=== PATIENT | male | born 1950 | race Caucasian/White ===

== ENCOUNTER → 2018-10-05 | Outpatient (CLI) | payer MEDICARE, BC ==
[2018-10-05 09:04] LABS: Blood Urea Nitrogen 18 mg/dL (9-20)
--- NOTE | 2018-10-05 10:52 | CT ---
EXAMINATION TYPE: CT chest w con DATE OF EXAM: 10/05/2018 COMPARISON: 10/30/2009 CT chest. No comparison chest x-rays. HISTORY: Abnormal chest x-ray CT DLP: 763.3 mGycm, Automated exposure control for dose reduction was used. CONTRAST: Performed injected with 100 mL of Isovue 300. TECHNIQUE: Axial images were obtained at 5 mm thick sections. Reconstructed images are reviewed on [employer] computer in the coronal plane. FINDINGS: There is a small hypodensity within the lateral midportion of the right lobe of thyroid. In the posterior right subcutaneous tissues there is a hypodense lesion measuring 6.6 x 4.3 cm to be co mpatible with a lipoma. Series 3 image 4.. No suspicious lung nodules or focal infiltrates are present. There may be a 1.3 cm right suprahilar lymph node. Series 3 image 27. This was present previously. N o additional suspicious adenopathy is evident. The ascending aorta diameter at the level of the main pulmonary artery is 3.5 cm. The main pulmonary artery diameter at the bifurcation is 2.[address] sections are obtained through the upper abdomen. There is moderate fatty infiltration thro ugh the liver. IMPRESSIONS: 1. Somewhat prominent lymph node measuring 1.3 cm right suprahilar region present previously in 2009. 2. No suspicious acute changes. 3. Probable lipoma posterior upper subcutaneous right chest. 4. Moderate fatty infiltration to the liver.
== END ==
LOC: RADCTMAIN 07:32
PROVIDERS: ATTEND Family Medicine
DX: R91.8 Other nonspecific abnormal finding of lung field (principal); Z88.8 Allergy status to other drugs, medicaments and biological substances
CPT/HCPCS: 82565; 84520; 71260; 36415; Q9967

== ENCOUNTER 2019-04-22 21:54 | Emergency (ER) | payer OTHER, MEDICARE, BC ==
[2019-04-22 22:09] VITALS: TEMP 97.6
--- NOTE | 2019-04-22 22:26 | ED ---
Syncope HPI - General Source: patient, EMS Mode of arrival: EMS <Shade Decker - Last Filed: 04/22/19 22:25> <Darian Montague - Last Filed: 04/22/19 23:34> - General Chief Complaint: Dizziness Stated Complaint: IHS-heat exhaustion Time Seen by Provider: 04/22/19 22:25 - History of Present Illness Initial Comments: Dictation was produced using [email or web address] dictation software. please excuse any grammatical, word or spelling errors. Chief Complaint: 68-year-old male presents with presyncope. History of Present Illness: Patient is 68-year-old male he is brought in for feelings of faintness while at a outdoor event. Patient states that the heat index was high and weather was very hot. Patient states perspiring all day. Approximately 2 hours prior to arrival patient states he had an episode where he began to feel faint. Patient did not fall to the ground. He immediately went to the shade and had some oral intake of glucose. Patient states that his symptomatology improved. He does have a history of diabetes. Patient reports that he hasn't been drinking much fluids today. Patient has no complaints at this time. Denies any sensation of palpitations or feeling of a curtain coming over his vision. he otherwise feels well at the moment. The ROS documented in this emergency department record has been reviewed and confirmed by me. Those systems with pertinent positive or negative responses h ave been documented in the HPI. All other systems are other negative and/or noncontributory. PHYSICAL EXAM: General Impression: Alert and oriented x3, not in acute distress HEENT: Normocephalic atraumatic, extra-ocular movements intact, pupils equal and reactive to light bilaterally, mucous membranes moist. Cardiovascular: Heart regular rate and rhythm, S1&S2 audible, no murmurs, rubs or gallops Chest: Lungs clear to auscultation bilaterally, no rhonchi, no wheeze, no rales Abdomen: Bowel sounds present, abdomen soft, non-tender, non-distended, no organomegaly Musculoskeletal: Pulses present and equal in all extremities, no peripheral edema Motor: no focal deficits noted Neurological: CN II-XII grossly intact, no focal motor or sensory deficits noted Skin: Intact with no visualized rashes Psych: Normal affect and mood ED course: 68-year-old male with presentation of presyncope. Patient was out in the hot weather. There is clinical component of heat exhaustion and dehydration. Stable hemodynamics and vital signs upon arrival. EKGs benign. Laboratory evaluation obtained. Metabolic panel shows mild gap acidosis. This likely secondary to dehydration. BUN to creatinine ratio is 120 concerning for dehydration as well. Patient given intravenous fluids. He is evaluated bedside has no complaints. Patient clear for discharge. He is advised to follow-up with primary care physician for reevaluation possible repeat labs. Return parameters discussed. Patient agreeable to discharge. EKG interpretation: Ventricular rate 54, sinus bradycardia, DE interval 170, care is 80, QTc 443. No DE prolongation, no QTC prolongation, no ST or T-wave changes noted. Overall, this EKG is unremarkable (Darian Montague) - Related Data Home Medications Medication Instructions Recorded Confirmed Albuterol Inhaler [Ventolin Hfa 1 - 2 puff INHALATION RT-QID PRN 04/22/19 04/22/19 Inhaler] Bisoprolol-Hctz 5-6.25 mg [Ziac 1 tab PO HS 04/22/19 04/22/19 5-6.25] Cetirizine HCl [Zyrtec] 10 mg PO DAILY 04/22/19 04/22/19 Fenofibrate [Lofibra] 160 mg PO AC-SUPPER 04/22/19 04/22/19 Fluticasone/Salmeterol [Advair 1 puff INHALATION RT-DAILY PRN 04/22/19 04/22/19 250-50 Diskus] Losartan [Cozaar] 25 mg PO HS 04/22/19 04/22/19 Multivitamins, Thera [Multivitamin 1 tab PO DAILY 04/22/19 04/22/19 (formulary)] Simvastatin [Zocor] 20 mg PO HS 04/22/19 04/22/19 Tamsulosin HCl [Flomax] 0.4 mg PO HS 04/22/19 04/22/19 Vitamin B Complex 1 cap PO DAILY 04/22/19 04/22/19 Vitamin D3(Unknown) 1 tab PO DAILY 04/22/19 04/22/19 metFORMIN HCL [Glucophage] 1,000 mg PO BID 04/22/19 04/22/19 Allergies Allergy/AdvReac Type Severity Reaction Status Date / Time diclofenac [From Cataflam] Allergy Rash/Hives Verified 04/22/19 22:36 lisinopril AdvReac Cough Verified 04/22/19 22:36 BLACK WASP Allergy Swelling Uncoded 04/22/19 22:36 Review of Systems ROS Other: All systems not noted in ROS Statement are negative. <Shade Decker - Last Filed: 04/22/19 22:25> ROS Other: All systems not noted in ROS Statement are negative. <Darian Montague - Last Filed: 04/22/19 23:34> ROS Statement: Those systems with pertinent positive or pertinent negative responses have been documented in the HPI. Past Medical History Past Medical History: COPD, Diabetes Mellitus, Hypertension History of Any Multi-Drug Resistant Organisms: None Reported Past Surgical History: Orthopedic Surgery Smoking Status: Former smoker Past Alcohol Use History: Heavy Past Drug Use History: Marijuana <Shade Decker - Last Filed: 04/22/19 22:25> Course Vital Signs 04/22/19 22:03 Temperature 97.6 F Pulse Rate 62 Respiratory 16 Rate Blood Pressure 115/63 O2 Sat by Pulse 95 Oximetry EKG Findings - EKG Comments: EKG Findings:: Possible old inferior infarct - EKG Results: EKG: interpreted by ERMD, sinus rhythm (With sinus arrhythmia), normal axis, normal ST/T EKG shows: bradycardia (Rate 54 bpm) <JeronimoShade - Last Filed: 04/22/19 22:25> Medical Decision Making - Lab Data Result diagrams: 04/22/19 22:11 <Darian Montague - Last Filed: 04/22/19 23:34> - Lab Data Lab Results 04/22/19 Range/Units 22:11 Sodium 140 (137-145) mmol/L Potassium 4.0 (3.5-5.1) mmol/L Chloride 105 (98-107) mmol/L Carbon Dioxide 19 L (22-30) mmol/L Anion Gap 16 mmol/L BUN 25 H (9-20) mg/dL Creatinine 1.00 (0.66-1.25) mg/dL Est GFR (CKD-EPI)AfAm 89 (>60 ml/min/1.73 sqM) Est GFR (CKD-EPI)NonAf 77 (>60 ml/min/1.73 sqM) Glucose 227 H (74-99) mg/dL Calcium 9.9 (8.4-10.2) mg/dL Magnesium 2.0 (1.6-2.3) mg/dL Disposition <Shade Decker - Last Filed: 04/22/19 22:25> Is patient prescribed a controlled substance at d/c from ED?: No Time of Disposition: 23:34 <Darian Montague - Last Filed: 04/22/19 23:34> Clinical Impression: Heat exhaustion Disposition: HOME SELF-CARE Condition: Good Instructions (If sedation given, give patient instructions): Dizziness (ED) Referrals: Rob Nolan MD [Primary Care Provider] - 1-2 days
[2019-04-22] MEDS ORDERED: SODIUM CHLORIDE 0.9% 1,000 ML IV STA (22:31)
[2019-04-22 22:58] LABS: Calcium 9.9 mg/dL (8.4-10.2)
[2019-04-23 00:06] VITALS: BP 121/75; PULSE 63; RESP 18
== END 2019-04-23 00:04 | disposition home or self-care (01) ==
LOC: EC 21:54
DX: T67.5XXA Heat exhaustion, unspecified, initial encounter (principal); R42 Dizziness and giddiness; R55 Syncope and collapse; E87.2 Acidosis; J44.9 Chronic obstructive pulmonary disease, unspecified; E11.9 Type 2 diabetes mellitus without complications; I10 Essential (primary) hypertension; Z87.891 Personal history of nicotine dependence; Z79.51 Long term (current) use of inhaled steroids; Z79.899 Other long term (current) drug therapy; Z79.84 Long term (current) use of oral hypoglycemic drugs; Z88.8 Allergy status to other drugs, medicaments and biological substances; Z91.030 Bee allergy status
CPT/HCPCS: 36415; 80048; 83735; 96360; 99284

== ENCOUNTER → 2019-09-14 | Outpatient (CLI) | payer MEDICARE, BC ==
--- NOTE | 2019-09-14 13:02 | CT ---
EXAMINATION TYPE: CT abdomen pelvis wo con DATE OF EXAM: 09/14/2019 COMPARISON: None HISTORY: Bilateral flank pain with hematuria CT DLP: 1158 mGycm Automated exposure control for dose reduction was used. TECHNIQUE: Helical acquisition of images was performed from the lung bases through the pelvis. FINDINGS: LUNG BASES: At least moderate coronary artery calcifications. LIVER/GB: Hepatic parenchyma is diffusely hypoattenuated in comparison to that of the spleen, most co mmonly seen in hepatic steatosis. This finding limits evaluation for hepatic masses. No gross evidenc e of hepatic mass is seen. Probable focal fatty sparing near the gallbladder fossa. No intrahepatic b iliary ductal dilatation. No cholelithiasis PANCREAS: No significant abnormality is seen. SPLEEN: No significant abnormality is seen. ADRENALS: 1.0 cm isthmic nodules the right adrenal gland does not fit criteria for benign adenoma and requires further evaluation with three-phase CT or MRI of the abdomen. KIDNEYS: There are 2 nonobstructing left renal calculi measuring 4 mm and 2 mm in the lower pole. No hydronephrosis of either kidney. No calculi along the courses of the ureters. There is a dystrophic c alcification in the urinary bladder measuring 2.1 cm with spiculated borders. This is seen just anter ior to the right ureteral orifice. There is impression on the urinary bladder by an enlarged and hete rogenous prostate gland containing central zone calcifications. Prostate gland measures 5.8 cm in tra nsverse dimension. FREE AIR: No free air is visualized ADENOPATHY: No greater than 1 cm short axis lymph node in the abdomen or pelvis. OSSEOUS STRUCTURES: Advanced degenerative disc disease. BOWEL: Numerous sigmoid and other colonic diverticula are seen without pericolonic fat stranding. Fa t filled umbilical hernia has a neck measuring 1.8 cm. OTHER: Extensive atherosclerosis of the abdominal aorta and its branches. IMPRESSION: 1. SPICULATED DYSTROPHIC APPEARING CALCIFICATION IN THE URINARY BLADDER MEASURING 2.1 CM JUST ANTERIO R TO THE RIGHT URETERAL ORIFICE. CURRENTLY NO HYDRONEPHROSIS. DIRECT VISUALIZATION IS RECOMMENDED IN THIS PATIENT WITH HEMATURIA. NONOBSTRUCTING PUNCTATE LEFT RENAL CALCULI ARE ALSO SEEN. 2. INDETERMINATE RIGHT ADRENAL GLAND NODULE FOR WHICH THREE-PHASE CT ABDOMEN OR MRI ARE NECESSARY TO FURTHER CHARACTERIZE. 3. PANCOLONIC DIVERTICULOSIS WITHOUT EVIDENCE OF DIVERTICULITIS. 4. HEPATIC STEATOSIS. 5. ENLARGED AND HETEROGENOUS PROSTATE GLAND IMPRESSING ON THE URINARY BLADDER.
== END ==
LOC: RADCTMAIN 11:36
PROVIDERS: ATTEND Nurse Practitioner Family
DX: N20.0 Calculus of kidney (principal); K57.30 Diverticulosis of large intestine without perforation or abscess without bleeding; K76.0 Fatty (change of) liver, not elsewhere classified; N40.0 Benign prostatic hyperplasia without lower urinary tract symptoms; R93.41 Abnormal radiologic findings on diagnostic imaging of renal pelvis, ureter, or bladder
CPT/HCPCS: 74176

== ENCOUNTER → 2019-10-13 | Outpatient (CLI) | payer MEDICARE, BC | END | disposition home or self-care (01) | LOC: RADMRIMAIN 07:52 | PROVIDERS: ATTEND Nurse Practitioner Family | DX: Z53.9 Procedure and treatment not carried out, unspecified reason (principal) ==

== ENCOUNTER → 2020-06-05 | Outpatient (CLI) | payer MEDICARE, BC ==
[2020-06-05 09:14] LABS: African American GFR (CKD) >90 (>60 ml/min/1.73 sqM); Blood Urea Nitrogen 16 mg/dL (9-20); Non-African American GFR(CKD) >90 (>60 ml/min/1.73 sqM)
--- NOTE | 2020-06-05 15:24 | CT ---
EXAMINATION TYPE: CT adrenal glands wo/w con DATE OF EXAM: 06/05/2020 COMPARISON: CT abdomen pelvis 09/14/2019. Outside institution MRI abdomen 10/25/2019. HISTORY: Follow up scan per patient. CT DLP: 2934 mGycm Automated exposure control for dose reduction was used. TECHNIQUE: Multiphasic helical acquisition of images of the abdomen, utilizing adrenal mass protocol . CONTRAST: Performed without and with IV Contrast, patient injected with 100 mL of Isovue 300. FINDINGS: LUNG BASES: Respiratory motion artifact. No pleural or pericardial effusion. Calcified coronary arter y disease. LIVER: Fatty liver. Liver is enlarged measuring 21.7 cm in craniocaudal dimension. BILIARY SYSTEM: Normal. PANCREAS: Normal. SPLEEN: Normal. ADRENALS: There is a 1.3 x 1.0 cm nodule of the right adrenal gland, with precontrast Hounsfield unit s of 38, postcontrast Hounsfield units of 74, and 15 minute delayed Hounsfield units of 52, with an a bsolute washout of 61.1%. KIDNEYS: Normal. BOWEL: No evidence of bowel obstruction. Colonic diverticulosis. No visualized acute diverticulitis. PERITONEUM: No free air is visualized. No free fluid. Fat-containing umbilical hernia. ADENOPATHY: No lymphadenopathy. VASCULATURE: No abdominal aortic aneurysm. Moderate calcified atherosclerotic disease. MUSCULOSKELETAL: Degenerative changes of the spine. IMPRESSION: 1. Right adrenal 1.3 cm nodule with absolute washout of 61.1%, consistent with lipid poor adenoma. 2. Fatty liver.
== END | disposition home or self-care (01) ==
LOC: RADCTMAIN 08:32
PROVIDERS: ATTEND Family Medicine
DX: K76.0 Fatty (change of) liver, not elsewhere classified (principal); N32.89 Other specified disorders of bladder; E27.9 Disorder of adrenal gland, unspecified; Z88.3 Allergy status to other anti-infective agents; Z88.8 Allergy status to other drugs, medicaments and biological substances
CPT/HCPCS: 82565; 84520; 36415; 74170; Q9967

== ENCOUNTER → 2020-11-29 | Outpatient (CLI) | payer MEDICARE, BC ==
--- NOTE | 2020-11-30 07:05 | XR ---
EXAMINATION TYPE: XR lumbar spine 2 or 3V DATE OF EXAM: 11/29/2020 CLINICAL HISTORY: pain TECHNIQUE: Three views of the lumbar spine are submitted. COMPARISON: None. FINDINGS: There are 5 lumbar type vertebral bodies identified. The lumbar spine shows satisfactory alignment w ithout evidence of acute fracture or dislocation. Vertebral body heights are within normal limits. Mo derate to multilevel degenerative disc space narrowing. Severe cysts facet joint arthropathy. Ventral spondylosis. The overlying soft tissue appears unremarkable. IMPRESSION: No acute fracture or dislocation is seen in the lumbar spine. ICD 10 NO FRACTURE, INITIAL EVALUATION
--- NOTE | 2020-11-30 07:06 | XR ---
EXAMINATION TYPE: XR Hip LT and AP Pelvis DATE OF EXAM: 11/29/2020 CLINICAL HISTORY: pain TECHNIQUE: AP and frogleg views of the left hip are obtained. COMPARISON: None. FINDINGS: There is no acute fracture/dislocation evident. The joint space appears within normal li mits. The overlying soft tissue appears unremarkable. IMPRESSION: 1. There is no acute fracture or dislocation.ICD 10 NO FRACTURE, INITIAL EVALUATION
--- NOTE | 2020-11-30 07:09 | XR ---
EXAMINATION TYPE: XR cervical spine limited DATE OF EXAM: 11/29/2020 CLINICAL HISTORY: pain TECHNIQUE: 3 views of the cervical spine are submitted. COMPARISON: None. FINDINGS: There is satisfactory in alignment without evidence of acute fracture or dislocation. The pre-vertebral soft tissue appears within normal limits. Mild multilevel degenerative disc space narr owing with mild ventral spondylosis. The C1-C2 articulation is unremarkable on the open mouth view. IMPRESSION: No acute fracture or dislocation is seen in the cervical spine.
== END | disposition home or self-care (01) ==
LOC: RADXRMAIN 15:29
PROVIDERS: ATTEND Family Medicine
DX: M54.16 Radiculopathy, lumbar region (principal); M54.12 Radiculopathy, cervical region; M99.03 Segmental and somatic dysfunction of lumbar region; M99.01 Segmental and somatic dysfunction of cervical region
CPT/HCPCS: 72040; 72100; 73502

== ENCOUNTER → 2021-01-15 | Outpatient (CLI) | payer MEDICARE, BC ==
--- NOTE | 2021-01-15 13:30 | P.PAINCN ---
History of Present Illness - Reason for Consult Consult date: 01/15/21 - History of Present Illness This is 70 years old male with a chronic history of severe low back pain, started more than 30 years ago , he reported that the pain is on and off and intensity of the pain fluctuate over time, interfere with the quality of life and over the last few months the pain increased significantly, it is constant with occasional radiation to the buttock and lower extremity, he denies any motor or sensory deficit , he is able to ambulate on his own, the pain increases with any activity Past Medical History Past Medical History: COPD, Diabetes Mellitus, Hypertension, Musculoskeletal Disorder, Osteoarthritis (OA) Additional Past Medical History / Comment(s): "thickened heart valve", diverticulosis, fatty liver, Legionnaire's disease, bulging discs History of Any Multi-Drug Resistant Organisms: None Reported Past Surgical History: Orthopedic Surgery Additional Past Surgical History / Comment(s): right knee surg., arthroscopy right knee, lasering eyes for glaucoma, colonoscopy x2 Past Anesthesia/Blood Transfusion Reactions: No Reported Reaction Smoking Status: Former smoker Past Alcohol Use History: Occasional Additional Past Alcohol Use History / Comment(s): quit smoking 21 yrs. ago, smoked for 30 yrs. 1-3ppd Past Drug Use History: Marijuana Additional Drug Use History / Comment(s): past hx. Medications and Allergies Home Medications Medication Instructions Recorded Confirmed Type Albuterol Inhaler (Mhu) [Ventolin 1 - 2 puff INHALATION RT-QID PRN 04/22/19 01/12/21 History Hfa Inhaler] Bisoprolol-Hctz 5-6.25 mg [Ziac 1 tab PO HS 04/22/19 01/12/21 History 5-6.25] Fenofibrate [Lofibra] 160 mg PO AC-SUPPER 04/22/19 01/12/21 History Fluticasone/Salmeterol [Advair 1 puff INHALATION RT-DAILY PRN 04/22/19 01/12/21 History 250-50 Diskus] Losartan [Cozaar] 25 mg PO HS 04/22/19 01/12/21 History Multivitamins, Thera [Multivitamin 2 tab PO DAILY 04/22/19 01/12/21 History (formulary)] Simvastatin [Zocor] 20 mg PO HS 04/22/19 01/12/21 History Tamsulosin HCl [Flomax] 0.4 mg PO BID 04/22/19 01/12/21 History metFORMIN HCL [Glucophage] 1,000 mg PO BID 04/22/19 01/12/21 History Acetaminophen [Tylenol Extra 1,500 mg PO DAILY 01/12/21 01/12/21 History Strength] Finasteride [Proscar] 5 mg PO DAILY 01/12/21 01/12/21 History Ibuprofen 800 mg PO Q6H PRN 01/12/21 01/12/21 History Loratadine [Claritin] 10 mg PO DAILY 01/12/21 01/12/21 History Allergies Allergy/AdvReac Type Severity Reaction Status Date / Time diclofenac [From Cataflam] Allergy Rash/Hives Verified 01/11/21 15:34 lisinopril AdvReac Cough Verified 01/11/21 15:34 BLACK WASP Allergy Swelling Uncoded 01/11/21 15:34 Physical Exam Vitals: Vital Signs Temp Pulse Resp BP Pulse Ox 01/15/21 13:04 98.1 F 90 18 146/74 100 Physical Examinations : -Constitutiona : Cooperative , not in acute distress . -HEENT : nech : supple , no Lymphadenopathy , normal thyroid size . : eyes : no ptosis , no icterus, no photophobia . - neurologic : Cranial nerve II to XII intact , no focal neurological deffecit . -psychatric : alert , oriented X 3 , appropriate affect , intact judgment and insight . -Lymphatic : no Lymphadenopathy . - musculoskeltal : Lumber spine moter stegnth lower extremities ,thigh and legs 5/5 Right side , 5/5 Left side deep tendon reflexes : normal Knee Jerk , normal ankle Jerk lumber facet Loading Test =positive Right , positive Left Range of motion of the lumbar spine Flexion 30 degrees, extension 10 degrees strait leg raising test = positive at 60 degree bilaterally Fabere test= positive Right , and positive LT . tenderness over the Sacroiliac joint on the Right , and Left sides Results Comments: MRI of the lumbar spine multilevel lumbar degenerative disc disease from L2 3 to L5-S1 multilevel lumbar facet arthropathy and severe spinal canal stenosis Assessment and Plan Plan: Assessment and plan=1-lumbar spinal stenosis. 2-lumbar degenerative disc disease. 3-lumbar spondylosis with lumbar facet arthropathy without myelopathy. Patient could benefit from lumbar epidural steroid injection under fluoroscopy guidance at L5S1 Time with Patient: Greater than 30 PQRS Measure Charge Sheet Measure #130: Documentation of Current Meds in Medical Chart: Patient's medications documented in chart Measure #226: Tobacco Use: Screen & Cessation Intervention: Pt not a tobacco user Measure #111: Pneumonia Vaccination: Pneumococcal vaccine NOT administered or previously given Measure #47: Advance Care Plan: Advance care planning discussed & documented, pt chose/unable to give Measure #412: Opioid Treatment Agreement: No documentation of signed opioid treatment agreement Measure #408: Opioid Therapy Follow-up Evaluation: Patient had NO f/u eval minimum every 3 months during opioid therapy Measure #317: Preventitive Care & Scrn High Bld Press & F/U: Pre-hypertensive or hypertensive BP documented, pt will f/u with PCP Measure #128: Body Mass Index (BMI) Screening & Follow-up: BMI documented ABOVE normal parameters - f/u documented Measure #131: Pain Assessment & Follow-up: Pain positive & plan documented, Follow-up scheduled Measure #431: Unhealthy Alcohol Use Preventative Care & Scrn: Patient not identified as an unhealthy alcohol user PQRS Narrative: Smoking Status Former smoker Blood Pressure 146/74 Pain Intensity [Lower Back] 5 Scale Used Numeric (1 - 10) Hx Alcohol Use (MH) No Home Medications: Ambulatory Orders Albuterol Inhaler (Mhu) [Ventolin Hfa Inhaler] 1 - 2 puff INHALATION RT-QID PRN 04/22/19 Bisoprolol-Hctz 5-6.25 mg [Ziac 5-6.25] 1 tab PO HS 04/22/19 Fenofibrate [Lofibra] 160 mg PO AC-SUPPER 04/22/19 Fluticasone/Salmeterol [Advair 250-50 Diskus] 1 puff INHALATION RT-DAILY PRN 04/22/19 Losartan [Cozaar] 25 mg PO HS 04/22/19 Multivitamins, Thera [Multivitamin (formulary)] 2 tab PO DAILY 04/22/19 Simvastatin [Zocor] 20 mg PO HS 04/22/19 Tamsulosin HCl [Flomax] 0.4 mg PO BID 04/22/19 metFORMIN HCL [Glucophage] 1,000 mg PO BID 04/22/19 Acetaminophen [Tylenol Extra Strength] 1,500 mg PO DAILY 01/12/21 Finasteride [Proscar] 5 mg PO DAILY 01/12/21 Ibuprofen 800 mg PO Q6H PRN 01/12/21 Loratadine [Claritin] 10 mg PO DAILY 01/12/21
== END ==
CPT/HCPCS: 99211

== ENCOUNTER 2021-02-06 07:21 | Day surgery (SDC) | payer MEDICARE, BC ==
[2021-02-02 10:32] VITALS: BMI 36.6
[~2021-02-06 07:21] MED LIST: LACTATED RINGERS 1,000 ML IV SCH
[2021-02-06 07:46] VITALS: TEMP 98.4
[2021-02-06 07:51] LABS: Glucose,Whole Blood 151 mg/dL (75-99)
[2021-02-06] MEDS ORDERED: IOPAMIDOL M200 10 ML VIAL ONE (08:05)
[2021-02-06] MEDS ORDERED: methylPREDNISolone ACETATE 40 MG/ML 1 ML VIAL ONE (08:05)
--- NOTE | 2021-02-06 08:16 | P.PCN ---
Date of Procedure: 02/06/21 Procedure(s) Performed: PREOPERATIVE DIAGNOSIS: 1- Lumbar Degenerative Disc Diseases 2-Lumbar spondylosis with Facet arthropathy without myelopathy. 3-lumbar spinal stenosis POSTOPERATIVE DIAGNOSIS: Same as preop diagnosis. PROCEDURE 1. Lumbar epidural steroid injection under fluoroscopic guidance at the L5-S1 level. (Fluoroscopy imaging was available in radiology department) 2. Lumbar epidurogram. ANESTHESIA: Local with 1% lidocaine 3 ml only. EBL: Minimal PROCEDURE INDICATION: The patient with low back pain and radiculitis symptoms unresponsive to conservative treatment. Fluoroscopy was used to optimize visualization of the needle placement and to maximize safety. PROCEDURE DESCRIPTION / TECHNIQUE: The patient was seen and identified in the preoperative area. Risks, benefits, complications including but not limited to infections ,bleeding ,allergic reac tion to the medications ,nerve damage and not complete pain releife , and alternatives were discussed with the patient. The patient agreed to proceed with the procedure and signed the consent. IV was started, and vital signs were stable. Patient was taken to the OR and time out was completed. The patient was placed in the prone position on procedure table and a pillow was placed under the abdomen to reduce lumbar lordosis. The lumbosacral area was prepped and draped in the usual sterile fashion.ere closely monitored during the procedure. Vital signs was monitered during the entire procedure. Using anterior-posterior fluoroscopy, the L5-S1 interlaminar space was identified and the skin over this site was marked and then infiltrated with 1% lidocaine subcutaneously. Subsequently, a 20-gauge Tuohy epidural needle was inserted and advanced toward the epidural space using the ``Loss of resistance technique and guided by AP and lateral fluoroscopy. The correct needle position in the epidural space was verified with the injection of 2 mL of the water soluble contrast dye Isovue 200 contrast and observing an excellent epidurogram with the epidural spread of the dye, after negative aspiration for blood and CSF and in the absence of paresthesias. Again after negative aspiration, a 6 ml mixture containing 40 mg of Depo-medrol , and 2 ml of preservative free Normal Saline, and 2 ml of preservative free lidocaine 1% solution was injected and a washout of epidurogram was seen. Needle was withdrawn intact, skin was cleansed, and bandages were applied. COMPLICATIONS: None DISPOSITION / PLANS: The patient was placed in a supine position and transferred to the recovery area in a stable condition for observation. There was no evidence of lower extremity motor or sensory deficit after the procedure. Patient was discharged from the recovery room after meeting discharge criteria. Home discharge instructions were given to the patient by the staff. The patient was reexamined prior to discharge. The patient will schedule a follow up in the clinic in 2-4 weeks.
[2021-02-06 08:24] VITALS: BP 169/94; PULSE 89; RESP 20
--- NOTE | 2021-02-06 08:46 | FL ---
Fluoroscopy INDICATION: Pain FINDINGS: Fluoroscopy time: 3 seconds. Images obtained: 1. IMPRESSIONS: 1. Documentation of fluoroscopy.
== END 2021-02-06 08:38 | disposition home or self-care (01) ==
LOC: ORPAIN 07:21
PROVIDERS: ATTEND Specialist
DX: M47.26 Other spondylosis with radiculopathy, lumbar region (principal); M51.16 Intervertebral disc disorders with radiculopathy, lumbar region; M48.061 Spinal stenosis, lumbar region without neurogenic claudication; Z88.8 Allergy status to other drugs, medicaments and biological substances
CPT/HCPCS: 62323; J1030; Q9966

== ENCOUNTER 2021-02-22 12:17 | Day surgery (SDC) | payer MEDICARE, BC ==
[2021-02-20 09:31] VITALS: BMI 36.6
[2021-02-22 13:01] VITALS: TEMP 97.2
[2021-02-22 13:06] LABS: Glucose,Whole Blood 126 mg/dL (75-99)
[2021-02-22] MEDS ORDERED: IOPAMIDOL M200 10 ML VIAL ONE (13:37)
[2021-02-22] MEDS ORDERED: ROPIVACAINE 5MG/ML 20ML VIAL ONE (13:37)
[2021-02-22] MEDS ORDERED: TRIAMCINOLONE ACETONIDE 40 MG/ML 1 ML VIAL ONE (13:37)
--- NOTE | 2021-02-22 13:51 | P.PCN ---
Date of Procedure: 02/22/21 Surgeon: Loan Carranza Pathology: none sent Condition: stable Disposition: PACU Description of Procedure: PREOPERATIVE DIAGNOSIS: 1-Lumbar radiculopathy 2- Lumber Degenerative Disc Diseases. POSTOPERATIVE DIAGNOSIS: 1-Lumbar radiculopathy. 2-Lumbar Degenerative Disc Diseases PROCEDURE 1. Lumbar epidural steroid injection under fluoroscopic guidance at the L5-S1 level in the left paramedian approach. 2. Lumbar epidurogram. ANESTHESIA: Local only with 1% lidocaine EBL: Minimal PROCEDURE INDICATION: The patient with low back pain and radiculitis symptoms unresponsive to conservative treatment. Fluoroscopy was used to optimize visualization of the needle placement and to maximize safety. PROCEDURE DESCRIPTION / TECHNIQUE: The patient was seen and identified in the preoperative area. Risks, benefits, complications including but not limited to infections ,bleeding ,allergic reaction to the medications ,nerve damage and not complete pain relief , and alternatives were discussed with the patient. The patient agreed to proceed with the procedure and signed the consent. IV was started, and vital signs were stable. Patient was taken to the OR and time out was completed. The patient was placed in the prone position on procedure table and a pillow was placed under the abdomen to reduce lumbar lordosis. The lumbosacral area was prepped and draped in the usual sterile fashion with ChloraPrep.Patient was closely monitored during the procedure. Conscious sedation was used during the procedure to decrease patients anxiety. Vital signs were monitered during the entire pr ocedure. Using anterior-posterior fluoroscopy, the L5-S1 interlaminar space was identified and the skin over this site was marked and then infiltrated with 1% lidocaine subcutaneously. Subsequently, a 20-gauge Tuohy epidural needle was inserted and advanced toward the epidural space using the Loss of resistance to air technique and guided by AP and lateral fluoroscopy. The correct needle position in the epidural space was verified with the injection of 1 mL of the water soluble contrast dye Omnipaque 180 contrast and observing an excellent epidurogram with the epidural spread of the dye, after negative aspiration for blood and CSF and in the absence of paresthesias. Again after negative aspiration, a 8 ml mixture containing 40 mg of Kenalog and 5 ml of preservative free Normal Saline, and 2 ml of preservative free ropivacaine 0.5% solution was injected and a washout of epidurogram was seen. Needle was withdrawn intact, skin was cleansed, and bandages were applied. patient tolerated procedure well and was transferred to PACU in stable condition.A copy of the needle placement picture was saved to the fluoroscopy machine. COMPLICATIONS: None
[2021-02-22 14:01] VITALS: RESP 20
--- NOTE | 2021-02-22 14:10 | FL ---
EXAMINATION TYPE: FL guided pain mgmt statistic DATE OF EXAM: 02/22/2021 CLINICAL HISTORY: Low back pain. TECHNIQUE: Fluoroscopy. COMPARISON: None. FINDINGS: Fluoroscopic guidance was provided during pain relief procedure performed by Dr. Street . A total of 10 seconds of fluoroscopic time was utilized during the procedure and two spot images a re acquired. Images acquired shows needle localization near the lumbosacral junction with contrast in jection. IMPRESSION: As Above.
[2021-02-22 14:17] VITALS: BP 120/71; PULSE 67
== END 2021-02-22 14:18 | disposition home or self-care (01) ==
LOC: ORPAIN 12:17
PROVIDERS: ATTEND Anesthesiology
DX: M51.16 Intervertebral disc disorders with radiculopathy, lumbar region (principal); E11.9 Type 2 diabetes mellitus without complications; I10 Essential (primary) hypertension
CPT/HCPCS: 62323; J3301; Q9966; J2795

== ENCOUNTER → 2021-04-23 | Outpatient (CLI) | payer MEDICARE, BC ==
[2021-04-23 10:30] VITALS: BP 159/77; PULSE 71; RESP 18; TEMP 98.3
--- NOTE | 2021-04-23 10:43 | P.PN ---
Subjective Progress Note Date: 04/23/21 This is a 70-year-old gentleman with history of chronic lower back pain with radiation to the lower extremities bilaterally down to the feet with occasional numbness and tingling in a specific radicular distribution. The patient had lumbar epidural steroid injection twice previously which gave him a few weeks of pain relief however his pain is back to baseline and getting worse. The patient failed to respond to tramadol prescribe his primary care physician and his liver enzymes have been getting worse up to 100 units per deciliter level and he was advised to stop using any Tylenol or ibuprofen. Patient denies new-onset weakness, bowel/bladder incontinence, or any other signs or symptoms of cauda equina syndrome. There are no signs of acute intoxication, and no indications of medication diversion or overuse. In addition to above, 13-point review of systems is also negative for chest pain, shortness of breath, changes in vision, changes in hearing, new onset weakness, abdominal pain, diarrhea, extreme fatigue, malaise, fever, skin changes, homicidal or suicidal ideation, or bowel or bladder incontinence. Vital Signs: Reviewed in EMR Gen: AAOx3, NAD HEENT: PERRLA,hearing grossly normal Pulm: resp unlabored Neck: supple, trachea midline Neuro exam of the lower extremities: Decreased but symmetrical knee reflexes bilaterally and absent ankle reflex bilaterally, normal muscle strength in the lower extremities bilaterally. Straight leg raising test: Negative bilaterally Facet loading test: Positive bilaterally in the lumbar spine Tenderness in the paravertebral musculature: Positive bilaterally in the lumbar paravertebral musculature Neuro: CN II-XII grossly intact, Imaging: Reviewed in EMR/chart Assessment: 1-lumbar spinal stenosis. 2-lumbar degenerative disc disease. 3-lumbar spondylosis with lumbar facet arthropathy without myelopathy. Plan: 1. Explanation: Opioid and psychological risk scores were reviewed. Diagnoses, prognoses, and multiple treatment options including but not limited to physical therapy, interventional therapies, adjuvant medical therapies, narcotic medication therapies, and surgery were discussed with the patient and all questions were answered to the patient's satisfaction. 2. Opioid agreement: Signed with the patient and the patient is warned not to use opioids while driving or before driving and not to combine opioids with benzodiazepines or alcohol. 3. Counseling: The patient was counseled extensively on SMOKING CESSATION, BODY MASS INDEX, EXERCISE. Specifically, the patient was instructed regarding the importance of smoking cessation, obesity, and exercise in the context of both chronic pain and overall health. 4. Procedures: Schedule for diagnostic lumbar medial branch block bilaterally for levels L4 5 and L5-S1(medial branches lumbar L3, L4 and L5) 5. Consultations: None 6. Investigations: None 7. Medications: Start gabapentin 100 mg and gradually go up to 900 mg a day 8. Disposition: Return to clinic in 4 weeks and to the above-mentioned procedure as soon as possible 9. Maps were reviewed and were appropriate.
== END ==
LOC: PNWHC3 10:17
PROVIDERS: ATTEND Anesthesiology
DX: M48.061 Spinal stenosis, lumbar region without neurogenic claudication (principal); M51.36 Other intervertebral disc degeneration, lumbar region; M47.816 Spondylosis without myelopathy or radiculopathy, lumbar region; Z88.6 Allergy status to analgesic agent; Z88.8 Allergy status to other drugs, medicaments and biological substances; Z91.038 Other insect allergy status; Z87.891 Personal history of nicotine dependence
CPT/HCPCS: 99211

== ENCOUNTER 2021-05-11 09:28 | Day surgery (SDC) | payer MEDICARE, BC ==
[2021-05-09 15:12] VITALS: BMI 36.6
[2021-05-11 10:01] VITALS: TEMP 98.2
[2021-05-11 10:04] LABS: Glucose,Whole Blood 156 mg/dL (75-99)
[2021-05-11] MEDS ORDERED: fentaNYL (PF) 50 MCG/ML 2 ML AMP ONE (10:24)
[2021-05-11] MEDS ORDERED: methylPREDNISolone ACETATE 40 MG/ML 1 ML VIAL ONE (10:24)
[2021-05-11] MEDS ORDERED: ROPIVACAINE 5MG/ML 20ML VIAL ONE (10:24)
[2021-05-11] MEDS ORDERED: MIDAZOLAM 2 MG/2 ML VIAL ONE (10:24)
--- NOTE | 2021-05-11 10:39 | P.PCN ---
Date of Procedure: 05/11/21 Procedure(s) Performed: PREOPERATIVE DIAGNOSIS : 1- Lumbar spondylosis with Facet Arthropathy without myelopathy . 2- Lumber degenerative disc disease POSTOPERATIVE DIAGNOSIS: 1- Lumbar spondylosis with Facet Arthropathy without myelopathy . 2- Lumber degenerative disc disease PROCEDURE: Diagnostic bilateral L3 , L4 , and L5 medial branch block under fluoroscopy guidance(fluoroscopy images available in the radiology Department ) ( To target the facet joint between L4-5 , and L5-S1 ) ANESTHESIA: Monitored anesthesia care as per anesthesia department.. EBL: Minimal COMPLICATION: None PROCEDURE INDICATION: Chronic low back pain secondary to Facet arthropathy unresponsive to conservative treatment. PROCEDURE DESCRIPTION: the patient was seen and identified in the preop holding area , risks and benefits and possible complications of the procedure and alternative were discussed with the patient, and the patient agreed to proceed with the procedure and signed the consent and vital signs monitored during the procedure and fluoroscopy was used to maximize the benefit and accuracy of the needle placement, and sedation was given to decrease patient anxiety, patient was taken to the procedure room and placed in prone position vital signs monitored in the back prepped with chlorhexidine X3 then under strict sterile technique using a right oblique fluoroscopy ,the junction of the transverse process and the superior articulating process of the right L3 , L4 , and L5 vertebra which corresponding to the fluoroscopy image of the eye of the Shivam dog on the block side for the medial branches and subsequently , after local infiltration of skin and subcu tissuies with Ropivacaine 0.5 % , one mL at each level ,then 22-gauge Quincke-type needles , 3 needle was used , each one of them placed at the junction of the base of the transverse process and the superior articular process at the appropriate level, and the needle was advanced until the periosteum contacted, needle placement confirmed with AP oblique and lateral view and after appropriate needle placement confirmed, and after negative aspiration for heme and CSF and there was no paresthesia 1-1/2 mL of Ropivacaine 0.5% mixed with 20 mg Depo-Medrol , then half mL injected at each level after negative aspiration the needle subsequently removed and the same procedure repeated for the left side at left side at L3 , L4 and L5 levels. At the end of the procedure and the needles removed and a bandage applied after the skin was cleaned the cleaning solution patient taken to recovery room in stable condition and monitors in the recovery room for 20-30 minutes and discharged home in stable condition after discharge criteria met and patient will follow up with the pain clinic in 2-4 weeks
[2021-05-11] MEDS ORDERED: IV FLUID CONTINUATION 1,000 ML IV ONE (10:49)
[2021-05-11 10:51] VITALS: RESP 18
[2021-05-11 11:02] VITALS: BP 146/79; PULSE 67
--- NOTE | 2021-05-11 11:25 | FL ---
Fluoroscopy INDICATION: Pain FINDINGS: Fluoroscopy time: 11 seconds. Images obtained: 4. IMPRESSIONS: 1. Documentation of fluoroscopy.
== END 2021-05-11 11:23 | disposition home or self-care (01) ==
LOC: ORPAIN 09:28
PROVIDERS: ATTEND Specialist
DX: G89.29 Other chronic pain (principal); M47.816 Spondylosis without myelopathy or radiculopathy, lumbar region; I10 Essential (primary) hypertension; E78.5 Hyperlipidemia, unspecified; I38 Endocarditis, valve unspecified; E11.9 Type 2 diabetes mellitus without complications; K21.9 Gastro-esophageal reflux disease without esophagitis; I25.2 Old myocardial infarction; Z79.84 Long term (current) use of oral hypoglycemic drugs; Z79.899 Other long term (current) drug therapy; Z88.8 Allergy status to other drugs, medicaments and biological substances
CPT/HCPCS: 64493; 64494; J2250; J1030; J3010; J2795

== ENCOUNTER → 2021-05-23 | Outpatient (CLI) | payer MEDICARE, BC ==
--- NOTE | 2021-05-23 14:33 | P.PAINPG ---
Subjective Progress Note Date: 05/23/21 This is a 70-year-old gentleman with history of chronic lower back pain with radiation to the lower extremities bilaterally down to the feet with occasional numbness and tingling in a specific radicular distribution. The patient had lumbar epidural steroid injection twice previously which gave him a few weeks of pain relief however his pain is back to baseline and getting worse. The patient failed to respond to tramadol prescribe his primary care physician and his liver enzymes have been getting worse up to 100 units per deciliter level and he was advised to stop using any Tylenol or ibuprofen. She notes that the medial branch block was effective in terms of relieving his pain, saying about 90% relief. He is still feeling some relief of the stay. He does mention that he has significant tailbone pain which is worse with changing positions and sitting. The pain was tailbone was not taken away by the medial branch blocks that he is concerned it is a different pain structure. He continues to take Tylenol and ibuprofen even though he was advised to stop. Patient denies new-onset weakness, bowel/bladder incontinence, or any other signs or symptoms of cauda equina syndrome. There are no signs of acute intoxication, and no indications of medication diversion or overuse. In addition to above, 13-point review of systems is also negative for chest pain, shortness of breath, changes in vision, changes in hearing, new onset weakness, abdominal pain, diarrhea, extreme fatigue, malaise, fever, skin changes, homicidal or suicidal ideation, or bowel or bladder incontinence. Vital Signs: Reviewed in EMR Gen: AAOx3, NAD HEENT: PERRLA,hearing grossly normal Pulm: resp unlabored Neck: supple, trachea midline Neuro exam of the lower extremities: Decreased but symmetrical knee reflexes bilaterally and absent ankle reflex bilaterally, normal muscle strength in the l ower extremities bilaterally. Straight leg raising test: Negative bilaterally Facet loading test: Positive bilaterally in the lumbar spine Tenderness in the paravertebral musculature: Positive bilaterally in the lumbar paravertebral musculature Tenderness over coccyx. Neuro: CN II-XII grossly intact, Imaging: Reviewed in EMR/chart Assessment: 1-lumbar spinal stenosis. 2-lumbar degenerative disc disease. 3-lumbar spondylosis with lumbar facet arthropathy without myelopathy. Plan: 1. Explanation: Opioid and psychological risk scores were reviewed. Diagnoses, prognoses, and multiple treatment options including but not limited to physical therapy, interventional therapies, adjuvant medical therapies, narcotic medication therapies, and surgery were discussed with the patient and all questions were answered to the patient's satisfaction. 2. Opioid agreement: We are not prescribing him opioids. 3. Counseling: The patient was counseled extensively on BODY MASS INDEX, EXERCISE. Specifically, the patient was instructed regarding the importance of obesity, and exercise in the context of both chronic pain and overall health. 4. Procedures: He is scheduled for diagnostic lumbar medial branch block bilaterally for levels L4 5 and L5-S1(medial branches lumbar L3, L4 and L5) #2. In the mean time we will perform a coccygeal ligament injection for him to help with the tailbone pain. 5. Consultations: None 6. Investigations: None 7. Medications: I advised him to talk to his primary care doctor about Tylenol and ibuprofen usage given his elevated liver enzymes and kidney dysfunction. 8. Disposition: For above procedures 9. Maps were reviewed and were appropriate. I have spent 25 minutes on review of the records, review of the imaging available, [id number] interaction with the patient, medication management, follow-up care coordination and record creation. PQRS Measure Charge Sheet PQRS Narrative: Smoking Status Former smoker Hx Alcohol Use (MH) No Home Medications: Ambulatory Orders Bisoprolol-Hctz 5-6.25 mg [Ziac 5-6.25] 1 tab PO HS 04/22/19 Fenofibrate [Lofibra] 160 mg PO AC-SUPPER 04/22/19 Losartan [Cozaar] 25 mg PO HS 04/22/19 Multivitamins, Thera [Multivitamin (formulary)] 2 tab PO DAILY 04/22/19 Simvastatin [Zocor] 20 mg PO HS 04/22/19 Tamsulosin HCl [Flomax] 0.4 mg PO BID 04/22/19 metFORMIN HCL [Glucophage] 1,000 mg PO BID 04/22/19 Finasteride [Proscar] 5 mg PO DAILY 01/12/21 Fexofenadine HCl [Susan Allergy] 180 mg PO DAILY 03/29/21 Gabapentin 300 mg PO Q8H 04/25/21 Turmeric With Glucosamine 1 tab PO BID 05/09/21 Acetaminophen [Tylenol] 1,500 mg PO Q4-6H PRN 05/11/21 Ibuprofen 800 mg PO Q8H 05/11/21 Controlled Substance Measures - Controlled Substance Measures Is patient prescribed a controlled substance at discharge?: No
[2021-05-23 14:49] VITALS: BP 142/89; PULSE 71; RESP 18; TEMP 97.7
== END ==
LOC: PNWHC3 14:14
PROVIDERS: ATTEND Anesthesiology
DX: M48.061 Spinal stenosis, lumbar region without neurogenic claudication (principal); M51.36 Other intervertebral disc degeneration, lumbar region; M47.816 Spondylosis without myelopathy or radiculopathy, lumbar region; Z87.891 Personal history of nicotine dependence; Z88.6 Allergy status to analgesic agent; Z88.8 Allergy status to other drugs, medicaments and biological substances
CPT/HCPCS: 99211

== ENCOUNTER 2021-06-05 10:56 | Day surgery (SDC) | payer MEDICARE, BC ==
[2021-05-31 12:27] VITALS: BMI 35.9
[2021-06-05 11:29] VITALS: TEMP 98.7
[2021-06-05] MEDS ORDERED: ROPIVACAINE 5MG/ML 20ML VIAL ONE (11:54)
[2021-06-05] MEDS ORDERED: methylPREDNISolone ACETATE 40 MG/ML 1 ML VIAL ONE (11:54)
[2021-06-05 12:12] VITALS: RESP 18
--- NOTE | 2021-06-05 12:14 | P.PCN ---
Date of Procedure: 06/05/21 Procedure(s) Performed: Procedure= sacrococcygeal joint steroid injection under fluoroscopy guidance (fluoroscopy image stored on file in the radiology Department ) Preoperative diagnosis= 1-sacrococcygeal neuralgia 2-lumbar degenerative disc disease 3-lumbar spondylosis facet arthropathy Postoperative diagnosis=Same as preop Diagnosis . Complication = none Condition= stable Anesthesia=none . Indication for the procedure= patient complaining of low back pain , examination was positive for severe tenderness over the coccygeal joint joints and patient diagnosed with sacrococcygeal neuralgia, for this reason he was good candidate for sacrococcygeal joint joint steroid injection. Description of the procedure= procedure risk and benefits discussed with the patient, including but not limited, risk of infection and bleeding, and ALLERGIC reaction to the medication and not complete pain relief and patient agreed with the preceding patient taken to the operating room, placed in prone position or standard monitors applied to the patient then back prepped with chlorhexidine 3 times , Then under strict sterile technique, I did the sacrococcygeal joint the which was identified under fluoroscopy guidance with lateral views ,then local infiltration of the skin and subcu interstitial with ropivacaine 0.5% then 25- gauge Quincke Needle advanced slowly under fluoroscopy and placed in the sacrococcygeal joint needle placement confirmed with AP and oblique and lateral view and after appropriate needle placement confirmed and after negative aspiration, or heme , then Ropivacaine 0.5% 2 mL, and 40 mg of Depo-Medrol mixed together and injected in the sacrococcygeal joint after negative aspiration patient tolerated the procedure well without any complication.
[2021-06-05 12:27] VITALS: BP 135/74; PULSE 73
--- NOTE | 2021-06-05 12:55 | FL ---
Fluoroscopy INDICATION: Pain FINDINGS: Fluoroscopy time: 7 seconds. Images obtained: 1. IMPRESSIONS: 1. Documentation of fluoroscopy.
== END 2021-06-05 12:33 | disposition home or self-care (01) ==
LOC: ORPAIN 10:56
PROVIDERS: ATTEND Specialist
DX: M51.36 Other intervertebral disc degeneration, lumbar region (principal); M47.816 Spondylosis without myelopathy or radiculopathy, lumbar region
CPT/HCPCS: 20550

== ENCOUNTER → 2021-06-15 | Day surgery (SDC) | payer MEDICARE, BC ==
[2021-06-12 12:03] VITALS: BMI 37.0
[~2021-06-15] MED LIST changes: +IV FLUID CONTINUATION 1,000 ML IV ONE; +MIDAZOLAM 2 MG/2 ML VIAL ONE; +NALOXONE 0.4 MG/ML 1 ML VIAL ONE; +ROPIVACAINE 5MG/ML 20ML VIAL ONE; +fentaNYL (PF) 50 MCG/ML 2 ML AMP ONE; +methylPREDNISolone ACETATE 40 MG/ML 1 ML VIAL ONE
[2021-06-15 08:41] VITALS: TEMP 97.1
[2021-06-15 08:41] LABS: Glucose,Whole Blood 159 mg/dL (75-99)
--- NOTE | 2021-06-15 08:58 | P.PCN ---
Date of Procedure: 06/15/21 Procedure(s) Performed: PREOPERATIVE DIAGNOSIS : 1- Lumbar spondylosis with Facet Arthropathy without myelopathy . 2- Lumber degenerative disc disease POSTOPERATIVE DIAGNOSIS: 1- Lumbar spondylosis with Facet Arthropathy without myelopathy . 2- Lumber degenerative disc disease PROCEDURE: Diagnostic bilateral L3 , L4 , and L5 medial branch block under fluoroscopy guidance(fluoroscopy images available in the radiology Department ) ( To target the facet joint between L4-5 , and L5-S1 ) # 2nd ANESTHESIA: Monitored anesthesia care as per anesthesia department.. EBL: Minimal COMPLICATION: None PROCEDURE INDICATION: Chronic low back pain secondary to Facet arthropathy unresponsive to conservative treatment. PROCEDURE DESCRIPTION: the patient was seen and identified in the preop holding area , risks and benefits and possible complications of the procedure and alternative were discussed with the patient, and the patient agreed to proceed with the procedure and signed the consent and vital signs monitored dur ing the procedure and fluoroscopy was used to maximize the benefit and accuracy of the needle placement, and sedation was given to decrease patient anxiety, patient was taken to the procedure room and placed in prone position vital signs monitored in the back prepped with chlorhexidine X3 then under strict sterile technique using a right oblique fluoroscopy ,the junction of the transverse process and the superior articulating process of the right L3 , L4 , and L5 vertebra which corresponding to the fluoroscopy image of the eye of the Shivam dog on the block side for the medial branches and subsequently , after local infiltration of skin and subcu tissuies with Ropivacaine 0.5 % , one mL at each level ,then 22-gauge Quincke-type needles , 3 needle was used , each one of them placed at the junction of the base of the transverse process and the superior articular process at the appropriate level, and the needle was advanced until the periosteum contacted, needle placement confirmed with AP oblique and lateral view and after appropriate needle placement confirmed, and after negative aspiration for heme and CSF and there was no paresthesia 1-1/2 mL of Ropivacaine 0.5% mixed with 20 mg Depo-Medrol , then half mL injected at each level after negative aspiration the needle subsequently removed and the same procedure repeated for the left side at left side at L3 , L4 and L5 levels. At the end of the procedure and the needles removed and a bandage applied after the skin was cleaned the cleaning solution patient taken to recovery room in stable condition and monitors in the recovery room for 20-30 minutes and discharged home in stable condition after discharge criteria met and patient will follow up with the pain clinic in 2-4 weeks
[2021-06-15 09:08] VITALS: RESP 16
--- NOTE | 2021-06-15 09:19 | FL ---
EXAMINATION TYPE: FL guided pain mgmt statistic DATE OF EXAM: 06/15/2021 HISTORY: Pain 10sec fluoro time,4 images to PACS
[2021-06-15 09:27] VITALS: BP 143/78; PULSE 65
== END ==
LOC: ORPAIN 08:02
PROVIDERS: ATTEND Specialist
DX: M47.816 Spondylosis without myelopathy or radiculopathy, lumbar region (principal); M51.36 Other intervertebral disc degeneration, lumbar region; Z88.8 Allergy status to other drugs, medicaments and biological substances; Z91.038 Other insect allergy status; E11.9 Type 2 diabetes mellitus without complications; Z87.891 Personal history of nicotine dependence; I10 Essential (primary) hypertension; E78.5 Hyperlipidemia, unspecified; Z79.82 Long term (current) use of aspirin; Z79.899 Other long term (current) drug therapy
CPT/HCPCS: 64493; 64494; J2250; J1030; J2310; J3010

== ENCOUNTER → 2021-07-16 | Outpatient (CLI) | payer MEDICARE, BC ==
[2021-07-16 10:10] VITALS: BP 163/75; PULSE 85; RESP 18; TEMP 98
--- NOTE | 2021-07-16 10:34 | P.PN ---
Subjective Progress Note Date: 07/16/21 This is Follow up visit for this 70 years old male with a chronic history of severe low back pain, is diagnosed with lumbar spondylosis and lumbar facet arthropathy and lumbar spinal stenosis, recently we have done diagnostic medial branch blocks lumbar area at L3, L4,L 5 bilaterally x2 his pain improved more than 75 % after each block, the pain interfere with the quality of life and over the last few months the pain increased significantly, it is constant with occasional radiation to the buttock and lower extremity, he denies any motor or sensory deficit , he is able to ambulate on his own, the pain increases with any activity Physical Examinations : -Constitutiona : Cooperative , not in acute distress . -HEENT : nech : supple , no Lymphadenopathy , normal thyroid size . : eyes : no ptosis , no icterus, no photophobia . - neurologic : Cranial nerve II to XII intact , no focal neurological deffecit . -psychatric : alert , oriented X 3 , appropriate affect , i ntact judgment and insight . -Lymphatic : no Lymphadenopathy . - musculoskeltal : Lumber spine moter stegnth lower extremities ,thigh and legs 5/5 Right side , 5/5 Left side deep tendon reflexes : normal Knee Jerk , normal ankle Jerk lumber facet Loading Test =positive Right , positive Left Range of motion of the lumbar spine Flexion 30 degrees, extension 10 degrees strait leg raising test = positive at 60 degree bilaterally Fabere test= positive Right , and positive LT . tenderness over the Sacroiliac joint on the Right , and Left sides tenderness over the sacrum . Results MRI of the lumbar spine multilevel lumbar degenerative disc disease from L2 3 to L5-S1 multilevel lumbar facet arthropathy and severe spinal canal stenosis Assessment and plan=1-lumbar spinal stenosis. 2-lumbar degenerative disc disease. 3-lumbar spondylosis with lumbar facet arthropathy without myelopathy. Patient could benefit from RFA medial branches lumbar at L3, L4 ,L5 bilaterally Time with Patient: less than 30. PQRS Measure Charge Sheet Measure #130: Documentation of Current Meds in Medical Chart: Patient's medications documented in chart Measure #226: Tobacco Use: Screen & Cessation Intervention: Pt not a tobacco user Measure #111: Pneumonia Vaccination: Pneumococcal vaccine NOT administered or previously given Measure #47: Advance Care Plan: Advance care planning discussed & documented, pt chose/unable to give Measure #412: Opioid Treatment Agreement: No documentation of signed opioid treatment agreement Measure #408: Opioid Therapy Follow-up Evaluation: Patient had NO f/u eval minimum every 3 months during opioid therapy Measure #317: Preventitive Care & Scrn High Bld Press & F/U: Pre-hypertensive or hypertensive BP documented, pt will f/u with PCP Measure #128: Body Mass Index (BMI) Screening & Follow-up: BMI documented ABOVE normal parameters - f/u documented Measure #131: Pain Assessment & Follow-up: Pain positive & plan documented, Follow-up scheduled Measure #431: Unhealthy Alcohol Use Preventative Care & Scrn: Patient not identified as an unhealthy alcohol user PQRS Narrative: Objective - Vital Signs Vital signs: Vital Signs Temp 98.0 F 07/16/21 10:07 Pulse 85 07/16/21 10:07 Resp 18 07/16/21 10:07 BP 163/75 07/16/21 10:07 Pulse Ox 95 07/16/21 10:07
== END ==
LOC: PNWHC3 09:57
PROVIDERS: ATTEND Specialist
DX: M48.061 Spinal stenosis, lumbar region without neurogenic claudication (principal); M51.36 Other intervertebral disc degeneration, lumbar region; M47.816 Spondylosis without myelopathy or radiculopathy, lumbar region; Z88.8 Allergy status to other drugs, medicaments and biological substances; Z88.6 Allergy status to analgesic agent; Z91.09 Other allergy status, other than to drugs and biological substances; Z87.891 Personal history of nicotine dependence
CPT/HCPCS: 99211

== ENCOUNTER 2021-08-17 09:37 | Day surgery (SDC) | payer MEDICARE, BC ==
[2021-08-16 09:56] VITALS: BMI 80.7
[~2021-08-17 09:37] MED LIST changes: -IV FLUID CONTINUATION 1,000 ML IV ONE; -MIDAZOLAM 2 MG/2 ML VIAL ONE; -NALOXONE 0.4 MG/ML 1 ML VIAL ONE; -ROPIVACAINE 5MG/ML 20ML VIAL ONE; -fentaNYL (PF) 50 MCG/ML 2 ML AMP ONE; -methylPREDNISolone ACETATE 40 MG/ML 1 ML VIAL ONE
[2021-08-17] MEDS ORDERED: LIDOCAINE 1% (10MG/ML) FOR IV START INTRADERMA ONE (10:15)
[2021-08-17 10:22] VITALS: RESP 16; TEMP 97.4
[2021-08-17] MEDS ORDERED: MIDAZOLAM 2 MG/2 ML VIAL ONE (10:25)
[2021-08-17] MEDS ORDERED: fentaNYL (PF) 50 MCG/ML 2 ML AMP ONE (10:25)
[2021-08-17 10:26] LABS: Glucose,Whole Blood 123 mg/dL (75-99)
[2021-08-17] MEDS ORDERED: methylPREDNISolone ACETATE 40 MG/ML 1 ML VIAL ONE (10:27)
[2021-08-17] MEDS ORDERED: ROPIVACAINE 5MG/ML 20ML VIAL ONE (10:27)
--- NOTE | 2021-08-17 10:55 | P.PCN ---
Date of Procedure: 08/17/21 Procedure(s) Performed: PREOPERATIVE DIAGNOSIS: 1-Lumbar Spondylosis with Facet Arthropathy without myelopathy. 2- Lumber degenerative disc disease. POSTOPERATIVE DIAGNOSIS: 1- Lumbar Spondylosis with Facet Arthropathy without myelopathy. 2- Lumber degenerative disc disease. PROCEDURES : Bilateral Radiofrequency thermocoagulation, L3 , L4 , and L5 medial branch, with fluoroscopic guidance (fluoroscopy images available in the radiology department) ( to denervate the facet joint at Bilateral L4-5 ,and L5-S1 levels ). ANESTHESIA: Monitored anesthesia care as per anesthesia department. EBL: Minimal PROCEDURE INDICATION: The patient with low back pain secondary to lumbar facet arthropathy who had more than 50% relief of her pain with previous diagnostic lumbar medial branch block with bupivacaine. PROCEDURE DESCRIPTION / TECHNIQUE: The patient was seen and identified in the preoperative area. Risks, benefits, complications, including but not limited to risk of infection ,bleeding , allergic reactions to the medications and no complete pain releife , and alternatives were discussed with the patient, the patient agreed to proceed with the procedure and signed the consent. IV was started. Vital signs remained stable throughout the procedure. Patient was taken to the OR and time out was completed. The patient was placed in the prone position on the procedure table. The lumber area was prepped and draped in the usual sterile fashion. . Vital signs were closely monitored during the procedure .IV sedation was used during the procedure to decrease patients anxiety. Using AP and then oblique fluoroscopy, the ``eye of the Shivam dog corre sponding to the connection between the superior and transverse articular processes of right L3, L4, and L5 were identified, marked, and localized with 1% lidocaine. Subsequently, a 18 [id number] radiofrequency cannula with a 10- mm active tip was advanced guided by fluoroscopy to each of the``eyes of the Shivam dog at right L3, L4, and L5. Each site then underwent sensory testing at 50 Hz and 0 to 1 volt and motor testing at 2.5 Hz and 0 to 3 volt with local stimulation, but no radicular symptoms down the legs. Thereafter each sites underwent radiofrequency thermocoagulation at 80 degrees celsius for 90 seconds after injecting 0.5 ml of PF Ropivacaine 1ml, then after the thermocoagulation done , 1 ml of the block solution containing Depo-Medrol 20 mg and 3 ml of Ropivacaine 0.5% was injected at the right L3 , L4 , and L5 , levels after negative aspiration of CSF and blood and with no paresthesias. Cannulas were retracted while injecting lidocaine 1% until the needle is out. The same procedure was repeated at the level of Left L3, L4, and L5 levels. At the end of the procedure, the skin was cleansed and bandages were applied. COMPLICATIONS: No acute complications. DISPOSITION / PLANS: The patient was placed in a supine position and transferred to the recovery area in a stable condition for observation and was discharged from the recovery room after meeting discharge criteria. Home discharge instructions given to the patient by the staff. The patient was reexamined prior to discharge. The patient will schedule a follow up in the clinic in 2-4 weeks.
[2021-08-17] MEDS ORDERED: IV FLUID CONTINUATION 1,000 ML IV ONE (11:14)
[2021-08-17 11:16] VITALS: BP 110/65; PULSE 67
--- NOTE | 2021-08-17 14:16 | FL ---
EXAMINATION TYPE: FL guided pain mgmt statistic DATE OF EXAM: 08/17/2021 CLINICAL HISTORY: Low back pain. TECHNIQUE: Fluoroscopy. COMPARISON: None. FINDINGS: Fluoroscopic guidance was provided during pain relief procedure performed by Dr. Richard . A total of 32 seconds of fluoroscopic time was utilized during the procedure and 7 spot images are acquired. Images acquired shows needle localization at several levels in the lumbar spine. IMPRESSION: As Above.
== END 2021-08-17 11:30 | disposition home or self-care (01) ==
LOC: ORPAIN 09:37
PROVIDERS: ATTEND Specialist
DX: M47.816 Spondylosis without myelopathy or radiculopathy, lumbar region (principal)
CPT/HCPCS: 64635; 64636; J2250; J1030; J3010; J2795

== ENCOUNTER → 2021-09-03 | Outpatient (CLI) | payer MEDICARE, BC ==
[2021-09-03 10:21] VITALS: BP 168/96; PULSE 87; RESP 18; TEMP 98.3
--- NOTE | 2021-09-03 10:32 | P.PN ---
Subjective Progress Note Date: 09/03/21 This is Follow up visit for this 70 years old male with a chronic history of severe low back pain, is diagnosed with lumbar spondylosis and lumbar facet arthropathy and lumbar spinal stenosis, recently we have done RFA medial branch blocks lumbar area at L3, L4,L 5 bilaterally, his back pain improved and is currently currently he had minimal or no pain in the low back area, he continued to have pain in the coccyx area, and in the coccyx area increases with sitting position or changing position, he denies any motor or sensory deficit , he is able to ambulate on his own, the pain increases with any activity, he continued to use Neurontin 300 mg 3 times a day and ibuprofen 800 mg 3 times a day when necessary denies any side effects of the medication Physical Examinations : -Constitutiona : Cooperative , not in acute distress . -HEENT : nech : supple , no Lymphadenopathy , normal thyroid size . : eyes : no ptosis , no icterus, no photophobia . - neurologic : Cranial nerve II to XII intact , no focal neurological deffecit . -psychatric : alert , oriented X 3 , appropriate affect , intact judgment and insight . -Lymphatic : no Lymphadenopathy . - musculoskeltal : Lumber spine moter stegnth lower extremities ,thigh and legs 5/5 Right side , 5/5 Left side deep tendon reflexes : normal Knee Jerk , normal ankle Jerk lumber facet Loading Test =positive Right , positive Left Range of motion of the lumbar spine Flexion 30 degrees, extension 10 degrees strait leg raising test = positive at 60 degree bilaterally Fabere test= positive Right , and positive LT . tenderness over the Sacroiliac joint on the Right , and Left sides tenderness over the sacrum . Results MRI of the lumbar spine multilevel lumbar degenerative disc disease from L2 3 to L5-S1 multilevel lumbar facet arthropathy and severe spinal canal stenosis Assessment and plan=1-lumbar spinal stenosis. 2-lumbar degenerative disc disease. 3-lumbar spondylosis with lumbar facet art hropathy without myelopathy. 4-coccydynia Patient excellent pain relief after RFA medial branches lumbar at L3, L4 ,L5 bilaterally Patient could benefit from caudal epidural steroid injection MAPS reviewed ,and it was appropriate, prescription refill for Neurontin 300 mg 3 times a day dispense 90 with 2 refills given Time with Patient: less than 30. PQRS Measure Charge Sheet Measure #130: Documentation of Current Meds in Medical Chart: Patient's medications documented in chart Measure #226: Tobacco Use: Screen & Cessation Intervention: Pt not a tobacco user Measure #111: Pneumonia Vaccination: Pneumococcal vaccine NOT administered or previously given Measure #47: Advance Care Plan: Advance care planning discussed & documented, pt chose/unable to give Measure #412: Opioid Treatment Agreement: No documentation of signed opioid treatment agreement Measure #408: Opioid Therapy Follow-up Evaluation: Patient had NO f/u eval minimum every 3 months during opioid therapy Measure #317: Preventitive Care & Scrn High Bld Press & F/U: Pre-hypertensive or hypertensive BP documented, pt will f/u with PCP Measure #128: Body Mass Index (BMI) Screening & Follow-up: BMI documented ABOVE normal parameters - f/u documented Measure #131: Pain Assessment & Follow-up: Pain positive & plan documented, Follow-up scheduled Measure #431: Unhealthy Alcohol Use Preventative Care & Scrn: Patient not identified as an unhealthy alcohol user PQRS Narrative: Objective - Vital Signs Vital signs: Vital Signs Temp 98.3 F 09/03/21 10:12 Pulse 87 09/03/21 10:12 Resp 18 09/03/21 10:12 BP 168/96 09/03/21 10:12 Pulse Ox 95 09/03/21 10:12 Intake & Output 09/02/21 09/03/21 09/03/21 18:59 06:59 18:59 Weight 122.47 kg
== END ==
LOC: PNWHC3 09:49
PROVIDERS: ATTEND Specialist
DX: M48.061 Spinal stenosis, lumbar region without neurogenic claudication (principal); M51.36 Other intervertebral disc degeneration, lumbar region; M47.816 Spondylosis without myelopathy or radiculopathy, lumbar region; M53.3 Sacrococcygeal disorders, not elsewhere classified; Z87.891 Personal history of nicotine dependence; Z88.6 Allergy status to analgesic agent; Z88.8 Allergy status to other drugs, medicaments and biological substances; Z91.038 Other insect allergy status
CPT/HCPCS: 99212

== ENCOUNTER 2021-10-23 13:23 | Day surgery (SDC) | payer BC, MEDICARE ==
[2021-10-17 11:15] VITALS: BMI 35.9
[2021-10-23] MEDS ORDERED: LACTATED RINGERS 1,000 ML IV ONE (13:50)
[2021-10-23 13:58] VITALS: RESP 16; TEMP 98
[2021-10-23 13:59] LABS: Glucose,Whole Blood 108 mg/dL (75-99)
--- NOTE | 2021-10-23 13:59 | P.PCN ---
Date of Procedure: 10/23/21 Description of Procedure: PREOPERATIVE DIAGNOSIS: Lumbar post laminectomy syndrome. POSTOPERATIVE DIAGNOSIS: Lumbar post laminectomy syndrome. PROCEDURE: 1. Caudal epidural steroid injection under fluoroscopic guidance. 2. Caudal epidurogram Imaging: Fluoroscopy was used, images where saved to the medical record ANESTHESIA: Local with 1% lidocaine; 5ml for subcutaneous infiltrations and milligrams Versed 100 g of fentanyl PROCEDURE DESCRIPTION: The patient was seen and identified in the preoperative area. Risks, benefits, complications, and alternatives were discussed with the patient. The patient agreed to proceed with the procedure and signed the consent. Vital signs were stable. Patient was taken to the OR and time out was completed. The patient was placed in the prone position on procedure table and a pillow was placed under the abdomen to reduce lumbar lordosis. The lumbosacral area was prepped and draped in the usual sterile fashion. Critical pause was taken. Vital signs were closely monitored during the procedure. Using lateral fluoroscopy the anterior-posterior plates of the sacrum were identified and the skin and deeper tissues corresponding into sacrococcygeal ligament were anesthetized using approximately 5 mL of 1% lidocaine. Then under fluoroscopy, a 3-1/2-inch 22-gauge spinal needle was guided through the sacrococcygeal ligament, and into the epidural space. After negative aspiration, a 2 mL of omnipaque-180 contrast dye was injected with excellent epidurogram. Again after negative aspiration for CSF, blood, and with no paresthesias, Depomedrol 40mg along with 2ml of 0.5% ropivacaine with 2 ml of preservative free normal saline (total of 5ml) solution was injected with washout of epidurogram. Needle was withdrawn intact. Skin was cleansed, and bandage was applied. COMPLICATIONS: None DISPOSITION / PLANS: The patient was placed in a supine position and transferred to the recovery area in a stable condition for observation and was discharged from the recovery room after meeting discharge criteria. Home discharge instructions given to the patient by the staff. The patient was reexamined prior to discharge. The patient will schedule a follow up in the clinic in 2-4 weeks.
[2021-10-23] MEDS ORDERED: ROPIVACAINE 5MG/ML 20ML VIAL ONE (14:01)
[2021-10-23] MEDS ORDERED: MIDAZOLAM 2 MG/2 ML VIAL ONE (14:01)
[2021-10-23] MEDS ORDERED: methylPREDNISolone ACETATE 40 MG/ML 1 ML VIAL ONE (14:01)
[2021-10-23] MEDS ORDERED: fentaNYL (PF) 50 MCG/ML 2 ML AMP ONE (14:01)
[2021-10-23] MEDS ORDERED: IOPAMIDOL M200 10 ML VIAL ONE (14:01)
--- NOTE | 2021-10-23 14:43 | FL ---
EXAMINATION TYPE: FL guided pain mgmt statistic DATE OF EXAM: 10/23/2021 CLINICAL HISTORY: Sacral pain. TECHNIQUE: Fluoroscopy. COMPARISON: None. FINDINGS: Fluoroscopic guidance was provided during pain relief procedure performed by Dr. Fragoso . A total of 5 seconds of fluoroscopic time was utilized during the procedure and two spot images are acquired. Images acquired shows needle localization from posterior-inferior approach at level of lo wer sacrum. IMPRESSION: As Above.
[2021-10-23 14:56] VITALS: BP 136/72; PULSE 61
[2021-10-23] MEDS ORDERED: IV FLUID CONTINUATION 1,000 ML IV ONE (15:00)
== END 2021-10-23 15:01 | disposition home or self-care (01) ==
LOC: ORPAIN 13:23
PROVIDERS: ATTEND Hospitalist
DX: M96.1 Postlaminectomy syndrome, not elsewhere classified (principal)
CPT/HCPCS: 62323; J2250; J1030; J3010; Q9966; J2795

== ENCOUNTER 2021-12-20 09:27 | Day surgery (SDC) | payer MEDICARE ==
[2021-12-18 11:22] VITALS: BMI 34.3
[~2021-12-20 09:27] MED LIST changes: +LIDOCAINE 1% (10MG/ML) FOR IV START INTRADERMA PRN
[2021-12-20 09:49] VITALS: TEMP 97.8
[2021-12-20 10:02] LABS: Glucose,Whole Blood 122 mg/dL (75-99)
[2021-12-20] MEDS ORDERED: fentaNYL (PF) 50 MCG/ML 2 ML AMP ONE (10:16)
[2021-12-20] MEDS ORDERED: MIDAZOLAM 2 MG/2 ML VIAL ONE (10:16)
[2021-12-20] MEDS ORDERED: methylPREDNISolone ACETATE 40 MG/ML 1 ML VIAL ONE (10:16)
[2021-12-20] MEDS ORDERED: IOPAMIDOL M200 10 ML VIAL ONE (10:16)
--- NOTE | 2021-12-20 10:42 | P.PCN ---
Date of Procedure: 12/20/21 Procedure(s) Performed: PREOPERATIVE DIAGNOSIS:1-Lumbar spinal stenosis 2-lumbar degenerative disc disease. 3-lumbar spondylosis with lumbar facet arthropathy. 4-coccyodynia POSTOPERATIVE DIAGNOSIS: Same as preoperative diagnosis PROCEDURE: 1. Caudal epidural steroid injection under fluoroscopic guidance. (Fluoroscopy images available in the radiology department ) 2. Caudal epidurogram ANESTHESIA: Local with 1% lidocaine; 5ml for subcutaneous infiltrations and moderate sedations with IV versed 2 mg ,and fentanyl 100 mcg EBL: None. PROCEDURE INDICATION: The patient with neuropathic pain radiating distally returns for caudal epidural steroid injection. PROCEDURE DESCRIPTION: The patient was seen and identified in the preoperative area. Risks, benefits, complications, and alternatives were discussed with the patient. The patient agreed to proceed with the procedure and signed the consent. IV was started, and vital signs were stable. Patient was taken to the OR and time out was completed. The patient was placed in the prone position on procedure table and a pillow was placed under the abdomen to reduce lumbar lordosis. The lumbosacral area was prepped and draped in the usual sterile fashion. Critical pause was taken. Vital signs were closely monitored during the procedure. Using lateral fluoroscopy the anterior-posterior plates of the sacrum were identified and the skin and deeper tissues corresponding into sacrococcygeal ligament were anesthetized using approximately 3 mL of 1% lidocaine. Then under fluoroscopy, a 3-1/2-inch 20-gauge Tuohy epidural needle was guided through the sacrococcygeal ligament, and into the epidural space. After negative aspiration, a 2 mL of Isovue 200 contrast dye was injected with excellent epidurogram. Again after negative aspiration for CSF, blood, and with no paresthesias, then Depo-Medrol 40mg, 2ml of 1% preservative free Lidocaine with 6 ml of preservative free normal saline(total of 10ml)solution was injected with washout of epidurogram. Needle was withdrawn intact. Skin was cleansed, and bandage wa s applied. COMPLICATIONS: None DISPOSITION / PLANS: The patient was placed in a supine position and transferred to the recovery area in a stable condition for observation and was discharged from the recovery room after meeting discharge criteria. Home discharge instructions given to the patient by the staff. The patient was reexamined prior to discharge. The patient will schedule a follow up in the clinic in 2-4 weeks.
[2021-12-20] MEDS ORDERED: IV FLUID CONTINUATION 1,000 ML IV ONE ×2 (10:43)
[2021-12-20 11:02] VITALS: BP 156/83; PULSE 61; RESP 16
--- NOTE | 2021-12-20 12:39 | FL ---
EXAMINATION TYPE: FL guided pain mgmt statistic DATE OF EXAM: 12/20/2021 CLINICAL HISTORY: Lower sacral pain. TECHNIQUE: Fluoroscopy. COMPARISON: None. FINDINGS: Fluoroscopic guidance was provided during pain relief procedure performed by anesthesia Dr Juan . A total of 4 seconds of fluoroscopic time was utilized during the procedure and two spot images are acquired. Images acquired shows needle localization from a posterior inferior approach a level o f the lower sacrum. IMPRESSION: As Above.
== END 2021-12-20 11:18 | disposition home or self-care (01) ==
LOC: ORPAIN 09:27
PROVIDERS: ATTEND Anesthesiology
DX: M47.816 Spondylosis without myelopathy or radiculopathy, lumbar region (principal); M51.36 Other intervertebral disc degeneration, lumbar region; M53.3 Sacrococcygeal disorders, not elsewhere classified; Z88.8 Allergy status to other drugs, medicaments and biological substances
CPT/HCPCS: 62323; J2250; J1030; J3010; Q9966; 99152

== ENCOUNTER 2022-01-13 12:10 | Emergency (ER) | payer MEDICARE ==
[2022-01-13] MEDS ORDERED: BEBTELOVIMAB (EUA) 175 MG/2 ML VIAL IV ONE (15:30)
[2022-01-13 15:38] VITALS: TEMP 98.9
--- NOTE | 2022-01-13 15:59 | ED ---
General Adult HPI - General Chief complaint: Upper Respiratory Infection Stated complaint: covid+, wants infusion Time Seen by Provider: 01/13/22 15:00 Source: patient, family, RN notes reviewed, old records reviewed Mode of arrival: ambulatory Limitations: no limitations - History of Present Illness Initial comments: Patient is a 71-year-old male who presents with his having Covid positive test results at home. I evaluated him when he was placed in a room. Has been having upper esterase symptoms for today. Tested positive today at home. Te sted positive here in the waiting room today. Denies any shortness of breath, chest pain. Was fully vaccinated. His no other acute complaint at this time. Would like monoclonal antibody therapy. - Related Data Home Medications Medication Instructions Recorded Confirmed Bisoprolol-Hctz 5-6.25 mg [Ziac 1 tab PO HS 04/22/19 01/10/22 5-6.25] Fenofibrate [Lofibra] 160 mg PO AC-SUPPER 04/22/19 01/10/22 Losartan [Cozaar] 25 mg PO HS 04/22/19 01/10/22 Multivitamins, Thera [Multivitamin 2 tab PO DAILY 04/22/19 01/10/22 (formulary)] Simvastatin [Zocor] 20 mg PO HS 04/22/19 01/10/22 Tamsulosin HCl [Flomax] 0.4 mg PO BID 04/22/19 01/10/22 metFORMIN HCL [Glucophage] 1,000 mg PO BID 04/22/19 01/10/22 Finasteride [Proscar] 5 mg PO DAILY 01/12/21 01/10/22 Acetaminophen [Tylenol] 1,000 mg PO DAILY PRN 05/11/21 01/10/22 Aspirin [Adult Low Dose Aspirin EC] 81 mg PO BID 06/12/21 01/10/22 Fexofenadine HCl [Susan Allergy] 180 mg PO DAILY 10/17/21 01/10/22 Ibuprofen 400 mg PO HS 11/19/21 01/10/22 Semaglutide [Ozempic] 1 mg SQ BAKER 11/19/21 01/10/22 Previous Rx's Medication Instructions Recorded Gabapentin 300 mg PO Q8H 30 Days #90 cap 01/10/22 Allergies Allergy/AdvReac Type Severity Reaction Status Date / Time diclofenac [From Cataflam] Allergy Rash/Hives Verified 01/13/22 12:17 lisinopril AdvReac Cough Verified 01/13/22 12:17 BLACK WASP Allergy Swelling Uncoded 01/13/22 12:17 Review of Systems ROS Statement: Those systems with pertinent positive or pertinent negative responses have been documented in the HPI. Review of Systems: CONST: Denies fever EYES: Denies blurry vision ENT: Endorses nasal congestion C/V: Denies Chest pain RESP: Denies shortness of breath GI: Denies abdominal pain : Denies dysuria SKIN: Denies rash. MSK: Denies joint pain. NEURO: Denies headache ROS Other: All systems not noted in ROS Statement are negative. Past Medical History Past Medical History: COPD, Diabetes Mellitus, Hyperlipidemia, Hypertension, Osteoarthritis (OA), Prostate Disorder Additional Past Medical History / Comment(s): "Thickened heart valve", diverticulosis, fatty liver, hx Legionnaire's disease, bulging discs, migraines, hiatal hernia, hx kidney stones. History of Any Multi-Drug Resistant Organisms: None Reported Past Surgical History: Orthopedic Surgery Additional Past Surgical History / Comment(s): Arthroscopy right knee, laser eye surgery for glaucoma, colonoscopy X2, rt knee open surgery, lithotripsy, PAIN CLINIC PROCEDURES. Past Anesthesia/Blood Transfusion Reactions: No Reported Reaction Past Psychological History: No Psychological Hx Reported Smoking Status: Former smoker - Past Family History Mother Family Medical History: No Reported History General Exam - General Exam Comments Initial Comments: General: Appears in no acute distress. HEAD: Normal with no signs of head trauma. EYES: PERRLA, EOMI, conjunctiva normal, no discharge. ENT: Hearing grossly intact, normal oropharynx. RESPIRATORY: Clear breath sounds bilaterally. No wheezes, rales, or rhonchi. No hypoxia. No increased work of breathing. C/V: Regular rate and rhythm. S1 and S2 auscultated, no edema, peripheral pulses 2+ and intact throughout ABD: Abd is soft, nontender, nondistended EXT: Normal range of motion, no obvious deformity SKIN: No rashes or lesions observed on exposed skin. NEURO: Alert and oriented 4. Limitations: no limitations Course Vital Signs 01/13/22 01/13/22 01/13/22 12:14 15:06 15:38 Temperature 98.1 F 98.9 F Pulse Rate 82 73 Respiratory 18 16 18 Rate Blood Pressure 162/79 141/77 O2 Sat by Pulse 96 96 Oximetry Medical Decision Making - Medical Decision Making Based on patient's presentation and physical exam, the patient is COVID-19 positive. Not believe that further laboratory studies or imaging are required at this time. He is not hypoxic. He is not in respiratory distress. He does meet criteria for monoclonal antibody therapy. He'll be given this. I recommended quarantine until at least 2 days symptom-free. I answered all questions that he had. He has a pulse ox at home already for monitoring his oxygen levels. Patient tolerated therapy well. He'll be discharged home at this time. I instructed the patient to follow up with their PCP in the next 3 days. . I explained that the patient should return to the emergency department if they experience any worsening symptoms. Strict return precautions were discussed with the patient. The patient expressed understanding of these instructions. I answered all questions that the patient had. The patient was discharged home in fair condition with their prescriptions and follow up information. - Lab Data Lab Results 01/13/22 Range/Units 12:18 Coronavirus (PCR) Detected A (Not Detectd) Disposition Clinical Impression: COVID-19 Disposition: HOME SELF-CARE Condition: Fair Instructions (If sedation given, give patient instructions): COVID-19 (Coronavirus Disease 2019) (ED) Additional Instructions: Quarentine until 2 days symptom free. Monitor pulse ox, return if worsening symptoms or oxygen levels less than 90%. Is patient prescribed a controlled substance at d/c from ED?: No Referrals: Rob Nolan MD [Primary Care Provider] - 1-2 days Time of Disposition: 16:36
[2022-01-13 17:12] VITALS: BP 138/87; PULSE 78; RESP 16
== END 2022-01-13 17:11 | disposition home or self-care (01) ==
LOC: EC 12:10
DX: U07.1 COVID-19 (principal); E11.9 Type 2 diabetes mellitus without complications; I10 Essential (primary) hypertension; J44.9 Chronic obstructive pulmonary disease, unspecified; E78.5 Hyperlipidemia, unspecified; M19.90 Unspecified osteoarthritis, unspecified site; Z87.891 Personal history of nicotine dependence; Z79.84 Long term (current) use of oral hypoglycemic drugs; Z79.899 Other long term (current) drug therapy
CPT/HCPCS: 87635; 99283; Q0222

== ENCOUNTER → 2022-03-07 | Outpatient (CLI) | payer MEDICARE ==
[2022-03-07 09:51] VITALS: BP 160/81; PULSE 75; RESP 18; TEMP 97.9
--- NOTE | 2022-03-07 09:55 | P.PN ---
Subjective Progress Note Date: 03/07/22 Principal diagnosis: A 71 yr old male with a history of severe and chronic low back pain secondary to lumbar degenerative disc diseases and lumbar spondylosis with facet arthropathy presents today for medication refills. Patient underwent a caudal LISA and states he had 99% pain relief s/p procedure. Pain level is currently at 2/10 in intensity, achy/ burning in character in the lumbar spine without radiation of pain. Pain is provoked by weight bearing activities for periods of 30 minutes or more. Pain is alleviated with medications, injections, heat, physical therapy the past, home-based stretching regimen, use of a lumbar support brace and knee braces, repositioning and rest. He states he takes Neurontin twice a day as the 3rd dose makes him too drowsy. Interventional pain procedures completed include BL RFA L3-L5, Caudal LISA Patient is currently on Neurontin BID Patient denies any side effects of the medication(s), denies excessive drowsiness or sleepiness, denies suicidal ideation and reports that the current pain medication is helping to control the pain and improve activities of daily living. Patient denies any motor or sensory deficits. Patient denies any fever or night sweats, denies any change in the bowel movements or urination. Physical Examination: -Constitutional: Cooperative. Not in acute distress . -HEENT: Neck is supple. No lymphadenopathy. No thyromegaly. Normal thyroid size. Eyes: No ptosis , no icterus, no photophobia. ENT: No auditory deficits. Normal oropharynx. No Thrush. - Respiratory: Chest clear to auscultations bilaterally. No wheezing. No rhonchi. - Cardiovascular: Regular rate and rhythm. S1 / S2 , no S3 , no S4. - Gastrointestinal: Abdomen soft no tenderness. Bowel sounds positive in all four quadrants. No organomegaly. - Genitourinary: Deferred. - Neurologic: Cranial nerve II to XII intact. No focal neurological deficits. - Psychatric: Alert & oriented x 3. Matching mood & appropriate affect. Judgment and insight intact. - Lymphatic: No Lymphadenopathy. - Musculoskeletal: Cervical spine: Muscle bulk/ tone/ strength in the bilateral upper extremities normal Vertebral body tenderness to palpation over Facet loading test positive Thoracic spine Muscle bulk / tone/ strength in the bilateral paraspinal muscles normal Vertebral body tender to palpation over Facet loading test positive Lumbar spine: Motor bulk/ tone/ strength lower extremities , thigh and legs : 5/5 Deep tendon reflexes : Normal Knee Jerk. Normal Ankle Jerk . Vertebral body tenderness to palpation over Lumbar Facet Loading Test positive Straight Leg Raise: positive at 30 degrees right side/ left side Gaenslen's Test positive Sacral spine : Severe tenderness over the Sacroiliac joint: right side / left side Range of motion: Flexion of the lumbar spine <60 degrees Range of motion: Extension of the lumbar spine <20 degrees Gaenslen's Test positive Javi's Test positive Samira test: positive right side / left side Thigh Thrust Test Sacral Thrust Test Assessment and plan: Chronic low back pain secondary to lumbar degenerative disc disease , lumbar spondylosis with facet arthropathy without myelopathy Risks, benefits of procedure discussed and pt verbalized understanding. Denies anticoagulant use or medical history of diabetes. Chronic and current use of high-risk medication (Opioids). The patient was counseled about risk of opioid use, psychological risk associated with opioids and was orally counseled to not overuse , divert or sell medications. Pt is to store medication in a safe location. The patient is counseled against driving while using narcotic medications and also not to use alcohol or any illicit recreational drugs. Patient verbalized understanding that the lack of compliance will result in failure to renew narcotic prescription(s) as well as possible discharge from the clinic Diagnoses, prognosis and treatment options including but not limited to physical therapy, surgical interventions, interventional therapies and medication management including narcotics and adjuvant medication were discussed. All patient questions answered MAPS reviewed and it was appropriate. Prescription refill for Neurontin 300mg #60 w 2 refills. I have spent 31 minutes on patient care today. Dr Richard was available by phone for the evaluation of this patient. The time was used to review the medical records including relevant urine studies and Prescription history (MAPs), review of the available imaging, evaluation and examination of the patient, coordination of care with the medical staff and if applicable referring physicians, as well as creation of the medical record Objective - Vital Signs Vital signs: Vital Signs Temp 97.9 F 03/07/22 09:46 Pulse 75 03/07/22 09:46 Resp 18 03/07/22 09:46 BP 160/81 03/07/22 09:46 Pulse Ox 95 03/07/22 09:46 FiO2 PQRS Measure Charge Sheet Mode of Arrival: Ambulatory - Pain Location Lower Back Non-Pharmacological Interventions: Heat, Home Exercise, Physical Therapy, Position/Reposition, Stretching Pharmacological Interventions: Epidural, PRN Medication, Scheduled Medication PQRS Narrative: Smoking Status Former smoker Narcotic Agreement Date Signed 07/16/21 Blood Pressure 160/81 Pain Intensity [Lower Back] 2 Scale Used Numeric (1 - 10) Hx Alcohol Use (MH) No Home Medications: Ambulatory Orders Bisoprolol-Hctz 5-6.25 mg [Ziac 5-6.25] 1 tab PO HS 04/22/19 Fenofibrate [Lofibra] 160 mg PO AC-SUPPER 04/22/19 Losartan [Cozaar] 25 mg PO HS 04/22/19 Multivitamins, Thera [Multivitamin (formulary)] 2 tab PO DAILY 04/22/19 Simvastatin [Zocor] 20 mg PO HS 04/22/19 Tamsulosin HCl [Flomax] 0.4 mg PO BID 04/22/19 metFORMIN HCL [Glucophage] 1,000 mg PO BID 04/22/19 Finasteride [Proscar] 5 mg PO DAILY 01/12/21 Acetaminophen [Tylenol] 1,000 mg PO DAILY PRN 05/11/21 Aspirin [Adult Low Dose Aspirin EC] 81 mg PO BID 06/12/21 Fexofenadine HCl [Susan Allergy] 180 mg PO DAILY 10/17/21 Ibuprofen 400 mg PO HS 11/19/21 Semaglutide [Ozempic] 1 mg SQ BAKER 11/19/21 Gabapentin 300 mg PO Q8H 30 Days #90 cap 03/07/22
== END ==
LOC: PNWHC3 09:20
PROVIDERS: ATTEND Specialist
DX: M51.36 Other intervertebral disc degeneration, lumbar region (principal); M47.816 Spondylosis without myelopathy or radiculopathy, lumbar region; G89.29 Other chronic pain; Z79.891 Long term (current) use of opiate analgesic; E11.9 Type 2 diabetes mellitus without complications; Z87.891 Personal history of nicotine dependence; Z79.84 Long term (current) use of oral hypoglycemic drugs; Z88.6 Allergy status to analgesic agent; Z88.8 Allergy status to other drugs, medicaments and biological substances; Z91.038 Other insect allergy status
CPT/HCPCS: 99211

== ENCOUNTER → 2022-04-15 | Outpatient (CLI) | payer MEDICARE ==
[2022-04-15 11:52] VITALS: BP 176/66; PULSE 76; RESP 14; TEMP 98.6
--- NOTE | 2022-04-15 12:07 | P.PAINPG ---
Objective - Vital Signs Vital signs: Vital Signs Temp 98.6 F 04/15/22 11:41 Pulse 76 04/15/22 11:41 Resp 14 04/15/22 11:41 BP 176/66 04/15/22 11:41 Pulse Ox 95 04/15/22 11:41 FiO2 Intake & Output 04/14/22 04/15/22 04/15/22 18:59 06:59 18:59 Weight 115.666 kg PQRS Measure Charge Sheet Mode of Arrival: Ambulatory Comment: A 71 yr old male with a history of severe and chronic low back pain secondary to lumbar degenerative disc diseases and lumbar spondylosis with facet arthropathy presents today for LBP evaluation. Pain level is currently at 5/10 in intensity, constant, sharp/shooting/stabbing localized in lower aspect of his lumbar spine with radiation w radiation of pain down LLE. Pain is provoked by bending up to 8/10. Pain is alleviated with medications, heat, +Cannabis gummies, home exercise regimen, massage & chiropractic treatments in 2019, repositioning and rest. Interventional pain procedures completed include Caudal LISA x 2. BL RFA L3-L5 Patient is currently on Tyl Ibu Neurontin Patient denies any side effects of the medication(s), denies excessive drowsiness or sleepiness, denies suicidal ideation and reports that the current pain medication is helping to control the pain and improve activities of daily living. Patient denies any motor or sensory deficits. Patient denies any fever or night sweats, denies any change in the bowel movements or urination. Physical Examination: -Constitutional: Cooperative. Not in acute distress . - Neurologic: Cranial nerve II to XII intact. No focal neurological deficits. - Psychatric: Alert & oriented x 3. Matching mood & appropriate affect. Judgment and insight intact. - Musculoskeletal: Cervical spine: Muscle bulk/ tone/ strength in the bilateral upper extremities normal Vertebral body tenderness to palpation over Spurling test positive Distraction test positive Facet loading test positive Thoracic spine Muscle bulk / tone/ strength in the bilateral paraspinal muscles normal Vertebral body tender to palpation over Facet loading test positive Lumbar spine: Motor bulk/ tone/ strength lower extremities , thigh and legs : 5/5 Deep tendon reflexes : Normal Knee Jerk. Normal Ankle Jerk . Vertebral body tenderness to palpation over Lumbar Facet Loading Test positive over BL L4-L5, L5-S1, L >R Straight Leg Raise: positive at 30 degrees right side/ left side Gaenslen's Test positive Sacral spine : Severe tenderness over the Sacroiliac joint: right side / left side Range of motion: Flexion of the lumbar spine <60 degrees Range of motion: Extension of the lumbar spine <20 degrees Gaenslen's Test positive Javi's Test positive Samira test: positive right side / left side Thigh Thrust Test Sacral Thrust Test Assessment and plan: Chronic low back pain secondary to lumbar degenerative disc disease , lumbar spondylosis with facet arthropathy without myelopathy Recommendation of BL RFA L4-L5, L5-S1. Risks, benefits of procedure discussed and pt verbalized understanding. Denies anticoagulant use or medical history of diabetes. All patient questions answered MAPS reviewed and it was appropriate. I have spent less than 30 minutes on patient care today. Dr Richard was available by phone for the evaluation of this patient. The time was used to review the medical records including relevant urine studies and Prescription history (MAPs), review of the available imaging, evaluation and examination of t he patient, coordination of care with the medical staff and if applicable referring physicians, as well as creation of the medical record - Pain Location Lower Back Non-Pharmacological Interventions: Chiropractic Treatment, Heat, Home Exercise, Ice, Inactivity, Physical Therapy, Position/Reposition, Stretching, Therapeutic Touch Pharmacological Interventions: Block, Epidural, Medication PQRS Narrative: Smoking Status Former smoker Narcotic Agreement Date Signed 07/16/21 Blood Pressure 176/66 Pain Intensity [Lower Back] 5 Scale Used Numeric (1 - 10) Hx Alcohol Use (MH) No Home Medications: Ambulatory Orders Bisoprolol-Hctz 5-6.25 mg [Ziac 5-6.25] 1 tab PO HS 04/22/19 Fenofibrate [Lofibra] 160 mg PO AC-SUPPER 04/22/19 Losartan [Cozaar] 25 mg PO HS 04/22/19 Multivitamins, Thera [Multivitamin (formulary)] 2 tab PO DAILY 04/22/19 Simvastatin [Zocor] 20 mg PO HS 04/22/19 Tamsulosin HCl [Flomax] 0.4 mg PO BID 04/22/19 metFORMIN HCL [Glucophage] 1,000 mg PO BID 04/22/19 Finasteride [Proscar] 5 mg PO DAILY 01/12/21 Acetaminophen [Tylenol] 1,000 mg PO DAILY PRN 05/11/21 Aspirin [Adult Low Dose Aspirin EC] 81 mg PO BID 06/12/21 Fexofenadine HCl [Susan Allergy] 180 mg PO DAILY 10/17/21 Ibuprofen 400 mg PO HS 11/19/21 Semaglutide [Ozempic] 1 mg SQ BAKER 11/19/21 Gabapentin 300 mg PO Q8H 30 Days #90 cap 03/07/22 Controlled Substance Measures - Controlled Substance Measures Is patient prescribed a controlled substance at discharge?: No
== END ==
LOC: PNWHC3 11:15
PROVIDERS: ATTEND Specialist
DX: M51.36 Other intervertebral disc degeneration, lumbar region (principal); M47.816 Spondylosis without myelopathy or radiculopathy, lumbar region; G89.29 Other chronic pain; Z87.891 Personal history of nicotine dependence; Z88.6 Allergy status to analgesic agent; Z88.8 Allergy status to other drugs, medicaments and biological substances; Z91.038 Other insect allergy status
CPT/HCPCS: 99211

== ENCOUNTER 2022-05-17 09:16 | Day surgery (SDC) | payer MEDICARE ==
[2022-05-17 09:47] VITALS: TEMP 98.2
[2022-05-17 09:48] LABS: Glucose,Whole Blood 111 mg/dL (70-110)
[2022-05-17] MEDS ORDERED: ROPIVACAINE 5MG/ML 20ML VIAL ONE (10:34)
[2022-05-17] MEDS ORDERED: fentaNYL (PF) 50 MCG/ML 2 ML AMP ONE (10:34)
[2022-05-17] MEDS ORDERED: methylPREDNISolone ACETATE 40 MG/ML 1 ML VIAL ONE (10:34)
[2022-05-17] MEDS ORDERED: MIDAZOLAM 2 MG/2 ML VIAL ONE (10:34)
--- NOTE | 2022-05-17 11:07 | P.PCN ---
Date of Procedure: 05/17/22 Procedure(s) Performed: PREOPERATIVE DIAGNOSIS: 1-Lumbar Spondylosis with Facet Arthropathy without myelopathy. 2- Lumber degenerative disc disease. POSTOPERATIVE DIAGNOSIS: 1- Lumbar Spondylosis with Facet Arthropathy without myelopathy. 2- Lumber degenerative disc disease. PROCEDURES : Bilateral Radiofrequency thermocoagulation, L3 , L4 , and L5 medial branch, with fluoroscopic guidance (fluoroscopy images available in the radiology department) ( to denervate the facet joint at Bilateral L4-5 ,and L5-S1 levels ). ANESTHESIA: Monitored anesthesia care as per anesthesia department. EBL: Minimal PROCEDURE INDICATION: The patient with low back pain secondary to lumbar facet arthropathy who had more than 50% relief of her pain with previous diagnostic lumbar medial branch block with bupivacaine. PROCEDURE DESCRIPTION / TECHNIQUE: The patient was seen and identified in the preoperative area. Risks, benefits, complications, including but not limited to risk of infection ,bleeding , allergic reactions to the medications and no complete pain releife , and alternatives were discussed with the patient, the patient agreed to proceed with the procedure and signed the consent. IV was started. Vital signs remained stable throughout the procedure. Patient was taken to the OR and time out was completed. The patient was placed in the prone position on the procedure table. The lumber area was prepped and draped in the usual sterile fashion. . Vital signs were closely monitored during the procedure .IV sedation was used during the procedure to decrease patients anxiety. Using AP and then oblique fluoroscopy, the ``eye of the Shivam dog corre sponding to the connection between the superior and transverse articular processes of right L3, L4, and L5 were identified, marked, and localized with 1% lidocaine. Subsequently, a [id number] radiofrequency cannula with a 10- mm active tip was advanced guided by fluoroscopy to each of the``eyes of the Shivam dog at right L3, L4, and L5. Each site then underwent sensory testing at 50 Hz and 0 to 1 volt and motor testing at 2.5 Hz and 0 to 3 volt with local stimulation, but no radicular symptoms down the legs. Thereafter each sites underwent radiofrequency thermocoagulation at 80 degrees celsius for 90 seconds after injecting 0.5 ml of PF Ropivacaine 1ml, then after the thermocoagulation done , 1 ml of the block solution containing Depo-Medrol 20 mg and 3 ml of Ropivacaine 0.5% was injected at the right L3 , L4 , and L5 , levels after negative aspiration of CSF and blood and with no paresthesias. Cannulas were retracted while injecting lidocaine 1% until the needle is out. The same procedure was repeated at the level of Left L3, L4, and L5 levels. At the end of the procedure, the skin was cleansed and bandages were applied. COMPLICATIONS: No acute complications. DISPOSITION / PLANS: The patient was placed in a supine position and transferred to the recovery area in a stable condition for observation and was discharged from the recovery room after meeting discharge criteria. Home discharge instructions given to the patient by the staff. The patient was reexamined prior to discharge. The patient will schedule a follow up in the clinic in 2-4 weeks.
[2022-05-17] MEDS ORDERED: IV FLUID CONTINUATION 1,000 ML IV ONE ×2 (11:12)
--- NOTE | 2022-05-17 11:30 | FL ---
Fluoroscopy History: RADIO FREQ BILAT LUMBAR 17 sec fl time used melissa lumbar rf
[2022-05-17 11:36] VITALS: BP 167/67; PULSE 66; RESP 92
== END 2022-05-17 11:56 | disposition home or self-care (01) ==
LOC: ORPAIN 09:16
PROVIDERS: ATTEND Specialist
DX: M47.816 Spondylosis without myelopathy or radiculopathy, lumbar region (principal); M51.36 Other intervertebral disc degeneration, lumbar region; I10 Essential (primary) hypertension; E11.69 Type 2 diabetes mellitus with other specified complication; E78.5 Hyperlipidemia, unspecified; J44.9 Chronic obstructive pulmonary disease, unspecified; Z87.891 Personal history of nicotine dependence; N40.0 Benign prostatic hyperplasia without lower urinary tract symptoms; Z88.8 Allergy status to other drugs, medicaments and biological substances; Z87.442 Personal history of urinary calculi; Z79.84 Long term (current) use of oral hypoglycemic drugs; Z79.899 Other long term (current) drug therapy
CPT/HCPCS: 64635; 64636 ×2; J2250; J1030; J3010; J2795

== ENCOUNTER → 2022-08-22 | Outpatient (CLI) | payer MEDICARE ==
[2022-08-22 11:55] VITALS: BP 113/69; PULSE 87; RESP 18; TEMP 98.1
--- NOTE | 2022-08-22 14:24 | P.PAINPG ---
PQRS Measure Charge Sheet Comment: A 72 yr old male with a history of severe and chronic low back pain secondary to lumbar DDD and spondylosis with facet arthropathy without myelopathy presents today for medication refills. Pain level is currently at 3/10 in intensity, constant, localized in lower lumbar spine, achy in character w shooting towards [facility] LLE. Pain is provoked by bending/ twisting. Pain is alleviated with chiropractic treatments years ago, medications, topical CBD roll on, sitting, repositioning and rest. Interventional pain procedures completed include Caudal LISA, BL RFA L3-L5 Patient is currently on Zanaflex, Neurontin Patient denies any side effects of the medication(s), denies excessive drowsiness or sleepiness, denies suicidal ideation and reports that the current pain medication is helping to control the pain and improve activities of daily living. Patient denies any motor or sensory deficits. Patient denies any fever or night sweats, denies any change in the bowel movements or urination. Physical Examination: -Constitutional: Cooperative. Not in acute distress . - Neurologic: Cranial nerve II to XII intact. No focal neurological deficits. - Psychatric: Alert & oriented x 3. Matching mood & appropriate affect. Judgment and insight intact. - Musculoskeletal: Cervical spine: Muscle bulk/ tone/ strength in the bilateral upper extremities normal Vertebral body tenderness to palpation over Spurling test positive Distraction test positive Facet loading test positive Thoracic spine Muscle bulk / tone/ strength in the bilateral paraspinal muscles normal Vertebral body tender to palpation over Facet loading test positive Lumbar spine: Motor bulk/ tone/ strength lower extremities , thigh and legs : 5/5 Deep tendon reflexes : Normal Knee Jerk. Normal Ankle Jerk . Vertebral body tenderness to palpation over Lumbar Facet Loading Test positive Straight Leg Raise: positive at 30 degrees right side/ left side Gaenslen's Test positive Sacral spine : Severe tenderness over the Sacroiliac joint: right side / left side Range of motion: Flexion of the lumbar spine <60 degrees Range of motion: Extension of the lumbar spine <20 degrees Gaenslen's Test positive Samira test: positive right side / left side Thigh Thrust Test Sacral Thrust Test Assessment and plan: Chronic low back pain secondary to lumbar degenerative disc disease, spondylosis with facet arthropathy without myelopathy Recommendation of L iliolumbar ligament injection. May need a series, for optimal pain relief. Risks, benefits of procedure discussed and pt verbalized understanding. Denies anticoagulant use or medical history of diabetes. Chronic and current use of high-risk medication (Opioids). The patient was counseled about risk of opioid use, psychological risk associated with opioids and was orally counseled to not overuse , divert or sell medications. Pt is to store medication in a safe location. The patient is counseled against driving while using narcotic medications and also not to use alcohol or any illicit recreational drugs. Patient verbalized understanding that the lack of compliance will result in failure to renew narcotic prescription(s) as well as possible discharge from the clinic Diagnoses, prognosis and treatment options including but not limited to physical therapy, surgical interventions, interventional therapies and medication management including narcotics and adjuvant medication were discussed. All patient questions answered MAPS reviewed and it was appropriate. UDS from 05/30/22 reviewed and consistent Prescription refill for Zanaflex #90, Neurontin 300mg #90 w 1 RF I have spent less than 30 minutes on patient care today. Dr Richard was available by phone for the evaluation of this patient. The time was used to review the medical records including relevant urine studies and Prescription history (MAPs), review of the available imaging, evaluation and examination of the patient, coordination of care with the medical staff and if applicable referring physicians, as well as creation of the medical record PQRS Narrative: Smoking Status Former smoker Narcotic Agreement Date Signed 07/16/21 Hx Alcohol Use (MH) No Home Medications: Ambulatory Orders Bisoprolol-Hctz 5-6.25 mg [Ziac 5-6.25] 1 tab PO HS 04/22/19 Fenofibrate [Lofibra] 160 mg PO AC-SUPPER 04/22/19 Losartan [Cozaar] 25 mg PO HS 04/22/19 Multivitamins, Thera [Multivitamin (formulary)] 1 tab PO DAILY 04/22/19 Simvastatin [Zocor] 20 mg PO HS 04/22/19 Tamsulosin HCl [Flomax] 0.8 mg PO DAILY 04/22/19 metFORMIN HCL [Glucophage] 1,000 mg PO BID 04/22/19 Finasteride [Proscar] 5 mg PO DAILY 01/12/21 Acetaminophen [Tylenol] 500 mg PO Q6H PRN 05/11/21 Aspirin [Adult Low Dose Aspirin EC] 81 mg PO BID 06/12/21 Fexofenadine HCl [Susan Allergy] 180 mg PO DAILY 10/17/21 Ibuprofen 800 mg PO Q6H PRN 11/19/21 Semaglutide [Ozempic] 4 mg SQ BAKER 11/19/21 Macular Support 1 tab PO TID 05/15/22 tiZANidine HCL [Zanaflex] 4 mg PO TID PRN 30 Days #90 capsule 05/30/22 Gabapentin [Neurontin] 300 mg PO TID 30 Days #90 cap 06/03/22 Gabapentin 300 mg PO Q8H 30 Days #90 cap 08/22/22 tiZANidine HCL [Zanaflex] 4 mg PO TID PRN 30 Days #90 tab 08/22/22 Controlled Substance Measures - Controlled Substance Measures Is patient prescribed a controlled substance at discharge?: Yes When asked, does pt state using other controlled substances?: No If prescribed controlled substance>3 days was MAPS reviewed?: Yes If Rx opioid, was Start Talking consent form obtained?: Yes Was information provided regarding opioid addiction?: Yes
== END | disposition home or self-care (01) ==
LOC: PNWHC3 10:00
PROVIDERS: ATTEND Specialist
DX: M47.816 Spondylosis without myelopathy or radiculopathy, lumbar region (principal); M51.36 Other intervertebral disc degeneration, lumbar region; G89.29 Other chronic pain; Z79.891 Long term (current) use of opiate analgesic; Z87.891 Personal history of nicotine dependence; Z88.8 Allergy status to other drugs, medicaments and biological substances; Z88.6 Allergy status to analgesic agent; Z91.038 Other insect allergy status
CPT/HCPCS: 99211

== ENCOUNTER 2022-09-26 09:15 | Day surgery (SDC) | payer MEDICARE ==
[2022-09-26] MEDS ORDERED: LACTATED RINGERS 1,000 ML IV ONE (10:08)
[2022-09-26 10:12] VITALS: RESP 16; TEMP 97.8
[2022-09-26 10:16] LABS: Glucose,Whole Blood 121 mg/dL (70-110)
[2022-09-26] MEDS ORDERED: methylPREDNISolone ACETATE 40 MG/ML 1 ML VIAL ONE (10:17)
[2022-09-26] MEDS ORDERED: MIDAZOLAM 2 MG/2 ML VIAL ONE (10:17)
[2022-09-26] MEDS ORDERED: ROPIVACAINE 5 MG/ML 20 ML AMPULE ONE (10:17)
[2022-09-26] MEDS ORDERED: fentaNYL (PF) 50 MCG/ML 2 ML AMP ONE (10:17)
--- NOTE | 2022-09-26 10:30 | P.PCN ---
Date of Procedure: 09/26/22 Procedure(s) Performed: Procedure= left iliolumbar ligament steroid injection under fluoroscopy guidance (fluoroscopy image stored on file in the radiology Department ) Preoperative diagnosis= 1-left iliolumbar ligament neuralgia 2-lumbar degenerative disc disease 3-lumbar facet arthropathy Postoperative diagnosis=Same as preop Diagnosis . Complication = none Condition= stable Anesthesia= moderate sedation with intravenous Versed 1 mg , and fentanyl 50 micrograms . Sedation start time: 1020 Sedation end time : 1024 Indication for the procedure= patient complaining of low back pain , examination was positive for severe tenderness over the location of the left iliolumbar ligament and patient diagnosed with left iliolumbar ligament neuralgia, and he is here today to have left iliolumbar ligament steroid injection. Description of the procedure= procedure risk and benefits discussed with the patient, including but not limited, risk of infection and bleeding, and ALLERGIC reaction to the medication and not complete pain relief and patient agreed with the preceding patient taken to the operating room, placed in prone position or standard monitors applied to the patient then after induction of anesthesia back prepped with chlorhexidine 3 times , Then under strict sterile technique, I did the left iliolumbar ligament injection the which was identified under fluoroscopy guidance been local infiltration of the skin and subcu interstitial with lidocaine 1% then 22-gauge Quincke Needle advanced slowly under fluoroscopy, the needle advanced slowly and placed at the middle of the distance between the transverse process of the left L5 vertebral, and the left sacral suma , needle placement confirmed under fluoroscopy with AP and lateral views, and after negative aspiration, 5 ml Ropivacaine 0.5% mixed with 40 mg of Depo-Medrol were injected after negative aspiration patient tolerated the procedure well without any complications and he will follow up in the pain clinic in a few weeks
[2022-09-26] MEDS ORDERED: IV FLUID CONTINUATION 1,000 ML IV ONE (10:44)
[2022-09-26 11:48] VITALS: BP 155/79; PULSE 82
--- NOTE | 2022-09-26 12:09 | FL ---
EXAMINATION TYPE: FL guided pain mgmt statistic DATE OF EXAM: 09/26/2022 FLUOROSCOPY Fluoroscopy time of 2 seconds was used during tendon sheath/ligament injection on the left. 1 image/ s document/s the procedure.
== END 2022-09-26 11:00 | disposition home or self-care (01) ==
LOC: ORPAIN 09:15
PROVIDERS: ATTEND Specialist
DX: M51.36 Other intervertebral disc degeneration, lumbar region (principal); M47.816 Spondylosis without myelopathy or radiculopathy, lumbar region; G58.8 Other specified mononeuropathies; Z88.6 Allergy status to analgesic agent; Z88.8 Allergy status to other drugs, medicaments and biological substances
CPT/HCPCS: 20550; 77002; J2250; J1030; J3010; J2795

== ENCOUNTER → 2022-10-10 | Outpatient (CLI) | payer MEDICARE | LOC: LABPAT 11:12 | PROVIDERS: ATTEND Orthopaedic Surgery | DX: Z53.9 Procedure and treatment not carried out, unspecified reason (principal) ==

== ENCOUNTER → 2022-10-17 | Outpatient (CLI) | payer MEDICARE ==
[2022-10-10 13:06] LABS: Partial Thromboplastin Time 23.1 sec (22.0-30.0); Prothrombin Time 10.2 sec (9.0-12.0)
[2022-10-10 18:09] LABS: Appearance,Urine Clear (Clear); Bilirubin,Urine Negative (Negative); Blood,Urine Negative (Negative); Color,Urine Dark Yellow (Yellow); Ketones,Urine Trace mg/dL (Negative); Nitrite,Urine Negative (Negative); Specific Gravity,Urine 1.028 (1.001-1.030)
[2022-10-10 18:10] LABS: Basophils # (A) 0.05 X 10*3/uL (0.00-0.10); Basophils % (A) 0.6 %; Eosinophils # (A) 0.27 X 10*3/uL (0.04-0.35); Eosinophils % (A) 3.5 %; HCT 39.7 % (39.6-50.0); HGB 13.1 g/dL (13.0-17.0); Immature Grans, Automated 0.4 %; Lymphocytes # (A) 1.66 X 10*3/uL (0.90-5.00); Lymphocytes % (A) 21.5 %; MCV 91.1 fL (80.0-97.0); Mean Platelet Volume 10.4 fL (9.5-12.2); Monocytes # (A) 0.69 X 10*3/uL (0.20-1.00); Monocytes % (A) 8.9 %; NRBC Per 100 WBC 0 /100 WBCS (0.0-0.0); Neutrophils # (A) 5.01 X 10*3/uL (1.80-7.70); Neutrophils % (A) 65.1 %; Platelet Count 275 X 10*3/uL (140-440); RBC 4.36 X 10*6/uL (4.40-5.60); RDW 12.8 % (11.5-14.5); WBC 7.71 X 10*3/uL (4.50-10.00)
[2022-10-10 18:41] LABS: ALT 52 U/L (10-49); AST 26 U/L (14-35); African American GFR (CKD) 109.3 (60.0-200.0); Albumin 4.4 g/dL (3.8-4.9); Alkaline Phosphatase 52 U/L (41-126); Blood Urea Nitrogen 16.8 mg/dL (9.0-27.0); Calcium 10.2 mg/dL (8.7-10.3); Carbon Dioxide 26.3 mmol/L (20.0-27.5); Chloride 101 mmol/L (96-109); Chol/HDL Ratio 4.53 Ratio; Globulin 2.1 g/dL (1.6-3.3); Glucose 110 mg/dL (70-110); LDL Cholesterol,Calculated 126.7 mg/dL (0.0-131.0); Non-African American GFR(CKD) 94.3 (60.0-200.0); Potassium 4.2 mmol/L (3.5-5.5); Sodium 138 mmol/L (135-145); Total Protein 6.5 g/dL (6.2-8.2)
[2022-10-17 10:33] VITALS: BP 134/85; PULSE 65; RESP 18; TEMP 97.9
--- NOTE | 2022-10-17 14:43 | P.PAINPG ---
Objective - Labs CBC & Chem 7: 10/10/22 11:33 10/10/22 11:33 PQRS Measure Charge Sheet Comment: A 72 yr old male with a history of severe and chronic low back pain secondary to lumbar DDD and spondylosis with facet arthropathy without myelopathy presents today for evaluation s/p L iliolumbar injection and medication refills. Pt states he experienced 90 % pain relief x 3 wks s/p procedure. Pain level is provoked at 2 /10 in intensity, constant, localized in the lumbar spine, achy in character w shooting towards the LLE. Pain is provoked by lifting, bending. Pain is alleviated with heat, ice, meds (Ibu, Neurontin, Zanaflex, Tylenol), repositioning and rest. Interventional pain procedures completed include BL RFA L3-L5, L iliolumbar Patient is currently on Neurontin, Zanaflex Patient denies any side effects of the medication(s), denies excessive drowsiness or sleepiness, denies suicidal ideation and reports that the current pain medication is helping to control the pain and improve activities of daily living. Patient denies any motor or sensory deficits. Patient denies any fever or night sweats, denies any change in the bowel movements or urination. Physical Examination: -Constitutional: Cooperative. Not in acute distress . - Neurologic: Cranial nerve II to XII intact. No focal neurological deficits. - Psychatric: Alert & oriented x 3. Matching mood & appropriate affect. Judgment and insight intact. - Musculoskeletal: Cervical spine: Muscle bulk/ tone/ strength in the bilateral upper extremities normal Vertebral body tenderness to palpation over Spurling test positive Distraction test positive Facet loading test positive Thoracic spine Muscle bulk / tone/ strength in the bilateral paraspinal muscles normal Vertebral body tender to palpation over Facet loading test positive Lumbar spine: Motor bulk/ tone/ strength lower extremities , thigh and legs : 5/5 Deep tendon reflexes : Normal Knee Jerk. Normal Ankle Jerk . Vertebral body tenderness to palpation over Lumbar Facet Loading Test positive Straight Leg Raise: positive at 30 degrees right side/ left side Gaenslen's Test positive Sacral spine : Severe tenderness over the Sacroiliac joint: right side / left side Range of motion: Flexion of the lumbar spine <60 degrees Range of motion: Extension of the lumbar spine <20 degrees Gaenslen's Test positive Samira test: positive right side / left side Thigh Thrust Test Sacral Thrust Test Assessment and plan: Chronic low back pain secondary to lumbar degenerative disc disease, spondylosis with facet arthropathy without myelopathy. Chronic and current use of high-risk medication (Opioids). The patient was counseled about risk of opioid use, psychological risk associated with opioids and was orally counseled to not overuse , divert or sell medications. Pt is to store medication in a safe location. The patient is counseled against driving while using narcotic medications and also not to use alcohol or any illicit recreational drugs. Patient verbalized understanding that the lack of compliance will result in failure to renew narcotic prescription(s) as well as possible discharge from the clinic Diagnoses, prognosis and treatment options including but not limited to physical therapy, surgical interventions, interventional therapies and medication management including narcotics and adjuvant medication were discussed. All patient questions answered MAPS reviewed and it was appropriate. Narcotic agreement renewed tdoay 10/17/22. Prescription refill for Neurontin 300mg #90, Zanaflex w 1 RF I have spent less than 30 minutes on patient care today. Dr Richard was available by phone for the evaluation of this patient. The time was used to review the medical records including relevant urine studies and Prescription history (MAPs), review of the available imaging, evaluation and examination of the patient, coordination of care with the medical staff and if applicable referring physicians, as well as creation of the medical record PQRS Narrative: Smoking Status Former smoker Narcotic Agreement Date Signed 07/16/21 Hx Alcohol Use (MH) No Home Medications: Ambulatory Orders Bisoprolol-Hctz 5-6.25 mg [Ziac 5-6.25] 1 tab PO HS 04/22/19 Fenofibrate [Lofibra] 160 mg PO AC-SUPPER 04/22/19 Losartan [Cozaar] 25 mg PO HS 04/22/19 Multivitamins, Thera [Multivitamin (formulary)] 1 tab PO DAILY 04/22/19 Simvastatin [Zocor] 20 mg PO HS 04/22/19 Tamsulosin HCl [Flomax] 0.8 mg PO DAILY 04/22/19 metFORMIN HCL [Glucophage] 1,000 mg PO BID 04/22/19 Finasteride [Proscar] 5 mg PO DAILY 01/12/21 Aspirin [Adult Low Dose Aspirin EC] 81 mg PO BID 06/12/21 Fexofenadine HCl [Susan Allergy] 180 mg PO DAILY 10/17/21 Semaglutide [Ozempic] 1 mg SQ BAKER 11/19/21 Macular Support 1 tab PO TID 05/15/22 tiZANidine HCL [Zanaflex] 4 mg PO TID PRN 30 Days #90 capsule 05/30/22 Gabapentin [Neurontin] 300 mg PO TID 30 Days #90 cap 06/03/22 Controlled Substance Measures - Controlled Substance Measures Is patient prescribed a controlled substance at discharge?: Yes When asked, does pt state using other controlled substances?: No If prescribed controlled substance>3 days was MAPS reviewed?: Yes If Rx opioid, was Start Talking consent form obtained?: Yes Was information provided regarding opioid addiction?: Yes
== END ==
LOC: PNWHC3 09:58
PROVIDERS: ATTEND Specialist
DX: M47.816 Spondylosis without myelopathy or radiculopathy, lumbar region (principal); M51.36 Other intervertebral disc degeneration, lumbar region; G89.29 Other chronic pain; Z87.891 Personal history of nicotine dependence; Z79.82 Long term (current) use of aspirin; Z79.891 Long term (current) use of opiate analgesic; Z91.038 Other insect allergy status; Z88.6 Allergy status to analgesic agent
CPT/HCPCS: 80061; 80053; 84443; 85025; 85610; 85730; 81003; 87070; 83036; 93005; G0463; 99211

== ENCOUNTER 2022-10-28 05:38 | Day surgery (SDC) | payer MEDICARE ==
[2022-10-21 13:38] VITALS: BMI 33.9
[~2022-10-28 05:38] MED LIST changes: +ACETAMINOPHEN TAB 500 MG TAB PO PRN; +GABAPENTIN 300 MG CAP PO PRN; -LACTATED RINGERS 1,000 ML IV SCH; -LIDOCAINE 1% (10MG/ML) FOR IV START INTRADERMA PRN; +MELOXICAM 7.5 MG TAB PO PRN; +TRANEXAMIC ACID IN NACL,ISO-OS 1,000 MG in SALINE 1 100ML.BAG IVPB PRN
[2022-10-28] MEDS ORDERED: DEXAMETHASONE SOD PHOSPHATE 4 MG/ML 1 ML VIAL IV ONE ×2 (05:47→06:25)
[2022-10-28] MEDS ORDERED: ONDANSETRON 4 MG/2 ML VIAL IVP PRN ×2 (05:47→08:50)
[2022-10-28] MEDS ORDERED: LIDOCAINE 1% (10MG/ML) FOR IV START INTRADERMA PRN (05:47)
[2022-10-28] MEDS ORDERED: HYDROmorphone 0.5 MG/0.5 ML SYRINGE IVP PRN ×4 (05:47→08:50)
[2022-10-28] MEDS: LACTATED RINGERS 1,000 ML IV SCH (06:10)
[2022-10-28 06:26] LABS: Glucose,Whole Blood 111 mg/dL (70-110)
[2022-10-28] MEDS ORDERED: MIDAZOLAM 2 MG/2 ML VIAL IV ONE (06:42)
[2022-10-28] MEDS ORDERED: ROPIVACAINE 5 MG/ML 30 ML VIAL ONE (06:55)
[2022-10-28] MEDS ORDERED: DEXAMETHASONE SOD PHOSPHATE 4 MG/ML 1 ML VIAL ONE (06:55)
[2022-10-28] MEDS ORDERED: MIDAZOLAM 2 MG/2 ML VIAL ONE (06:55)
[2022-10-28] MEDS ORDERED: fentaNYL (PF) 50 MCG/ML 2 ML AMP ONE (06:55)
[2022-10-28] MEDS ORDERED: PROPOFOL 10 MG/ML 20 ML VIAL IV ONE (06:55)
[2022-10-28] MEDS ORDERED: TRANEXAMIC ACID IN NACL,ISO-OS 1,000 MG/100 ML BAG ONE (06:55)
[2022-10-28] MEDS ORDERED: ceFAZolin 1,000 MG in SODIUM CHLORIDE 0.9% 1,000 ML IRRIGATION ONE (06:58)
--- NOTE | 2022-10-28 08:24 | P.OP ---
Date of Procedure: 10/28/22 Preoperative Diagnosis: Severe osteoarthritis left knee Postoperative Diagnosis: Severe osteoarthritis left knee Procedure(s) Performed: Left total knee arthroplasty using [employer] patient specific guides Implants: Vogt and Nephew Bi-Cruciate stablaized Journey II CR Oxinium Femoral Component size 7, left Vogt [employer] Nephew Journey Nonporous Tibial Baseplate size 6, left Vogt [employer] Nephew Journey II constrained Articular Insert, 9 mm, size 5-6 Vgot & Nephew Brandi II Resurfacing Patellar Component, Oval, 35 mm All components were cemented using Palacose R bone cement. The articulation is Oxinium on polyethylene. [employer] patient specific guides Anesthesia: spinal Surgeon: Guanakito Moore Electric Blanket Packer #1: Rakel Meier Estimated Blood Loss (ml): 30 Pathology: other (Bone and cartilage) Condition: stable Disposition: PACU Indications for Procedure: This is a 72-year-old male with a history of left knee osteoarthritis. The patient's knee is end-stage, and conservative management has failed. The operation of knee replacement has been discussed at length in the office, as well as potential risks and complications. These are inclusive of, but not limited to: Infection, bleeding, scarring, discomfort, stiffness, blood vessel and nerve damage, need for further surgery, failure to relieve symptoms, persistence, recurrence, or worsening of problems, loosening, dislocation, wear, blood clot, pulmonary embolism, , gait dysfunction, stiffness, and other risks as discussed in the office. Patient elects to proceed and the consent form has been signed. Operative Findings: The operative findings are consistent with severe osteoarthritis of the left knee Description of Procedure: Patient was seen in the preoperative area and the consent was reviewed and the operative site was marked with a skin marker. The patient verified the procedure and the operative site. An adductor canal pain catheter was placed by anesthesia in the preoperative area. The patient was then brought to the operating room and given preoperative antibiotics intravenously. A gram of transexamic acid was given intravenously. A spinal anesthetic was administered by the anesthesia department. A tourniquet was placed on the upper thigh and the lower extremity was prepped with chlorhexidine and draped in usual sterile fashion. A universal timeout was then performed which confirmed the patient's name, surgical site, ALLERGIES, and consent. The lower extremity was then exsanguinated and tourniquet was inflated to 250 mmHg. A standard anterior midline approach to the knee was performed. The skin and subcutaneous tissue were sharply dissected down to the patellar tendon. A medial parapatellar arthrotomy was then performed. The knee was then extended, the patellar was everted, and the knee was again flexed. The infra-patellar fat pad was removed in order to enhance exposure. The anterior horns of both menisci were excised, and a release was performed to the posterior medial aspect of the knee. On gross visual inspection, there was complete loss of articular cartilage in the medial and patellofemoral joint spaces. There was also significant cartilage damage in the lateral compartment. There were multiple periarticular osteophytes globally about the knee. The patient specific guide was placed on the distal femur, and pinned in place. Using the patient specific guide, the distal femoral cut was performed. The cutting block was then removed and the cut was checked for symmetry. The spikes of the femoral block was then placed into the predrilled holes, and malleted into place. Two 45 mm pins were then placed into the fixation holes on the cutting block. An bridget wing was then used to ensure there would be no notching with the anterior cut. The anterior condyles were cut without notching. The anterior chord cut was then performed, followed by the posterior cut, posterior chamfer cut, and the anterior chamfer cut. The collateral ligaments were protected during the entire process. The cutting block was then removed. Any remaining bone and osteophytes were removed from the femur with a Ronguer. The femoral canal was plugged with autologous bone. Attention was then directed to the tibia. The remaining ACL was removed with a Ronguer, and the tibia was then gently subluxed forward with a large bent knee retractor. Any remaining menisci were excised. The posterior lateral corner was cauterized in order to coagulate the lateral geniculate artery. The patient specific guide for the tibia was then placed and was held in place with pins. Pinholes were then placed for rotation of the tibial component as well. Proximal tibia was then cut and sized. The femoral trial was placed. The box cutting guide was then placed and the box was reamed and broached for the femoral box. The box trial was then placed. The tibial trial was placed with the appropriate-sized insert. The knee was able to fully extend and flex to 130 and was stable throughout all range of motion. The knee was then extended and the patella was everted. Patella was then measured, and then using an osteotomy guide, the patella was cut at the appropriate level. The patella was then measured and drilled and the patella trial was then placed. The knee was then taken through range of motion with the patella trial and the patella tracked normally using the no thumbs technique.. The knee was then extended patella trial was then removed and the patella was everted. Knee was then flexed and lug holes were drilled through the femoral trial and the femoral trial was then removed. The tibial was then re-exposed, and the tibial broach guide was then pinned in place after it was set for the appropriate rotation to allow for the most coverage without overhang. The tibia was then reamed and broached. The cut surfaces of bone were then irrigated with pulsatile lavage. The knee was also irrigated with Irrisept solution. The components were then opened, the cement was mixed. Cement was placed on the backside of the femoral, tibial, and patellar components. Cement was then applied to the tibial surface and pressurized into the surface using finger pressurization technique. The tibial component was then applied and excess cement was removed after it was impacted securely noted to be flush with the cut surface. In similar fashion, the cement was applied to the cut femoral surface, pressurized and using finger pressurization the component was impacted in place. Excess cement was removed. The polyethylene spacer was then implanted and locked into position. Patellar component was then applied in a similar technique and the patellar clamp was used to hold patella in place while the cement hardened. The knee was held in full extension while the cement hardened. Once the cement had fully hardened, the knee was reinspected. Any other cement extrusion was removed the final range of motion testing showed range of motion from 0-130 with excellent stability, both medial and laterally and appropriate alignment of the leg. Patella tracked normally. After the cemented hardened, the tourniquet was released and hemostasis was obtained. A second gram of transexamic acid was given intravenously. The knee was again irrigated. The knee was again taken through range of motion and found to be stable throughout all range of motion of 0-130, and the patella tracked normally. The fascia was then closed with 0 Vicryl followed by #2 strata fix suture. The subcutaneous tissue was closed with 3-0 Vicryl and 3-0 strata fix. Exofin glue was used for the skin and placed with the knee in flexion. After the glue had dried, and Optafoam silver impregnated dressing was applied. A lightly compressive dressing was applied using web roll and Jomar wrap. Patient was then transferred to the stretcher and taken to recovery room in stable condition. Sponge and needle counts were correct. The customer assistant KATHRYN Cardoza was required due the complexity surgery and the need for a skilled surgical coder. She assisted in positioning, draping, retraction, and closure of the wound.
[2022-10-28] MEDS ORDERED: NALOXONE 0.4 MG/ML 1 ML VIAL IV PRN ×3 (08:49→08:52)
[2022-10-28] MEDS ORDERED: bisacodyL 10 MG SUPP RECTAL PRN (08:50)
[2022-10-28] MEDS ORDERED: LACTATED RINGERS 1,000 ML IV ONE (08:50)
[2022-10-28] MEDS ORDERED: MAGNESIUM HYDROXIDE 2,400 MG/10 ML CUP PO PRN (08:50)
[2022-10-28] MEDS ORDERED: ROPIVACAINE 1,100 MG, SODIUM CHLORIDE 0.9% 500 ML 330 ML, EMPTY PAIN BALL 1 EACH MISCELLANE PRN ×2 (09:40)
[2022-10-28 10:17] LABS: Glucose,Whole Blood 121 mg/dL (70-110)
[2022-10-28 11:43] LABS: Glucose,Whole Blood 151 mg/dL (70-110)
[2022-10-28] MEDS ORDERED: DEXTROSE 50% SYRINGE 50 ML IVP PRN ×2 (12:20)
[2022-10-28] MEDS: PANTOPRAZOLE 40 MG/10 ML VIAL IVP SCH (12:30)
[2022-10-28] MEDS: HYDROcodone/APAP 7.5-325MG 1 EACH TAB PO PRN ×2 (12:31→19:51)
[2022-10-28] MEDS: INSULIN ASPART (NovoLOG) 100 UNIT/ML VIAL SQ SCH ×3 (12:31→21:08)
[2022-10-28] MEDS: SODIUM CHLORIDE 0.9% 1,000 ML IV SCH (12:31)
[2022-10-28] MEDS: VIT A,C & E-LUTEIN-MINERALS 1 EACH TAB PO SCH ×2 (14:01→19:56)
--- NOTE | 2022-10-28 14:26 | P.ANPRN ---
Procedure Note - Anesthesia - Nerve Block Performed Left Adductor Canal Time Out Performed: Yes Date of Procedure: 10/28/22 Procedure Start Time: 06:42 Procedure Stop Time: 06:50 Location of Patient: PreOp Indication: Acute Post-Operative Pain, Requested by Surgeon Sedation Type: Sedate with meaningful contact maintained Preparation: Sterile Prep, Sterile Dressing Position: Supine Catheter: Indwelling Needle Types: Pajunk Needle Gauge: 21 Ultrasound used to visualize needle placement: Yes Ultrasound used to observe medication spread: Yes Blood Aspirated: No Pain Paresthesia on Injection Noted: No Resistance on Injection: Normal Image Stored and Saved: Yes Events: Uneventful and Well Tolerated (ropi .5% 20cc plus dexamethasone mg)
--- NOTE | 2022-10-28 14:27 | P.ANPRN ---
Procedure Note - Anesthesia - Nerve Block Performed Left iPack Single Time Out Performed: Yes Date of Procedure: 10/28/22 Procedure Start Time: 06:51 Procedure Stop Time: 06:53 Location of Patient: PreOp Indication: Acute Post-Operative Pain, Requested by Surgeon Sedation Type: Sedate with meaningful contact maintained Preparation: Sterile Prep Position: Supine Needle Types: Pajunk Needle Gauge: 21 Ultrasound used to visualize needle placement: Yes Ultrasound used to observe medication spread: Yes Blood Aspirated: No Pain Paresthesia on Injection Noted: No Resistance on Injection: Normal Image Stored and Saved: Yes Events: Uneventful and Well Tolerated (ropi ,5% 20cc plus dexamethasone 4mg)
--- NOTE | 2022-10-28 15:19 | P.CONS ---
History of Present Illness - Reason for Consult Consult date: 10/28/22 Medical management diabetes mellitus, hypertension Requesting physician: Guanakito Moore - Chief Complaint Status post total left knee arthroplasty - History of Present Illness This is 72-year-old gentleman with past medical history of COPD, diabetes mellitus, hypertension and hyperlipidemia, osteoarthritis, prostate disorder, significant former nicotine dependence of 30 years-smoked one to 3 packs per day, occasional marijuana use, migraines, diverticulosis and multiple other medical issues, status post total left knee arthroplasty. Tolerated procedure well. Passing flatus, denies nausea vomiting or diarrhea. Denies chest pain, palpitations or shortness of breath. Asymptomatic bradycardia when sleeping ,down into the 40s. Currently heart rate in the 60s. Review of Systems Constitutional: Denied any fatigue denied any fever. Cardio vascular: denied any chest pain, palpitations Gastrointestinal denied any nausea vomiting Pulmonary: Denied any shortness of breath cough Neurologic denied any new focal deficits ROS Statement: Those systems with pertinent positive or pertinent negative responses have been documented in the HPI. ROS Other: All systems not noted in ROS Statement are negative. Past Medical History Past Medical History: COPD, Diabetes Mellitus, Hyperlipidemia, Hypertension, Osteoarthritis (OA), Prostate Disorder Additional Past Medical History / Comment(s): heart murmur-"Thickened heart valve", diverticulosis, fatty liver, hx Legionnaire's disease, bulging discs, migraines, hiatal hernia,kidney stones,enlarged prostate,covid infection -2021 History of Any Multi-Drug Resistant Organisms: None Reported Past Surgical History: Orthopedic Surgery Additional Past Surgical History / Comment(s): Arthroscopy right knee, laser eye surgery for glaucoma melissa eyes, colonoscopies, rt knee open surgery, lithotripsy, PAIN CLINIC PROCEDUREs,lithotripsy to remove bladder stone Past Anesthesia/Blood Transfusion Reactions: No Reported Reaction Additional Past Anesthesia/Blood Transfusion Reaction / Comm: no hx blood transfusion Past Psychological History: No Psychological Hx Reported Smoking Status: Former smoker Past Alcohol Use History: Occasional Additional Past Alcohol Use History / Comment(s): Quit smoking 1999, smoked for 30 yrs, 1-3ppd. Past Drug Use History: Marijuana Additional Drug Use History / Comment(s): HAS TRIED EDIBLE GUMMIES RARELY - Past Family History Mother Family Medical History: No Reported History Medications and Allergies Home Medications Medication Instructions Recorded Confirmed Type Bisoprolol-Hctz 5-6.25 mg [Ziac 1 tab PO HS 04/22/19 10/21/22 History 5-6.25] Fenofibrate [Lofibra] 160 mg PO AC-SUPPER 04/22/19 10/21/22 History Losartan [Cozaar] 25 mg PO HS 04/22/19 10/21/22 History Multivitamins, Thera [Multivitamin 1 tab PO BID 04/22/19 10/21/22 History (formulary)] Simvastatin [Zocor] 20 mg PO HS 04/22/19 10/21/22 History Tamsulosin HCl [Flomax] 0.8 mg PO HS 04/22/19 10/21/22 History metFORMIN HCL [Glucophage] 1,000 mg PO BID 04/22/19 10/21/22 History Finasteride [Proscar] 5 mg PO HS 01/12/21 10/21/22 History Aspirin [Adult Low Dose Aspirin EC] 81 mg PO BID 06/12/21 10/21/22 History Fexofenadine HCl [Susan Allergy] 180 mg PO DAILY 10/17/21 10/21/22 History Macular Support 1 tab PO TID 05/15/22 10/21/22 History tiZANidine HCL [Zanaflex] 4 mg PO TID PRN 30 Days #90 capsule 10/17/22 10/21/22 Rx Gabapentin [Neurontin] 300 mg PO BID 10/21/22 10/21/22 History Semaglutide [Ozempic] 4 mg SQ BAKER 10/21/22 10/21/22 History Aspirin 325 mg PO BID #60 tab 10/28/22 Rx HYDROcodone/APAP 7.5-325MG [[place] 1 - 2 tab PO Q6H PRN #32 tab 10/28/22 Rx 7.5-325] Sennosides [Senokot] 2 tab PO DAILY PRN #60 tablet 10/28/22 Rx Allergies Allergy/AdvReac Type Severity Reaction Status Date / Time diclofenac [From Cataflam] Allergy Rash/Hives Verified 10/28/22 05:58 lisinopril AdvReac Cough Verified 10/28/22 05:58 BLACK WASP Allergy Swelling Uncoded 10/28/22 05:58 Physical Exam Vitals: Vital Signs Temp Pulse Resp BP Pulse Ox 10/28/22 10:15 44 L 17 126/60 98 01/23/23 10:00 46 L 17 131/62 97 10/28/22 09:45 47 L 17 157/68 97 10/28/22 09:30 47 L 17 124/62 97 10/28/22 09:15 44 L 17 124/62 97 10/28/22 09:00 62 17 127/60 97 10/28/22 08:46 97.3 F L 67 17 122/60 94 L 10/28/22 06:05 97.6 F 76 16 143/77 95 Intake and Output 10/27/22 10/28/22 10/28/22 22:59 06:59 14:59 Intake Total 751 100 Output Total 30 Balance 751 70 Intake: IV 751 100 Output: Estimated Blood Loss 30 Other: Weight 113.3 kg 113.3 kg PHYSICAL EXAM: VITAL SIGNS: As above GENERAL: Sitting up in bed, no acute distress HEENT: Conjunctivae normal. eyes normal. Oral mucosa moist NECK: Supple, No JVD. No thyroid enlargement. No LNs CARDIOVASCULAR: S1, S2 regular.systolic murmur. RESPIRATION: Breath sounds diminished in the bases. No rhonchi or crackles. No bronchial breathing. ABDOMEN: Soft, nontender . No guarding. no masses palpable. No ascites, No hepatosplenomegaly.Bowel sounds heard. LEGS: Left lower extremity dressing clean dry and intact, minimal ecchymosis or edema. No calf tenderness, positive DP pulse. PSYCHIATRY: Alert and oriented X3, mood and affect normal. NERVOUS SYSTEM: Cranial N 2-12 grossly normal.No focal deficits. Strength and sensation grossly intact. Results Labs: Abnormal Lab Results - Last 24 Hours (Table) 10/28/22 10/28/22 10/28/22 Range/Units 06:14 10:15 11:41 POC Glucose (mg/dL) 111 H 121 H 151 H (70-110) mg/dL Assessment and Plan Assessment: Left knee osteoarthritis, status post total left knee arthroplasty Bradycardia while sleeping, asymptomatic, suspect obstructive sleep apnea COPD, stable Hypertension Hyperlipidemia Diabetes mellitus Prior nicotine dependence, extensive, 30 year history of one to 3 packs per day Marijuana use Prostate disorder Obesity, BMI 33.9 Plan: Continue on current medication regime ,monitoring and symptomatic treatment. Protonix for GI prophylaxis. Pain management/DVT prophylaxis as per orthopedics. Remote telemetry ordered. Home meds have been reviewed and resumed accordingly. EKG of HR in 40s.Recommend outpatient sleep study. Thank you for the consult. The impression and plan of care has been dictated as directed. : I performed a history and examination of this patient, discussed the same with the dictator. I agree with the dictator's note ,documented as a scribe. Any additional findings or plans will be noted.
[2022-10-28 16:52] LABS: Glucose,Whole Blood 220 mg/dL (70-110)
--- NOTE | 2022-10-28 17:20 | XR ---
EXAMINATION TYPE: XR knee limited LT DATE OF EXAM: 10/28/2022 4:45 PM INDICATION: Patient age:Male; 72 years old; Reason for study: Evaluation for Postop abnormality and alignment; . COMPARISON: None. TECHNIQUE: The Left knee(s) was examined in Frontal, lateral and oblique projections. FINDINGS: Status post total knee arthroplasty changes with hardware in appropriate alignment and in tact. No evidence of fracture. Subcutaneous lucencies and lucencies within the joint consistent with surgical changes. IMPRESSION: Status post total knee arthroplasty changes with hardware intact and appropriate alignment. No fractu res identified.
[2022-10-28] MEDS: ASPIRIN 325 MG TAB PO SCH (19:51)
[2022-10-28] MEDS: GABAPENTIN 300 MG CAP PO SCH (19:51)
[2022-10-28 20:34] LABS: Glucose,Whole Blood 243 mg/dL (70-110)
[2022-10-28] MEDS ORDERED: FINASTERIDE 5 MG TAB PO SCH (21:00)
[2022-10-28] MEDS ORDERED: SENNOSIDES-DOCUSATE SODIUM 1 EACH TAB PO SCH (21:00)
[2022-10-28] MEDS ORDERED: TAMSULOSIN 0.4 MG CAP.ER.24H PO SCH (21:00)
[2022-10-29] MEDS: SODIUM CHLORIDE 0.9% 1,000 ML IV SCH ×2 (00:51→09:31)
[2022-10-29] MEDS: HYDROcodone/APAP 7.5-325MG 1 EACH TAB PO PRN ×2 (01:01→07:37)
[2022-10-29 06:08] LABS: Glucose,Whole Blood 122 mg/dL (70-110)
[2022-10-29] MEDS: INSULIN ASPART (NovoLOG) 100 UNIT/ML VIAL SQ SCH ×2 (06:36→11:58)
[2022-10-29 07:20] VITALS: BP 159/92; PULSE 83; RESP 18; TEMP 97.4
[2022-10-29] MEDS: LACTATED RINGERS 1,000 ML IV SCH (07:25)
--- NOTE | 2022-10-29 07:31 | P.PN ---
Progress Note - Text Progress Note Date: 10/29/22 Patient seen resting comfortably at bedside. POD#[address] Moore. Patient has Adductor canal nerve catheter and states his pain is currently 2/10. Patient is happy with his pain control. Dressing is clean and dry. Pump is at 8ml/hr.
[2022-10-29] MEDS: GABAPENTIN 300 MG CAP PO SCH (07:36)
[2022-10-29] MEDS: ASPIRIN 325 MG TAB PO SCH (07:36)
[2022-10-29] MEDS: VIT A,C & E-LUTEIN-MINERALS 1 EACH TAB PO SCH (07:37)
[2022-10-29] MEDS: PANTOPRAZOLE 40 MG/10 ML VIAL IVP SCH (09:29)
[2022-10-29 09:56] LABS: Basophils # (A) 0.01 X 10*3/uL (0.00-0.10); Basophils % (A) 0.1 %; Eosinophils # (A) 0.03 X 10*3/uL (0.04-0.35); Eosinophils % (A) 0.2 %; HCT 35.3 % (39.6-50.0); HGB 11.4 g/dL (13.0-17.0); Immature Grans, Automated 0.4 %; Lymphocytes # (A) 1.51 X 10*3/uL (0.90-5.00); MCH 29.5 pg (27.0-32.0); MCHC 32.3 g/dL (32.0-37.0); MCV 91.2 fL (80.0-97.0); Mean Platelet Volume 10.4 fL (9.5-12.2); Monocytes # (A) 1.45 X 10*3/uL (0.20-1.00); Monocytes % (A) 10.6 %; NRBC Per 100 WBC 0 /100 WBCS (0.0-0.0); Neutrophils # (A) 10.64 X 10*3/uL (1.80-7.70); Neutrophils % (A) 77.7 %; Platelet Count 303 X 10*3/uL (140-440); RBC 3.87 X 10*6/uL (4.40-5.60); WBC 13.69 X 10*3/uL (4.50-10.00)
--- NOTE | 2022-10-29 10:58 | P.DS ---
Providers Expected date of discharge: 10/29/22 Attending physician: Guanakito Moore Consults: 10/28/22 08:50 Consult Physician Routine Consulting Provider: Rob Nolan Consult Reason/Comments: medical management Do you want consulting provider notified?: Yes Primary care physician: Rob Nolan - Discharge Diagnosis(es) (1) Osteoarthritis of left knee Current Visit: Yes Status: Acute (2) S/P total knee arthroplasty Current Visit: Yes Status: Acute Hospital Course: This is a 72-year-old male with known history of degenerative arthritis of the left knee. The patient presented for evaluation as an outpatient. After discussion and consideration patient elects to proceed with total knee arthroplasty. The patient is seen preoperatively by Dr. Moore and medically cleared for surgery by their primary care physician. Patient is admitted to [facility] on 10/28/2021 for total knee arthroplasty. The procedure is performed without complication or sequelae. The patient is doing well postoperatively. Labs and vital signs are stable on day of discharge. On day of discharge patient's knee incision is healing well. There is minimal erythema. There is no drainage noted at this time. There is minimal soft tissue swelling to the knee. Patient has full foot and ankle motion without difficulty or pain. Calf is soft and nontender to palpation. Neurovascular status to the left lower extremity is intact. Patient is discharged home in good condition. Please see med rec for accurate list of home medications. Plan - Discharge Summary Discharge Rx Participant: No New Discharge Prescriptions: New Aspirin 325 mg PO BID #60 tab HYDROcodone/APAP 7.5-325MG [[place] 7.5-325] 1 - 2 tab PO Q6H PRN #32 tab PRN Reason: Pain Sennosides [Senokot] 2 tab PO DAILY PRN #60 tablet PRN Reason: Constipation No Action Multivitamins, Thera [Multivitamin (formulary)] 1 tab PO BID Tamsulosin HCl [Flomax] 0.8 mg PO HS Simvastatin [Zocor] 20 mg PO HS Losartan [Cozaar] 25 mg PO HS Fenofibrate [Lofibra] 160 mg PO AC-SUPPER Bisoprolol-Hctz 5-6.25 mg [Ziac 5-6.25] 1 tab PO HS metFORMIN HCL [Glucophage] 1,000 mg PO BID Finasteride [Proscar] 5 mg PO HS Aspirin [Adult Low Dose Aspirin EC] 81 mg PO BID Fexofenadine HCl [Susan Allergy] 180 mg PO DAILY Macular Support 1 tab PO TID tiZANidine HCL [Zanaflex] 4 mg PO TID PRN 30 Days #90 capsule PRN Reason: Muscle Spasm Semaglutide [Ozempic] 4 mg SQ BAKER Gabapentin [Neurontin] 300 mg PO BID Discharge Medication List Bisoprolol-Hctz 5-6.25 mg [Ziac 5-6.25] 1 tab PO HS 04/22/19 [History] Fenofibrate [Lofibra] 160 mg PO AC-SUPPER 04/22/19 [History] Losartan [Cozaar] 25 mg PO HS 04/22/19 [History] Multivitamins, Thera [Multivitamin (formulary)] 1 tab PO BID 04/22/19 [History] Simvastatin [Zocor] 20 mg PO HS 04/22/19 [History] Tamsulosin HCl [Flomax] 0.8 mg PO HS 04/22/19 [History] metFORMIN HCL [Glucophage] 1,000 mg PO BID 04/22/19 [History] Finasteride [Proscar] 5 mg PO HS 01/12/21 [History] Aspirin [Adult Low Dose Aspirin EC] 81 mg PO BID 06/12/21 [History] Fexofenadine HCl [Susan Allergy] 180 mg PO DAILY 10/17/21 [History] Macular Support 1 tab PO TID 05/15/22 [History] tiZANidine HCL [Zanaflex] 4 mg PO TID PRN 30 Days #90 capsule 10/17/22 [Rx] Gabapentin [Neurontin] 300 mg PO BID 10/21/22 [History] Semaglutide [Ozempic] 4 mg SQ BAKER 10/21/22 [History] Aspirin 325 mg PO BID #60 tab 10/28/22 [Rx] HYDROcodone/APAP 7.5-325MG [[place] 7.5-325] 1 - 2 tab PO Q6H PRN #32 tab 10/28/22 [Rx] Sennosides [Senokot] 2 tab PO DAILY PRN #60 tablet 10/28/22 [Rx] Follow up Appointment(s)/Referral(s): Guanakito Moore DO [Doctor of Osteopathic Medicine] - 2 Weeks Activity/Diet/Wound Care/Special Instructions: Weightbearing as tolerated with a walker. CPM 5-6h daily as tolerated. Leave dressing intact. Dressing may be removed by home care nurse or by patient in 7 days. Then change dressing twice daily until follow up. May shower with initial dressing intact and after removal. If dressing become saturated, please remove. Recommend use of compression stockings daily until follow up to help prevent swelling and blood clots. May remove at night before sleeping. Please take aspirin 325mg twice daily for 30 days to prevent blood clots. Please follow up with [facility] and call with any questions or concerns, . Discharge Disposition: HOME WITH HOME HEALTH SERVICES
[2022-10-29 11:38] LABS: Glucose,Whole Blood 108 mg/dL (70-110)
[2022-10-30] MEDS ORDERED: PANTOPRAZOLE 40 MG TABLET PO SCH (07:30)
== END 2022-10-29 12:11 | disposition home health service (06) ==
LOC: OR 05:38 → 4SSUR 08:46 → OR 10-29 12:11
PROVIDERS: ATTEND Orthopaedic Surgery
DX: M17.12 Unilateral primary osteoarthritis, left knee (principal); G89.18 Other acute postprocedural pain; J44.9 Chronic obstructive pulmonary disease, unspecified; E11.9 Type 2 diabetes mellitus without complications; E78.5 Hyperlipidemia, unspecified; I10 Essential (primary) hypertension; M19.90 Unspecified osteoarthritis, unspecified site; G43.909 Migraine, unspecified, not intractable, without status migrainosus; N40.0 Benign prostatic hyperplasia without lower urinary tract symptoms; K76.0 Fatty (change of) liver, not elsewhere classified; F10.90 Alcohol use, unspecified, uncomplicated; F12.90 Cannabis use, unspecified, uncomplicated; Z86.16 Personal history of COVID-19; Z98.890 Other specified postprocedural states; Z87.891 Personal history of nicotine dependence; Z79.899 Other long term (current) drug therapy; Z79.84 Long term (current) use of oral hypoglycemic drugs; Z79.82 Long term (current) use of aspirin
CPT/HCPCS: 27447; 64999; 64448; 97161; 83036; 73560; S0138; J2250; J1100; J0690 ×2; J2405; J2795; C9113; 76942; 85025; 88300

== ENCOUNTER 2023-01-09 13:24 | Day surgery (SDC) | payer MEDICARE ==
[2023-01-07 16:10] VITALS: BMI 34.5
[~2023-01-09 13:24] MED LIST changes: -ACETAMINOPHEN TAB 500 MG TAB PO PRN; -GABAPENTIN 300 MG CAP PO PRN; +LACTATED RINGERS 1,000 ML IV SCH; -MELOXICAM 7.5 MG TAB PO PRN; -TRANEXAMIC ACID IN NACL,ISO-OS 1,000 MG in SALINE 1 100ML.BAG IVPB PRN
[2023-01-09 13:44] VITALS: TEMP 97.1
[2023-01-09 13:52] LABS: Glucose,Whole Blood 103 mg/dL (70-110)
[2023-01-09] MEDS ORDERED: ROPIVACAINE 5 MG/ML 20 ML AMPULE ONE (14:14)
[2023-01-09] MEDS ORDERED: fentaNYL (PF) 50 MCG/ML 2 ML AMP ONE (14:14)
[2023-01-09] MEDS ORDERED: MIDAZOLAM 2 MG/2 ML VIAL ONE (14:14)
[2023-01-09] MEDS ORDERED: TRIAMCINOLONE ACETONIDE 40 MG/ML 1 ML VIAL ONE (14:14)
--- NOTE | 2023-01-09 14:22 | P.PCN ---
Date of Procedure: 01/09/23 Description of Procedure: Pre and postop diagnosis: Myofascial pain syndrome Procedure: Trigger point injections X 6 Muscle group X Bilateral lumbar paraspinal muscles, and iliocostal lumborum muscles Surgeon: Mar Cardoza Anesthesia: Versed 2 mg, and fentanyl 100 g sedation Supervision start time: 1415 Sedation supervision ended time: 1918 Complications: None Estimated blood loss: None Specimen removed: None Procedure indications: Patient had a history of myofascial pain syndrome. Patient tried conservative therapy. Came here for intervention procedure for better pain relief. Procedure description: Patient was seen and identified in the holding area risk benefits competitions alternative discussed with the patient. Patient agreed to proceed for the procedure signed the consent. Patient taken to the procedure area. Timeout was completed. A total number of 6 - trigger point area was marked with a sterile marker. After ChloraPrep used to clean the area. Critical pause was taken. Using 25-gauge 1-1/2 [address] needle b[address] half way. Needle entered in each market site 2 mL of block solution injected at each level. The block solution containing 12 ml of 0.5% preservative-free ropivacaine with Kenlog 40 MG. Needle removed intact skin cleaned and Band-Aid applied. Patient tolerated the procedure well. Disposition: Patient discharge home after meeting the discharge criteria from the recovery. Patient scheduled to follow up with the pain clinic in 4 weeks for follow-up visit.
[2023-01-09] MEDS ORDERED: IV FLUID CONTINUATION 800 ML IV ONE (14:24)
[2023-01-09 14:37] VITALS: RESP 16
[2023-01-09 14:44] VITALS: BP 160/79; PULSE 75
== END 2023-01-09 15:01 | disposition home or self-care (01) ==
LOC: ORPAIN 13:24
DX: M79.18 Myalgia, other site (principal); F10.90 Alcohol use, unspecified, uncomplicated; J44.9 Chronic obstructive pulmonary disease, unspecified; I10 Essential (primary) hypertension; E11.9 Type 2 diabetes mellitus without complications; F12.90 Cannabis use, unspecified, uncomplicated; E78.5 Hyperlipidemia, unspecified; M19.90 Unspecified osteoarthritis, unspecified site; Z79.82 Long term (current) use of aspirin; Z79.84 Long term (current) use of oral hypoglycemic drugs; Z79.899 Other long term (current) drug therapy; Z88.8 Allergy status to other drugs, medicaments and biological substances; Z98.890 Other specified postprocedural states
CPT/HCPCS: 20553; J2250; J3301; J3010; J2795

== ENCOUNTER → 2023-01-29 | Outpatient (CLI) | payer MEDICARE ==
[2023-01-29 13:31] VITALS: BP 106/62; PULSE 75; RESP 18; TEMP 97.6
--- NOTE | 2023-01-29 14:17 | P.PAINPG ---
PQRS Measure Charge Sheet Comment: A 72 yr old male with a history of severe and chronic LBP secondary to lumbar DDD and spondylosis with facet arthropathy without myelopathy presents today for evaluations/p Lumbar TPIs. Pt states he experienced 5 % pain relief x 3 wks s/p procedure. Pain level is provoked at 7 /10 in intensity, constant, localized in the lumbar spine, sharp in character w shooting towards the L hip and LLE. Pain is provoked by bending, lifting. Pain is alleviated with PT currently in for his knee s/p surgery, use of a massage gun at home, chiropractic treatments were discontinued by his therapist after viewing x rays, heat, ice, reclining and rest. Interventional pain procedures completed include BL RFA L3-L5, BL iliolumbar injections, Caudal ESIs, Lumbar TPIs Patient is currently on Hammond, Baclofen, Tylenol, Zanaflex, Neurontin Patient denies any side effects of the medication(s), denies excessive drowsiness or sleepiness, denies suicidal ideation and reports that the current pain medication is helping to control the pain and improve activities of daily living. Patient denies any motor or sensory deficits. Patient denies any fever or night sweats, denies any change in the bowel movements or urination. Physical Examination: -Constitutional: Cooperative. Not in acute distress . - Neurologic: Cranial nerve II to XII intact. No focal neurological deficits. - Psychatric: Alert & oriented x 3. Matching mood & appropriate affect. Judgment and insight intact. - Musculoskeletal: Cervical spine: Muscle bulk/ tone/ strength in the bilateral upper extremities normal Vertebral body tenderness to palpation over Spurling test positive Distraction test positive Facet loading test positive TTP Thoracic spine Muscle bulk / tone/ strength in the bilateral paraspinal muscles normal Vertebral body tender to palpation over Facet loading test positive TTP Lumbar spine: Motor bulk/ tone/ strength lower extremities , thigh and legs : 5/5 Deep tendon reflexes : Normal Knee Jerk. Normal Ankle Jerk . Vertebral body tenderness to palpation over L4, L5 Lumbar Facet Loading Test positive Straight Leg Raise: positive at 30 degrees right side/ left side Gaenslen's Test positive Sacral spine : Severe tenderness over the Sacroiliac joint: right side / left side Range of motion: Flexion of the lumbar spine <60 degrees Range of motion: Extension of the lumbar spine <20 degrees Gaenslen's Test positive right side / left side Samira test: positive right side / left side Thigh Thrust Test positive right side / left side Sacral Thrust Test positive right side / left side Assessment and plan: Chronic LBP secondary to lumbar DDD, spondylosis with facet arthropathy without myelopathy Medication management. Refill of Neurontin 300mg TID x 90 days and Baclofen w 2 RF. All questions answered. I have spent less than 30 minutes on patient care today. Dr Richard was available by phone for the evaluation of this patient. The time was used to review the medical records including relevant urine studies and Prescription history (MAPs), review of the available imaging, evaluation and examination of the patient, coordination of care with the medical staff and if applicable referring physicians, as well as creation of the medical record PQRS Narrative: Smoking Status Former smoker Narcotic Agreement Date Signed 10/17/22 Hx Alcohol Use (MH) No Home Medications: Ambulatory Orders Bisoprolol-Hctz 5-6.25 mg [Ziac 5-6.25] 1 tab PO HS 04/22/19 Fenofibrate [Lofibra] 160 mg PO AC-SUPPER 04/22/19 Losartan [Cozaar] 25 mg PO HS 04/22/19 Multivitamins, Thera [Multivitamin (formulary)] 1 tab PO BID 04/22/19 Simvastatin [Zocor] 20 mg PO HS 04/22/19 Tamsulosin HCl [Flomax] 0.8 mg PO HS 04/22/19 metFORMIN HCL [Glucophage] 1,000 mg PO BID 04/22/19 Finasteride [Proscar] 5 mg PO HS 01/12/21 Aspirin [Adult Low Dose Aspirin EC] 81 mg PO BID 06/12/21 Fexofenadine HCl [Susan Allergy] 180 mg PO DAILY 10/17/21 Macular Support 1 tab PO TID 05/15/22 Semaglutide [Ozempic] 4 mg SQ BAKER 10/21/22 HYDROcodone/APAP 7.5-325MG [Hamm[place] 7.5-325] 1 - 2 tab PO Q6H PRN #32 tab 10/28/22 Sennosides [Senokot] 2 tab PO DAILY PRN #60 tablet 10/28/22 Gabapentin [Neurontin] 300 mg PO BID 90 Days #183 cap 01/29/23 tiZANidine HCL [Zanaflex] 4 mg PO TID PRN 30 Days #90 capsule 01/29/23 Controlled Substance Measures - Controlled Substance Measures Is patient prescribed a controlled substance at discharge?: Yes
== END ==
LOC: PNWHC3 10:16
PROVIDERS: ATTEND Specialist
DX: M51.36 Other intervertebral disc degeneration, lumbar region (principal); M47.816 Spondylosis without myelopathy or radiculopathy, lumbar region; G89.29 Other chronic pain; Z87.891 Personal history of nicotine dependence; Z88.1 Allergy status to other antibiotic agents; Z88.8 Allergy status to other drugs, medicaments and biological substances
CPT/HCPCS: 99211

== ENCOUNTER → 2023-04-07 | Outpatient (CLI) | payer MEDICARE ==
[2023-04-07 14:47] LABS: Prothrombin Time 10.2 sec (9.0-12.0)
[2023-04-07 20:58] LABS: ALT 26 U/L (10-49); AST 16 U/L (14-35); Albumin 4.5 d/dL (3.8-4.9); Albumin/Globulin Ratio 2.05 Ratio (1.60-3.17); Alkaline Phosphatase 46 U/L (41-126); BUN/Creat Ratio 31.57 Ratio (12.00-20.00); Blood Urea Nitrogen 22.1 mg/dL (9.0-27.0); Calcium 9.9 mg/dL (8.7-10.3); Carbon Dioxide 26.6 mmol/L (21.6-31.8); Chloride 104 mmol/L (96-109); Globulin 2.2 d/dL (1.6-3.3); Glucose 95 mg/dL (70-110); Potassium 4.2 mmol/L (3.5-5.5); Sodium 141 mmol/L (135-145); Total Bilirubin 0.3 mg/dL (0.3-1.2); Total Protein 6.7 d/dL (6.2-8.2)
[2023-04-07 22:52] LABS: HCT 40.5 % (39.6-50.0); HGB 13.2 d/dL (12.0-15.0); MCH 30.1 pg (27.0-32.0); MCHC 32.6 d/dL (32.0-37.0); MCV 92.5 FL (80.0-97.0); Mean Platelet Volume 10.8 FL (9.5-12.2); NRBC Per 100 WBC 0 X 10*3/uL (0.00-0.01); Platelet Count 288 X 10*3/uL (140-440); RBC 4.38 X 10*6/uL (4.40-5.60); RDW 13.7 % (11.5-14.5); WBC 7.46 X 10*3/uL (4.50-10.00)
[2023-04-07 23:12] LABS: Appearance,Urine Clear (Clear); Bilirubin,Urine Negative (Negative); Blood,Urine Negative (Negative); Color,Urine Dark Yellow (Yellow); Ketones,Urine Negative (Negative); Nitrite,Urine Negative (Negative); PH, Urine 7.5; Specific Gravity,Urine 1.028 (1.001-1.030)
[2023-04-07 23:53] LABS: Bacteria,Urine None Seen (None Seen); Calcium Oxalate Crystals,Urine Present (None Seen)
== END | disposition home or self-care (01) ==
LOC: LABPAT 13:02
PROVIDERS: ATTEND Orthopaedic Surgery
DX: Z01.818 Encounter for other preprocedural examination (principal); I49.9 Cardiac arrhythmia, unspecified
CPT/HCPCS: 80053; 81001; 85027; 85610; 85730; 87070; 93005

== ENCOUNTER 2023-04-14 07:18 | Day surgery (SDC) | payer MEDICARE ==
[~2023-04-14 07:18] MED LIST changes: +ACETAMINOPHEN TAB 500 MG TAB PO PRN; +GABAPENTIN 300 MG CAP PO PRN; -LACTATED RINGERS 1,000 ML IV SCH; +MELOXICAM 7.5 MG TAB PO PRN; +TRANEXAMIC 1,000 MG/100ML-NACL 1,000 MG in SALINE 1 100ML.BAG IVPB PRN
[2023-04-14] MEDS ORDERED: MIDAZOLAM 2 MG/2 ML VIAL IV PRN (07:37)
[2023-04-14] MEDS ORDERED: DEXAMETHASONE SOD PHOSPHATE 4 MG/ML 1 ML VIAL IV ONE (07:37)
[2023-04-14] MEDS ORDERED: ONDANSETRON 4 MG/2 ML VIAL IVP ONE (07:37)
[2023-04-14] MEDS: LACTATED RINGERS 1,000 ML IV SCH ×2 (08:00→08:27)
[2023-04-14 08:24] LABS: Glucose,Whole Blood 118 mg/dL (70-110)
[2023-04-14] MEDS ORDERED: MAGNESIUM HYDROXIDE 2,400 MG/30 ML CUP PO PRN (08:37)
[2023-04-14] MEDS ORDERED: HYDROmorphone 0.5 MG/0.5 ML SYRINGE IVP PRN ×3 (08:37)
[2023-04-14] MEDS ORDERED: NALOXONE 0.4 MG/ML 1 ML VIAL IV PRN (08:37)
[2023-04-14] MEDS ORDERED: MIDAZOLAM 2 MG/2 ML VIAL IVP ONE (08:37)
[2023-04-14] MEDS ORDERED: ONDANSETRON 4 MG/2 ML VIAL IVP PRN (08:37)
[2023-04-14] MEDS ORDERED: fentaNYL (PF) 50 MCG/1 ML VIAL IVP ONE (08:38)
[2023-04-14] MEDS ORDERED: HYDROcodone/APAP 7.5-325MG 1 EACH TAB PO PRN (08:39)
[2023-04-14] MEDS ORDERED: ceFAZolin 1,000 MG in SODIUM CHLORIDE 0.9% 1,000 ML IRRIGATION ONE (08:53)
[2023-04-14] MEDS ORDERED: SODIUM CHLORIDE 0.9% (PF) 10 ML VIAL ONE (08:57)
[2023-04-14] MEDS ORDERED: ROPIVACAINE 5 MG/ML 30 ML VIAL ONE (08:57)
[2023-04-14] MEDS ORDERED: SUCCINYLCHOLINE CHLORIDE 200 MG/10 ML VIAL IV ONE (08:57)
[2023-04-14] MEDS ORDERED: fentaNYL (PF) 50 MCG/ML 2 ML AMP ONE (08:57)
[2023-04-14] MEDS ORDERED: LIDOCAINE 2% INJ 20 MG/ML (2 ML VIAL) ONE (08:57)
[2023-04-14] MEDS ORDERED: DEXAMETHASONE SOD PHOSPHATE 4 MG/ML 1 ML VIAL ONE (08:57)
[2023-04-14] MEDS ORDERED: PROPOFOL 10 MG/ML 20 ML VIAL IV ONE (08:57)
[2023-04-14] MEDS ORDERED: MIDAZOLAM 2 MG/2 ML VIAL ONE (08:57)
[2023-04-14] MEDS ORDERED: TRANEXAMIC 1,000 MG/100ML-NACL PREMIX BAG ONE (08:57)
[2023-04-14] MEDS ORDERED: ROPIVACAINE 5 MG/ML 30 ML VIAL MISCELLANE ONE ×2 (09:01→09:58)
--- NOTE | 2023-04-14 09:47 | P.ANPRN ---
Procedure Note - Anesthesia - Nerve Block Performed Left Alden Single Time Out Performed: Yes Date of Procedure: 04/14/23 Procedure Start Time: 08:37 Procedure Stop Time: 08:44 Location of Patient: PreOp Indication: Acute Post-Operative Pain, Requested by Surgeon Specifically requested for management of pain by : Guanakito Moore Sedation Type: Sedate with meaningful contact maintained Preparation: Sterile Prep Position: Supine Needle Types: Pajunk Needle Gauge: 21 Ultrasound used to visualize needle placement: Yes Ultrasound used to observe medication spread: Yes Injectate: 0.5% Ropivacaine (see comment for volume) (20 ml + 10 ml NS + 4mg dexamethasone) Blood Aspirated: No Pain Paresthesia on Injection Noted: No Resistance on Injection: Normal Image Stored and Saved: Yes Events: Uneventful and Well Tolerated
[2023-04-14] MEDS ORDERED: LACTATED RINGERS 1,000 ML IV ONE (09:54)
--- NOTE | 2023-04-14 10:05 | P.OP ---
Date of Procedure: 04/14/23 Preoperative Diagnosis: Severe osteoarthritis left hip Postoperative Diagnosis: Severe osteoarthritis left hip Procedure(s) Performed: Left total hip arthroplasty with a direct anterior approach Implants: [employer] Polarstem standard size 6 with a collar [employer] R3, 3 hole hemispherical acetabular shell, 54 mm [employer] Reflection 6.5 mm cancellus screw, 25 mm 2 [employer] R3, XLPE 20 acetabular liner [employer]hew Oxinium femoral head 36 mm, -3 All components were press-fit. The articulation is Oxinium on polyethylene. Anesthesia: GETA Surgeon: Guanakito Moore Professor Of Law #1: Rakel Meier Estimated Blood Loss (ml): 400 Pathology: none sent Condition: stable Disposition: PACU Indications for Procedure: After failure of conservative treatment we discussed the surgical and nonsurgica l treatment options at length. Patient wishes to proceed with a total hip arthroplasty with a direct anterior approach. Complications specific to this procedure were discussed at length, including but not limited to infection, leg length discrepancy, dislocation, nerve injury, and fracture. Covid-19 was also discussed at length with the patient, and they are aware of the current policies and procedures. The patient was given the option of delaying surgery, but they elect to proceed knowing these risks. Patient is aware of all these complications and informed consent was obtained Operative Findings: The operative findings are consistent with severe osteoarthritis of the left hip Description of Procedure: The patient was seen and evaluated in the preoperative area and the consent was reviewed. The operative site was marked with a skin marker. The patient verified the procedure and operative site. A DONNA block was placed by anesthesia in the preoperative area. The patient was then brought to the operating room and given preoperative antibiotics intravenously. 1 g of Tranexamic acid was also given intravenously. A spinal anesthetic was administered by the anesthesia department. The patient was then placed on the Hawthorn table with the bony prominences well-padded. The hip area was then prepped with a ChloraPrep solution and draped in the usual sterile fashion. A universal timeout was then performed, which confirmed the patient's name, surgical site, ALLERGIES, and procedure being performed on the consent. Next the incision site was located at 1 cm distal and 4 cm lateral to the anterior superior iliac spine. The skin and subcutaneous tissues were sharply incised. Incision was carefully dissected down to the fascia overlying the tensor fascia gabriele muscle. This fascia was then incised in line with the muscle fibers. Care was taken to stay laterally in order to avoid injuring the lateral femoral cuta neous nerve. Next, using blunt finger dissection, the tensor fascia gabriele muscle was dissected off its investing fascia. The muscle was then carefully retracted laterally with a cobra retractor over the lateral neck of the femur. Next, the circumflex vessels were identified and cauterized using the Aquamantis device. The anterior hip capsule was then exposed. The capsule was then opened and an inverted T fashion. The retractors were then placed intracapsularly. The retractors were maintained intracapsular throughout the procedure. The proximal femur was then visualized. Fluoroscopic x-rays were then taken in order to evaluate the preoperative leg lengths. A small amount of traction was placed on the leg. The femoral neck was then osteotomized at the appropriate level above the lesser trochanter. A small wedge of bone was then removed from the remaining femoral head. Next, using a corkscrew the femoral head was removed from the acetabulum. On gross visual inspection, the femoral head had complete loss of articular cartilage and multiple periarticular osteophytes. The femoral head was then measured. Attention was then turned to the acetabulum. The acetabulum was exposed and any remaining labrum was excised. Sequential reaming of the acetabulum was performed using fluoroscopic guidance until there was a good bed of bleeding cancellus bone. When the appropriate size was reached, a trial was then placed. The position and fit of the trial was checked with fluoroscopy. The trial was then removed. Then, using fluoroscopic guidance, the final implant was impacted at 20 of anteversion and 40 of abduction, and fully seated in the acetabulum. 2 screws were then placed in the acetabulum. Again fluoroscopy was used to check position of the screws. Next, the liner was then impacted, with a 20 elevated liner located in the anterior superior quadrant. Component locking was confirmed. Attention was then directed to the femur. With the aid of the Hawthorn table, the femur was externally rotated to approximately 130, extended, and adducted under the opposite leg. A side hook was then placed under the proximal femur, and the side hook elevator was used to elevate the proximal femur while releasing the capsule. Retractors were then placed. A capsular release was performed, as well as a release of the conjoined tendon, which afforded excellent visuali zation of the proximal femur. Next, a box osteotome was used to lateralize the proximal femur. A hand sizer was then used to locate the femoral canal. Sequential broaching was then performed with appropriate size which afforded excellent fixation in the proximal femur. A trial was then placed with appropriate head and neck, and the hip was gently reduced with the aid of the Hawthorn table. Fluoroscopy was then used to check position of the components, as well as to evaluate the leg lengths and offset. The leg lengths and offset were measured as closely as possible to ensure stability of the hip. The hip was then gently dislocated and the trials were then removed. Final implants were then impacted and the hip was again reduced. Final fluoroscopic x-rays confirmed that the components were in anatomic position. The leg lengths and offset were measured and were found to coincide with the trial measurements. The hip was also taken through range of motion, and found to be stable. The hip was then copiously irrigated with antibiotic solution with pulsatile lavage. The hip was then irrigated with Irrisept solution. The soft tissues were then injected with a ropivacaine solution. A second dose of 1 g of Tranexamic acid was also given intravenously. The fascia was then closed with 2-0 strata fix suture. The subcutaneous tissue was closed with 3-0 Vicryl. The subcuticular tissue was closed with 3-0 strata fix suture. The skin was then closed with Exofin skin glue. After the glue and dried, and Optifoam silver impregnated dressing was applied. The patient was then transferred to the recovery room in stable condition. The assistant professor surgical technology KATHRYN Cardoza was required due to the complexity of surgery, and the need for skilled certified surgical assistant for positioning, draping, exposure, retraction, and closure of the wound.
[2023-04-14] MEDS: HYDROmorphone 0.5 MG/0.5 ML SYRINGE IVP PRN ×3 (10:53→12:47)
[2023-04-14] MEDS ORDERED: diphenhydrAMINE 50 MG/ML 1 ML VIAL IVP ONE (11:10)
--- NOTE | 2023-04-14 11:21 | XR ---
Fluoroscopy History: LEFT ANTERIOR HIP 3.2169DAP, 39 SEC FLUORO
[2023-04-14] MEDS ORDERED: GABAPENTIN 300 MG CAP PO PRN (16:46)
[2023-04-14] MEDS ORDERED: tiZANidine 4 MG TAB PO PRN (16:46)
[2023-04-14] MEDS ORDERED: DEXTROSE 50% SYRINGE 50 ML IVP PRN ×2 (16:47)
[2023-04-14 16:54] LABS: Glucose,Whole Blood 164 mg/dL (70-110)
[2023-04-14] MEDS: metFORMIN 500 MG TAB PO SCH (17:05)
[2023-04-14] MEDS: SODIUM CHLORIDE 0.9% 1,000 ML IV SCH (17:10)
[2023-04-14] MEDS ORDERED: FENOFIBRATE 160 MG TAB PO SCH (17:30)
[2023-04-14] MEDS: INSULIN ASPART (NovoLOG) 100 UNIT/ML VIAL SQ SCH ×2 (17:44→21:48)
[2023-04-14 19:45] LABS: Glucose,Whole Blood 186 mg/dL (70-110)
[2023-04-14] MEDS ORDERED: TAMSULOSIN 0.4 MG CAP.ER.24H PO SCH (21:00)
[2023-04-14] MEDS ORDERED: ASPIRIN 81 MG PO SCH (21:00)
[2023-04-14] MEDS ORDERED: FINASTERIDE 5 MG TAB PO SCH (21:00)
[2023-04-14] MEDS ORDERED: BISOPROLOL-HCTZ 5-6.25 MG 1 EACH TAB PO SCH (21:00)
[2023-04-14] MEDS ORDERED: LOSARTAN 25 MG TAB PO SCH (21:00)
[2023-04-14] MEDS ORDERED: SENNOSIDES-DOCUSATE SODIUM 1 EACH TAB PO SCH (21:00)
[2023-04-14] MEDS ORDERED: ATORVASTATIN 10 MG TAB PO SCH (21:00)
[2023-04-14] MEDS: ASPIRIN 325 MG TAB PO SCH (21:46)
[2023-04-14] MEDS: MULTIVITAMINS, THERA 1 EACH TAB PO SCH (21:47)
[2023-04-15] MEDS: SODIUM CHLORIDE 0.9% 1,000 ML IV SCH (00:37)
[2023-04-15] MEDS: HYDROcodone/APAP 7.5-325MG 1 EACH TAB PO PRN ×2 (00:39→06:52)
[2023-04-15 06:09] LABS: Glucose,Whole Blood 129 mg/dL (70-110)
[2023-04-15] MEDS: INSULIN ASPART (NovoLOG) 100 UNIT/ML VIAL SQ SCH ×2 (06:31→11:45)
[2023-04-15] MEDS: metFORMIN 500 MG TAB PO SCH (06:44)
[2023-04-15] MEDS: LACTATED RINGERS 1,000 ML IV SCH (08:47)
[2023-04-15 08:48] VITALS: RESP 20; TEMP 96.8
[2023-04-15] MEDS ORDERED: VIT A,C & E-LUTEIN-MINERALS 1 EACH TAB PO SCH (09:00)
[2023-04-15] MEDS ORDERED: LORATADINE 10 MG TAB PO SCH (09:00)
[2023-04-15] MEDS: ASPIRIN 325 MG TAB PO SCH (09:31)
[2023-04-15] MEDS: MULTIVITAMINS, THERA 1 EACH TAB PO SCH (09:32)
[2023-04-15 11:25] LABS: Glucose,Whole Blood 107 mg/dL (70-110)
[2023-04-15 11:31] LABS: Basophils # (A) 0.01 X 10*3/uL (0.00-0.10); Basophils % (A) 0.1 %; Eosinophils # (A) 0.03 X 10*3/uL (0.04-0.35); Eosinophils % (A) 0.2 %; HCT 35.3 % (39.6-50.0); HGB 11.3 d/dL (12.0-15.0); Lymphocytes # (A) 1.54 X 10*3/uL (0.90-5.00); Lymphocytes % (A) 10.7 %; MCH 29.8 pg (27.0-32.0); MCV 93.1 FL (80.0-97.0); Mean Platelet Volume 10.8 FL (9.5-12.2); Monocytes # (A) 1.28 X 10*3/uL (0.20-1.00); Monocytes % (A) 8.9 %; NRBC Per 100 WBC 0 X 10*3/uL (0.00-0.01); Neutrophils # (A) 11.51 X 10*3/uL (1.80-7.70); Neutrophils % (A) 79.5 %; Platelet Count 246 X 10*3/uL (140-440); RBC 3.79 X 10*6/uL (4.40-5.60); RDW 13.6 % (11.5-14.5); WBC 14.45 X 10*3/uL (4.50-10.00)
[2023-04-15 11:42] VITALS: BP 145/79; PULSE 75
--- NOTE | 2023-04-15 11:48 | P.CONS ---
History of Present Illness - Reason for Consult Consult date: 04/15/23 Medical management COPD, diabetes mellitus, hypertension Requesting physician: Guanakito Moore - Chief Complaint Left hip osteoarthritis, status post left total hip arthroplasty - History of Present Illness This is a 72-year-old gentleman with past medical history significant for hypertension, diabetes mellitus, obesity, osteoarthritis and multiple other medical issues, status post left total hip arthroplasty with direct anterior approach secondary to severe osteoarthritis of left hip. Tolerating procedure well. Denies nausea, vomiting . Blood sugars controlled. Hemoglobin A1c 6. Passing flatus, denies abdominal pain. Denies chest pain, palpitations or shortness of breath. Maintaining O2 sats in the 90s on room air. Afebrile. Pain controlled on current med regimen. Ambulating, tolerating exertion well. Denies lightheadedness, dizziness or focal deficits. Hypertensive, systolic blood pressure in the 160s, repeat blood pressure ordered. Review of Systems Constitutional: Denied any fatigue denied any fever. Cardio vascular: denied any chest pain, palpitations Gastrointestinal denied any nausea vomiting Pulmonary: Denied any shortness of breath cough Neurologic denied any new focal deficits ROS Statement: Those systems with pertinent positive or pertinent negative responses have been documented in the HPI. ROS Other: All systems not noted in ROS Statement are negative. Past Medical History Past Medical History: COPD, Diabetes Mellitus, Hyperlipidemia, Hypertension, Osteoarthritis (OA), Prostate Disorder Additional Past Medical History / Comment(s): heart murmur-"Thickened heart valve", diverticulosis, fatty liver, hx Legionnaire's disease, bulging discs, migraines, hiatal hernia,kidney stones,enlarged prostate,covid infection -2021 History of Any Multi-Drug Resistant Organisms: None Reported Past Surgical History: Joint Replacement, Orthopedic Surgery Additional Past Surgical History / Comment(s): Arthroscopy right knee, laser eye surgery for glaucoma melissa eyes, colonoscopies, rt knee open surgery, lithotripsy, PAIN CLINIC PROCEDUREs,lithotripsy to remove bladder stone, LT TKA 10/28/22 Past Anesthesia/Blood Transfusion Reactions: No Reported Reaction Smoking Status: Former smoker - Past Family History Mother Family Medical History: No Reported History Medications and Allergies Home Medications Medication Instructions Recorded Confirmed Type Bisoprolol-Hctz 5-6.25 mg [Ziac 1 tab PO HS 04/22/19 04/09/23 History 5-6.25] Fenofibrate [Lofibra] 160 mg PO AC-SUPPER 04/22/19 04/09/23 History Losartan [Cozaar] 25 mg PO HS 04/22/19 04/09/23 History Multivitamins, Thera [Multivitamin 1 tab PO BID 04/22/19 04/09/23 History (formulary)] Simvastatin [Zocor] 20 mg PO HS 04/22/19 04/09/23 History Tamsulosin HCl [Flomax] 0.8 mg PO HS 04/22/19 04/09/23 History metFORMIN HCL [Glucophage] 1,000 mg PO BID 04/22/19 04/09/23 History Finasteride [Proscar] 5 mg PO HS 01/12/21 04/09/23 History Aspirin [Adult Low Dose Aspirin EC] 81 mg PO BID 06/12/21 04/09/23 History Fexofenadine HCl [Susan Allergy] 180 mg PO DAILY 10/17/21 04/09/23 History Semaglutide [Ozempic] 4 mg SQ BAKER 10/21/22 04/09/23 History tiZANidine HCL [Zanaflex] 4 mg PO TID PRN 30 Days #90 capsule 01/29/23 04/09/23 Rx Gabapentin [Neurontin] 300 mg PO BID PRN 04/09/23 04/09/23 History Vit C/E/Zn/Coppr/Lutein/Zeaxan 1 each PO TID 04/09/23 04/09/23 History [Preservision Areds 2 Softgel] Aspirin 325 mg PO BID #60 tab 04/14/23 Rx HYDROcodone/APAP 7.5-325MG [Joseph 1 - 2 tab PO Q6H PRN #32 tab 04/14/23 Rx 7.5-325] Sennosides [Senokot] 2 tab PO DAILY PRN #60 tablet 04/14/23 Rx Allergies Allergy/AdvReac Type Severity Reaction Status Date / Time diclofenac [From [place]] Allergy Rash/Hives Verified 04/14/23 07:45 lisinopril AdvReac Cough Verified 04/14/23 07:45 BLACK WASP Allergy Swelling Uncoded 04/14/23 07:45 Physical Exam Vitals: Vital Signs Temp Pulse Resp BP Pulse Ox 04/15/23 08:00 96.8 F L 89 20 168/87 04/15/23 02:07 98.1 F 100 19 148/79 93 L 04/14/23 20:04 97.5 F L 96 19 165/78 93 L 04/14/23 14:45 79 16 145/78 94 L 04/14/23 13:51 50 L 16 112/51 97 04/14/23 13:21 56 L 16 115/61 100 04/14/23 12:30 58 L 16 86/38 99 04/14/23 12:15 51 L 16 130/64 99 04/14/23 12:00 65 16 114/62 97 04/14/23 11:45 50 L 16 92/58 96 Intake and Output 04/14/23 04/15/23 04/15/23 22:59 06:59 14:59 Output Total 300 Balance -300 Output: Urine 300 Other: Voiding Method Toilet # Voids 2 3 Weight 111.2 kg PHYSICAL EXAM: VITAL SIGNS: As above GENERAL: Sitting up in bed, no acute distress HEENT: Normocephalic, Conjunctivae normal. eyes normal. NECK: Supple, No JVD. No thyroid enlargement. No LNs CARDIOVASCULAR: S1, S2 regular.. No murmur RESPIRATION: Unlabored, Breath sounds diminished in the bases. No rhonchi or crackles. No bronchial breathing. ABDOMEN: Soft, nondistended, nontender . No guarding. no masses palpable. No ascites, No hepatosplenomegaly.Bowel sounds heard. LEGS: Left lower extremity dressing clean dry and intact. Mild edema. No calf pain, positive DP pulse. PSYCHIATRY: Alert and oriented X3, mood and affect normal. NERVOUS SYSTEM: Cranial N 2-12 grossly normal. No focal deficits. Strength and sensation grossly intact.. Skin: Warm and dry, no rash noted. Results CBC & Chem 7: 04/15/23 06:24 Labs: Abnormal Lab Results - Last 24 Hours (Table) 04/14/23 04/14/23 04/15/23 Range/Units 16:48 19:36 06:08 WBC (4.50-10.00) X 10*3/uL RBC (4.40-5.60) X 10*6/uL Hgb (12.0-15.0) d/dL Hct (39.6-50.0) % Neutrophils # (1.80-7.70) X 10*3/uL Monocytes # (0.20-1.00) X 10*3/uL Eosinophils # (0.04-0.35) X 10*3/uL POC Glucose (mg/dL) 164 H 186 H 129 H (70-110) mg/dL 04/15/23 Range/Units 06:24 WBC 14.45 H (4.50-10.00) X 10*3/uL RBC 3.79 L (4.40-5.60) X 10*6/uL Hgb 11.3 L (12.0-15.0) d/dL Hct 35.3 L (39.6-50.0) % Neutrophils # 11.51 H (1.80-7.70) X 10*3/uL Monocytes # 1.28 H (0.20-1.00) X 10*3/uL Eosinophils # 0.03 L (0.04-0.35) X 10*3/uL POC Glucose (mg/dL) (70-110) mg/dL Assessment and Plan Assessment: Severe left hip osteoarthritis, status post left total hip arthroplasty with direct anterior approach Hypertension Hyperlipidemia Diabetes mellitus, A1c 6 Obesity, morbid, BMI 33 BPH Former nicotine dependence Plan: Continue on current medication regime ,monitoring and symptomatic treatment. Repeat blood pressure now. Aggressive pulmonary toileting with incentive spirometer reinforced. Follow-up with PCP in one week. Thank you for the consult. The impression and plan of care has been dictated as directed. : I performed a history and examination of this patient, discussed the same with the dictator. I agree with the dictator's note ,documented as a scribe. Any additional findings or plans will be noted.
--- NOTE | 2023-04-15 13:02 | P.DS ---
Providers Expected date of discharge: 04/15/23 Attending physician: Guanakito Moore Consults: 04/14/23 08:37 Consult Physician Routine Consulting Provider: Shadi Martinez Jr Consult Reason/Comments: medical management Do you want consulting provider notified?: Yes Primary care physician: Rob Nolan - Discharge Diagnosis(es) (1) Osteoarthritis of left hip Current Visit: Yes Status: Acute (2) S/P total left hip arthroplasty Current Visit: Yes Status: Acute Hospital Course: This is a 72-year-old male with known history of degenerative arthritis of the left hip. The patient presented for evaluation as an outpatient. After discussion and consideration patient elects to proceed with total hip arthroplasty. The patient is seen preoperatively by and medically cleared for surgery by their primary care physician. Patient is admitted to [facility] on 04/14/2023 for total hip arthroplasty. The procedure is performed without complication or sequelae. The patient is doing well postoperatively. Labs and vital signs are stable on day of discharge. On day of discharge patient's hip incision is healing well. There is minimal erythema. There is no drainage noted at this time. There is minimal soft tissue swelling to the hip and thigh. Patient has full foot and ankle motion without difficulty or pain. Calf is soft and nontender to palpation. Neurovascular status to the left lower extremity is intact. Patient is discharged home in good condition. Please see med rec for accurate list of home medications. Plan - Discharge Summary Discharge Rx Participant: Yes New Discharge Prescriptions: New Aspirin 325 mg PO BID #60 tab HYDROcodone/APAP 7.5-325MG [[place] 7.5-325] 1 - 2 tab PO Q6H PRN #32 tab PRN Reason: Pain Sennosides [Senokot] 2 tab PO DAILY PRN #60 tablet PRN Reason: Constipation No Action Multivitamins, Thera [Multivitamin (formulary)] 1 tab PO BID Tamsulosin HCl [Flomax] 0.8 mg PO HS Simvastatin [Zocor] 20 mg PO HS Losartan [Cozaar] 25 mg PO HS Fenofibrate [Lofibra] 160 mg PO AC-SUPPER Bisoprolol-Hctz 5-6.25 mg [Ziac 5-6.25] 1 tab PO HS metFORMIN HCL [Glucophage] 1,000 mg PO BID tiZANidine HCL [Zanaflex] 4 mg PO TID PRN 30 Days #90 capsule PRN Reason: Muscle Spasm Gabapentin [Neurontin] 300 mg PO BID PRN PRN Reason: back pain Finasteride [Proscar] 5 mg PO HS Aspirin [Adult Low Dose Aspirin EC] 81 mg PO BID Fexofenadine HCl [Susan Allergy] 180 mg PO DAILY Semaglutide [Ozempic] 4 mg SQ BAKER Vit C/E/Zn/Coppr/Lutein/Zeaxan [Preservision Areds 2 Softgel] 1 each PO TID Discharge Medication List Bisoprolol-Hctz 5-6.25 mg [Ziac 5-6.25] 1 tab PO HS 04/22/19 [History] Fenofibrate [Lofibra] 160 mg PO AC-SUPPER 04/22/19 [History] Losartan [Cozaar] 25 mg PO HS 04/22/19 [History] Multivitamins, Thera [Multivitamin (formulary)] 1 tab PO BID 04/22/19 [History] Simvastatin [Zocor] 20 mg PO HS 04/22/19 [History] Tamsulosin HCl [Flomax] 0.8 mg PO HS 04/22/19 [History] metFORMIN HCL [Glucophage] 1,000 mg PO BID 04/22/19 [History] Finasteride [Proscar] 5 mg PO HS 01/12/21 [History] Aspirin [Adult Low Dose Aspirin EC] 81 mg PO BID 06/12/21 [History] Fexofenadine HCl [Susan Allergy] 180 mg PO DAILY 10/17/21 [History] Semaglutide [Ozempic] 4 mg SQ BAKER 10/21/22 [History] tiZANidine HCL [Zanaflex] 4 mg PO TID PRN 30 Days #90 capsule 01/29/23 [Rx] Gabapentin [Neurontin] 300 mg PO BID PRN 04/09/23 [History] Vit C/E/Zn/Coppr/Lutein/Zeaxan [Preservision Areds 2 Softgel] 1 each PO TID 04/09/23 [History] Aspirin 325 mg PO BID #60 tab 04/14/23 [Rx] HYDROcodone/APAP 7.5-325MG [[place] 7.5-325] 1 - 2 tab PO Q6H PRN #32 tab 04/14/23 [Rx] Sennosides [Senokot] 2 tab PO DAILY PRN #60 tablet 04/14/23 [Rx] Follow up Appointment(s)/Referral(s): [facility] [[facility] - 1-2 Days ([facility] will call you to schedule your in home physical therapy visits.) Rob Nolan MD [Primary Care Provider] - 04/23/23 10:00 am Guanakito Moore DO [Doctor of Osteopathic Medicine] - 04/28/23 10:30 am (with michael) Patient Instructions/Handouts: Anterior Hip Replacement (DC) Activity/Diet/Wound Care/Special Instructions: Weightbearing as tolerated with walker. Leave dressing intact. Dressing may be removed by home care nurse or by patient in 7 days. Then change dressing twice daily until follow up. May shower with initial dressing intact and after removal. If dressing become saturated, please remove. Please take aspirin 325mg twice daily for 30 days to prevent blood clots. Recommend use of compression stockings daily until follow up to help prevent swelling and blood clots. May remove at night before sleeping. Please follow-up with [facility] in 2 weeks and call with any questions or concerns, . Discharge Disposition: HOME WITH HOME HEALTH SERVICES
[2023-04-20] MEDS ORDERED: Semaglutide [Ozempic] 2 MG/0.75 ML Pen.Injctr SQ SCH (09:00)
== END 2023-04-15 13:10 | disposition home health service (06) ==
LOC: OR 07:18 → 4SSUR 10:20 → OR 04-15 13:10
PROVIDERS: ATTEND Orthopaedic Surgery
DX: M16.12 Unilateral primary osteoarthritis, left hip (principal); G89.18 Other acute postprocedural pain; I10 Essential (primary) hypertension; E78.5 Hyperlipidemia, unspecified; J44.9 Chronic obstructive pulmonary disease, unspecified; F12.90 Cannabis use, unspecified, uncomplicated; E11.9 Type 2 diabetes mellitus without complications; N42.9 Disorder of prostate, unspecified; F10.20 Alcohol dependence, uncomplicated; Z87.891 Personal history of nicotine dependence; Z88.6 Allergy status to analgesic agent; Z88.8 Allergy status to other drugs, medicaments and biological substances; Z79.1 Long term (current) use of non-steroidal anti-inflammatories (NSAID); Z79.82 Long term (current) use of aspirin; Z79.84 Long term (current) use of oral hypoglycemic drugs; Z79.85 Long-term (current) use of injectable non-insulin antidiabetic drugs; Z79.899 Other long term (current) drug therapy; E66.9 Obesity, unspecified; Z68.33 Body mass index [BMI] 33.0-33.9, adult; Z86.16 Personal history of COVID-19
CPT/HCPCS: 27130; 97162; 97166; 64447; 86900; 86901; 85025; 86850; 83036; 73501; C1776; S0138; J2250; J0330; J1200; J1100; J0690 ×3; J2405; J3010 ×2; J2795; J2704; J1170; J2001

== ENCOUNTER 2023-04-15 23:49 | Emergency (ER) | payer MEDICARE ==
[2023-04-15 23:54] VITALS: RESP 18
--- NOTE | 2023-04-16 00:02 | ED ---
General Adult HPI - General Chief complaint: Fever Stated complaint: Post-Op Complications, Fever, Pain Time Seen by Provider: 04/16/23 00:01 Source: patient, RN notes reviewed Mode of arrival: ambulatory Limitations: no limitations - History of Present Illness Initial comments: 72 year old male one day status post left hip arthroplasty presents the emergency department with a chief complaint of fever. Patient reports he had a hip replacement surgery performed by Dr. Dr. Moore yesterday, and has been experiencing worsening left hip pain. Today he reports that he spiked a fever as high as 102F. He denies any shortness of breath, dyspnea, erythema, or purulent discharge to the site. - Related Data Home Medications Medication Instructions Recorded Confirmed Bisoprolol-Hctz 5-6.25 mg [Ziac 1 tab PO HS 04/22/19 04/09/23 5-6.25] Fenofibrate [Lofibra] 160 mg PO AC-SUPPER 04/22/19 04/09/23 Losartan [Cozaar] 25 mg PO HS 04/22/19 04/09/23 Multivitamins, Thera [Multivitamin 1 tab PO BID 04/22/19 04/09/23 (formulary)] Simvastatin [Zocor] 20 mg PO HS 04/22/19 04/09/23 Tamsulosin HCl [Flomax] 0.8 mg PO HS 04/22/19 04/09/23 metFORMIN HCL [Glucophage] 1,000 mg PO BID 04/22/19 04/09/23 Finasteride [Proscar] 5 mg PO HS 01/12/21 04/09/23 Aspirin [Adult Low Dose Aspirin EC] 81 mg PO BID 06/12/21 04/09/23 Fexofenadine HCl [Susan Allergy] 180 mg PO DAILY 10/17/21 04/09/23 Semaglutide [Ozempic] 4 mg SQ BAKER 10/21/22 04/09/23 Gabapentin [Neurontin] 300 mg PO BID PRN 04/09/23 04/09/23 Vit C/E/Zn/Coppr/Lutein/Zeaxan 1 each PO TID 04/09/23 04/09/23 [Preservision Areds 2 Softgel] Previous Rx's Medication Instructions Recorded tiZANidine HCL [Zanaflex] 4 mg PO TID PRN 30 Days #90 capsule 01/29/23 Aspirin 325 mg PO BID #60 tab 04/14/23 HYDROcodone/APAP 7.5-325MG [[place] 1 - 2 tab PO Q6H PRN #32 tab 04/14/23 7.5-325] Sennosides [Senokot] 2 tab PO DAILY PRN #60 tablet 04/14/23 Allergies Allergy/AdvReac Type Severity Reaction Status Date / Time diclofenac [From [place]] Allergy Rash/Hives Verified 04/15/23 23:54 lisinopril AdvReac Cough Verified 04/15/23 23:54 BLACK WASP Allergy Swelling Uncoded 04/15/23 23:54 Review of Systems ROS Statement: Those systems with pertinent positive or pertinent negative responses have been documented in the HPI. ROS Other: All systems not noted in ROS Statement are negative. 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 Head: Normocephalic, atraumatic Eyes: PERRLA, EOMI ENT: Airway patent Chest: Nonlabored breathing Skin: No visual rash, normal skin tone Neuro: Alert and oriented 3 Musculoskeletal: No gross abnormalities General: Alert, in no acute distress Head: atraumatic normocephalic. Eyes PERRL, EOMI intact, mucous membranes moist Respiratory: Lungs clear to auscultation bilaterally Cardiovascular: Heart rate regular rate and rhythm Abdominal: Soft without guarding or rebound Extremities: Normal inspection with full range of motion and normal capillary refill, surgical scar without marked erythema, edema or purulent discharge it appears appropriate stage of healing, 2+ DP/PT pulses Neuroogic: alert and oriented 3, CN II-XII intact, able to ambulate with steady gait Skin: warm dry and intact with normal color Limitations: no limitations Course Vital Signs 04/15/23 04/16/23 04/16/23 23:51 01:40 01:59 Temperature 102 F H 99.0 F Pulse Rate 100 86 Respiratory 18 18 Rate Blood Pressure 135/78 147/69 O2 Sat by Pulse 94 L 93 L Oximetry - Reevaluation(s) Reevaluation #1: 04/16/23 03:[address] Zepeda, or the on-call who believes the patient is stable for discharge and recommends close follow-up with Dr. Moore tomorrow Medical Decision Making - Medical Decision Making Was pt. sent in by a medical professional or institution (, PA, LICENSED PSYCHOLOGIST MANAGER, urgent care, hospital, or longterm...) When possible be specific @ -[No] Did you speak to anyone other than the patient for history (EMS, parent, family, police, friend...)? What history was obtained from this source @ -[No] Did you review nursing and triage notes (agree or disagree)? Why? @ -[I reviewed and agree with nursing and triage notes] Were old charts reviewed (outside hosp., previous admission, EMS record, old EKG, old radiological studies, urgent care reports/EKG's, longterm records)? Report findings @ -[No old charts were reviewed] Differential Diagnosis (chest pain, altered mental status, abdominal pain women, abdominal pain men, vaginal bleeding, weakness, fever, dyspnea, syncope, headache, dizziness, GI bleed, back pain, seizure, CVA, palpatations, mental health, musculoskeletal)? @ -[not applicable] EKG interpreted by me (3pts min.). @ -[As above] X-rays interpreted by me (1pt min.). @ -[None done] CT interpreted by me (1pt min.). @ -CT left lower extremity negative for any evidence of abscess or fluid pocket U/S interpreted by me (1pt. min.). @ -[None done] What testing was considered but not performed or refused? (CT, X-rays, U/S, labs)? Why? @ -[None] What meds were considered but not given or refused? Why? @ -[None] Did you discuss the management of the patient with other professionals (professionals i.e. Dr., PA, LICENSED PSYCHOLOGIST MANAGER, lab, RT, psych nurse, social media project manager, center director, teacher, staff submarine warfare officer, residential case manager)? Give summary @ -Case discussed with Dr. Zepeda, orthopedist key person who reviewed the patient's case and believes the patient is stable for discharge and recommends close follow-up with Dr. Moore tomorrow Was smoking cessation discussed for >3mins.? @ -[No] Was critical care preformed (if so, how long)? @ -[No] Were there social determinants of health that impacted care today? How? (Homelessness, low income, unemployed, alcoholism, drug addiction, transportation, low edu. Level, literacy, decrease access to med. care, care home, rehab)? @ -[No] Was there de-escalation of care discussed even if they declined (Discuss DNR or withdrawal of care, Hospice)? DNR status @ -[No] What co-morbidities impacted this encounter? (DM, HTN, Smoking, COPD, CAD, Cancer, CVA, ARF, Chemo, Hep., AIDS, mental health diagnosis, sleep apnea, morbid obesity)? @ -[None] Was patient admitted / discharged? Hospital course, mention meds given and route, prescriptions, significant lab abnormalities, going to OR and other pertinent info. @ -Discharged. This is a 72-year-old male who presents to the emergency department with postop complication. Patient had a thorough history and physical exam performed on the ED. Patient is febrile during his evaluation. Surgical scar appears well healed for being one day status post arthroplasty. No marked erythema, edema purulent discharge noted no marked tenderness. Patient had lab work and imaging which was essentially unremarkable. Patient had imaging which was negative. I discussed the results in detail with the patient and the patient's who verbalized understanding and all questions were addressed. He should was given Tylenol, 1 L of IV fluids, morphine with mild symptomatic relief. Case is discussed with Dr. Zepeda, orthopedist key person who believes the patient is stable enough or deep discharge with recommended close follow-up with Dr. Moore's office tomorrow. Return precautions were discussed at length. Patient discharged in stable condition. Case discussed with Dr. Khalil who agrees with plan of care Undiagnosed new problem with uncertain prognosis? @ -[No] Drug Therapy requiring intensive monitoring for toxicity (Heparin, Nitro, Insulin, Cardizem)? @ -[No] Were any procedures done? @ -[No] Diagnosis/symptom? @ -Post-Operative Pain Acute, or Chronic, or Acute on Chronic? @ -Acute Uncomplicated (without systemic symptoms) or Complicated (systemic symptoms)? @ -Uncomplicated Side effects of treatment? @ -[No] Exacerbation, Progression, or Severe Exacerbation? @ -[No] Poses a threat to life or bodily function? How? (Chest pain, [place], ID, pneumonia, PE, COPD, DKA, ARF, appy, cholecystitis, CVA, Diverticulitis, Homicidal, Suicidal, threat to staff... and all critical care pts) @ -Moderate Likelihood - Lab Data Result diagrams: 04/16/23 00:21 04/16/23 00:21 Lab Results 04/16/23 04/16/23 04/16/23 Range/Units 00:21 00:21 00:21 WBC 12.3 H (3.8-10.6) k/uL RBC 4.02 L (4.30-5.90) m/uL Hgb 12.2 L (13.0-17.5) gm/dL Hct 35.6 L (39.0-53.0) % MCV 88.6 (80.0-100.0) fL MCH 30.4 (25.0-35.0) pg MCHC 34.3 (31.0-37.0) g/dL RDW 13.8 (11.5-15.5) % Plt Count 247 (150-450) k/uL MPV 8.1 Neutrophils % 78 % Lymphocytes % 13 % Monocytes % 6 % Eosinophils % 2 % Basophils % 0 % Neutrophils # 9.6 H (1.3-7.7) k/uL Lymphocytes # 1.6 (1.0-4.8) k/uL Monocytes # 0.7 (0-1.0) k/uL Eosinophils # 0.2 (0-0.7) k/uL Basophils # 0.0 (0-0.2) k/uL ESR 15 (0-15) mm/hr Sodium 133 L (137-145) mmol/L Potassium 3.9 (3.5-5.1) mmol/L Chloride 100 (98-107) mmol/L Carbon Dioxide 23 (22-30) mmol/L Anion Gap 10 mmol/L BUN 14 (9-20) mg/dL Creatinine 0.57 L (0.66-1.25) mg/dL Est GFR (CKD-EPI)AfAm >90 (>60 ml/min/1.73 sqM) Est GFR (CKD-EPI)NonAf >90 (>60 ml/min/1.73 sqM) Glucose 134 H (74-99) mg/dL Plasma Lactic Acid Jann 1.3 (0.7-2.0) mmol/L Calcium 9.6 (8.4-10.2) mg/dL Total Bilirubin 0.8 (0.2-1.3) mg/dL AST 30 (17-59) U/L ALT 25 (4-49) U/L Alkaline Phosphatase 49 (38-126) U/L C-Reactive Protein 5.6 H (<1.0) mg/dL Total Protein 6.4 (6.3-8.2) g/dL Albumin 4.0 (3.5-5.0) g/dL Urine Color Urine Appearance (Clear) Urine pH (5.0-8.0) Ur Specific [place] (1.001-1.035) Urine Protein (Negative) Urine Glucose (UA) (Negative) Urine Ketones (Negative) Urine Blood (Negative) Urine Nitrite (Negative) Urine Bilirubin (Negative) Urine Urobilinogen (<2.0) mg/dL Ur Leukocyte Esterase (Negative) Urine RBC (0-5) /hpf Urine WBC (0-5) /hpf Ur Squamous Epith Cells (0-4) /hpf Urine Mucus (None) /hpf 04/16/23 Range/Units 01:35 WBC (3.8-10.6) k/uL RBC (4.30-5.90) m/uL Hgb (13.0-17.5) gm/dL Hct (39.0-53.0) % MCV (80.0-100.0) fL MCH (25.0-35.0) pg MCHC (31.0-37.0) g/dL RDW (11.5-15.5) % Plt Count (150-450) k/uL MPV Neutrophils % % Lymphocytes % % Monocytes % % Eosinophils % % Basophils % % Neutrophils # (1.3-7.7) k/uL Lymphocytes # (1.0-4.8) k/uL Monocytes # (0-1.0) k/uL Eosinophils # (0-0.7) k/uL Basophils # (0-0.2) k/uL ESR (0-15) mm/hr Sodium (137-145) mmol/L Potassium (3.5-5.1) mmol/L Chloride (98-107) mmol/L Carbon Dioxide (22-30) mmol/L Anion Gap mmol/L BUN (9-20) mg/dL Creatinine (0.66-1.25) mg/dL Est GFR (CKD-EPI)AfAm (>60 ml/min/1.73 sqM) Est GFR (CKD-EPI)NonAf (>60 ml/min/1.73 sqM) Glucose (74-99) mg/dL Plasma Lactic Acid Jann (0.7-2.0) mmol/L Calcium (8.4-10.2) mg/dL Total Bilirubin (0.2-1.3) mg/dL AST (17-59) U/L ALT (4-49) U/L Alkaline Phosphatase (38-126) U/L C-Reactive Protein (<1.0) mg/dL Total Protein (6.3-8.2) g/dL Albumin (3.5-5.0) g/dL Urine Color Yellow Urine Appearance Clear (Clear) Urine pH 6.0 (5.0-8.0) Ur Specific [place] 1.015 (1.001-1.035) Urine Protein Negative (Negative) Urine Glucose (UA) Negative (Negative) Urine Ketones Negative (Negative) Urine Blood Trace H (Negative) Urine Nitrite Negative (Negative) Urine Bilirubin Negative (Negative) Urine Urobilinogen <2.0 (<2.0) mg/dL Ur Leukocyte Esterase Negative (Negative) Urine RBC 25 H (0-5) /hpf Urine WBC 1 (0-5) /hpf Ur Squamous Epith Cells <1 (0-4) /hpf Urine Mucus Rare H (None) /hpf Disposition Clinical Impression: S/P total left hip arthroplasty Disposition: HOME SELF-CARE Condition: Stable Instructions (If sedation given, give patient instructions): Fever in Adults (ED) Additional Instructions: Follow-up with Dr. Moore sometime tomorrow Please return to the nearest emergency department if symptoms worsen or persist Is patient prescribed a controlled substance at d/c from ED?: No Referrals: Shadi Martinez Jr, [Primary Care Provider] - 1-2 days Time of Disposition: 02:58
[2023-04-16] MEDS ORDERED: ACETAMINOPHEN TAB 325 MG TAB PO STA (00:04)
[2023-04-16 00:34] LABS: Basophils % (A) 0 %; Eosinophils # (A) 0.2 k/uL (0-0.7); Eosinophils % (A) 2 %; HCT 35.6 % (39.0-53.0); HGB 12.2 gm/dL (13.0-17.5); Lymphocytes # (A) 1.6 k/uL (1.0-4.8); Lymphocytes % (A) 13 %; MCH 30.4 pg (25.0-35.0); MCHC 34.3 g/dL (31.0-37.0); MCV 88.6 fL (80.0-100.0); Mean Platelet Volume 8.1; Monocytes # (A) 0.7 k/uL (0-1.0); Monocytes % (A) 6 %; Neutrophils # (A) 9.6 k/uL (1.3-7.7); Neutrophils % (A) 78 %; Platelet Count 247 k/uL (150-450); RBC 4.02 m/uL (4.30-5.90); RDW 13.8 % (11.5-15.5); WBC 12.3 k/uL (3.8-10.6)
[2023-04-16] MEDS ORDERED: SODIUM CHLORIDE 0.9% 1,000 ML IV ONE (00:42)
[2023-04-16] MEDS ORDERED: MORPHINE SULFATE 4 MG/ML SYRINGE IVP STA ×2 (00:43→03:12)
[2023-04-16 01:06] LABS: ALT 25 U/L (4-49); AST 30 U/L (17-59); African American GFR (CKD) >90 (>60 ml/min/1.73 sqM); Alkaline Phosphatase 49 U/L (38-126); Anion Gap 10 mmol/L; Blood Urea Nitrogen 14 mg/dL (9-20); C Reactive Protein 5.6 mg/dL (<1.0); Calcium 9.6 mg/dL (8.4-10.2); Carbon Dioxide 23 mmol/L (22-30); Chloride 100 mmol/L (98-107); Glucose 134 mg/dL (74-99); Non-African American GFR(CKD) >90 (>60 ml/min/1.73 sqM); Potassium 3.9 mmol/L (3.5-5.1); Sodium 133 mmol/L (137-145); Total Bilirubin 0.8 mg/dL (0.2-1.3); Total Protein 6.4 g/dL (6.3-8.2)
[2023-04-16 01:51] LABS: Appearance,Urine Clear (Clear); Bilirubin,Urine Negative (Negative); Blood,Urine Trace (Negative); Color,Urine Yellow; Glucose,Urine (UA) Negative (Negative); Ketones,Urine Negative (Negative); Leukocyte Esterase,Urine Negative (Negative); Mucus,Urine Rare /hpf; Nitrite,Urine Negative (Negative); Protein,Urine Negative (Negative); RBC,Urine 25 /hpf (0-5); Specific Gravity,Urine 1.015 (1.001-1.035); Squamous Epithelial Cell,Urine <1 /hpf (0-4); Urobilinogen,Urine <2.0 mg/dL (<2.0); WBC,Urine 1 /hpf (0-5)
[2023-04-16 01:59] VITALS: TEMP 99
--- NOTE | 2023-04-16 02:10 | CT ---
EXAM: CT Left Lower Extremity Without Intravenous Contrast, Hip CLINICAL HISTORY: ITS.REASON CT Reason: L hip pain s/p surgery TECHNIQUE: Axial computed tomography images of the left hip without intravenous contrast. CTDI is 32.8 mGy and DLP is 1256.6 mGy-cm. This CT exam was performed using one or more of the following dose reduction techniques: automated exposure control, adjustment of the mA and/or kV according to patient size, and/or use of iterative reconstruction technique. COMPARISON: No relevant prior studies available. FINDINGS: Status post LEFT hip arthroplasty. No periprosthetic fracture, loosening, or dislocation. Anatomic alignment. Intact LEFT superior and inferior pubic rami. Mild postoperative air and edema in the overlying soft tissues. No fluid collection, hematoma, or seroma. Fat-containing LEFT inguinal hernia. IMPRESSION: Status post LEFT hip arthroplasty. No periprosthetic fracture, loosening, or dislocation. Anatomic alignment.
[2023-04-16 02:20] LABS: Erythrocyte Sedimentation Rate 15 mm/hr (0-15)
[2023-04-16 03:28] VITALS: BP 150/70; PULSE 84
== END 2023-04-16 03:31 | disposition home or self-care (01) ==
LOC: EC 23:49
DX: Z96.642 Presence of left artificial hip joint (principal); J44.9 Chronic obstructive pulmonary disease, unspecified; E11.9 Type 2 diabetes mellitus without complications; I10 Essential (primary) hypertension; M19.90 Unspecified osteoarthritis, unspecified site; E78.5 Hyperlipidemia, unspecified; F12.90 Cannabis use, unspecified, uncomplicated; Z87.891 Personal history of nicotine dependence; Z79.82 Long term (current) use of aspirin; Z79.84 Long term (current) use of oral hypoglycemic drugs; Z79.1 Long term (current) use of non-steroidal anti-inflammatories (NSAID); Z79.899 Other long term (current) drug therapy; Z88.6 Allergy status to analgesic agent; Z88.8 Allergy status to other drugs, medicaments and biological substances
CPT/HCPCS: 36415; 80053; 85652; 83605; 85025; 86140; 81001; 87040; 73700; 99284; 96374; 96376; 96361; J2270

== ENCOUNTER → 2023-05-12 | Outpatient (CLI) | payer MEDICARE ==
[2023-05-12 10:30] VITALS: BP 149/68; PULSE 63; RESP 15; TEMP 97.7
--- NOTE | 2023-05-12 14:42 | P.PAINPG ---
PQRS Measure Charge Sheet Comment: A 72 yr old male with a history of severe and chronic LBP secondary to lumbar DDD and spondylosis with facet arthropathy without myelopathy presents today for evaluations/p Lumbar TPIs. Pt states he experienced 5 % pain relief x 3 wks s/p procedure. Pain level is provoked at 7 /10 in intensity, constant, localized in the lumbar spine, sharp in character w shooting towards the L hip and LLE. Pain is provoked by bending, lifting. Pain is alleviated with PT currently in for his knee s/p surgery, use of a massage gun at home, chiropractic treatments were discontinued by his therapist after viewing x rays, heat, ice, reclining and rest. Oswestry axial pain score of 23. Interventional pain procedures completed include BL RFA L3-L5, BL iliolumbar injections, Caudal ESIs, Lumbar TPIs Patient is currently on [place], Baclofen, Tylenol, Zanaflex, Neurontin Patient denies any side effects of the medication(s), denies excessive drowsiness or sleepiness, denies suicidal ideation and reports that the current pain medication is helping to control the pain and improve activities of daily living. Patient denies any motor or sensory deficits. Patient denies any fever or night sweats, denies any change in the bowel movements or urination. Physical Examination: -Constitutional: Cooperative. Not in acute distress . - Neurologic: Cranial nerve II to XII intact. No focal neurological deficits. - Psychatric: Alert & oriented x 3. Matching mood & appropriate affect. Judgment and insight intact. - Musculoskeletal: Cervical spine: Muscle bulk/ tone/ strength in the bilateral upper extremities normal Vertebral body tenderness to palpation over Spurling test positive Distraction test positive Facet loading test positive TTP Thoracic spine Muscle bulk / tone/ strength in the bilateral paraspinal muscles normal Vertebral body tender to palpation over Facet loading test positive TTP Lumbar spine: Motor bulk/ tone/ strength lower extremities , thigh and legs : 5/5 Deep tendon reflexes : Normal Knee Jerk. Normal Ankle Jerk . Vertebral body tenderness to palpation over L4, L5 Lumbar Facet Loading Test positive Straight Leg Raise: positive at 30 degrees right side/ left side Gaenslen's Test positive Sacral spine : Severe tenderness over the Sacroiliac joint: right side / left side Range of motion: Flexion of the lumbar spine <60 degrees Range of motion: Extension of the lumbar spine <20 degrees Gaenslen's Test positive right side / left side Samira test: positive right side / left side Thigh Thrust Test positive right side / left side Sacral Thrust Test positive right side / left side Assessment and plan: Chronic LBP secondary to lumbar DDD, spondylosis with facet arthropathy without myelopathy Medication management. UDS from Dec 2022 reviewed and consistent. Refill of Neurontin 300mg TID x 90 days and Baclofen w 2 RF. All questions answered. I have spent less than 30 minutes on patient care today. Dr Richard was available by phone for the evaluation of this patient. The time was used to review the medical records including relevant urine studies and Prescription history (MAPs), review of the available imaging, evaluation and examination of the patient, coordination of care with the medical staff and if applicable referring physicians, as well as creation of the medical record PQRS Narrative: Smoking Status Former smoker Narcotic Agreement Date Signed 10/17/22 Hx Alcohol Use (MH) No Home Medications: Ambulatory Orders Bisoprolol-Hctz 5-6.25 mg [Ziac 5-6.25] 1 tab PO HS 04/22/19 Fenofibrate [Lofibra] 160 mg PO AC-SUPPER 04/22/19 Losartan [Cozaar] 25 mg PO HS 04/22/19 Multivitamins, Thera [Multivitamin (formulary)] 1 tab PO BID 04/22/19 Simvastatin [Zocor] 20 mg PO HS 04/22/19 Tamsulosin HCl [Flomax] 0.8 mg PO HS 04/22/19 metFORMIN HCL [Glucophage] 1,000 mg PO BID 04/22/19 Finasteride [Proscar] 5 mg PO HS 01/12/21 Aspirin [Adult Low Dose Aspirin EC] 81 mg PO BID 06/12/21 Fexofenadine HCl [Susan Allergy] 180 mg PO DAILY 10/17/21 Semaglutide [Ozempic] 4 mg SQ BAKER 10/21/22 tiZANidine HCL [Zanaflex] 4 mg PO TID PRN 30 Days #90 capsule 01/29/23 Gabapentin [Neurontin] 300 mg PO BID PRN 04/09/23 Vit C/E/Zn/Coppr/Lutein/Zeaxan [Preservision Areds 2 Softgel] 1 each PO TID 04/09/23 Aspirin 325 mg PO BID #60 tab 04/14/23 HYDROcodone/APAP 7.5-325MG [[place] 7.5-325] 1 - 2 tab PO Q6H PRN #32 tab 04/14/23 Sennosides [Senokot] 2 tab PO DAILY PRN #60 tablet 04/14/23 Controlled Substance Measures - Controlled Substance Measures Is patient prescribed a controlled substance at discharge?: Yes When asked, does pt state using other controlled substances?: Yes If prescribed controlled substance>3 days was MAPS reviewed?: Yes
== END ==
LOC: PNWHC3 10:01
PROVIDERS: ATTEND Specialist
DX: M51.36 Other intervertebral disc degeneration, lumbar region (principal); M47.816 Spondylosis without myelopathy or radiculopathy, lumbar region; G89.29 Other chronic pain; Z87.891 Personal history of nicotine dependence; Z79.82 Long term (current) use of aspirin; Z91.038 Other insect allergy status; Z88.8 Allergy status to other drugs, medicaments and biological substances; Z88.6 Allergy status to analgesic agent
CPT/HCPCS: 99211

== ENCOUNTER → 2023-06-05 | Outpatient (CLI) | payer MEDICARE ==
[2023-06-05 08:04] VITALS: BP 136/86; PULSE 56; RESP 16; TEMP 99.2
--- NOTE | 2023-06-05 14:49 | P.PAINPG ---
PQRS Measure Charge Sheet Comment: A 72 yr old male with a history of severe and chronic LBP secondary to lumbar DDD and spondylosis with facet arthropathy without myelopathy presents today for evaluation. Pt states he experienced 75% pain relief x 7 mo s/p BL RFA L3-L5 from May 2022. Pain level is provoked at 7 /10 in intensity, constant, localized in the lumbar spine, sharp in character w shooting towards the L hip and LLE. Pain is provoked by bending, lifting. Pain is alleviated with PT integrated w massage he is currently in for his knee s/p surgery, use of a massage gun at home, chiropractic treatments were discontinued by his therapist after viewing x rays, heat, ice, reclining and rest. Oswestry axial pain score of 24. Interventional pain procedures completed include BL RFA L3-L5 (May 2022), BL iliolumbar injections, Caudal ESIs, Lumbar TPIs Patient is currently on [place], Baclofen, Tylenol, Zanaflex, Neurontin, Biofreeze gel Patient denies any side effects of the medication(s), denies excessive drowsiness or sleepiness, denies suicidal ideation and reports that the current pain medication is helping to control the pain and improve activities of daily living. Patient denies any motor or sensory deficits. Patient denies any fever or night sweats, denies any change in the bowel movements or urination. Physical Examination: -Constitutional: Cooperative. Not in acute distress . - Neurologic: Cranial nerve II to XII intact. No focal neurological deficits. - Psychatric: Alert & oriented x 3. Matching mood & appropriate affect. Judgment and insight intact. - Musculoskeletal: Cervical spine: Muscle bulk/ tone/ strength in the bilateral upper extremities normal Vertebral body tenderness to palpation over Spurling test positive Distraction test positive Facet loading test positive TTP Thoracic spine Muscle bulk / tone/ strength in the bilateral paraspinal muscles normal Vertebral body tender to palpation over Facet loading test positive TTP Lumbar spine: Motor bulk/ tone/ strength lower extremities , thigh and legs : 5/5 Deep tendon reflexes : Normal Knee Jerk. Normal Ankle Jerk . Vertebral body tenderness to palpation Lumbar Facet Loading Test positive over BL L4-L5, L5-S1 Straight Leg Raise: positive at 30 degrees right side/ left side Gaenslen's Test positive Sacral spine : Severe tenderness over the Sacroiliac joint: right side / left side Range of motion: Flexion of the lumbar spine <60 degrees Range of motion: Extension of the lumbar spine <20 degrees Gaenslen's Test positive right side / left side Samira test: positive right side / left side Thigh Thrust Test positive right side / left side Sacral Thrust Test positive right side / left side Assessment and plan: Chronic LBP secondary to lumbar DDD, spondylosis with facet arthropathy without myelopathy Recommendation of BL RFA L4-L5,L5-S1. Pt exhibited substantial pain relief w prior RFA procedure from May 2022. Risks, benefits of procedure discussed and pt verbalized understanding. Protocol for discontinuation / continuation of medications surrounding procedure discussed. All questions answered. I have spent less than 30 minutes on patient care today. Dr Richard was available by phone for the evaluation of this patient. The time was used to review the medical records including relevant urine studies and Prescription history (MAPs), review of the available imaging, evaluation and examination of the patient, coordination of care with the medical staff and if applicable referring physicians, as well as creation of the medical record PQRS Narrative: Smoking Status Former smoker Narcotic Agreement Date Signed 10/17/22 Hx Alcohol Use (MH) No Home Medications: Ambulatory Orders Bisoprolol-Hctz 5-6.25 mg [Ziac 5-6.25] 1 tab PO HS 04/22/19 Fenofibrate [Lofibra] 160 mg PO AC-SUPPER 04/22/19 Losartan [Cozaar] 25 mg PO HS 04/22/19 Multivitamins, Thera [Multivitamin (formulary)] 1 tab PO BID 04/22/19 Simvastatin [Zocor] 20 mg PO HS 04/22/19 Tamsulosin HCl [Flomax] 0.8 mg PO HS 04/22/19 metFORMIN HCL [Glucophage] 1,000 mg PO BID 04/22/19 Finasteride [Proscar] 5 mg PO HS 01/12/21 Aspirin [Adult Low Dose Aspirin EC] 81 mg PO BID 06/12/21 Fexofenadine HCl [Susan Allergy] 180 mg PO DAILY 10/17/21 Semaglutide [Ozempic] 4 mg SQ BAKER 10/21/22 tiZANidine HCL [Zanaflex] 4 mg PO TID PRN 30 Days #90 capsule 01/29/23 Vit C/E/Zn/Coppr/Lutein/Zeaxan [Preservision Areds 2 Softgel] 1 each PO TID 04/09/23 Aspirin 325 mg PO BID #60 tab 04/14/23 HYDROcodone/APAP 7.5-325MG [[place] 7.5-325] 1 - 2 tab PO Q6H PRN #32 tab 04/14/23 Sennosides [Senokot] 2 tab PO DAILY PRN #60 tablet 04/14/23 Gabapentin [Neurontin] 300 mg PO BID PRN 90 Days #180 cap 05/12/23 Controlled Substance Measures - Controlled Substance Measures Is patient prescribed a controlled substance at discharge?: No
== END ==
LOC: PNWHC3 07:24
PROVIDERS: ATTEND Specialist
DX: M51.37 Other intervertebral disc degeneration, lumbosacral region (principal); M47.817 Spondylosis without myelopathy or radiculopathy, lumbosacral region; G89.29 Other chronic pain; Z87.891 Personal history of nicotine dependence; Z79.82 Long term (current) use of aspirin; Z88.8 Allergy status to other drugs, medicaments and biological substances; Z91.038 Other insect allergy status
CPT/HCPCS: 99211

== ENCOUNTER 2023-06-20 06:52 | Day surgery (SDC) | payer MEDICARE ==
[2023-06-20] MEDS ORDERED: LACTATED RINGERS 1,000 ML IV SCH (07:09)
[2023-06-20 07:26] VITALS: RESP 16; TEMP 97.5
[2023-06-20 07:32] LABS: Glucose,Whole Blood 114 mg/dL (70-110)
[2023-06-20] MEDS ORDERED: MIDAZOLAM 2 MG/2 ML VIAL ONE (07:48)
[2023-06-20] MEDS ORDERED: fentaNYL (PF) 50 MCG/ML 2 ML AMP ONE (07:48)
[2023-06-20] MEDS ORDERED: ROPIVACAINE 5MG/ML 20ML VIAL ONE (07:57)
[2023-06-20] MEDS ORDERED: methylPREDNISolone ACETATE 40 MG/ML 1 ML VIAL ONE (07:57)
--- NOTE | 2023-06-20 08:24 | P.PCN ---
Date of Procedure: 06/20/23 Procedure(s) Performed: PREOPERATIVE DIAGNOSIS: 1-Lumbar Spondylosis with Facet Arthropathy without myelopathy. 2- Lumber degenerative disc disease. POSTOPERATIVE DIAGNOSIS: 1- Lumbar Spondylosis with Facet Arthropathy without myelopathy. 2- Lumber degenerative disc disease. PROCEDURES : Bilateral Radiofrequency thermocoagulation, L3 , L4 , and L5 medial branch, with fluoroscopic guidance (fluoroscopy images available in the radiology department) ( to denervate the facet joint at Bilateral L4-5 ,and L5-S1 levels ). ANESTHESIA: Monitored anesthesia care as per anesthesia department. EBL: Minimal PROCEDURE INDICATION: The patient with low back pain secondary to lumbar facet arthropathy who had more than 50% relief of her pain with previous diagnostic lumbar medial branch block with bupivacaine. PROCEDURE DESCRIPTION / TECHNIQUE: The patient was seen and identified in the preoperative area. Risks, benefits, complications, including but not limited to risk of infection ,bleeding , allergic reactions to the medications and no complete pain releife , and alternatives were discussed with the patient, the patient agreed to proceed with the procedure and signed the consent. IV was started. Vital signs remained stable throughout the procedure. Patient was taken to the OR and time out was completed. The patient was placed in the prone position on the procedure table. The lumber area was prepped and draped in the usual sterile fashion. . Vital signs were closely monitored during the procedure .IV sedation was used during the procedure to decrease patients anxiety. Using AP and then oblique fluoroscopy, the ``eye of the Shivam dog corre sponding to the connection between the superior and transverse articular processes of right L3, L4, and L5 were identified, marked, and localized with 1% lidocaine. Subsequently, a 18 [id number] radiofrequency cannula with a 10- mm active tip was advanced guided by fluoroscopy to each of the``eyes of the Shivam dog at right L3, L4, and L5. Each site then underwent sensory testing at 50 Hz and 0 to 1 volt and motor testing at 2.5 Hz and 0 to 3 volt with local stimulation, but no radicular symptoms down the legs. Thereafter each sites underwent radiofrequency thermocoagulation at 80 degrees celsius for 90 seconds after injecting 0.5 ml of PF Ropivacaine 1ml, then after the thermocoagulation done , 1 ml of the block solution containing Depo-Medrol 20 mg and 3 ml of Ropivacaine 0.5% was injected at the right L3 , L4 , and L5 , levels after negative aspiration of CSF and blood and with no paresthesias. Cannulas were retracted while injecting lidocaine 1% until the needle is out. The same procedure was repeated at the level of Left L3, L4, and L5 levels. At the end of the procedure, the skin was cleansed and bandages were applied. COMPLICATIONS: No acute complications. DISPOSITION / PLANS: The patient was placed in a supine position and transferred to the recovery area in a stable condition for observation and was discharged from the recovery room after meeting discharge criteria. Home discharge instructions given to the patient by the staff. The patient was reexamined prior to discharge. The patient will schedule a follow up in the clinic in 2-4 weeks.
[2023-06-20] MEDS ORDERED: IV FLUID CONTINUATION 500 ML IV ONE (08:27)
[2023-06-20 09:02] VITALS: BP 129/71; PULSE 67
--- NOTE | 2023-06-20 09:32 | FL ---
Fluoroscopy History: LUMBAR SPONDYLOSIS 29 SEC FL TIME. .[id number] DAP.-AB/CE
== END 2023-06-20 09:08 | disposition home or self-care (01) ==
LOC: ORPAIN 06:52
PROVIDERS: ATTEND Specialist
DX: M51.36 Other intervertebral disc degeneration, lumbar region (principal); M47.816 Spondylosis without myelopathy or radiculopathy, lumbar region; I10 Essential (primary) hypertension; E78.5 Hyperlipidemia, unspecified; J44.9 Chronic obstructive pulmonary disease, unspecified; F12.90 Cannabis use, unspecified, uncomplicated; E11.9 Type 2 diabetes mellitus without complications; Z79.82 Long term (current) use of aspirin; Z79.899 Other long term (current) drug therapy
CPT/HCPCS: 64636 ×2; 64635; 99152; 99153; J2250; J1030; J3010; J2795

== ENCOUNTER → 2023-06-30 | Outpatient (CLI) | payer MEDICARE | END | disposition home or self-care (01) | LOC: LABPAT 12:22 | PROVIDERS: ATTEND Orthopaedic Surgery | DX: Z01.812 Encounter for preprocedural laboratory examination (principal); M17.11 Unilateral primary osteoarthritis, right knee | CPT/HCPCS: 81003; 85027; 85610; 85730; 93005 ==

== ENCOUNTER 2023-07-22 09:10 | Day surgery (SDC) | payer MEDICARE ==
[2023-07-15 13:07] VITALS: BMI 30.9
[~2023-07-22 09:10] MED LIST changes: +DEXAMETHASONE SOD PHOSPHATE 4 MG/ML 1 ML VIAL IV ONE; +HYDROmorphone 0.5 MG/0.5 ML SYRINGE IVP PRN; +LIDOCAINE 1% (10MG/ML) FOR IV START INTRADERMA PRN; +MIDAZOLAM 2 MG/2 ML VIAL IV PRN; +ONDANSETRON 4 MG/2 ML VIAL IVP ONE
[2023-07-22 10:12] LABS: Glucose,Whole Blood 121 mg/dL (70-110)
[2023-07-22] MEDS: LACTATED RINGERS 1,000 ML IV SCH (10:29)
[2023-07-22] MEDS ORDERED: MIDAZOLAM 2 MG/2 ML VIAL IVP ONE (10:44)
[2023-07-22] MEDS ORDERED: bisacodyL 10 MG SUPP RECTAL PRN (11:02)
[2023-07-22] MEDS ORDERED: MAGNESIUM HYDROXIDE 2,400 MG/30 ML CUP PO PRN (11:02)
[2023-07-22] MEDS ORDERED: NALOXONE 0.4 MG/ML 1 ML VIAL IV PRN (11:02)
[2023-07-22] MEDS ORDERED: HYDROmorphone 0.5 MG/0.5 ML SYRINGE IVP PRN ×3 (11:02)
[2023-07-22] MEDS ORDERED: ONDANSETRON 4 MG/2 ML VIAL IVP PRN (11:02)
[2023-07-22] MEDS ORDERED: NA PHOS,M-B/NA PHOS,DI-BA 133 ML ENEMA RECTAL PRN (11:02)
[2023-07-22] MEDS ORDERED: HYDROcodone/APAP 7.5-325MG 1 EACH TAB PO PRN (11:05)
[2023-07-22] MEDS ORDERED: ROPIVACAINE 5 MG/ML 30 ML VIAL ONE (11:19)
[2023-07-22] MEDS ORDERED: PROPOFOL 10 MG/ML 20 ML VIAL IV ONE (11:19)
[2023-07-22] MEDS ORDERED: DEXAMETHASONE SOD PHOSPHATE 4 MG/ML 1 ML VIAL ONE (11:19)
[2023-07-22] MEDS ORDERED: MIDAZOLAM 2 MG/2 ML VIAL ONE (11:19)
[2023-07-22] MEDS ORDERED: ceFAZolin 1,000 MG in SODIUM CHLORIDE 0.9% 1,000 ML IRRIGATION ONE (11:22)
--- NOTE | 2023-07-22 11:23 | P.ANPRN ---
Procedure Note - Anesthesia - Nerve Block Performed Right Adductor Canal Infusion Time Out Performed: Yes Date of Procedure: 07/22/23 Procedure Start Time: 10:43 Procedure Stop Time: 10:54 Location of Patient: PreOp Indication: Acute Post-Operative Pain, Requested by Surgeon Sedation Type: Sedate with meaningful contact maintained Preparation: Sterile Prep Position: Supine Catheter: Indwelling Needle Types: Pajunk Needle Gauge: 21 Ultrasound used to visualize needle placement: Yes Ultrasound used to observe medication spread: Yes Blood Aspirated: No Pain Paresthesia on Injection Noted: No Resistance on Injection: Normal Image Stored and Saved: Yes Events: Uneventful and Well Tolerated (Ropivacaine 0.5% 20 mL plus dexamethasone 4 mg)
--- NOTE | 2023-07-22 11:25 | P.ANPRN ---
Procedure Note - Anesthesia - Nerve Block Performed Right Chrisck Single Time Out Performed: Yes Date of Procedure: 07/22/23 Procedure Start Time: 10:55 Procedure Stop Time: 10:57 Location of Patient: PreOp Indication: Acute Post-Operative Pain, Requested by Surgeon Sedation Type: Sedate with meaningful contact maintained Preparation: Sterile Prep Position: Supine Needle Types: Pajunk Needle Gauge: 21 Ultrasound used to visualize needle placement: Yes Ultrasound used to observe medication spread: Yes Blood Aspirated: No Pain Paresthesia on Injection Noted: No Resistance on Injection: Normal Image Stored and Saved: Yes Events: Uneventful and Well Tolerated (Ropivacaine 0.5% 25 mL plus dexamethasone 4 mg)
[2023-07-22] MEDS ORDERED: LACTATED RINGERS 1,000 ML IV ONE (12:19)
--- NOTE | 2023-07-22 12:38 | P.OP ---
Date of Procedure: 07/22/23 Preoperative Diagnosis: Severe osteoarthritis right knee Postoperative Diagnosis: Severe arthritis right knee Procedure(s) Performed: Right total knee arthroplasty utilizing [employer] patient specific guides Implants: Vogt & Nephew Journey II CR Oxinium cruciate retaining femoral component size 8, right Vogt & Nephew Journey nonporous tibial baseplate size 7, right Vogt & Nephew Journey II, XLPE CR articular insert, size 9 mm, Size 7-8, right Vogt [employer] Nephew Journey Brandi II resurfacing patellar component, oval, 32 mm All components were cemented using Palacos R bone cement The articulation is Oxinium on polyethylene [employer] patient specific guides Anesthesia: spinal Surgeon: Guanakito Moore Claims Adjuster Crop #1: Rakel Meier Estimated Blood Loss (ml): 50 Pathology: none sent Condition: stable Disposition: PACU Indications for Procedure: The patient's knee is end-stage, and conservative management has failed. The operation of knee replacement has been discussed at length in the office, as well as potential risks and complications. These are inclusive of, but not limited to: Infection, bleeding, scarring, discomfort, stiffness, blood vessel and nerve damage, need for further surgery, failure to relieve symptoms, persistence, recurrence, or worsening of problems, loosening, dislocation, wear, blood clot, pulmonary embolism, , gait dysfunction, stiffness, and other risks as discussed in the office. Patient elects to proceed and the consent form has been signed. Operative Findings: The operative findings are consistent with severe osteoarthritis of the right knee Description of Procedure: Patient was seen in the preoperative area and the consent was reviewed and the operative site was marked with a skin marker. The patient verified the procedure and the operative site. An adductor canal pain catheter was placed by anesthesia in the preoperative area. The patient was then brought to the operating room and given preoperative antibiotics intravenously. A gram of transexamic acid was given intravenously. A spinal anesthetic was administered by the anesthesia department. A tourniquet was placed on the upper thigh and the lower extremity was prepped with chlorhexidine and draped in usual sterile fashion. A universal timeout was then performed which confirmed the patient's name, surgical site, ALLERGIES, and consent. The lower extremity was then exsanguinated and tourniquet was inflated to 250 mmHg. A standard anterior midline approach to the knee was performed. The skin and subcutaneous tissue were sharply dissected down to the patellar tendon. A medial parapatellar arthrotomy was then performed. The knee was then extended, the patellar was everted, and the knee was again flexed. The infra-patellar fat pad was removed in order to enhance exposure. The anterior horns of both menisci were excised, and a release was performed to the posterior medial aspect of the knee. On gross visual inspection, there was complete loss of articular cartilage in the medial and patellofemoral joint spaces. There was also significant cartilage damage in the lateral compartment. There were multiple periarticular osteophytes globally about the knee. The patient specific guide was placed on the distal femur, and pinned in place. Using the patient specific guide, the distal femoral cut was performed. The cutting block was then removed and the cut was checked for symmetry. The spikes of the femoral block was then placed into the predrilled holes, and malleted into place. Two 45 mm pins were then placed into the fixation holes on the cutting block. An bridget wing was then used to ensure there would be no notching with the anterior cut. The anterior condyles were cut without notching. The anterior chord cut was then performed, followed by the posterior cut, posterior chamfer cut, and the anterior chamfer cut. The collateral ligaments were protected during the entire process. The cutting block was then removed. Any remaining bone and osteophytes were removed from the femur with a Ronguer. The femoral canal was plugged with autologous bone. Attention was then directed to the tibia. The remaining ACL was removed with a Ronguer, and the tibia was then gently subluxed forward with a large bent knee retractor. Any remaining menisci were excised. The posterior lateral corner was cauterized in order to coagulate the lateral geniculate artery. The patient specific guide for the tibia was then placed and was held in place with pins. Pinholes were then placed for rotation of the tibial component as well. Proximal tibia was then cut and sized. The femoral trial was placed. A narrow saw blade was then used to remove the anterior intracondylar femoral bone. The CR notch trial was then placed. The tibial trial was placed with the appropriate-sized insert. The knee was able to fully extend and flex to 130 and was stable throughout all range of motion. The knee was then extended and the patella was everted. Patella was then measured, and then using an osteotomy guide, the patella was cut at the appropriate level. The patella was then measured and drilled and the patella trial was then placed. The knee was then taken through range of motion with the patella trial and the patella tracked normally using the no thumbs technique.. The knee was then extended patella trial was then removed and the patella was everted. Knee was then flexed and lug holes were drilled through the femoral trial and the femoral trial was then removed. The tibial was then re-exposed, and the tibial broach guide was then pinned in place after it was set for the appropriate rotation to allow for the most coverage without overhang. The tibia was then reamed and broached. The cut surfaces of bone were then irrigated with pulsatile lavage. The posterior structures were injected with the ropivacaine solution. The knee was also irrigated with Irrisept solution. The components were then opened, the cement was mixed, and the components were then cemented in place. The cement was allowed to harden with the knee in full extension. After the cemented hardened. The tourniquet was released, and hemostasis was obtained. A second gram of transexamic acid was given intravenously. The knee was again irrigated. The knee was again taken through range of motion and found to be stable throughout all range of motion of 0-130, and the patella tracked normally. The fascia was then closed with 0 Vicryl followed by #2 strata fix suture. The subcutaneous tissue was closed with 3-0 Vicryl and 3-0 strata fix. Exofin glue was used for the skin and placed with the knee in flexion. After the glue had dried, and Optafoam silver impregnated dressing was applied. The patient was then transferred to recovery room in stable condition. The day care assistant KATHRYN Cardoza was required due the complexity surgery and the need for a skilled surgical first assistant. She assisted in positioning, draping, retraction, and closure of the wound.
[2023-07-22] MEDS ORDERED: ROPIVACAINE 0.2%-NS ON-Q PUMP 2 MG/ML EACH MISCELLANE ONE (13:15)
[2023-07-22] MEDS: SODIUM CHLORIDE 0.9% 1,000 ML IV SCH (14:27)
--- NOTE | 2023-07-22 14:30 | XR ---
EXAMINATION TYPE: XR knee limited RT DATE OF EXAM: 07/22/2023 COMPARISON: None HISTORY: Postop knee replacement TECHNIQUE: 2 view right knee FINDINGS: Tibial and femoral components in place. Postsurgical soft tissue changes are evident. Small joint effusion may be present. IMPRESSION: 1. No acute fracture post knee replacement
[2023-07-22 15:26] LABS: Glucose,Whole Blood 137 mg/dL (70-110)
[2023-07-22 16:43] LABS: Glucose,Whole Blood 222 mg/dL (70-110)
[2023-07-22] MEDS ORDERED: FENOFIBRATE 160 MG TAB PO SCH (17:30)
[2023-07-22] MEDS ORDERED: DEXTROSE 50% SYRINGE 50 ML IVP PRN ×2 (18:21)
[2023-07-22] MEDS: HYDROcodone/APAP 7.5-325MG 1 EACH TAB PO PRN (18:37)
[2023-07-22] MEDS: INSULIN ASPART (NovoLOG) 100 UNIT/ML VIAL SQ SCH ×2 (18:38→21:26)
[2023-07-22 20:43] LABS: Glucose,Whole Blood 217 mg/dL (70-110)
[2023-07-22] MEDS ORDERED: FINASTERIDE 5 MG TAB PO SCH (21:00)
[2023-07-22] MEDS ORDERED: ATORVASTATIN 40 MG TAB PO SCH (21:00)
[2023-07-22] MEDS ORDERED: SENNOSIDES-DOCUSATE SODIUM 1 EACH TAB PO SCH (21:00)
[2023-07-22] MEDS ORDERED: GABAPENTIN 300 MG CAP PO SCH (21:00)
[2023-07-22] MEDS ORDERED: TAMSULOSIN 0.4 MG CAP.ER.24H PO SCH (21:00)
[2023-07-22] MEDS: ASPIRIN 325 MG TAB PO SCH (21:13)
[2023-07-22] MEDS: metFORMIN 500 MG TAB PO SCH (21:25)
[2023-07-23] MEDS: LACTATED RINGERS 1,000 ML IV SCH (03:18)
[2023-07-23] MEDS: SODIUM CHLORIDE 0.9% 1,000 ML IV SCH (03:19)
[2023-07-23] MEDS: HYDROcodone/APAP 7.5-325MG 1 EACH TAB PO PRN ×3 (03:29→14:34)
[2023-07-23 05:37] LABS: Glucose,Whole Blood 145 mg/dL (70-110)
[2023-07-23] MEDS: INSULIN ASPART (NovoLOG) 100 UNIT/ML VIAL SQ SCH ×2 (06:21→12:28)
--- NOTE | 2023-07-23 06:57 | P.PN ---
Progress Note - Text Progress Note Date: 07/23/23 The patient is doing well status post total knee replacement. Pain is well con trolled by a combination of local anesthetic infusion through the adductor canal catheter and oral analgesics. There are no signs of infection around the catheter skin entry site. The patient has urinary retention and had to be straight cathed twice. The patient has a history of prostate hypertrophy. I explained to the patient that most likely his urinary retention will improve after ambulating. The local anesthetic infusion will be continued as per protocol.
[2023-07-23 08:42] LABS: African American GFR (CKD) >90 (>60 ml/min/1.73 sqM); Anion Gap 10 mmol/L; Blood Urea Nitrogen 18 mg/dL (9-20); Calcium 9.1 mg/dL (8.4-10.2); Carbon Dioxide 21 mmol/L (22-30); Chloride 104 mmol/L (98-107); Glucose 136 mg/dL (74-99); Non-African American GFR(CKD) >90 (>60 ml/min/1.73 sqM); Sodium 135 mmol/L (137-145)
[2023-07-23] MEDS ORDERED: BISOPROLOL-HCTZ 5-6.25 MG 1 EACH TAB PO SCH (09:00)
[2023-07-23] MEDS ORDERED: LORATADINE 10 MG TAB PO SCH (09:00)
[2023-07-23] MEDS ORDERED: LOSARTAN 25 MG TAB PO SCH (09:00)
[2023-07-23] MEDS: metFORMIN 500 MG TAB PO SCH (09:06)
[2023-07-23] MEDS: ASPIRIN 325 MG TAB PO SCH (09:07)
--- NOTE | 2023-07-23 09:58 | P.PN ---
Subjective Progress Note Date: 07/23/23 This is a 72-year-old male who is status post right total knee arthroplasty. This is postoperative day #1 and patient is seen and evaluated at bedside with Dr. Guanakito Moore. Patient states that he is doing very well regarding the right knee and was able to work with physical therapy. Patient states that he is having trouble voiding and had to be straight cathed twice. Objective - Vital Signs Vital signs: Vital Signs Temp 97.3 F L 07/23/23 07:43 Pulse 88 07/23/23 07:43 Resp 16 07/23/23 07:43 BP 136/83 07/23/23 07:43 Pulse Ox 95 07/23/23 07:43 FiO2 Intake & Output 07/22/23 07/23/23 07/23/23 18:59 06:59 18:59 Intake Total 1931 Output Total 50 2316 Balance 1881 -2316 Weight 103.419 kg Intake: IV 1451 Oral 480 Output: Urine 2316 Straight 1800 Estimated Blood Loss 50 Other: Voiding Method Toilet # Voids 3 - Exam Vital signs are stable. Patient is in no acute distress and is alert and oriented 3. Calf is soft and nontender to palpation. Dressing is clean, dry, and intact. Patient has full foot and ankle motion without pain or difficulty. Sensation intact. Neurovascular status and circulatory status are intact. - Labs CBC & Chem 7: 07/23/23 08:12 Labs: Abnormal Lab Results - Last 24 Hours (Table) 07/22/23 07/22/23 07/22/23 Range/Units 10:09 14:44 16:41 Sodium (137-145) mmol/L Carbon Dioxide (22-30) mmol/L Creatinine (0.66-1.25) mg/dL Glucose (74-99) mg/dL POC Glucose (mg/dL) 121 H 137 H 222 H (70-110) mg/dL 07/22/23 07/23/23 07/23/23 Range/Units 20:42 05:36 08:12 Sodium 135 L (137-145) mmol/L Carbon Dioxide 21 L (22-30) mmol/L Creatinine 0.55 L (0.66-1.25) mg/dL Glucose 136 H (74-99) mg/dL POC Glucose (mg/dL) 217 H 145 H (70-110) mg/dL Assessment and Plan (1) Osteoarthritis of right knee Current Visit: Yes Status: Acute Code(s): M17.11 - UNILATERAL PRIMARY OSTEOARTHRITIS, RIGHT KNEE SNOMED Code(s): 022849458007958 (2) S/P total knee arthroplasty Current Visit: No Status: Acute Code(s): Z96.659 - PRESENCE OF UNSPECIFIED ARTIFICIAL KNEE JOINT SNOMED Code(s): 1242565792495 Plan: #1 Continue with routine postoperative care and pain control, leave dressing in place for 7 days. #2 Anticoagulation with aspirin. #3 Physical therapy today. #4 Appreciate input from internal medicine. #5 Anticipate discharge home with home care later today or tomorrow once the patient is able to void.
[2023-07-23] MEDS ORDERED: TAMSULOSIN 0.4 MG CAP.ER.24H PO STA (11:00)
[2023-07-23 11:01] LABS: Basophils # (A) 0.01 X 10*3/uL (0.00-0.10); Basophils % (A) 0.1 %; Eosinophils # (A) 0 X 10*3/uL (0.04-0.35); Eosinophils % (A) 0 %; HCT 29.2 % (39.6-50.0); HGB 9.8 d/dL (13.0-17.0); Lymphocytes % (A) 6.3 %; MCHC 33.6 d/dL (32.0-37.0); MCV 89.3 FL (80.0-97.0); Mean Platelet Volume 10.3 FL (9.5-12.2); Monocytes # (A) 1.19 X 10*3/uL (0.20-1.00); Monocytes % (A) 8.3 %; NRBC Per 100 WBC 0 X 10*3/uL (0.00-0.01); Neutrophils # (A) 12.21 X 10*3/uL (1.80-7.70); Platelet Count 264 X 10*3/uL (140-440); RBC 3.27 X 10*6/uL (4.40-5.60); RDW 13.8 % (11.5-14.5); WBC 14.36 X 10*3/uL (4.50-10.00)
[2023-07-23 11:11] LABS: Glucose,Whole Blood 91 mg/dL (70-110)
--- NOTE | 2023-07-23 11:35 | P.CONS ---
History of Present Illness - Reason for Consult Consult date: 07/23/23 Diabetes and BPH - History of Present Illness Collins is a 72-year-old male patient well known to me. He is type II diabetic. He has known BPH as well. He's been having significant osteoarthritis of the right knee. He underwent a right total knee arthroplasty and is postop day [address] Annel Moore. He is doing well and has a pain pump in place. His course was complicated by transient for the past 18 hours with dribbling and difficulty urinating. He is been on Proscar and tamsulosin at home. He denies any chest pains, pressures, short of breath, nausea or vomiting this time. He remains on insulin scale for diabetes. Vital signs she was afebrile heart rates regular is very controlled blood pressure normal. Labs show to be discomfort 14.3 609.8 and platelets are 264. Absolute neutrophils are 12.21. This appears to be reactive due to his recent surgery. Chemistries are essentially normal. Glucose monitor and well controlled. His last hemoglobin A1c is 6.1% drawn here in the hospital. So medication for BPH, hypertension, hyperlipidemia and diabetes. Have been reordered Review of Systems All systems: negative Past Medical History Past Medical History: COPD, Diabetes Mellitus, Hyperlipidemia, Hypertension, Osteoarthritis (OA), Prostate Disorder Additional Past Medical History / Comment(s): heart murmur-"Thickened heart valve", diverticulosis, fatty liver, hx Legionnaire's disease, bulging discs, migraines, hiatal hernia, kidney stones History of Any Multi-Drug Resistant Organisms: None Reported Past Surgical History: Joint Replacement, Orthopedic Surgery Additional Past Surgical History / Comment(s): Arthroscopy right knee, laser eye surgery for glaucoma melissa eyes, colonoscopies, rt knee open surgery, lithotripsy, PAIN CLINIC PROCEDURES, lithotripsy to remove bladder stone, LT TKA 10/28/22, LEFT TOTAL HIP 04/2023, Right TKA. Past Anesthesia/Blood Transfusion Reactions: No Reported Reaction Past Psychological History: No Psychological Hx Reported Smoking Status: Former smoker Past Alcohol Use History: Occasional Additional Past Alcohol Use History / Comment(s): Quit smoking 1999, smoked for 30 yrs, 1-3ppd. Past Drug Use History: Marijuana Additional Drug Use History / Comment(s): HAS TRIED EDIBLE GUMMIES RARELY-KNOWS TO REFRAIN FROM USE FOR AT LEAST 24 HOURS PRIOR TO PROCEDURE - Past Family History Mother Family Medical History: No Reported History Medications and Allergies Home Medications Medication Instructions Recorded Confirmed Type Bisoprolol-Hctz 5-6.25 mg [Ziac 1 tab PO DAILY 04/22/19 07/15/23 History 5-6.25] Fenofibrate [Lofibra] 160 mg PO AC-SUPPER 04/22/19 07/15/23 History Losartan [Cozaar] 25 mg PO DAILY 04/22/19 07/15/23 History Multivitamins, Thera [Multivitamin 1 tab PO BID 04/22/19 07/15/23 History (formulary)] Tamsulosin HCl [Flomax] 0.8 mg PO HS 04/22/19 07/15/23 History metFORMIN HCL [Glucophage] 1,000 mg PO BID 04/22/19 07/15/23 History Finasteride [Proscar] 5 mg PO HS 01/12/21 07/15/23 History Aspirin [Adult Low Dose Aspirin EC] 81 mg PO BID 06/12/21 07/15/23 History Fexofenadine HCl [Susan Allergy] 180 mg PO QAM 10/17/21 07/15/23 History Semaglutide [Ozempic] 4 mg SQ BAKER 10/21/22 07/15/23 History Vit C/E/Zn/Coppr/Lutein/Zeaxan 3 cap PO DAILY 04/09/23 07/15/23 History [Preservision Areds 2 Softgel] HYDROcodone/APAP 7.5-325MG [[place] 1 - 2 tab PO Q6H PRN #32 tab 04/14/23 07/15/23 Rx 7.5-325] Atorvastatin [Lipitor] 40 mg PO HS 06/19/23 07/15/23 History Gabapentin [Neurontin] 300 mg PO HS 07/15/23 07/15/23 History tiZANidine HCL [Zanaflex] 4 mg PO HS 07/15/23 07/15/23 History Aspirin 325 mg PO BID #60 tab 07/22/23 Rx HYDROcodone/APAP 7.5-325MG [[place] 1 - 2 tab PO Q6H PRN #32 tab 07/22/23 Rx 7.5-325] Sennosides [Senokot] 2 tab PO DAILY PRN #60 tablet 07/22/23 Rx Allergies Allergy/AdvReac Type Severity Reaction Status Date / Time diclofenac [From Cataflam] Allergy Rash/Hives Verified 07/22/23 09:32 lisinopril AdvReac Cough Verified 07/22/23 09:32 BLACK WASP Allergy Swelling Uncoded 07/22/23 09:32 Physical Exam Vitals: Vital Signs Temp Pulse Pulse Resp BP Pulse Ox 07/23/23 07:43 97.3 F L 88 16 136/83 95 07/23/23 01:38 97.7 F 91 18 126/73 93 L 07/22/23 19:48 97.9 F 90 18 143/84 95 07/22/23 14:34 97.9 F 66 18 134/92 95 07/22/23 13:45 71 16 133/72 96 07/22/23 13:30 47 L 16 119/77 95 07/22/23 13:15 69 16 143/75 97 07/22/23 13:04 97.6 F 76 16 140/74 94 L Intake and Output 07/22/23 07/23/23 07/23/23 22:59 06:59 14:59 Intake Total 480 Output Total 2316 Balance 480 -2316 Intake: Oral 480 Output: Urine 2316 Straight 1800 Other: Voiding Method Toilet # Voids 3 GENERAL: Well-appearing, well-nourished and in no acute distress. HEAD: Atraumatic, normocephalic. EYES: Pupils equal round and reactive to light, extraocular movements intact, sclera anicteric, conjunctiva are normal. ENT:nares patent, oropharynx clear without exudates. Moist mucous membranes. NECK: Normal range of motion, supple without lymphadenopathy or JVD, no thyromegaly LUNGS: Breath sounds clear to auscultation bilaterally and equal. No wheezes rales or rhonchi. HEART: Regular rate and rhythm without murmurs, rubs or gallops.S1S2 Normal ABDOMEN: Soft, nontender, normoactive bowel sounds. No guarding, no rebound. No masses appreciated. Distended due to truncal obesity, there is no suprapubic tenderness EXTREMITIES: Show cells in place on the left. There is a pain catheter into his right knee. The dressing is intact. NEUROLOGICAL: Cranial nerves II through XII grossly intact. Normal speech, normal gait. PSYCH: Normal mood, normal affect. SKIN: Warm, Dry, normal turgor, no rashes or lesions noted. Results CBC & Chem 7: 07/23/23 06:34 07/23/23 08:12 Labs: Abnormal Lab Results - Last 24 Hours (Table) 07/22/23 07/22/23 07/22/23 Range/Units 14:44 16:41 20:42 WBC (4.50-10.00) X 10*3/uL RBC (4.40-5.60) X 10*6/uL Hgb (13.0-17.0) d/dL Hct (39.6-50.0) % Neutrophils # (1.80-7.70) X 10*3/uL Monocytes # (0.20-1.00) X 10*3/uL Eosinophils # (0.04-0.35) X 10*3/uL Sodium (137-145) mmol/L Carbon Dioxide (22-30) mmol/L Creatinine (0.66-1.25) mg/dL Glucose (74-99) mg/dL POC Glucose (mg/dL) 137 H 222 H 217 H (70-110) mg/dL Hemoglobin A1c (<=6.0) % 07/23/23 07/23/23 07/23/23 Range/Units 05:36 06:30 06:34 WBC 14.36 H (4.50-10.00) X 10*3/uL RBC 3.27 L (4.40-5.60) X 10*6/uL Hgb 9.8 L (13.0-17.0) d/dL Hct 29.2 L (39.6-50.0) % Neutrophils # 12.21 H (1.80-7.70) X 10*3/uL Monocytes # 1.19 H (0.20-1.00) X 10*3/uL Eosinophils # 0 L (0.04-0.35) X 10*3/uL Sodium (137-145) mmol/L Carbon Dioxide (22-30) mmol/L Creatinine (0.66-1.25) mg/dL Glucose (74-99) mg/dL POC Glucose (mg/dL) 145 H (70-110) mg/dL Hemoglobin A1c 6.1 H (<=6.0) % 07/23/23 Range/Units 08:12 WBC (4.50-10.00) X 10*3/uL RBC (4.40-5.60) X 10*6/uL Hgb (13.0-17.0) d/dL Hct (39.6-50.0) % Neutrophils # (1.80-7.70) X 10*3/uL Monocytes # (0.20-1.00) X 10*3/uL Eosinophils # (0.04-0.35) X 10*3/uL Sodium 135 L (137-145) mmol/L Carbon Dioxide 21 L (22-30) mmol/L Creatinine 0.55 L (0.66-1.25) mg/dL Glucose 136 H (74-99) mg/dL POC Glucose (mg/dL) (70-110) mg/dL Hemoglobin A1c (<=6.0) % Assessment and Plan (1) Urinary retention due to benign prostatic hyperplasia Current Visit: Yes Status: Acute Code(s): N40.1 - BENIGN PROSTATIC HYPERPLASIA WITH LOWER URINARY TRACT SYMP; R33.8 - OTHER RETENTION OF URINE SNOMED Code(s): 574135449 (2) BPH loc w urin obs/LUTS Current Visit: Yes Status: Acute Code(s): N40.1 - BENIGN PROSTATIC H YPERPLASIA WITH LOWER URINARY TRACT SYMP SNOMED Code(s): 508858222 (3) Essential (primary) hypertension Current Visit: Yes Status: Acute Code(s): I10 - ESSENTIAL (PRIMARY) HYPE RTENSION SNOMED Code(s): 91462041 (4) Mixed hyperlipidemia Current Visit: Yes Status: Acute Code(s): E78.2 - MIXED HYPERLIPIDEMIA SNOMED Code(s): 714845482 (5) Type 2 diabetes mellitus with other circulatory complications Current Visit: Yes Status: Acute Code(s): E11.59 - TYPE 2 DIABETES MELLITUS WITH OTH CIRCULATORY COMPLICATIONS SNOMED Code(s): 57993872 (6) Type 2 diabetes mellitus with other specified complication Current Visit: Yes Status: Acute Code(s): E11.69 - TYPE 2 DIABETES MELLITUS WITH OTHER SPECIFIED COMPLICATION SNOMED Code(s): 60424329 (7) Osteoarthritis of right knee Current Visit: Yes Status: Acute Code(s): M17.11 - UNILATERAL PRIMARY OSTEOARTHRITIS, RIGHT KNEE SNOMED Code(s): 260345963198786 (8) S/P total knee arthroplasty Current Visit: No Status: Acute Code(s): Z96.659 - PRESENCE OF UNSPECIFIED ARTIFICIAL KNEE JOINT SNOMED Code(s): 6117774692421 Plan: We'll add an extra dose of tamsulosin this time. Monitor his urinary output. Staff will continue to monitor his diabetes the Accu-Cheks. We'll obtain a urinalysis, consider Duarte catheter, and consult urology if he is unable to urinate but this afternoon. Thank you for allowing me to participate in this patient's care. He'll be reevaluated based on his symptoms
[2023-07-23 13:06] LABS: Amorphous Sediment,Urine Rare /hpf; Appearance,Urine Clear (Clear); Bilirubin,Urine Negative (Negative); Blood,Urine Large (Negative); Color,Urine Light Yellow; Glucose,Urine (UA) 3+ (Negative); Ketones,Urine Negative (Negative); Leukocyte Esterase,Urine Negative (Negative); Mucus,Urine Occasional /hpf; Nitrite,Urine Negative (Negative); Protein,Urine Negative (Negative); RBC,Urine 49 /hpf (0-5); Specific Gravity,Urine 1.016 (1.001-1.035); Urobilinogen,Urine <2.0 mg/dL (<2.0); WBC,Urine 7 /hpf (0-5)
--- NOTE | 2023-07-23 14:00 | P.DS ---
Providers Expected date of discharge: 07/23/23 Attending physician: Guanakito Moore Consults: 07/22/23 11:02 Consult Physician Routine Consulting Provider: Rob Nolan Consult Reason/Comments: medical management Do you want consulting provider notified?: Yes Primary care physician: Shadi Martinez - Discharge Diagnosis(es) (1) Osteoarthritis of right knee Current Visit: Yes Status: Acute (2) S/P total knee arthroplasty Current Visit: No Status: Acute Hospital Course: This is a 72-year-old male with known history of degenerative arthritis of the right knee. The patient presented for evaluation as an outpatient. After discussion and consideration patient elects to proceed with total knee arthroplasty. The patient is seen preoperatively by Dr. Moore and medically cleared for surgery by their primary care physician. Patient is admitted to [facility] on 07/22/2023 for total knee arthroplasty. The procedure is performed without complication or sequelae. The patient is doing well postoperatively. Labs and vital signs are stable on day of discharge. Patient had to be straight cathed twice postoperatively, but his urinary retention resolved on its own and he was able to void freely later in the day. On day of discharge patient's knee incision is healing well. There is minimal erythema. There is no drainage noted at this time. There is minimal soft tissue swelling to the knee. Patient has full foot and ankle motion without difficulty or pain. Calf is soft and nontender to palpation. Neurovascular status to the right lower extremity is intact. Patient is discharged home in good condition. Please see med rec for accurate list of home medications. Plan - Discharge Summary Discharge Rx Participant: No New Discharge Prescriptions: New Aspirin 325 mg PO BID #60 tab HYDROcodone/APAP 7.5-325MG [Ethel 7.5-325] 1 - 2 tab PO Q6H PRN #32 tab PRN Reason: Pain Sennosides [Senokot] 2 tab PO DAILY PRN #60 tablet PRN Reason: Constipation No Action Multivitamins, Thera [Multivitamin (formulary)] 1 tab PO BID Tamsulosin HCl [Flomax] 0.8 mg PO HS Losartan [Cozaar] 25 mg PO DAILY Fenofibrate [Lofibra] 160 mg PO AC-SUPPER Bisoprolol-Hctz 5-6.25 mg [Ziac 5-6.25] 1 tab PO DAILY metFORMIN HCL [Glucophage] 1,000 mg PO BID HYDROcodone/APAP 7.5-325MG [Ethel 7.5-325] 1 - 2 tab PO Q6H PRN #32 tab PRN Reason: Pain Atorvastatin [Lipitor] 40 mg PO HS Gabapentin [Neurontin] 300 mg PO HS Finasteride [Proscar] 5 mg PO HS Aspirin [Adult Low Dose Aspirin EC] 81 mg PO BID Fexofenadine HCl [Susan Allergy] 180 mg PO QAM Semaglutide [Ozempic] 4 mg SQ BAKER Vit C/E/Zn/Coppr/Lutein/Zeaxan [Preservision Areds 2 Softgel] 3 cap PO DAILY tiZANidine HCL [Zanaflex] 4 mg PO HS Discharge Medication List Bisoprolol-Hctz 5-6.25 mg [Ziac 5-6.25] 1 tab PO DAILY 04/22/19 [History] Fenofibrate [Lofibra] 160 mg PO AC-SUPPER 04/22/19 [History] Losartan [Cozaar] 25 mg PO DAILY 04/22/19 [History] Multivitamins, Thera [Multivitamin (formulary)] 1 tab PO BID 04/22/19 [History] Tamsulosin HCl [Flomax] 0.8 mg PO HS 04/22/19 [History] metFORMIN HCL [Glucophage] 1,000 mg PO BID 04/22/19 [History] Finasteride [Proscar] 5 mg PO HS 01/12/21 [History] Aspirin [Adult Low Dose Aspirin EC] 81 mg PO BID 06/12/21 [History] Fexofenadine HCl [Susan Allergy] 180 mg PO QAM 10/17/21 [History] Semaglutide [Ozempic] 4 mg SQ BAKER 10/21/22 [History] Vit C/E/Zn/Coppr/Lutein/Zeaxan [Preservision Areds 2 Softgel] 3 cap PO DAILY 04/09/23 [History] HYDROcodone/APAP 7.5-325MG [Ethel 7.5-325] 1 - 2 tab PO Q6H PRN #32 tab 04/14/23 [Rx] Atorvastatin [Lipitor] 40 mg PO HS 06/19/23 [History] Gabapentin [Neurontin] 300 mg PO HS 07/15/23 [History] tiZANidine HCL [Zanaflex] 4 mg PO HS 07/15/23 [History] Aspirin 325 mg PO BID #60 tab 07/22/23 [Rx] HYDROcodone/APAP 7.5-325MG [Ethel 7.5-325] 1 - 2 tab PO Q6H PRN #32 tab 07/22/23 [Rx] Sennosides [Senokot] 2 tab PO DAILY PRN #60 tablet 07/22/23 [Rx] Follow up Appointment(s)/Referral(s): [facility] [NON-STAFF] - 1 Week (Call [facility] when you get home and they will deliver your CPM) [facility] [NON-STAFF] - 1 Week ([facility] call [facility] to arrange a visit) Rob Nolan MD [STAFF PHYSICIAN] - 07/30/23 1:00 pm (With Michelle) Guanakito Moore DO [Doctor of Osteopathic Medicine] - 08/04/23 2:00 pm Activity/Diet/Wound Care/Special Instructions: Weightbearing as tolerated with a walker. CPM 5-6h daily as tolerated. Leave dressing intact. Dressing may be removed by home care nurse or by patient in 7 days. Then change dressing twice daily until follow up. May shower with initial dressing intact and after removal. If dressing become saturated, please remove. Recommend use of compression stockings daily until follow up to help prevent swelling and blood clots. May remove at night before sleeping. Please take aspirin 325mg twice daily for 30 days to prevent blood clots. Please follow up with [facility] and call with any questions or concerns, . Discharge Disposition: HOME WITH HOME HEALTH SERVICES
[2023-07-23 14:06] VITALS: BP 116/57; PULSE 79; RESP 17; TEMP 97.8
[2023-07-27] MEDS ORDERED: NON FORMULARY DRUG (Semaglutide [Ozempic] 2 MG/0.75 ML Pen.Injctr) SQ SCH (09:00)
== END 2023-07-23 14:40 | disposition home health service (06) ==
LOC: OR 09:10 → 4SSUR 13:04 → OR 07-23 14:40
PROVIDERS: ATTEND Orthopaedic Surgery
DX: M17.11 Unilateral primary osteoarthritis, right knee (principal); G89.18 Other acute postprocedural pain; J44.9 Chronic obstructive pulmonary disease, unspecified; E11.9 Type 2 diabetes mellitus without complications; E78.5 Hyperlipidemia, unspecified; I10 Essential (primary) hypertension; Z87.442 Personal history of urinary calculi; Z87.891 Personal history of nicotine dependence; Z86.59 Personal history of other mental and behavioral disorders; Z79.84 Long term (current) use of oral hypoglycemic drugs; Z79.82 Long term (current) use of aspirin; Z79.899 Other long term (current) drug therapy
CPT/HCPCS: 97161; 64999; 64448; 80048; 85025; 81001; 83036; 73560; 27447; C1713; C1776; C1751; S0138; J2250; J1100; J0690 ×3; J2405; J2795

== ENCOUNTER → 2023-10-13 | Outpatient (CLI) | payer MEDICARE ==
[2023-10-13 13:57] VITALS: BP 142/76; PULSE 85; RESP 15; TEMP 97.6
--- NOTE | 2023-10-13 14:02 | P.PAINPG ---
Objective - Vital Signs Vital signs: Intake & Output 10/12/23 10/13/23 10/13/23 18:59 06:59 18:59 Weight 106.141 kg PQRS Measure Charge Sheet Comment: A 73 yr old male with a history of severe and chronic LBP secondary to lumbar DDD and spondylosis with facet arthropathy without myelopathy presents today for evaluation. Pain level is provoked at 7 /10 in intensity, constant, localized in the lumbar spine, predominantly axial, sharp in character without shooting pain. Pain is provoked by walking/ standing for periods >15 min. Pain is alleviated with PT integrated w massage x 4 wks he is currently in, use of a massage gun at home, chiropractic treatments were discontinued by his therapist after viewing x rays, heat, reclining and rest. Oswestry axial pain score of 23. Interventional pain procedures completed include BL RFA L3-L5 (May 2022, Jun 2023), BL iliolumbar injections, Caudal ESIs, L3-S1 TPIs Patient is currently on Hector, Baclofen, Tylenol, Zanaflex, Neurontin, Biofreeze gel Patient denies any side effects of the medication(s), denies excessive drowsiness or sleepiness, denies suicidal ideation and reports that the current pain medication is helping to control the pain and improve activities of daily living. Patient denies any motor or sensory deficits. Patient denies any fever or night sweats, denies any change in the bowel movements or urination. Physical Examination: -Constitutional: Cooperative. Not in acute distress . - Neurologic: Cranial nerve II to XII intact. No focal neurological deficits. - Psychatric: Alert & oriented x 3. Matching mood & appropriate affect. Judgment and insight intact. - Musculoskeletal: Cervical spine: Muscle bulk/ tone/ strength in the bilateral upper extremities normal Vertebral body tenderness to palpation over Spurling test positive Distraction test positive Facet loading test positive TTP Thoracic spine Muscle bulk / tone/ strength in the bilateral paraspinal muscles normal Vertebral body tender to palpation over Facet loading test positive TTP Lumbar spine: Motor bulk/ tone/ strength lower extremities , thigh and legs : 5/5 Deep tendon reflexes : Normal Knee Jerk. Normal Ankle Jerk . Vertebral body tenderness to palpation Lumbar Facet Loading Test positive Taut bands w twitch response over BL L3-S1 Straight Leg Raise: positive at 30 degrees right side/ left side Gaenslen's Test positive Sacral spine : Severe tenderness over the Sacroiliac joint: right side / left side Range of motion: Flexion of the lumbar spine <60 degrees Range of motion: Extension of the lumbar spine <20 degrees Gaenslen's Test positive right side / left side Samira test: positive right side / left side Thigh Thrust Test positive right side / left side Sacral Thrust Test positive right side / left side Assessment and plan: Chronic LBP secondary to lumbar DDD, spondylosis with facet arthropathy without myelopathy Recommendation of BL TPIs L3-S1 #2. May need a series of injections for optimal pain relief. Risks, benefits of procedure discussed and pt verbalized understanding. Protocol for discontinuation / continuation of medications surrounding procedure discussed. All questions answered. I have spent less than 30 minutes on patient care today. Dr Richard was available by phone for the evaluation of this patient. The time was used to review the medical records including relevant urine studies and Prescription history (MAPs), review of the available imaging, evaluation and examination of the patient, coordination of care with the medical staff and if applicable referring physicians, as well as creation of the medical record PQRS Narrative: Smoking Status Former smoker Narcotic Agreement Date Signed 10/17/22 Hx Alcohol Use (MH) No Home Medications: Ambulatory Orders Bisoprolol-Hctz 5-6.25 mg [Ziac 5-6.25] 1 tab PO DAILY 04/22/19 Fenofibrate [Lofibra] 160 mg PO AC-SUPPER 04/22/19 Losartan [Cozaar] 25 mg PO DAILY 04/22/19 Multivitamins, Thera [Multivitamin (formulary)] 1 tab PO BID 04/22/19 Tamsulosin HCl [Flomax] 0.8 mg PO HS 04/22/19 metFORMIN HCL [Glucophage] 1,000 mg PO BID 04/22/19 Finasteride [Proscar] 5 mg PO HS 01/12/21 Aspirin [Adult Low Dose Aspirin EC] 81 mg PO BID 06/12/21 Fexofenadine HCl [Susan Allergy] 180 mg PO QAM 10/17/21 Semaglutide [Ozempic] 4 mg SQ BAKER 10/21/22 Vit C/E/Zn/Coppr/Lutein/Zeaxan [Preservision Areds 2 Softgel] 3 cap PO DAILY 04/09/23 HYDROcodone/APAP 7.5-325MG [Hector 7.5-325] 1 - 2 tab PO Q6H PRN #32 tab 04/14/23 Atorvastatin [Lipitor] 40 mg PO HS 06/19/23 tiZANidine HCL [Zanaflex] 4 mg PO HS 07/15/23 Aspirin 325 mg PO BID #60 tab 07/22/23 HYDROcodone/APAP 7.5-325MG [[place] 7.5-325] 1 - 2 tab PO Q6H PRN #32 tab 07/22/23 Sennosides [Senokot] 2 tab PO DAILY PRN #60 tablet 07/22/23 Gabapentin [Neurontin] 300 mg PO HS 30 Days #30 cap 09/17/23 Controlled Substance Measures - Controlled Substance Measures Is patient prescribed a controlled substance at discharge?: No
== END ==
LOC: PNWHC3 13:05
PROVIDERS: ATTEND Specialist
DX: M51.37 Other intervertebral disc degeneration, lumbosacral region (principal); M47.817 Spondylosis without myelopathy or radiculopathy, lumbosacral region; F12.90 Cannabis use, unspecified, uncomplicated; G89.29 Other chronic pain; Z87.891 Personal history of nicotine dependence; Z79.82 Long term (current) use of aspirin; Z88.8 Allergy status to other drugs, medicaments and biological substances; Z91.038 Other insect allergy status
CPT/HCPCS: 99211

== ENCOUNTER 2023-10-30 09:53 | Day surgery (SDC) | payer MEDICARE ==
[2023-10-24 16:31] VITALS: BMI 31.1
[~2023-10-30 09:53] MED LIST changes: -ACETAMINOPHEN TAB 500 MG TAB PO PRN; -DEXAMETHASONE SOD PHOSPHATE 4 MG/ML 1 ML VIAL IV ONE; -GABAPENTIN 300 MG CAP PO PRN; -HYDROmorphone 0.5 MG/0.5 ML SYRINGE IVP PRN; +LACTATED RINGERS 1,000 ML IV SCH; -LIDOCAINE 1% (10MG/ML) FOR IV START INTRADERMA PRN; -MELOXICAM 7.5 MG TAB PO PRN; -MIDAZOLAM 2 MG/2 ML VIAL IV PRN; -ONDANSETRON 4 MG/2 ML VIAL IVP ONE; -TRANEXAMIC 1,000 MG/100ML-NACL 1,000 MG in SALINE 1 100ML.BAG IVPB PRN
[2023-10-30 10:28] LABS: Glucose,Whole Blood 123 mg/dL (70-110)
[2023-10-30] MEDS ORDERED: ROPIVACAINE 5MG/ML 20ML VIAL ONE (10:46)
[2023-10-30] MEDS ORDERED: methylPREDNISolone ACETATE 40 MG/ML 1 ML VIAL ONE (10:46)
--- NOTE | 2023-10-30 10:50 | P.PCN ---
Date of Procedure: 10/30/23 Procedure(s) Performed: Procedure= trigger point injections lumbar paraspinal muscles bilaterally , 3 on the right side from L2 to S1, and 3 on the left side from L2 to S1 Preoperative diagnosis= 1-myofascial pain syndrome lumbar paraspinal muscles 2-lumbar degenerative disc disease 3-lumbar facet arthropathy Postoperative diagnosis=Same as preop Diagnosis . Complication = none Condition= stable Anesthesia= none Indication for the procedure= patient complaining of low back pain , examination was positive for multiple trigger point in the lumbar paraspinal muscles bilaterally and patient diagnosed with myofascial pain syndrome and is here to have trigger point injections Description of the procedure= procedure risk and benefits discussed with the patient, including but not limited, risk of infection and bleeding, and ALLERGIC reaction to the medication and not complete pain relief and patient agreed with the preceding patient taken to the operating room, placed in sitting position or standard monitors applied to the patient then after induction of anesthesia back prepped with chlorhexidine 3 times , then under sterile technique each of the trigger point that was marked in the preop holding area 3 on the right side lumbar paraspinal muscles and 3 on the left side lumbar paraspinal muscles each one of them injected with the 2 mL of the mixture of ropivacaine 0.5% 12 ML mixed with 40 mg of Depo-Medrol and 2 mL of the mixture injected at each trigger point after negative aspiration, using 25-gauge needle, injection done after negative aspiration under was no paresthesia during the injection patient tolerated the procedure well without any complications and he will follow up in the pain clinic in a few weeks
[2023-10-30 10:53] VITALS: TEMP 97.9
[2023-10-30 11:19] VITALS: BP 142/71; PULSE 58; RESP 20
== END 2023-10-30 11:18 | disposition home or self-care (01) ==
LOC: ORPAIN 09:53
PROVIDERS: ATTEND Specialist
DX: M79.18 Myalgia, other site (principal); M51.36 Other intervertebral disc degeneration, lumbar region; M47.816 Spondylosis without myelopathy or radiculopathy, lumbar region; Z79.82 Long term (current) use of aspirin; Z88.6 Allergy status to analgesic agent; Z88.8 Allergy status to other drugs, medicaments and biological substances; Z91.038 Other insect allergy status
CPT/HCPCS: 20553; J1030; J2795

== ENCOUNTER → 2023-11-19 | Outpatient (CLI) | payer MEDICARE ==
[2023-11-19 10:10] VITALS: BP 138/76; PULSE 94; RESP 15; TEMP 98.9
--- NOTE | 2023-11-19 14:28 | P.PAINPG ---
PQRS Measure Charge Sheet Comment: A 73 yr old male with a history of severe and chronic LBP secondary to lumbar DDD and spondylosis with facet arthropathy without myelopathy presents today for evaluation s/p BL TPIs L3-S1 #2. Pt states he experienced 70 % pain relief x 2 wks s/p procedure. Pain level is provoked at 6 /10 in intensity, constant, localized in the L lumbar spine, predominantly axial, sharp in character without shooting pain. Pain is provoked by walking/ standing for periods >15 min. Pain is alleviated with PT integrated w massage x 6 wks in Oct 2023 (lumbar) and PT x 8 wks for his knees which he is currently in, use of a massage gun at home, chiropractic treatments were discontinued by his therapist after viewing x rays, heat, reclining and rest. Oswestry axial pain score of 23. Interventional pain procedures completed include BL RFA L3-L5 (May 2022, Jun 2023), BL iliolumbar injections, Caudal ESIs, BL L2-S1 TPIs x2 Patient is currently on [place], Baclofen, Tylenol, Zanaflex, Neurontin, Biofreeze gel Patient denies any side effects of the medication(s), denies excessive drowsiness or sleepiness, denies suicidal ideation and reports that the current pain medication is helping to control the pain and improve activities of daily living. Patient denies any motor or sensory deficits. Patient denies any fever or night sweats, denies any change in the bowel movements or urination. Physical Examination: -Constitutional: Cooperative. Not in acute distress . - Neurologic: Cranial nerve II to XII intact. No focal neurological deficits. - Psychatric: Alert & oriented x 3. Matching mood & appropriate affect. Judgment and insight intact. - Musculoskeletal: Cervical spine: Muscle bulk/ tone/ strength in the bilateral upper extremities normal Vertebral body tenderness to palpation over [place] test positive Distraction test positive Facet loading test positive TTP Thoracic spine Muscle bulk / tone/ strength in the bilateral paraspinal muscles normal Vertebral body tender to palpation over Facet loading test positive TTP Lumbar spine: Motor bulk/ tone/ strength lower extremities , thigh and legs : 5/5 Deep tendon reflexes : Normal Knee Jerk. Normal Ankle Jerk . Vertebral body tenderness to palpation L5 Lumbar Facet Loading Test positive Taut bands w twitch response Straight Leg Raise: positive at 30 degrees right side/ left side Gaenslen's Test positive Sacral spine : Severe tenderness over the Sacroiliac joint: right side / left side Range of motion: Flexion of the lumbar spine <60 degrees Range of motion: Extension of the lumbar spine <20 degrees Gaenslen's Test positive right side / left side Samira test: positive right side / left side Thigh Thrust Test positive right side / left side Sacral Thrust Test positive right side / left side Assessment and plan: Chronic LBP secondary to lumbar DDD, spondylosis with facet arthropathy without myelopathy Recommendation of L TFESI L5-S1 #1. May need a series of injections for optimal pain relief. Risks, benefits of procedure discussed and pt verbalized understanding. Protocol for discontinuation / continuation of medications surrounding procedure discussed. All questions answered. I have spent less than 30 minutes on patient care today. Dr Richard was available by phone for the evaluation of this patient. The time was used to review the medical records including relevant urine studies and Prescription history (MAPs), review of the available imaging, evaluation and examination of the patient, coordination of care with the medical staff and if applicable referring physicians, as well as creation of the medical record PQRS Narrative: Smoking Status Former smoker Narcotic Agreement Date Signed 10/17/22 Hx Alcohol Use (MH) No Home Medications: Ambulatory Orders Bisoprolol-Hctz 5-6.25 mg [Ziac 5-6.25] 1 tab PO DAILY 04/22/19 Fenofibrate [Lofibra] 160 mg PO AC-SUPPER 04/22/19 Losartan [Cozaar] 25 mg PO DAILY 04/22/19 Multivitamins, Thera [Multivitamin (formulary)] 1 tab PO BID 04/22/19 Tamsulosin HCl [Flomax] 0.8 mg PO HS 04/22/19 metFORMIN HCL [Glucophage] 1,000 mg PO BID 04/22/19 Finasteride [Proscar] 5 mg PO HS 01/12/21 Aspirin [Adult Low Dose Aspirin EC] 81 mg PO BID 06/12/21 Fexofenadine HCl [Susan Allergy] 180 mg PO QAM 10/17/21 Semaglutide [Ozempic] 1 mg SQ BAKER 10/21/22 Vit C/E/Zn/Coppr/Lutein/Zeaxan [Preservision Areds 2 Softgel] 3 cap PO DAILY 04/09/23 Atorvastatin [Lipitor] 40 mg PO HS 06/19/23 tiZANidine HCL [Zanaflex] 4 mg PO HS 07/15/23 HYDROcodone/APAP 7.5-325MG [[place] 7.5-325] 1 - 2 tab PO Q6H PRN #32 tab 07/22/23 Sennosides [Senokot] 2 tab PO DAILY PRN #60 tablet 07/22/23 Gabapentin [Neurontin] 300 mg PO HS 30 Days #30 cap 09/17/23 Cyclobenzaprine [Flexeril] 5 mg PO TID PRN 30 Days #90 tablet 10/23/23 Controlled Substance Measures - Controlled Substance Measures Is patient prescribed a controlled substance at discharge?: No
== END ==
LOC: PNWHC3 09:33
PROVIDERS: ATTEND Specialist
DX: M51.36 Other intervertebral disc degeneration, lumbar region (principal); M47.816 Spondylosis without myelopathy or radiculopathy, lumbar region; G89.29 Other chronic pain; F12.90 Cannabis use, unspecified, uncomplicated; Z87.891 Personal history of nicotine dependence; Z79.82 Long term (current) use of aspirin; Z88.8 Allergy status to other drugs, medicaments and biological substances; Z91.038 Other insect allergy status
CPT/HCPCS: 99211

== ENCOUNTER → 2023-12-11 | Outpatient (CLI) | payer MEDICARE ==
[2023-12-11 10:47] VITALS: BP 135/66; PULSE 56; RESP 15; TEMP 97.5
--- NOTE | 2023-12-11 12:31 | P.PAINPG ---
PQRS Measure Charge Sheet Comment: A 73 yr old male with a history of severe and chronic LBP secondary to lumbar DDD and spondylosis with facet arthropathy without myelopathy presents today for evaluation . Pt underwent a BL RFA of the L4-L5, L5-S1 in Jun 2023 of which he experienced 95 % pain relief x 6 mo s/p procedure. Pain level is provoked at 5 /10 in intensity, intermittent, localized in the L lumbar spine, predominantly axial, sharp in character without shooting pain. Pain is provoked by walking/ standing for periods >15 min. Pain is alleviated with PT integrated w massage x 6 wks in Oct 2023 (lumbar) and PT x 8 wks for his knees which he is currently in, use of a massage gun at home, chiropractic treatments were discontinued by his therapist after viewing x rays, heat, reclining and rest. Oswestry axial pain score of 22. Interventional pain procedures completed include BL RFA L3-L5 (May 2022, 06/20/23), BL iliolumbar injections, Caudal ESIs, BL L2-S1 TPIs x2 Patient is currently on [place], Baclofen, Tylenol, Zanaflex, Neurontin, Biofreeze gel Patient denies any side effects of the medication(s), denies excessive drow siness or sleepiness, denies suicidal ideation and reports that the current pain medication is helping to control the pain and improve activities of daily living. Patient denies any motor or sensory deficits. Patient denies any fever or night sweats, denies any change in the bowel movements or urination. Physical Examination: -Constitutional: Cooperative. Not in acute distress . - Neurologic: Cranial nerve II to XII intact. No focal neurological deficits. - Psychatric: Alert & oriented x 3. Matching mood & appropriate affect. Judgment and insight intact. - Musculoskeletal: Cervical spine: Muscle bulk/ tone/ strength in the bilateral upper extremities normal Vertebral body tenderness to palpation over Spurling test positive Distraction test positive Facet loading test positive TTP Thoracic spine Muscle bulk / tone/ strength in the bilateral paraspinal muscles normal Vertebral body tender to palpation over Facet loading test positive TTP Lumbar spine: Motor bulk/ tone/ strength lower extremities , thigh and legs : 5/5 Deep tendon reflexes : Normal Knee Jerk. Normal Ankle Jerk . Vertebral body tenderness to palpation L5 Lumbar Facet Loading Test positive L4-L5 L5-S1 Taut bands w twitch response Straight Leg Raise: positive at 30 degrees right side/ left side Gaenslen's Test positive Sacral spine : Severe tenderness over the Sacroiliac joint: right side / left side Range of motion: Flexion of the lumbar spine <60 degrees Range of motion: Extension of the lumbar spine <20 degrees Gaenslen's Test positive right side / left side Samira test: positive right side / left side Thigh Thrust Test positive right side / left side Sacral Thrust Test positive right side / left side Assessment and plan: Chronic LBP secondary to lumbar DDD, spondylosis with facet arthropathy without myelopathy Recommendation of follow up on or after 12/19/23. May need a series of injections for optimal pain relief. Risks, benefits of procedure discussed and pt verbalized/ understanding. Protocol for discontinuation/ continuation of medications surrounding procedure discussed. All questions answered. I have spent less than 30 minutes on patient care today. Dr Richard was available by phone for the evaluation of this patient. The time was used to review the medical records including relevant urine studies and Prescription history (MAPs), review of the available imaging, evaluation and examination of the patient, coordination of care with the medical staff and if applicable referring physicians, as well as creation of the medical record PQRS Narrative: Smoking Status Former smoker Narcotic Agreement Date Signed 10/17/22 Hx Alcohol Use (MH) No Home Medications: Ambulatory Orders Bisoprolol-Hctz 5-6.25 mg [Ziac 5-6.25] 1 tab PO DAILY 04/22/19 Fenofibrate [Lofibra] 160 mg PO AC-SUPPER 04/22/19 Losartan [Cozaar] 25 mg PO DAILY 04/22/19 Multivitamins, Thera [Multivitamin (formulary)] 1 tab PO BID 04/22/19 Tamsulosin HCl [Flomax] 0.8 mg PO HS 04/22/19 metFORMIN HCL [Glucophage] 1,000 mg PO BID 04/22/19 Finasteride [Proscar] 5 mg PO HS 01/12/21 Aspirin [Adult Low Dose Aspirin EC] 81 mg PO BID 06/12/21 Fexofenadine HCl [Susan Allergy] 180 mg PO QAM 10/17/21 Semaglutide [Ozempic] 1 mg SQ BAKER 10/21/22 Vit C/E/Zn/Coppr/Lutein/Zeaxan [Preservision Areds 2 Softgel] 3 cap PO DAILY 04/09/23 Atorvastatin [Lipitor] 40 mg PO HS 06/19/23 tiZANidine HCL [Zanaflex] 4 mg PO HS 07/15/23 HYDROcodone/APAP 7.5-325MG [[place] 7.5-325] 1 - 2 tab PO Q6H PRN #32 tab 07/22/23 Sennosides [Senokot] 2 tab PO DAILY PRN #60 tablet 07/22/23 Gabapentin [Neurontin] 300 mg PO HS 30 Days #30 cap 09/17/23 Cyclobenzaprine [Flexeril] 5 mg PO TID PRN 30 Days #90 tablet 10/23/23 Controlled Substance Measures - Controlled Substance Measures Is patient prescribed a controlled substance at discharge?: No
== END ==
LOC: PNWHC3 09:46
PROVIDERS: ATTEND Specialist
DX: M51.37 Other intervertebral disc degeneration, lumbosacral region (principal); M47.817 Spondylosis without myelopathy or radiculopathy, lumbosacral region; G89.29 Other chronic pain; F12.90 Cannabis use, unspecified, uncomplicated; Z87.891 Personal history of nicotine dependence; Z79.82 Long term (current) use of aspirin; Z88.8 Allergy status to other drugs, medicaments and biological substances; Z91.038 Other insect allergy status
CPT/HCPCS: 99211

== ENCOUNTER 2024-01-09 11:51 | Day surgery (SDC) | payer MEDICARE ==
[2024-01-09 12:37] LABS: Glucose,Whole Blood 113 mg/dL (70-110)
[2024-01-09] MEDS: LACTATED RINGERS 1,000 ML IV SCH (12:37)
[2024-01-09] MEDS ORDERED: ROPIVACAINE 5MG/ML 20ML VIAL ONE (12:47)
[2024-01-09] MEDS ORDERED: MIDAZOLAM 2 MG/2 ML VIAL ONE (12:47)
[2024-01-09] MEDS ORDERED: fentaNYL (PF) 50 MCG/ML 2 ML AMP ONE (12:47)
[2024-01-09 12:54] VITALS: PULSE 76; RESP 18; TEMP 98.4
[2024-01-09] MEDS: LACTATED RINGERS 1,000 ML IV ONE (13:33)
--- NOTE | 2024-01-09 13:37 | P.PCN ---
Description of Procedure: Preprocedure diagnosis. 1. Lumbar spondylosis with facet joint arthropathy without myelopathy. 2. Lumbar degenerative disc disease. Procedure diagnosis. 1. Lumbar spondylosis with facet joint arthropathy without myelopathy. Space 2. Lumbar degenerative disc disease. Procedure.Bilateral radiofrequency thermocoagulation L3, L4 and L5 medial branch, with fluoroscopic guidance (fluoroscopy images are available in the radiology department) (to Denervate the facet joint at bilateral L4- 5 and L5-S1 levels) Anesthesia. Moderate sedation with intravenous Versed 2 mg and fentanyl 100 g and local infiltration with ropivacaine 0.5%. Continuous verbal communication was maintained with patient. EBL minimal. Procedure indication. The patient with low back pain secondary to lumbar facet arthropathy who he had more than 50% relief of her pain with previous diagnostic lumbar medial branch block with local anesthetics.The patient was seen and identified in the preoperative area. Risks: Benefits, complications, including but not limited to risk of infection, bleeding, ALLERGIC reaction to the medications and no complete pain relief and alternatives were discussed with the patient, the patient admitted to proceed with the procedure and signed the consent. Procedure description/technique. Patient was taken to the OR and timeout was completed. The patient was placed in prone position on the procedure table. The lumbar area was prepped and draped in the usual sterile fashion. After injecting 5 ml of 1% Lidocaine subcutaneously,using AP and then oblique, lateral view of fluoroscopy, 18-gauge 100 mm radiofrequency cannula with a 10 mm active tip was advanced and guided by fluoroscopy at the junction of supirior articular process with RIGHT ala of the sacrum, transverse process of L4&L5. Each site then underwent positive sensory testing with 50 Hz and 0-1 V and negative motor testing at 2.5 Hz and 0-3 V with local stimulation but no radicular symptoms down the leg. Thereafter each sites underwent radiofrequency thermocoagulation at 80C for 90 seconds after injecting 1 mL of preservative- free 0.5% ropivacaine. Repeat radiofrequency ablation was done at each points after rotating the needle 180 with same setting. This same procedure was repeated twice on the LEFT side at the junction of s uperior articular process with ala of sacrum,transverse process of L4, L5 with the same settings after positive sensory,negative motor stimulation and infiltration of 1.0 ml 5% Ropivacaine at each site . RF needles were taken out. At the end of the procedure the skin was cleansed and Band-Aids were applied. Disposition patient tolerated the procedure well. No complication. She was placed in supine position and transferred to the recovery area in stable condition for observation and was discharged home from recovery room after meeting discharge criteria. Discharge instructions given to the patient by the staff. The patient were examined prior to discharge the patient will schedule a follow-up in the clinic in 2-4 weeks.
--- NOTE | 2024-01-09 13:43 | FL ---
Fluoroscopy History: [place] Lumbar Rad Freq [place] Lumbar Rad Freq 2.10min fluoro time [id number] DAP
[2024-01-09 14:13] VITALS: BP 121/78
[2024-01-09 14:42] LABS: Glucose,Whole Blood 113 mg/dL (70-110)
== END 2024-01-09 14:19 | disposition home or self-care (01) ==
LOC: ORPAIN 11:51
PROVIDERS: ATTEND Pain Medicine Interventional Pain Medicine
DX: M47.816 Spondylosis without myelopathy or radiculopathy, lumbar region (principal); M51.36 Other intervertebral disc degeneration, lumbar region; Z88.8 Allergy status to other drugs, medicaments and biological substances; Z88.6 Allergy status to analgesic agent; Z79.82 Long term (current) use of aspirin
CPT/HCPCS: 64635; 64636 ×2; 99152; 99153 ×2; J2250; J3010; J2795

== ENCOUNTER 2024-01-10 14:32 | Observation (INO) | payer MEDICARE ==
--- NOTE | 2024-01-10 15:04 | ED ---
General Adult HPI - General Chief complaint: Recheck/Abnormal Lab/Rx Stated complaint: Syncope Time Seen by Provider: 01/10/24 14:48 Source: patient, family Mode of arrival: ambulatory Limitations: no limitations - History of Present Illness Initial comments: Patient presents to the ED with his son for evaluation. Patient states that he had a syncopal episode while sitting down with some friends today. Patient states that he had a feeling of lightheadedness and felt warm prior to his syncopal episode today. Patient denies falling or sustaining any injuries. Patient's son states that he was with the patient when this episode occurred, and he states that the patient's LOC lasted for about 30 seconds. Patient states that he currently feels back to normal and he denies having any symptoms at this time. Patient states that his Apple Watch has alerted him of having a low heart rate about 3 times this week. Patient denies any recent change in his medications. Patient denies having any pain, fever or chills, headache, focal numbness/weakness/neuro deficit, chest pain or pressure, dyspnea, cough or cold symptoms, palpitations, abdominal pain, nausea/vomiting/diarrhea, bloody or melanotic stool, dysuria or urinary symptoms, leg or calf swelling or pain, or any other symptoms or complaints. Patient states that he recently had a lumbar nerve ablation procedure, and he was told at that time that his heart rate was low as well. - Related Data Home Medications Medication Instructions Recorded Confirmed Bisoprolol-Hctz 5-6.25 mg [Ziac 1 tab PO DAILY 04/22/19 01/09/24 5-6.25] Fenofibrate [Lofibra] 160 mg PO AC-SUPPER 04/22/19 01/09/24 Losartan [Cozaar] 25 mg PO DAILY 04/22/19 01/09/24 Multivitamins, Thera [Multivitamin 1 tab PO BID 04/22/19 01/09/24 (formulary)] Tamsulosin HCl [Flomax] 0.8 mg PO HS 04/22/19 01/09/24 metFORMIN HCL [Glucophage] 1,000 mg PO BID 04/22/19 01/09/24 Finasteride [Proscar] 5 mg PO HS 01/12/21 01/09/24 Aspirin [Adult Low Dose Aspirin EC] 81 mg PO BID 06/12/21 01/09/24 Fexofenadine HCl [Susan Allergy] 180 mg PO QAM 10/17/21 01/09/24 Semaglutide [Ozempic] 1 mg SQ BAKER 10/21/22 01/09/24 Vit C/E/Zn/Coppr/Lutein/Zeaxan 3 cap PO DAILY 04/09/23 01/09/24 [Preservision Areds 2 Softgel] Atorvastatin [Lipitor] 40 mg PO HS 06/19/23 01/09/24 Previous Rx's Medication Instructions Recorded HYDROcodone/APAP 7.5-325MG [[place] 1 - 2 tab PO Q6H PRN #32 tab 07/22/23 7.5-325] Sennosides [Senokot] 2 tab PO DAILY PRN #60 tablet 07/22/23 Cyclobenzaprine [Flexeril] 5 mg PO TID PRN 30 Days #90 tablet 10/23/23 Allergies Allergy/AdvReac Type Severity Reaction Status Date / Time diclofenac [From Cataflam] Allergy Rash/Hives Verified 01/10/24 14:41 lisinopril AdvReac Cough Verified 01/10/24 14:41 BLACK WASP Allergy Swelling Uncoded 01/10/24 14:41 Review of Systems ROS Statement: Those systems with pertinent positive or pertinent negative responses have been documented in the HPI. ROS Other: All systems not noted in ROS Statement are negative. Past Medical History Past Medical History: COPD, Diabetes Mellitus, Hyperlipidemia, Hypertension, Liver Disease, Osteoarthritis (OA), Prostate Disorder, Sleep Apnea/CPAP/BIPAP Additional Past Medical History / Comment(s): heart murmur-"Thickened heart valve", diverticulosis, fatty liver, hx Legionnaire's disease, bulging discs, migraines, hiatal hernia, kidney stones, enlarged prostate, covid infection - 2021, hx sleep apnea resolved with wt loss. History of Any Multi-Drug Resistant Organisms: None Reported Past Surgical History: Joint Replacement, Orthopedic Surgery Additional Past Surgical History / Comment(s): Arthroscopy right knee, laser eye surgery for glaucoma melissa , colonoscopies, rt knee open surgery, PAIN CLINIC PROCEDURES, lithotripsy to remove bladder stone, LT TKA 10/28/22, LEFT TOTAL HIP 04/2023, Right TKA.07/22/2023. Past Anesthesia/Blood Transfusion Reactions: No Reported Reaction Past Psychological History: No Psychological Hx Reported Smoking Status: Former smoker Past Alcohol Use History: Occasional Past Drug Use History: Marijuana - Past Family History Mother Family Medical History: No Reported History General Exam Limitations: no limitations General appearance: alert, in no apparent distress Head exam: Present: normocephalic Eye exam: Present: normal appearance ENT exam: Present: mucous membranes moist Respiratory exam: Present: normal lung sounds bilaterally. Absent: respiratory distress, wheezes, rales, rhonchi, stridor Cardiovascular Exam: Present: bradycardia, irregular rhythm, normal heart sounds, other (Normal radial pulses bilaterally) GI/Abdominal exam: Present: soft. Absent: distended, tenderness, guarding Extremities exam: Absent: tenderness, pedal edema, calf tenderness Neurological exam: Present: alert, oriented X3. Absent: motor sensory deficit Psychiatric exam: Present: normal affect Skin exam: Present: warm, dry, normal color Course Vital Signs 01/10/24 01/10/24 14:36 16:21 Temperature 98 F Pulse Rate 55 L 40 L Respiratory 18 18 Rate Blood Pressure 121/62 132/62 O2 Sat by Pulse 98 97 Oximetry - Reevaluation(s) Reevaluation #1: 01/10/24 16:52 Case, H&P and results were discussed with Dr. Martinez. He accepts hospital admission. He agrees with cardiology consultation. He has no further recommendations at this time. 01/10/24 16:56 Patient remains in an irregular sinus bradycardic rhythm on the radiographer cardiac catheterization. Patient continues to deny having any symptoms while in the ED. Patient and son are aware of the patient's test results, and they both agree with hospital admission at this time. EKG Findings - EKG Comments: EKG Findings:: ED physician interpretation (interpreted by me): Uncertain rhythm, but suspect sinus rhythm with marked sinus arrhythmia, ventricular rate of 60 bpm, normal IN and QRS intervals, normal QT interval, no ST or T wave abnormality, normal axis Medical Decision Making - Medical Decision Making Was pt. sent in by a medical professional or institution (, PA, ZIPPER SEWING MACHINE OPERATOR, urgent care, hospital, or fdc...) When possible be specific @ -No Did you speak to anyone other than the patient for history (EMS, parent, family, police, friend...)? What history was obtained from this source @ -History was also provided by the patient's son. Did you review nursing and triage notes (agree or disagree)? Why? @ -I reviewed and agree with nursing and triage notes Were old charts reviewed (outside hosp., previous admission, EMS record, old EKG, old radiological studies, urgent care reports/EKG's, fdc records)? Report findings @ -No old charts were reviewed Differential Diagnosis (chest pain, altered mental status, abdominal pain women, abdominal pain men, vaginal bleeding, weakness, fever, dyspnea, syncope, headache, dizziness, GI bleed, back pain, seizure, CVA, palpatations, mental health, musculoskeletal)? @ -Differential Syncope: Valvular disease, hypertrophic cardiomyopathy, dysrhythmia, tamponade, tachycardia, bradycardia, [place], hypovolemia, sick sinus syndrome, anemia, seizure, hypoglycemia, medication reaction, this is not meant to be an all-inclusive list. EKG interpreted by me (3pts min.). @ -As above X-rays interpreted by me (1pt min.). @ -Chest x-ray was reviewed myself and shows no acute cardiopulmonary process. I agree with the radiologist's interpretation as above. CT interpreted by me (1pt min.). @ -None done U/S interpreted by me (1pt. min.). @ -None done What testing was considered but not performed or refused? (CT, X-rays, U/S, labs)? Why? @ -None What meds were considered but not given or refused? Why? @ -None Did you discuss the management of the patient with other professionals (professionals i.e. , PA, ZIPPER SEWING MACHINE OPERATOR, lab, RT, psych nurse, oncology social worker, patient transition specialist, teacher, security patrol officer, case filler)? Give summary @ -As above. Was smoking cessation discussed for >3mins.? @ -No Was critical care preformed (if so, how long)? @ -Yes, 30 minutes. Were there social determinants of health that impacted care today? How? (Homelessness, low income, unemployed, alcoholism, drug addiction, transportation, low edu. Level, literacy, decrease access to med. care, half-way, rehab)? @ -No Was there de-escalation of care discussed even if they declined (Discuss DNR or withdrawal of care, Hospice)? DNR status @ -No What co-morbidities impacted this encounter? (DM, HTN, Smoking, COPD, CAD, Cancer, CVA, ARF, Chemo, Hep., AIDS, mental health diagnosis, sleep apnea, morbid obesity)? @ -None Was patient admitted / discharged? Hospital course, mention meds given and route, prescriptions, significant lab abnormalities, going to OR and other pertinent info. @ -Patient remains in abnormal sinus rhythm on the radiographer cardiac catheterization. I am concerned about the possibility of sick sinus syndrome. Given the patient's syncope and bradycardia, will admit the patient to the hospital for cardiac monitoring and cardiology consultation. Patient's troponin is negative. Patient's labs are fairly unremarkable. Dr. Martinez has accepted hospital admission. Patient and son agree with this plan. Undiagnosed new problem with uncertain prognosis? @ -No Drug Therapy requiring intensive monitoring for toxicity (Heparin, Nitro, Insulin, Cardizem)? @ -No Were any procedures done? @ -No Diagnosis/symptom? @ -Syncope and sinus bradycardia Acute, or Chronic, or Acute on Chronic? @ -Acute Uncomplicated (without systemic symptoms) or Complicated (systemic symptoms)? @ -Default Side effects of treatment? @ -No Exacerbation, Progression, or Severe Exacerbation? @ -No Poses a threat to life or bodily function? How? (Chest pain, [place], [place], pneumonia, PE, COPD, DKA, ARF, appy, cholecystitis, CVA, Diverticulitis, Homicidal, Suicidal, threat to staff... and all critical care pts) @ -Possibly - Lab Data Result diagrams: 01/10/24 15:01 01/10/24 15:01 Lab Results 01/10/24 01/10/24 01/10/24 Range/Units 15:01 15:01 15:01 WBC 7.9 (3.8-10.6) k/uL RBC 4.49 (4.30-5.90) m/uL Hgb 13.4 (13.0-17.5) gm/dL Hct 40.6 (39.0-53.0) % MCV 90.4 (80.0-100.0) fL MCH 29.9 (25.0-35.0) pg MCHC 33.0 (31.0-37.0) g/dL RDW 14.0 (11.5-15.5) % Plt Count 289 (150-450) k/uL MPV 7.8 Neutrophils % 69 % Lymphocytes % 20 % Monocytes % 6 % Eosinophils % 3 % Basophils % 1 % Neutrophils # 5.5 (1.3-7.7) k/uL Lymphocytes # 1.5 (1.0-4.8) k/uL Monocytes # 0.5 (0-1.0) k/uL Eosinophils # 0.2 (0-0.7) k/uL Basophils # 0.0 (0-0.2) k/uL PT 10.3 (10.0-12.5) sec INR 0.9 (<1.2) APTT 21.2 L (22.0-30.0) sec Sodium 137 (137-145) mmol/L Potassium 4.1 (3.5-5.1) mmol/L Chloride 105 (98-107) mmol/L Carbon Dioxide 22 (22-30) mmol/L Anion Gap 10 mmol/L BUN 26 H (9-20) mg/dL Creatinine 0.76 (0.66-1.25) mg/dL Est GFR (CKD-EPI)AfAm >90 (>60 ml/min/1.73 sqM) Est GFR (CKD-EPI)NonAf >90 (>60 ml/min/1.73 sqM) Glucose 113 H (74-99) mg/dL Calcium 9.9 (8.4-10.2) mg/dL Magnesium 2.0 (1.6-2.3) mg/dL Total Bilirubin 0.6 (0.2-1.3) mg/dL AST 25 (17-59) U/L ALT 28 (4-49) U/L Alkaline Phosphatase 44 (38-126) U/L Troponin I (0.000-0.034) ng/mL Total Protein 6.7 (6.3-8.2) g/dL Albumin 4.3 (3.5-5.0) g/dL 01/10/24 Range/Units 15:01 WBC (3.8-10.6) k/uL RBC (4.30-5.90) m/uL Hgb (13.0-17.5) gm/dL Hct (39.0-53.0) % MCV (80.0-100.0) fL MCH (25.0-35.0) pg MCHC (31.0-37.0) g/dL RDW (11.5-15.5) % Plt Count (150-450) k/uL MPV Neutrophils % % Lymphocytes % % Monocytes % % Eosinophils % % Basophils % % Neutrophils # (1.3-7.7) k/uL Lymphocytes # (1.0-4.8) k/uL Monocytes # (0-1.0) k/uL Eosinophils # (0-0.7) k/uL Basophils # (0-0.2) k/uL PT (10.0-12.5) sec INR (<1.2) APTT (22.0-30.0) sec Sodium (137-145) mmol/L Potassium (3.5-5.1) mmol/L Chloride (98-107) mmol/L Carbon Dioxide (22-30) mmol/L Anion Gap mmol/L BUN (9-20) mg/dL Creatinine (0.66-1.25) mg/dL Est GFR (CKD-EPI)AfAm (>60 ml/min/1.73 sqM) Est GFR (CKD-EPI)NonAf (>60 ml/min/1.73 sqM) Glucose (74-99) mg/dL Calcium (8.4-10.2) mg/dL Magnesium (1.6-2.3) mg/dL Total Bilirubin (0.2-1.3) mg/dL AST (17-59) U/L ALT (4-49) U/L Alkaline Phosphatase (38-126) U/L Troponin I <0.012 (0.000-0.034) ng/mL Total Protein (6.3-8.2) g/dL Albumin (3.5-5.0) g/dL - Radiology Data Chest x-ray: Chronic changes without evidence for acute pulmonary disease. Critical Care Time Critical Care Time: Yes Total Critical Care Time: 30 Disposition Clinical Impression: Bradycardia, Syncope Disposition: ADMITTED IP TO THIS [facility] Condition: Stable Is patient prescribed a controlled substance at d/c from ED?: No Referrals: Rob Nolan MD [Primary Care Provider] - 1-2 days Time of Disposition: 16:52
[2024-01-10] MEDS: SODIUM CHLORIDE 0.9% 500 ML 500 ML IV STA (15:05)
[2024-01-10 15:15] LABS: Basophils % (A) 1 %; Eosinophils # (A) 0.2 k/uL (0-0.7); Eosinophils % (A) 3 %; HCT 40.6 % (39.0-53.0); HGB 13.4 gm/dL (13.0-17.5); Lymphocytes # (A) 1.5 k/uL (1.0-4.8); Lymphocytes % (A) 20 %; MCH 29.9 pg (25.0-35.0); MCV 90.4 fL (80.0-100.0); Mean Platelet Volume 7.8; Monocytes # (A) 0.5 k/uL (0-1.0); Monocytes % (A) 6 %; Neutrophils # (A) 5.5 k/uL (1.3-7.7); Neutrophils % (A) 69 %; Platelet Count 289 k/uL (150-450); RBC 4.49 m/uL (4.30-5.90); WBC 7.9 k/uL (3.8-10.6)
--- NOTE | 2024-01-10 15:20 | XR ---
EXAMINATION TYPE: XR chest 1V portable DATE OF EXAM: 01/10/2024 HISTORY: Shortness of breath. COMPARISON: None. TECHNIQUE: Single view of the chest is submitted. FINDINGS: Demonstrated are scattered senescent parenchymal change. There is no evidence for focal infiltrate. The heart is stable. Hilar and mediastinal structures are within normal limits. Degenerative changes are seen of the dorsal spine. IMPRESSION: 1. Chronic changes without evidence for acute pulmonary disease.
[2024-01-10 15:38] LABS: INR 0.9 (<1.2); Partial Thromboplastin Time 21.2 sec (22.0-30.0); Prothrombin Time 10.3 sec (10.0-12.5)
[2024-01-10 15:39] LABS: ALT 28 U/L (4-49); AST 25 U/L (17-59); African American GFR (CKD) >90 (>60 ml/min/1.73 sqM); Albumin 4.3 g/dL (3.5-5.0); Alkaline Phosphatase 44 U/L (38-126); Anion Gap 10 mmol/L; Blood Urea Nitrogen 26 mg/dL (9-20); Calcium 9.9 mg/dL (8.4-10.2); Carbon Dioxide 22 mmol/L (22-30); Chloride 105 mmol/L (98-107); Glucose 113 mg/dL (74-99); Non-African American GFR(CKD) >90 (>60 ml/min/1.73 sqM); Potassium 4.1 mmol/L (3.5-5.1); Sodium 137 mmol/L (137-145); Total Bilirubin 0.6 mg/dL (0.2-1.3); Total Protein 6.7 g/dL (6.3-8.2)
[2024-01-10] MEDS ORDERED: NALOXONE 0.4 MG/ML 1 ML VIAL IV PRN (16:52)
[2024-01-10 20:02] LABS: Glucose,Whole Blood 132 mg/dL (70-110)
[2024-01-11 06:17] LABS: Glucose,Whole Blood 129 mg/dL (70-110)
[2024-01-11 06:37] LABS: Basophils % (A) 0 %; Eosinophils # (A) 0.2 k/uL (0-0.7); Eosinophils % (A) 3 %; HCT 38.8 % (39.0-53.0); HGB 12.8 gm/dL (13.0-17.5); Lymphocytes # (A) 1.9 k/uL (1.0-4.8); Lymphocytes % (A) 25 %; MCH 30.2 pg (25.0-35.0); MCHC 33.1 g/dL (31.0-37.0); MCV 91.4 fL (80.0-100.0); Mean Platelet Volume 7.7; Monocytes # (A) 0.4 k/uL (0-1.0); Monocytes % (A) 6 %; Neutrophils # (A) 4.7 k/uL (1.3-7.7); Neutrophils % (A) 64 %; Platelet Count 281 k/uL (150-450); RBC 4.25 m/uL (4.30-5.90); RDW 14.1 % (11.5-15.5); WBC 7.3 k/uL (3.8-10.6)
[2024-01-11 06:49] LABS: ALT 25 U/L (4-49); AST 21 U/L (17-59); African American GFR (CKD) >90 (>60 ml/min/1.73 sqM); Albumin 3.8 g/dL (3.5-5.0); Alkaline Phosphatase 41 U/L (38-126); Anion Gap 5 mmol/L; Blood Urea Nitrogen 22 mg/dL (9-20); Calcium 9.3 mg/dL (8.4-10.2); Carbon Dioxide 25 mmol/L (22-30); Chloride 107 mmol/L (98-107); Glucose 116 mg/dL (74-99); Non-African American GFR(CKD) >90 (>60 ml/min/1.73 sqM); Potassium 4.2 mmol/L (3.5-5.1); Sodium 137 mmol/L (137-145); Total Bilirubin 0.6 mg/dL (0.2-1.3)
[2024-01-11] MEDS: ASPIRIN 81 MG PO SCH (09:29)
[2024-01-11] MEDS: VIT A,C & E-LUTEIN-MINERALS 1 EACH TAB PO SCH (09:29)
[2024-01-11] MEDS: cycloSPORINE 0.05% OPHTH 0.4 ML DROPERETTE BOTH EYES SCH (09:29)
[2024-01-11] MEDS: metFORMIN 500 MG TAB PO SCH (09:29)
--- NOTE | 2024-01-11 09:34 | P.CRDCN ---
History of Present Illness History of present illness: HISTORY OF PRESENT ILLNESS: This is a 73-year-old male with a past medical history significant for hypertension, hyperlipidemia, diabetes, and former nicotine dependence. Patient does not follow with a final application reviewer. We have been asked to see the patient in consultation for bradycardia. Patient examined at the bedside. Patient states yesterday he was sitting around with some of his friends talking when he began to feel flushed and hot. He states He knows he was slumped over and had a syncopal episode. Patient states he did lose control of his bladder at that time. His friends did not notice any seizure activity. He states he was out for about 30 seconds. He states when he came to he did not feel confused. He states that he actually felt better after he passed out and the feeling of being hot went away. The patient denies any previous episodes of syncope. Patient denies any chest pain or pressure. He denies any shortness of breath. Telemetry reveals sinus arrhythmia with a heart rate in the 50s. No evidence of high grade AV block or long sinus pauses. In reviewing patient's past EKGs he has had bradycardia dating back to 2019. He is prescribed a beta-veronica on an outpatient basis in the form of bisoprolol 5 mg daily. DIAGNOSTICS: - EKG reveals sinus arrhythmia. No signs of acute ischemia. - Chest xray changes without evidence for acute pulmonary process - Laboratory data: WBC 7.3. Hemoglobin 12.8. Platelet count 281. Sodium 137. Potassium 4.2. BUN 22. Creatinine 0.73. Troponin negative x 3. TSH 1.320. - Current home cardiac medications include losartan 25 mg at night, bisoprolol- hydrochlorothiazide 5-6.25 mg at night, Lipitor 40 mg at night, aspirin 81 mg twice a day. REVIEW OF SYSTEMS: At the time of my exam: CONSTITUTIONAL: Denies fever or chills. HEENT: Denies blurred vision, vision changes, or eye pain. Denies hemoptysis CARDIOVASCULAR: Denies chest pain. Denies orthopnea. Denies PND. Denies palpitations RESPIRATORY: Denies shortness of breath. GASTROINTESTINAL: Denies abdominal pain. Denies nausea or vomiting. HEMATOLOGIC: Denies bleeding disorders. GENITOURINARY: Denies any blood in urine. SKIN: Denies pruitis. Denies rash. PHYSICAL EXAM: VITAL SIGNS: Reviewed. GENERAL: Well-developed in no acute distress. HEENT: Head is normocephalic. Pupils are equal, round. Sclerae anicteric. Mucous membranes of the mouth are moist. Neck supple. No JVD or thyromegaly LUNGS: Respirations even and unlabored. Lungs essentially clear to auscultation bilaterally. HEART: Bradycardic. Regular rate and rhythm. S1 and S2 heard. ABDOMEN: Soft. Nondistended. Nontender. EXTREMITIES: Normal range of motion. No clubbing or cyanosis. Peripheral pulses intact. No lower extremity edema NEUROLOGIC: Awake and alert. Oriented x 3. ASSESSMENT: Syncope Sinus arrhythmia with bradycardia, no evidence of high-grade AV block or long sinus pauses Hypertension Hyperlipidemia Diabetes Former nicotine dependence PLAN: Obtain 2D echo to assess cardiac structure and function TSH checked and within normal limits Check orthostatic blood pressures Hold bisoprolol No indication for permanent pacemaker at this time. Will continue telemetry monitoring to assess for evidence of high-grade AV block or long sinus pauses. If no significant events are noted on telemetry, will discharge patient home with an event monitor Will plan for outpatient stress testing Consult neurology for evaluation Further recommendations pending patient course Nurse practitioner note has been reviewed by physician. Signing provider agrees with the documented findings, assessment, and plan of care documented by DIAMOND SETTER as a scribe. Past Medical History Past Medical History: COPD, Diabetes Mellitus, Hyperlipidemia, Hypertension, Liver Disease, Osteoarthritis (OA), Prostate Disorder, Sleep Apnea/CPAP/BIPAP Additional Past Medical History / Comment(s): heart murmur-"Thickened heart wally ve", diverticulosis, fatty liver, hx Legionnaire's disease, bulging discs, migraines, hiatal hernia, kidney stones, enlarged prostate, covid infection - 2021, hx sleep apnea resolved with wt loss. History of Any Multi-Drug Resistant Organisms: None Reported Past Surgical History: Joint Replacement, Orthopedic Surgery Additional Past Surgical History / Comment(s): Arthroscopy right knee, laser eye surgery for glaucoma melissa , colonoscopies, rt knee open surgery, PAIN CLINIC PROCEDURES, lithotripsy to remove bladder stone, LT TKA 10/28/22, LEFT TOTAL HIP 04/2023, Right TKA.07/22/2023. Past Anesthesia/Blood Transfusion Reactions: Previous Problems w/ Anesthesia Additional Past Anesthesia/Blood Transfusion Reaction / Comment(s): first knee replacement pt came out from [facility] with a HR of 45 bpm Past Psychological History: No Psychological Hx Reported Smoking Status: Former smoker Past Alcohol Use History: Occasional Additional Past Alcohol Use History / Comment(s): Quit smoking 1998, smoked for 30 yrs, 1-3ppd. Past Drug Use History: Marijuana Additional Drug Use History / Comment(s): EDIBLE GUMMIES KNOWS TO REFRAIN FROM USE FOR AT LEAST 24 HOURS PRIOR TO PROCEDURE - Past Family History Mother Family Medical History: No Reported History Additional Family Medical History / Comment(s): cataract removal Father Additional Family Medical History / Comment(s): cataract removal, knee replacement Medications and Allergies Home Medications Medication Instructions Recorded Confirmed Type Bisoprolol-Hctz 5-6.25 mg [Ziac 1 tab PO HS 04/22/19 01/10/24 History 5-6.25] Fenofibrate [Lofibra] 160 mg PO HS 04/22/19 01/10/24 History Losartan [Cozaar] 25 mg PO HS 04/22/19 01/10/24 History Multivitamins, Thera [Multivitamin 1 tab PO HS 04/22/19 01/10/24 History (formulary)] Tamsulosin HCl [Flomax] 0.8 mg PO HS 04/22/19 01/10/24 History metFORMIN HCL [Glucophage] 1,000 mg PO BID 04/22/19 01/10/24 History Finasteride [Proscar] 5 mg PO HS 01/12/21 01/10/24 History Aspirin [Adult Low Dose Aspirin EC] 81 mg PO BID 06/12/21 01/10/24 History Fexofenadine HCl [Susan Allergy] 180 mg PO HS 10/17/21 01/10/24 History Semaglutide [Ozempic] 1 mg SQ BAKER 10/21/22 01/10/24 History Vit C/E/Zn/Coppr/Lutein/Zeaxan 3 cap PO DAILY 04/09/23 01/10/24 History [Preservision Areds 2 Softgel] Atorvastatin [Lipitor] 40 mg PO HS 06/19/23 01/10/24 History Cyclobenzaprine [Flexeril] 5 mg PO TID PRN 30 Days #90 tablet 10/23/23 01/10/24 Rx Cequa 1 drop BOTH EYES BID 01/10/24 01/10/24 History Allergies Allergy/AdvReac Type Severity Reaction Status Date / Time diclofenac [From Cataflam] Allergy Rash/Hives Verified 01/10/24 17:43 lisinopril AdvReac Cough Verified 01/10/24 17:43 BLACK WASP Allergy Swelling Uncoded 01/10/24 17:43 Physical Exam Vitals: Vital Signs Temp Pulse Pulse Pulse Resp BP BP 01/11/24 04:20 98.0 F 68 18 133/76 01/11/24 02:46 54 L 01/11/24 00:00 98.4 F 63 18 115/72 01/10/24 19:54 78 16 137/69 01/10/24 18:40 97.8 F 83 18 139/77 01/10/24 17:28 72 18 137/80 01/10/24 16:21 40 L 18 132/62 01/10/24 14:36 98 F 55 L 18 121/62 Pulse Ox 01/11/24 04:20 95 01/11/24 02:46 01/11/24 00:00 93 L 01/10/24 19:54 95 01/10/24 18:40 97 01/10/24 17:28 96 01/10/24 16:21 97 01/10/24 14:36 98 Intake and Output 01/10/24 01/11/24 01/11/24 22:59 06:59 14:59 Intake Total 10 540 Balance 10 540 Intake: IV 10 Invasive Line 1 10 Oral 540 Other: Voiding Method Toilet # Voids 1 1 Weight 106.594 kg Results 01/11/24 06:03 01/11/24 06:03 Cardiac Enzymes 01/10/24 01/10/24 01/10/24 Range/Units 15:01 15:01 18:25 AST 25 (17-59) U/L Troponin I <0.012 <0.012 (0.000-0.034) ng/mL 01/10/24 01/11/24 Range/Units 20:50 06:03 AST 21 (17-59) U/L Troponin I <0.012 (0.000-0.034) ng/mL Coagulation 01/10/24 Range/Units 15:01 PT 10.3 (10.0-12.5) sec APTT 21.2 L (22.0-30.0) sec CBC 01/10/24 01/11/24 Range/Units 15:01 06:03 WBC 7.9 7.3 (3.8-10.6) k/uL RBC 4.49 4.25 L (4.30-5.90) m/uL Hgb 13.4 12.8 L (13.0-17.5) gm/dL Hct 40.6 38.8 L (39.0-53.0) % Plt Count 289 281 (150-450) k/uL Comprehensive Metabolic Panel 01/10/24 01/11/24 Range/Units 15:01 06:03 Sodium 137 137 (137-145) mmol/L Potassium 4.1 4.2 (3.5-5.1) mmol/L Chloride 105 107 (98-107) mmol/L Carbon Dioxide 22 25 (22-30) mmol/L BUN 26 H 22 H (9-20) mg/dL Creatinine 0.76 0.73 (0.66-1.25) mg/dL Glucose 113 H 116 H (74-99) mg/dL Calcium 9.9 9.3 (8.4-10.2) mg/dL AST 25 21 (17-59) U/L ALT 28 25 (4-49) U/L Alkaline Phosphatase 44 41 (38-126) U/L Total Protein 6.7 6.0 L (6.3-8.2) g/dL Albumin 4.3 3.8 (3.5-5.0) g/dL Current Medications Generic Name Dose Route Start Last Admin Trade Name Freq PRN Reason Stop Dose Admin Aspirin 81 mg 01/11/24 09:00 Aspirin 81 Mg PO BID [facility] Atorvastatin Calcium 40 mg 01/11/24 21:00 Atorvastatin 40 Mg Tab PO HS [facility] Cyclobenzaprine HCl 5 mg 01/11/24 01:08 Cyclobenzaprine 5 Mg Tab PO TID PRN Muscle Spasm Cyclosporine 1 drops 01/11/24 09:00 Cyclosporine 0.05% Ophth 0.4 Ml Droperette BOTH EYES BID [facility] Fenofibrate 160 mg 01/11/24 21:00 Fenofibrate 160 Mg Tab PO HS [facility] Finasteride 5 mg 01/11/24 21:00 Finasteride 5 Mg Tab PO HS [facility] Loratadine 10 mg 01/11/24 21:00 Loratadine 10 Mg Tab PO HS [facility] Losartan Potassium 25 mg 01/11/24 21:00 Losartan 25 Mg Tab PO HS [facility] Metformin HCl 1,000 mg 01/11/24 09:00 Metformin 500 Mg Tab PO BID [facility] Multivitamins 1 each 01/11/24 21:00 Multivitamins, Thera 1 Each Tab PO HS [facility] Multivitamins/Minerals 1 each 01/11/24 09:00 Vit A,C & G-Vxyoxx-[id number] 1 Each Tab PO DAILY [facility] Naloxone HCl 0.2 mg 01/10/24 16:52 Naloxone 0.4 Mg/Ml 1 Ml Vial IV Q2M PRN Opioid Reversal Non-Formulary Medication 1 mg 01/11/24 09:00 Semaglutide [Ozempic] SQ BAKER [facility] Tamsulosin HCl 0.8 mg 01/11/24 21:00 Tamsulosin 0.4 Mg Cap.Er.24h PO HS [facility] Intake and Output 01/10/24 01/11/24 01/11/24 22:59 06:59 14:59 Intake Total 10 540 Balance 10 540 Intake: IV 10 Invasive Line 1 10 Oral 540 Other: Voiding Method Toilet # Voids 1 1 Weight 106.594 kg 01/11/24 06:03 01/11/24 06:03
--- NOTE | 2024-01-11 12:52 | P.CNNES ---
History of Present Illness Consult date: 01/11/24 Requesting physician: Claudia Mehta Reason for Consult: syncope w incontinence, r/o seizure History of Present Illness: Patient is a 73-year-old right-handed male with history of hypertension, diabetes, hyperlipidemia came to the hospital yesterday at 2:32 PM for a witnessed syncopal spell. Patient states that yesterday patient and his son visited some friends. He was sitting at the kitchen table, talking when s uddenly he felt hot, sweaty and passed out. He was out for about 35 to 45 seconds. His son said that patient did not fall off the chair, just had dropped down. During this he did lose control of urine. There was no tongue bite. No convulsive activity. Once he came to, he was feeling fine. He was out for about 30 to 45 seconds. The family brought patient to the ER. Patient denied any stroke symptoms like slurred speech facial droop, loss of vision, numbness tingling or weakness. Vital signs on arrival blood pressure 121/62, pulse rate 55, temperature 98. Patient's heart rate has dropped down to 40. Blood test shows normal CBC, PT PTT, normal CMP, troponin. TSH is normal. EKG shows sinus rhythm with marked rhythm irregularity. Chest x-ray showed chronic changes without evidence for acute pulmonary disease. Patient states that about few years ago he had a syncopal spell while he was working at [employer] and. It was summer sitting outside, when it was very hot. He did not drink enough fluids and he passed out and warmed up in the ER. It was felt syncope from dehydration. No other syncopal spells. Cardiology has seen the patient, recommending 2D echo, event monitor, stress test. Bisoprolol has been put on hold. Patient takes Flomax, losartan, fenofibrate, bisoprolol/HCTZ, metformin, finasteride, aspirin 81 mg, Ozempic, Lipitor 40 mg and Flexeril. Patient has been having telemetry monitoring, in which his heart rate has been dropping down in the 35 range. Patient has hypertension, diabetes hyperlipidemia. Denies any tobacco or alc ohol use. Review of Systems Constitutional: Denies chills, Denies fever Eyes: bilateral blurred vision (Cataracts), denies diplopia, denies loss of peripheral vision, denies loss of vision Ears: deny: ear discharge, earache Ears, nose, mouth and throat: Denies headache, Denies sore throat Cardiovascular: Denies chest pain, Denies shortness of breath Respiratory: Denies cough, Denies excessive sputum Gastrointestinal: Denies abdominal pain, Denies diarrhea, Denies nausea, Denies vomiting Integumentary: Denies pruritus, Denies rash Neurological: Reports as per HPI Psychiatric: Denies anxiety, Denies depression Past Medical History Past Medical History: COPD, Diabetes Mellitus, Hyperlipidemia, Hypertension, Liver Disease, Osteoarthritis (OA), Prostate Disorder, Sleep Apnea/CPAP/BIPAP Additional Past Medical History / Comment(s): heart murmur-"Thickened heart va lve", diverticulosis, fatty liver, hx Legionnaire's disease, bulging discs, migraines, hiatal hernia, kidney stones, enlarged prostate, covid infection - 2021, hx sleep apnea resolved with wt loss. History of Any Multi-Drug Resistant Organisms: None Reported Past Surgical History: Joint Replacement, Orthopedic Surgery Additional Past Surgical History / Comment(s): Arthroscopy right knee, laser eye surgery for glaucoma melissa , colonoscopies, rt knee open surgery, PAIN CLINIC PROCEDURES, lithotripsy to remove bladder stone, LT TKA 10/28/22, LEFT TOTAL HIP 04/2023, Right TKA.07/22/2023. Past Anesthesia/Blood Transfusion Reactions: Previous Problems w/ Anesthesia Additional Past Anesthesia/Blood Transfusion Reaction / Comment(s): first knee replacement pt came out from anethesia with a HR of 45 bpm Past Psychological History: No Psychological Hx Reported Smoking Status: Former smoker Past Alcohol Use History: Occasional Additional Past Alcohol Use History / Comment(s): Quit smoking 1998, smoked for 30 yrs, 1-3ppd. Past Drug Use History: Marijuana Additional Drug Use History / Comment(s): EDIBLE GUMMIES KNOWS TO REFRAIN FROM USE FOR AT LEAST 24 HOURS PRIOR TO PROCEDURE - Past Family History Mother Family Medical History: No Reported History Additional Family Medical History / Comment(s): cataract removal Father Additional Family Medical History / Comment(s): cataract removal, knee replacement Medications and Allergies Home Medications Medication Instructions Recorded Confirmed Type Bisoprolol-Hctz 5-6.25 mg [Ziac 1 tab PO HS 04/22/19 01/10/24 History 5-6.25] Fenofibrate [Lofibra] 160 mg PO HS 04/22/19 01/10/24 History Losartan [Cozaar] 25 mg PO HS 04/22/19 01/10/24 History Multivitamins, Thera [Multivitamin 1 tab PO HS 04/22/19 01/10/24 History (formulary)] Tamsulosin HCl [Flomax] 0.8 mg PO HS 04/22/19 01/10/24 History metFORMIN HCL [Glucophage] 1,000 mg PO BID 04/22/19 01/10/24 History Finasteride [Proscar] 5 mg PO HS 01/12/21 01/10/24 History Aspirin [Adult Low Dose Aspirin EC] 81 mg PO BID 06/12/21 01/10/24 History Fexofenadine HCl [Susan Allergy] 180 mg PO HS 10/17/21 01/10/24 History Semaglutide [Ozempic] 1 mg SQ BAKER 10/21/22 01/10/24 History Vit C/E/Zn/Coppr/Lutein/Zeaxan 3 cap PO DAILY 04/09/23 01/10/24 History [Preservision Areds 2 Softgel] Atorvastatin [Lipitor] 40 mg PO HS 06/19/23 01/10/24 History Cyclobenzaprine [Flexeril] 5 mg PO TID PRN 30 Days #90 tablet 10/23/23 01/10/24 Rx Cequa 1 drop BOTH EYES BID 01/10/24 01/10/24 History Allergies Allergy/AdvReac Type Severity Reaction Status Date / Time diclofenac [From Cataflam] Allergy Rash/Hives Verified 01/10/24 17:43 lisinopril AdvReac Cough Verified 01/10/24 17:43 BLACK WASP Allergy Swelling Uncoded 01/10/24 17:43 Physical Examination - Vital Signs Vital Signs: Vital Signs Temp Pulse Pulse Pulse Resp BP BP 01/11/24 09:51 01/11/24 09:25 97.8 F 58 L 16 132/74 01/11/24 04:20 98.0 F 68 18 133/76 01/11/24 02:46 54 L 01/11/24 00:00 98.4 F 63 18 115/72 01/10/24 19:54 78 16 137/69 01/10/24 18:40 97.8 F 83 18 139/77 01/10/24 17:28 72 18 137/80 01/10/24 16:21 40 L 18 132/62 01/10/24 14:36 98 F 55 L 18 121/62 Pulse Ox 01/11/24 09:51 96 01/11/24 09:25 96 01/11/24 04:20 95 01/11/24 02:46 01/11/24 00:00 93 L 01/10/24 19:54 95 01/10/24 18:40 97 01/10/24 17:28 96 01/10/24 16:21 97 01/10/24 14:36 98 Intake and Output 01/10/24 01/11/24 01/11/24 22:59 06:59 14:59 Intake Total 10 540 240 Balance 10 540 240 Intake: IV 10 Invasive Line 1 10 Oral 540 240 Other: Voiding Method Toilet Toilet # Voids 1 1 Weight 106.594 kg Patient is an elderly male, very pleasant, in no acute distress. Patient is alert awake oriented to time place and person. Speech and language functions are normal. Patient can name and repeat very well. No aphasia or dysarthria. Attention, concentration and fund of knowledge is adequate. On cranial nerve examination, pupils are equal, round and reacting to light, visual [place] are full on confrontation, with no neglect on double simultaneous stimulation. Extraocular muscles are intact with no nystagmus. Face is symmetric, tongue protrudes to the midline. Palatal elevation and sensation normal, hearing and shoulder shrug normal, facial sensation normal. On muscle strength testing, there is no pronator drift and the strength is normal in arms and legs distally and proximally. Deep tendon reflexes are symmetric trace to 1 in the upper limbs, 2 at the knees, trace ankles and plantars downgoing. Sensory to touch is equal with no neglect on double simultaneous stimulation. Cerebellar function showed no ataxia for [id number]-[id number] testing. No dysdiadochokinesia. No ataxia for ipiu-ch-tunl testing on either side. Tone an d bulk of muscles normal. Gait deferred.. On general examination, there is no carotid bruit or murmur, S1-S2 audible. Chest is clear on consultation. Abdomen is soft nontender. No organomegaly, b owel sounds present. Peripheral pulses are present. No peripheral edema. Results - Laboratory Findings CBC and BMP: 01/11/24 06:03 01/11/24 06:03 Abnormal Lab Findings: Abnormal Labs 01/10/24 01/10/24 01/10/24 15:01 15:01 20:00 RBC Hgb Hct APTT 21.2 L BUN 26 H Glucose 113 H POC Glucose (mg/dL) 132 H Total Protein 01/11/24 01/11/24 01/11/24 06:03 06:03 06:15 RBC 4.25 L Hgb 12.8 L Hct 38.8 L APTT BUN 22 H Glucose 116 H POC Glucose (mg/dL) 129 H Total Protein 6.0 L Assessment and Plan Assessment: * Syncope, likely due to symptomatic bradycardia. Rule out vasovagal syncope. Seizure very unlikely, as there was no convulsive activity, and no postictal confusion. Loss of control of urine can infrequently occur with syncope as well. * Hypertension * Diabetes * Hyperlipidemia Plan: * Event was not a seizure. Hold off on EEG at this time. * Cardiology on the case, adjusted blood pressure medication, and ordering event monitor, 2D echo. * We will check carotid Doppler to rule out stenosis. * Agree with checking orthostatics. * Regarding driving restriction, if any, will defer to cardiology. * Hydration * Dr. Adebayo Kong will resume neurology service in the morning. Thank you for the consult.
--- NOTE | 2024-01-11 13:58 | US ---
EXAMINATION TYPE: US carotid duplex BILAT DATE OF EXAM: 01/11/2024 COMPARISON: NONE CLINICAL INDICATION: Male, 73 years old with history of Syncope; Syncope TECHNIQUE: Carotid duplex ultrasound examination. Indirect Doppler criteria was utilized. 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 Criteria for Assigning % of Stenosis / Diameter reduction (Estimation based on the indirect measurements of the internal carotid artery velocities (ICA PSV). 1. Normal (no stenosis)=ICA PSV < 125 cm/s: ratio < 2.0: ICA EDV<40 cm/s. 2. Less than 50% stenosis=ICA PSV < 125 cm/s: ratio < 2.0: ICA EDV<40 cm/s. 3. 50 to 69% stenosis=ICA PSV of 125 to 230 cm/s: ration 2.0 ? 4.0: ICA EDV 40-100 cm/s. 4. Greater than 70% stenosis to near occlusion= ICA PSV > 230 cm/s: ratio > 4.0: ICA EDV > 100 cm/s. 5. Near occlusion= ICA PSV velocities may be low or undetectable: variable ratio and ICA EDV. 6. Total occlusion=unable to detect flow.
[2024-01-11] MEDS: SEMAGLUTIDE SQ SCH (14:27)
--- NOTE | 2024-01-11 17:28 | CT ---
EXAMINATION TYPE: CT brain wo con CT DLP: 1177.4 mGycm, Automated exposure control for dose reduction was used. DATE OF EXAM: 01/11/2024 2:12 PM COMPARISON: None. CLINICAL INDICATION:Male, 73 years old with history of syncope, syncope TECHNIQUE: Brain: Axial CT images of the brain were obtained with coronal and sagittal reformats created and rev iewed. Contrast used: None. Oral contrast used: None. FINDINGS: Extra-axial spaces: No abnormal extra-axial fluid collections. Ventricular system: Ventricles appear dilated in proportion to the degree of cerebral atrophy. Cerebral parenchyma: No increased attenuation to suggest acute intraparenchymal hemorrhage. The gra y-white matter interface appears maintained. Moderate to severe generalized brain atrophy. Scattere d hypoattenuating areas are seen within the cerebral white matter, nonspecific but most often seen wi th chronic microvascular ischemic changes; moderate/severe in degree. Relatively well-defined teardr op shaped hypodensity deep to the insula on the left, appearance favors prominent perivascular space over lacunar infarct. Cerebellum: No acute abnormality. Mass effect: No evidence of mass effect or midline shift. Intracranial vasculature: Atherosclerotic calcifications of the larger arteries near the skull base. Mild dolichoectasia of the vertebrobasilar system. Soft tissues: No acute or concerning abnormality. Visualized orbits: Orbital contents appear grossly intact. Globes appear intact. There are radioden sities seen along the periphery of both globes, could reflect postoperative changes and/or calcificat ions, please correlate with ophthalmologic history. Calvarium/osseous structures: No evidence of calvarial fracture. Paranasal sinuses and mastoid air cells: Mild mucosal thickening versus polyp or mucous retention cys t at the inferior aspect of the right maxillary sinus. No significant fluid accumulation. The mastoid air cells are clear. MRI is more sensitive for detecting acute processes such as infarct, and may be considered if clinica lly warranted. IMPRESSION: 1. No CT evidence of an acute intracranial abnormality. 2. Atrophy and chronic microvascular ischemic white matter changes.
[2024-01-11 20:05] LABS: Glucose,Whole Blood 134 mg/dL (70-110)
[2024-01-11] MEDS: FINASTERIDE 5 MG TAB PO SCH (20:51)
[2024-01-11] MEDS: LORATADINE 10 MG TAB PO SCH (20:51)
[2024-01-11] MEDS: ATORVASTATIN 40 MG TAB PO SCH (20:51)
[2024-01-11] MEDS: LOSARTAN 25 MG TAB PO SCH (20:52)
[2024-01-11] MEDS: TAMSULOSIN 0.4 MG CAP.ER.24H PO SCH (20:52)
[2024-01-11] MEDS: FENOFIBRATE 160 MG TAB PO SCH (20:52)
[2024-01-11] MEDS: MULTIVITAMINS, THERA 1 EACH TAB PO SCH (20:52)
[2024-01-11] MEDS ORDERED: CEQUA 0.09% BOTH EYES SCH (21:00)
[2024-01-11] MEDS ORDERED: BISOPROLOL-HCTZ 5-6.25 MG 1 EACH TAB PO SCH (21:00)
[2024-01-12 05:50] LABS: Glucose,Whole Blood 107 mg/dL (70-110)
--- NOTE | 2024-01-12 08:13 | P.HPIM ---
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, presented to emergency room with bradycardia and near syncope, this patient is a type II diabetic with hypertension who lost 50 pounds in the last 6 months associated with being on Oz empic Patient also has been taking beta veronica, patient's appetite watch demonstrated episodic bradycardia down into the 40s, had near syncope, presented to the emergency room for same suspect this is a result of significant weight loss would hold beta veronica, will obtain echocardiogram, if hemodynamically stable this discharge patient home on a monitor and follow-up as outpatient Review of Systems Constitutional: Reports weakness Ears, nose, mouth and throat: Reports as per HPI Cardiovascular: Reports palpitations, Reports syncope (bradycardia, ) Respiratory: Reports as per HPI Gastrointestinal: Reports as per HPI Genitourinary: Reports as per HPI Musculoskeletal: Reports as per HPI Integumentary: Reports as per HPI Neurological: Reports as per HPI Psychiatric: Reports as per HPI Past Medical History Past Medical History: COPD, Diabetes Mellitus, Hyperlipidemia, Hypertension, Goldie er Disease, Osteoarthritis (OA), Prostate Disorder, Sleep Apnea/CPAP/BIPAP Additional Past Medical History / Comment(s): heart murmur-"Thickened heart valve", diverticulosis, fatty liver, hx Legionnaire's disease, bulging discs, migraines, hiatal hernia, kidney stones, enlarged prostate, covid infection - 2021, hx sleep apnea resolved with wt loss. History of Any Multi-Drug Resistant Organisms: None Reported Past Surgical History: Joint Replacement, Orthopedic Surgery Additional Past Surgical History / Comment(s): Arthroscopy right knee, laser eye surgery for glaucoma melissa , colonoscopies, rt knee open surgery, PAIN CLINIC PROCEDURES, lithotripsy to remove bladder stone, LT TKA 10/28/22, LEFT TOTAL HIP 04/2023, Right TKA.07/22/2023. Past Anesthesia/Blood Transfusion Reactions: Previous Problems w/ Anesthesia Additional Past Anesthesia/Blood Transfusion Reaction / Comment(s): first knee replacement pt came out from anethesia with a HR of 45 bpm Past Psychological History: No Psychological Hx Reported Smoking Status: Former smoker Past Alcohol Use History: Occasional Additional Past Alcohol Use History / Comment(s): Quit smoking 1998, smoked for 30 yrs, 1-3ppd. Past Drug Use History: Marijuana Additional Drug Use History / Comment(s): EDIBLE GUMMIES KNOWS TO REFRAIN FROM USE FOR AT LEAST 24 HOURS PRIOR TO PROCEDURE - Past Family History Mother Family Medical History: No Reported History Additional Family Medical History / Comment(s): cataract removal Father Additional Family Medical History / Comment(s): cataract removal, knee replacement Medications and Allergies Home Medications Medication Instructions Recorded Confirmed Type Bisoprolol-Hctz 5-6.25 mg [Ziac 1 tab PO HS 04/22/19 01/10/24 History 5-6.25] Fenofibrate [Lofibra] 160 mg PO HS 04/22/19 01/10/24 History Losartan [Cozaar] 25 mg PO HS 04/22/19 01/10/24 History Multivitamins, Thera [Multivitamin 1 tab PO HS 04/22/19 01/10/24 History (formulary)] Tamsulosin HCl [Flomax] 0.8 mg PO HS 04/22/19 01/10/24 History metFORMIN HCL [Glucophage] 1,000 mg PO BID 04/22/19 01/10/24 History Finasteride [Proscar] 5 mg PO HS 01/12/21 01/10/24 History Aspirin [Adult Low Dose Aspirin EC] 81 mg PO BID 06/12/21 01/10/24 History Fexofenadine HCl [Susan Allergy] 180 mg PO HS 10/17/21 01/10/24 History Semaglutide [Ozempic] 1 mg SQ BAKER 10/21/22 01/10/24 History Vit C/E/Zn/Coppr/Lutein/Zeaxan 3 cap PO DAILY 04/09/23 01/10/24 History [Preservision Areds 2 Softgel] Atorvastatin [Lipitor] 40 mg PO HS 06/19/23 01/10/24 History Cyclobenzaprine [Flexeril] 5 mg PO TID PRN 30 Days #90 tablet 10/23/23 01/10/24 Rx Cequa 1 drop BOTH EYES BID 01/10/24 01/10/24 History Allergies Allergy/AdvReac Type Severity Reaction Status Date / Time diclofenac [From Cataflam] Allergy Rash/Hives Verified 01/10/24 17:43 lisinopril AdvReac Cough Verified 01/10/24 17:43 BLACK WASP Allergy Swelling Uncoded 01/10/24 17:43 Physical Exam Osteopathic Statement: *. No significant issues noted on an osteopathic structural exam other than those noted in the History and Physical/Consult. Vitals: Vital Signs Temp Pulse Pulse Resp BP BP BP 01/12/24 04:33 92 18 132/80 138/77 130/72 01/12/24 01:35 65 01/11/24 23:10 65 18 01/11/24 21:00 75 01/11/24 20:45 97.8 F 75 16 01/11/24 16:00 18 01/11/24 12:00 43 L 18 01/11/24 09:51 01/11/24 09:25 97.8 F 58 L 16 BP Pulse Ox 01/12/24 04:33 94 L 01/12/24 01:35 01/11/24 23:10 129/80 95 01/11/24 21:00 01/11/24 20:45 145/84 96 01/11/24 16:00 146/84 97 01/11/24 12:00 128/83 96 01/11/24 09:51 96 01/11/24 09:25 132/74 96 Intake and Output 01/11/24 01/12/24 01/12/24 22:59 06:59 14:59 Intake Total 1628 540 Balance 1628 540 Intake: IV 10 Invasive Line 1 10 Oral 1618 540 Other: Voiding Method Toilet Toilet # Voids 3 1 General: [Patient awake, alert and oriented times 3. Patient in no acute distress.] HEENT: [PERRL. EOMI. No pharyngeal erythema or exudate.] Neck: [No adenopathy.] Cardiac: [Heart regular in rate and rhythm. No S3. No S4. No clicks, rubs. No murmur.] Lungs: [Clear to auscultation bilaterally.] Abdomen: [No mass. No organomegaly. Bowel sounds presnt and normoactive in all 4 quadrants.] Extremes: [No edema no cyanosis no claudication normal pulses] : normal male genitalia Musculoskeletal: [No joint erythema, edema or tenderness.] Skin: [No rash.] Neurologic: [No lateralizing deficits. CN II - XII grossly intact.] Lymphatic: [No adenopathy.] Results CBC & Chem 7: 01/11/24 06:03 04/07/24 06:03 Labs: Abnormal Lab Results - Last 24 Hours (Table) 01/11/24 Range/Units 20:03 POC Glucose (mg/dL) 134 H (70-110) mg/dL Thrombosis Risk Factor Assmnt - DVT/VTE Prophylaxis DVT/VTE Prophylaxis: Low risk, early ambulation encouraged - Choose All That Apply Any of the Below Risk Factors Present?: Yes Each Factor Represents 1 point: Abnormal pulmonary function (COPD) Other Risk Factors: Yes Each Risk Factor Represents 2 Points: Age 61-74 years Other congenital or acquired thrombophilia - If yes, enter type in comment: No Thrombosis Risk Factor Assessment Total Risk Factor Score: 3 Thrombosis Risk Factor Assessment Level: Moderate Risk Assessment and Plan (1) Bradycardia Current Visit: Yes Status: Acute Code(s): R00.1 - BRADYCARDIA, UNSPECIFIED SNOMED Code(s): 52196870 (2) Syncope Current Visit: Yes Status: Acute Code(s): R55 - SYNCOPE AND COLLAPSE SNOMED Code(s): 147677967 (3) Essential (primary) hypertension Current Visit: No Status: Acute Code(s): I10 - ESSENTIAL (PRIMARY) HYPERTENSION SNOMED Code(s): 36667826 (4) Mixed hyperlipidemia Current Visit: No Status: Acute Code(s): E78.2 - MIXED HYPERLIPIDEMIA SNOMED Code(s): 198051863 (5) Type 2 diabetes mellitus with other circulatory complications Current Visit: No Status: Acute Code(s): E11.59 - TYPE 2 DIABETES MELLITUS WITH OTH CIRCULATORY COMPLICATIONS SNOMED Code(s): 81469580 Plan: admit to hospital Bradycardia, near syncope Well-controlled type 2 diabetes Significant weight loss Cardiology consultation Hold the beta veronica Echocardiogram pending Further orders to follow Time with Patient: Greater than 30
[2024-01-12] MEDS: CYCLOBENZAPRINE 5 MG TAB PO PRN (08:15)
[2024-01-12] MEDS: ASPIRIN 81 MG PO SCH (08:16)
[2024-01-12] MEDS: NON FORMULARY DRUG (Semaglutide [Ozempic] 2 MG/0.75 ML Pen.Injctr) SQ SCH (08:20)
[2024-01-12 11:38] VITALS: BP 141/88; PULSE 89; RESP 18; TEMP 97.9
--- NOTE | 2024-01-12 12:18 | CA ---
Transthoracic Echo Report Name: Collins Barirentos Age: 73 Gender: M : 1950 Exam Date: 01/12/2024 09:37 Exam Location: [place] [facility] Ht (in): 72 Wt (lb): 235 Ordering Physician: Claudia Mehta Attending/Referring Phys: [id number], Tyson [employer] Station Worker Isamar Josue RCS Procedure CPT: Indications: LV function Cardiac Hx: Technical Quality: Contrast 1: Total Dose (mL): Contrast 2: Total Dose (mL): MEASUREMENTS (Male / Female) Normal Values 2D ECHO LV Diastolic Diameter PLAX 5.3 cm 4.2 - 5.9 / 3.9 - 5.3 cm LV Systolic Diameter PLAX 3.2 cm IVS Diastolic Thickness 0.6 cm 0.6 - 1.0 / 0.6 - 0.9 cm LVPW Diastolic Thickness 0.8 cm 0.6 - 1.0 / 0.6 - 0.9 cm LV Relative Wall Thickness 0.3 RV Internal Dim ED PLAX 3.3 cm LVOT Diameter 2.5 cm Aortic Root Diameter 3.2 cm LV Diastolic Volume MOD BP 128.1 cm??? 67 - 155 / 56 - 104 cm??? LV Systolic Volume MOD BP 52.6 cm??? 22 - 58 / 19 - 49 cm??? LV Ejection Fraction MOD BP 58.9 % >= 55 % LV Cardiac Index MOD BP 2786.6 cm???/min???m??? LV Diastolic Volume MOD 4C 132.6 cm??? LV Systolic Volume MOD 4C 61.4 cm??? LV Ejection Fraction MOD 4C 53.7 % LV Cardiac Index MOD 4C 2629.0 cm???/min???m??? LV Diastolic Length 4C 9.7 cm LV Systolic Length 4C 8.3 cm LV Diastolic Volume MOD 2C 116.4 cm??? LV Systolic Volume MOD 2C 43.5 cm??? LV Ejection Fraction MOD 2C 62.6 % LV Cardiac Index MOD 2C 2689.2 cm???/min???m??? LV Diastolic Length 2C 9.1 cm LV Systolic Length 2C 7.9 cm Ascending Aorta Diameter 3.7 cm DOPPLER AV Peak Velocity 143.5 cm/s AV Peak Gradient 8.2 mmHg AV Mean Velocity 90.2 cm/s AV Mean Gradient 3.8 mmHg AV Velocity Time Integral 25.0 cm LVOT Peak Velocity 110.3 cm/s LVOT Peak Gradient 4.9 mmHg LVOT Velocity Time Integral 21.1 cm LVOT Stroke Volume 102.1 cm??? LVOT Stroke Volume Index 44.7 ml/m??? LVOT Cardiac Index 3769.1 cm???/min???m??? AV Area Cont Eq vti 4.1 cm??? AV Area Cont Eq pk 3.7 cm??? Mitral E Point Velocity 54.0 cm/s Mitral A Point Velocity 83.5 cm/s Mitral E to A Ratio 0.6 MV Deceleration Time 115.5 ms MV E' Velocity 4.9 cm/s Mitral E to MV E' Ratio 10.9 PV Peak Velocity 73.3 cm/s PV Peak Gradient 2.1 mmHg FINDINGS Left Ventricle Left ventricular ejection fraction is estimated at 55 %. Left ventricular cavity size normal. Left ventricular wall thickness normal. No obvious regional wall motion abnormalities. Right Ventricle Borderline enlarged right ventricular size with normal function. Unable to estimate right ventricular systolic function. Right Atrium Normal right atrial size. Left Atrium Normal left atrial size. Mitral Valve Structurally normal mitral valve. No evidence for mitral valve prolapse. No mitral stenosis. No mitral regurgitation. Aortic Valve Aortic valve not well visualized. No aortic valve stenosis or regurgitation. Tricuspid Valve Structurally normal tricuspid valve. No tricuspid stenosis. No tricuspid regurgitation. Pulmonic Valve Pulmonic valve not well visualized. No pulmonic stenosis. No pulmonic regurgitation. Pericardium No pericardial effusion. Echo free space anterior to the right ventricle likely represents a fat pad. Aorta Normal size aortic root and proximal ascending aorta. CONCLUSIONS Normal LV size and systolic function. No significant abnormality on the Doppler exam. No pericardial effusion Previewed by: Dr. Mary Anne Perry MD (Electronically Signed) Final Date: 12 January 2024 12:17
--- NOTE | 2024-01-12 12:44 | P.PN ---
Subjective Progress Note Date: 01/12/24 HISTORY OF PRESENT ILLNESS: This is a 73-year-old male with a past medical history significant for hyp ertension, hyperlipidemia, diabetes, and former nicotine dependence. Patient does not follow with a manager solar. We have been asked to see the patient in consultation for bradycardia. Patient examined at the bedside. Patient states yesterday he was sitting around with some of his friends talking when he began to feel flushed and hot. He states He knows he was slumped over and had a syncopal episode. Patient states he did lose control of his bladder at that time. His friends did not notice any seizure activity. He states he was out for about 30 seconds. He states when he came to he did not feel confused. He states that he actually felt better after he passed out and the feeling of being hot went away. The patient denies any previous episodes of syncope. Patient denies any chest pain or pressure. He denies any shortness of breath. Telemetry reveals sinus arrhythmia with a heart rate in the 50s. No evidence of high grade AV block or long sinus pauses. In reviewing patient's past EKGs he has had bradycardia dating back to 2019. He is prescribed a beta-veronica on an outpatient basis in the form of bisoprolol 5 mg daily. DIAGNOSTICS: - EKG reveals sinus arrhythmia. No signs of acute ischemia. - Chest xray changes without evidence for acute pulmonary process - Laboratory data: WBC 7.3. Hemoglobin 12.8. Platelet count 281. Sodium 137. Potassium 4.2. BUN 22. Creatinine 0.73. Troponin negative x 3. TSH 1.320. - Current home cardiac medications include losartan 25 mg at night, bisoprolol- hydrochlorothiazide 5-6.25 mg at night, Lipitor 40 mg at night, aspirin 81 mg twice a day. 01/11 Patient is seen today in follow-up. Blood pressure is 143/73 and heart rate is 90s, pulse ox 96% on room air. No new concerns with the patient. Discussed medication changes with the patient and he voices understanding. All his questions have been answered. Orthostatic vital signs are negative. TSH is within normal limits. Echocardiogram reveals EF 55%. No significant abnormality on the Doppler exam. No pericardial effusion. PHYSICAL EXAM: VITAL SIGNS: Reviewed. GENERAL: Well-developed in no acute distress. HEENT: Head is normocephalic. Pupils are equal, round. Sclerae anicteric. Mucous membranes of the mouth are moist. Neck supple. No JVD or thyromegaly LUNGS: Respirations even and unlabored. Lungs essentially clear to auscultation bilaterally. HEART: Bradycardic. Regular rate and rhythm. S1 and S2 heard. ABDOMEN: Soft. Nondistended. Nontender. EXTREMITIES: No clubbing or cyanosis. Peripheral pulses intact. No lower extremity edema NEUROLOGIC: Awake and alert. Oriented x 3. ASSESSMENT: Syncope Sinus arrhythmia with bradycardia, no evidence of high-grade AV block or long sinus pauses Hypertension Hyperlipidemia Diabetes Former nicotine dependence PLAN: Patient instructed to stop bisoprolol No indication for permanent pacemaker at this time. If patient's heart rate and blood pressure are controlled by this afternoon, he is cleared for discharge from cardiology. Patient will follow-up with Dr. Yu Jarrett in 1 week and event monitor will be arranged. Will plan for outpatient stress testing Nurse practitioner note has been reviewed by physician. Signing provider agrees with the documented findings, assessment, and plan of care documented by MACHINE CARTON MARKER as a scribe. Objective - Vital Signs Vital signs: Vital Signs Temp 97.8 F 01/12/24 09:14 Pulse 93 01/12/24 09:14 Resp 16 01/12/24 09:14 BP 143/73 01/12/24 09:14 Pulse Ox 96 01/12/24 09:14 FiO2 Intake & Output 01/11/24 01/12/24 01/12/24 18:59 06:59 18:59 Intake Total 1975 550 358 Balance 1975 550 358 Intake: IV 10 Invasive Line 1 10 Oral 1975 540 358 Other: Voiding Method Toilet Toilet # Voids 3 1 1 - Labs CBC & Chem 7: 01/11/24 06:03 01/11/24 06:03 Labs: Abnormal Lab Results - Last 24 Hours (Table) 01/11/24 Range/Units 20:03 POC Glucose (mg/dL) 134 H (70-110) mg/dL
--- NOTE | 2024-01-12 14:34 | P.DS ---
Providers Date of admission: 01/10/24 16:52 Expected date of discharge: 01/12/24 Attending physician: Shadi Martinez Consults: 01/10/24 16:52 Consult Physician Urgent Consulting Provider: [place] To Consult Reason/Comments: bradycardia, syncope Do you want consulting provider notified?: Yes 01/11/24 07:59 Consult Physician Routine Consulting Provider: Adebayo Kong Consult Reason/Comments: syncope w incontinence, r/o seizure Do you want consulting provider notified?: Yes Primary care physician: Rob [place] Hospital Course: Final Diagnosis: (1) Bradycardia Current Visit: Yes Status: Acute Code(s): R00.1 - BRADYCARDIA, UNSPECIFIED SNOMED Code(s): 33250790 (2) Syncope, sinus arrhythmia, with no evidence of high-grade AV block or long sinus pauses as per cardiology evaluation Current Visit: Yes Status: Acute Code(s): R55 - SYNCOPE AND COLLAPSE SNOMED Code(s): 438867272 (3) Essential (primary) hypertension Current Visit: No Status: Acute Code(s): I10 - ESSENTIAL (PRIMARY) HYPERTENSION SNOMED Code(s): 83473126 (4) Mixed hyperlipidemia Current Visit: No Status: Acute Code(s): E78.2 - MIXED HYPERLIPIDEMIA SNOMED Code(s): 609875835 (5) Type 2 diabetes mellitus with other circulatory complications Current Visit: No Status: Acute Code(s): E11.59 - TYPE 2 DIABETES MELLITUS WITH OTH CIRCULATORY COMPLICATIONS SNOMED Code(s): 49599397 Hospital course: 73-year-old male [facility], presented to emergency room with bradycardia and near syncope, this patient is a type II diabetic with hypertension who lost 50 pounds in the last 6 months associated with being on Ozempic Patient also has been taking beta veronica, patient's appetite watch demonstrated episodic bradycardia down into the 40s, had near syncope, presented to the e mergency room for same suspect this is a result of significant weight loss would hold beta veronica, will obtain echocardiogram, if hemodynamically stable this discharge patient home on a monitor and follow-up as outpatient Evaluated by cardiology, neurology. Workup completed. No seizure activity reported. Orthostatics negative. TSH within normal limits. Echocardiogram reported EF of 55%. Doppler reported no significant abnormality, no pericardial effusion. Ziac discontinued, Cozaar increased at bedtime as per cardiology. Cleared by consults for discharge. Patient will be discharged home today in a stable condition with guarded prognosis. The impression and plan of care has been dictated as directed. : I performed a history and examination of this patient, discussed the same with the dictator. I agree with the dictator's note ,documented as a scribe. Any additional findings or plans will be noted. Patient Condition at Discharge: Stable Plan - Discharge Summary Discharge Rx Participant: No New Discharge Prescriptions: New Losartan [Cozaar] 50 mg PO HS #30 tab Continue Multivitamins, Thera [Multivitamin (formulary)] 1 tab PO HS Tamsulosin HCl [Flomax] 0.8 mg PO HS Fenofibrate [Lofibra] 160 mg PO HS metFORMIN HCL [Glucophage] 1,000 mg PO BID Atorvastatin [Lipitor] 40 mg PO HS Cyclobenzaprine [Flexeril] 5 mg PO TID PRN 30 Days #90 tablet PRN Reason: Muscle Spasm Finasteride [Proscar] 5 mg PO HS Aspirin [Adult Low Dose Aspirin EC] 81 mg PO BID Fexofenadine HCl [Susan Allergy] 180 mg PO HS Semaglutide [Ozempic] 1 mg SQ BAKER Vit C/E/Zn/Coppr/Lutein/Zeaxan [Preservision Areds 2 Softgel] 3 cap PO DAILY Cequa 1 drop BOTH EYES BID Discontinued Losartan [Cozaar] 25 mg PO HS Bisoprolol-Hctz 5-6.25 mg [Ziac 5-6.25] 1 tab PO HS Discharge Medication List Fenofibrate [Lofibra] 160 mg PO HS 04/22/19 [History] Multivitamins, Thera [Multivitamin (formulary)] 1 tab PO HS 04/22/19 [History] Tamsulosin HCl [Flomax] 0.8 mg PO HS 04/22/19 [History] metFORMIN HCL [Glucophage] 1,000 mg PO BID 04/22/19 [History] Finasteride [Proscar] 5 mg PO HS 01/12/21 [History] Aspirin [Adult Low Dose Aspirin EC] 81 mg PO BID 06/12/21 [History] Fexofenadine HCl [Susan Allergy] 180 mg PO HS 10/17/21 [History] Semaglutide [Ozempic] 1 mg SQ BAKER 10/21/22 [History] Vit C/E/Zn/Coppr/Lutein/Zeaxan [Preservision Areds 2 Softgel] 3 cap PO DAILY 04/09/23 [History] Atorvastatin [Lipitor] 40 mg PO HS 06/19/23 [History] Cyclobenzaprine [Flexeril] 5 mg PO TID PRN 30 Days #90 tablet 10/23/23 [Rx] Cequa 1 drop BOTH EYES BID 01/10/24 [History] Losartan [Cozaar] 50 mg PO HS #30 tab 01/12/24 [Rx] Follow up Appointment(s)/Referral(s): Rob Nolan MD [Primary Care Provider] - 1-2 days (Call and make tyesha) Binh Jarrett MD [STAFF PHYSICIAN] - 1 Week (Call and make tyesha) Patient Instructions/Handouts: Syncope (DC), Bradycardia (DC) Discharge Disposition: HOME SELF-CARE
--- NOTE | 2024-01-12 17:14 | P.PN ---
Subjective Progress Note Date: 01/12/24 I'm seeing the patient for the first time during this admission. Please refer to Dr. Morgan's note for further details. since the patient's having syncopal episode and he states his heart rate has been in the 30s. He states that he's being alarmed by his last part watch that he has multiple episode of heart rate in the 30s at different times. Denies any history of seizures. He states this time around he was sitting accompanied with his friends on a chair and then all of a sudden and he passed out in which he, stooped down but denies being told that he had any shaking episode by his friends. His episode lasted for about 40-45 seconds with no postictal confusion. He had a urinary incontinence but denies any tongue bite or bowel incontinence. Objective - Vital Signs Vital signs: Vital Signs Temp 97.9 F 01/12/24 11:21 Pulse 89 01/12/24 11:21 Resp 18 01/12/24 11:21 BP 141/88 01/12/24 11:21 Pulse Ox 96 01/12/24 11:21 FiO2 Intake & Output 01/11/24 01/12/24 01/12/24 18:59 06:59 18:59 Intake Total 1975 550 358 Balance 1975 550 358 Intake: IV 10 Invasive Line 1 10 Oral 1975 540 358 Other: Voiding Method Toilet Toilet # Voids 3 1 1 - Exam GENERAL: The patient is sitting in a recliner chair and is not in acute distress. NEUROLOGICAL: Higher mental function: The patient is awake, alert, oriented to self, place and time. Patient is following commands. No aphasia and no neglect. Cranial nerves: The pupils are round, equal and reactive to light and accommodation. Visual newby are full to confrontation throughout. Extraocular movement is intact no nystagmus is noted. Facial sensation is normal to touch throughout. The facial strength is normal throughout. Tongue is midline and moved [id number] without any difficulty. No dysarthria is noted. Shoulder shrug is normal bilaterally. Motor: The strength is 5 over 5 throughout. Normal tone and bulk. Cerebellum: Normal finger to nose heel to chin bilaterally. Sensation: Sensation is normal to touch throughout. - Labs CBC & Chem 7: 01/11/24 06:03 01/11/24 06:03 Labs: Abnormal Lab Results - Last 24 Hours (Table) 01/11/24 Range/Units 20:03 POC Glucose (mg/dL) 134 H (70-110) mg/dL Assessment and Plan Assessment: * Syncope, likely due to symptomatic bradycardia. Seizure very unlikely, as there was no convulsive activity, and no postictal confusion. Loss of control of urine can infrequently occur with syncope as well. * Likely symptomatic bradycardia (as low as 30's). * Hypertension * Diabetes * Hyperlipidemia Plan: orthostatic vitals is negative Carotid duplex was reported as less than 50% stenosis bilateral carotid bifurcation 2-D echo was reported as normal left ventricle size and systolic function. No significant abnormality on the Doppler exam. CT of the head is negative for any acute process. cardiology is on board and they stated no indication for upper pacemaker this time. They instructed to stop bisoprolol. Seems cardiology recommended an event monitor will be arranged as an outpatient. I notified the patient per the [place] DMV because syncopal episode even though it's not seizure, to avoid driving for 6 month until no further syncoapl epi sodes for 6 month from last episode, avoid heights, avoids swimming unassisted or using heavy machinery we'll defer the rest of the medical management the primary team and other specialists There is no further neurologic workup. Time with Patient: Less than 30
[2024-01-12] MEDS ORDERED: LOSARTAN 50 MG TAB PO SCH (21:00)
== END 2024-01-12 13:28 | disposition home or self-care (01) ==
LOC: EC 14:32 → INTOOBSV 16:52 → 3SCARD 16:52
PROVIDERS: ADMIT Family Medicine; ATTEND Family Medicine
DX: R55 Syncope and collapse (principal); R00.1 Bradycardia, unspecified; E78.2 Mixed hyperlipidemia; E11.59 Type 2 diabetes mellitus with other circulatory complications; J44.9 Chronic obstructive pulmonary disease, unspecified; E78.5 Hyperlipidemia, unspecified; I10 Essential (primary) hypertension; G47.30 Sleep apnea, unspecified; N40.0 Benign prostatic hyperplasia without lower urinary tract symptoms; Z86.16 Personal history of COVID-19; Z87.891 Personal history of nicotine dependence; Z79.84 Long term (current) use of oral hypoglycemic drugs; Z79.82 Long term (current) use of aspirin; Z79.899 Other long term (current) drug therapy
CPT/HCPCS: 96360; 99291; 36415; 94760; 93005; 93306; 80053 ×2; 84443; 83735; 84484; 85025 ×2; 85610; 85730; 71045; 93880; 70450; G0378 ×3; S0138

== ENCOUNTER → 2024-01-26 | Outpatient (CLI) | payer MEDICARE ==
[2024-01-26 10:37] VITALS: BP 150/90; PULSE 100; RESP 15; TEMP 98.5
--- NOTE | 2024-01-26 12:32 | P.PAINPG ---
PQRS Measure Charge Sheet Comment: A 73 yr old male with a history of severe and chronic LBP secondary to lumbar DDD and spondylosis with facet arthropathy without myelopathy presents today for evaluation s/p BL RFA of the L4-L5, L5-S1. Pt states he experienced 50 % pain relief s/p procedure. Pain level is provoked at 6 /10 in intensity, int ermittent, localized in the L lumbar spine, predominantly axial, sharp in character w occasional shooting pain towards the L side and buttocks. Pain is provoked by walking/ standing for periods >15 min. Pain is alleviated with PT integrated w massage x 6 wks in Oct 2023 (lumbar), physician guided stretches 5 times weekly since Oct 2023, use of a massage gun at home, heat, reclining and rest. Pt stated a chiropractor told him he is not a candidate for treatments. Oswestry axial pain score of 21. Interventional pain procedures completed include BL RFA L3-L5 (May 2022, 06/20/23, Jan 2024), BL iliolumbar injections, Caudal ESIs, BL L2-S1 TPIs x2 Patient is currently on [place], Baclofen, Tylenol, Zanaflex, Neurontin, Biofreeze gel Patient denies any side effects of the medication(s), denies excessive drowsiness or sleepiness, denies suicidal ideation and reports that the current pain medication is helping to control the pain and improve activities of daily living. Patient denies any motor or sensory deficits. Patient denies any fever or night sweats, denies any change in the bowel movements or urination. Physical Examination: -Constitutional: Cooperative. Not in acute distress . - Neurologic: Cranial nerve II to XII intact. No focal neurological deficits. - Psychatric: Alert & oriented x 3. Matching mood & appropriate affect. Judgment and insight intact. - Musculoskeletal: Cervical spine: Muscle bulk/ tone/ strength in the bilateral upper extremities normal Vertebral body tenderness to palpation over Spurling test positive Distraction test positive Facet loading test positive TTP Thoracic spine Muscle bulk / tone/ strength in the bilateral paraspinal muscles normal Vertebral body tender to palpation over Facet loading test positive TTP Lumbar spine: Motor bulk/ tone/ strength lower extremities , thigh and legs : 5/5 Deep tendon reflexes : Normal Knee Jerk. Normal Ankle Jerk . Vertebral body tenderness to palpation L5 Lumbar Facet Loading Test positive L L5-S1 Taut bands w twitch response Straight Leg Raise: positive at 30 degrees right side/ left side Gaenslen's Test positive Sacral spine : Severe tenderness over the Sacroiliac joint: right side / left side Range of motion: Flexion of the lumbar spine <60 degrees Range of motion: Extension of the lumbar spine <20 degrees Gaenslen's Test positive right side / left side Samira test: positive right side / left side Thigh Thrust Test positive right side / left side Sacral Thrust Test positive right side / left side Assessment and plan: Chronic LBP secondary to lumbar DDD, spinal stenosis L4-L5, spondylosis with facet arthropathy without myelopathy Recommendation of L iliolumbar ligament injection #1. May need a series of injections for optimal pain relief. Risks, benefits of procedure discussed and pt verbalized/ understanding. Protocol for discontinuation/ continuation of medications surrounding procedure discussed. Will follow up w Dr Mendoza to explore additional treatment options. All questions answered. I have spent less than 30 minutes on patient care today. Dr Richard was available by phone for the evaluation of this patient. The time was used to review the medical records including relevant urine studies and Prescription history (MAPs), review of the available imaging, evaluation and examination of the patient, coordination of care with the medical staff and if applicable referring physicians, as well as creation of the medical record PQRS Narrative: Smoking Status Former smoker Narcotic Agreement Date Signed 10/17/22 Hx Alcohol Use (MH) Yes: socially Home Medications: Ambulatory Orders Fenofibrate [Lofibra] 160 mg PO HS 04/22/19 Multivitamins, Thera [Multivitamin (formulary)] 1 tab PO HS 04/22/19 Tamsulosin HCl [Flomax] 0.8 mg PO HS 04/22/19 metFORMIN HCL [Glucophage] 1,000 mg PO BID 04/22/19 Finasteride [Proscar] 5 mg PO HS 01/12/21 Aspirin [Adult Low Dose Aspirin EC] 81 mg PO BID 06/12/21 Fexofenadine HCl [Susan Allergy] 180 mg PO HS 10/17/21 Semaglutide [Ozempic] 1 mg SQ BAKER 10/21/22 Vit C/E/Zn/Coppr/Lutein/Zeaxan [Preservision Areds 2 Softgel] 3 cap PO DAILY 04/09/23 Atorvastatin [Lipitor] 40 mg PO HS 06/19/23 Cyclobenzaprine [Flexeril] 5 mg PO TID PRN 30 Days #90 tablet 10/23/23 Cequa 1 drop BOTH EYES BID 01/10/24 Losartan [Cozaar] 50 mg PO HS #30 tab 01/12/24 Controlled Substance Measures - Controlled Substance Measures Is patient prescribed a controlled substance at discharge?: No
== END ==
LOC: PNWHC3 09:58
PROVIDERS: ATTEND Specialist
DX: M51.37 Other intervertebral disc degeneration, lumbosacral region (principal); M47.817 Spondylosis without myelopathy or radiculopathy, lumbosacral region; G89.29 Other chronic pain; M48.061 Spinal stenosis, lumbar region without neurogenic claudication; Z87.891 Personal history of nicotine dependence; Z88.8 Allergy status to other drugs, medicaments and biological substances; Z91.038 Other insect allergy status
CPT/HCPCS: 99211

== ENCOUNTER → 2024-02-05 | Day surgery (SDC) | payer MEDICARE ==
[2024-02-03 16:14] VITALS: BMI 31.4
[~2024-02-05] MED LIST changes: +ROPIVACAINE 5MG/ML 20ML VIAL ONE; +methylPREDNISolone ACETATE 40 MG/ML 1 ML VIAL ONE
[2024-02-05 10:30] LABS: Glucose,Whole Blood 101 mg/dL (70-110)
[2024-02-05 10:52] VITALS: TEMP 97.6
--- NOTE | 2024-02-05 11:19 | P.PCN ---
Date of Procedure: 02/05/24 Procedure(s) Performed: Procedure= Left iliolumbar ligament steroid injection under fluoroscopy guidance (fluoroscopy image stored on file in the radiology Department ) Preoperative diagnosis= 1- left iliolumbar ligament neuralgia 2-lumbar degenerative disc disease 3-lumbar spondylosis with facet arthropathy Postoperative diagnosis=Same as preop Diagnosis . Complication = none Condition= stable Anesthesia= local anesthesia with ropivacaine 0.5% 2 ml only Indication for the procedure= patient complaining of low back pain , examination was positive for severe tenderness over the left iliolumbar ligament and patient diagnosed with iliolumbar ligament neuralgia, for this reason he was go od candidate for left iliolumbar ligament steroid injection. Description of the procedure= procedure risk and benefits discussed with the patient, including but not limited, risk of infection and bleeding, and ALLERGIC reaction to the medication and not complete pain relief and patient agreed with the preceding patient taken to the operating room, placed in prone position or standard monitors applied to the patient then after induction of anesthesia back prepped with chlorhexidine 3 times , Then under strict sterile technique, I did the Left side the which was identified under fluoroscopy guidance been local infiltration of the skin and subcu interstitial with lidocaine 1% then 22-gauge Quincke Needle advanced slowly under fluoroscopy and placed in the middle of the distance between the L5 transver process and the sacral ala ,needle placement confirmed with AP and oblique and lateral view, and after appropriate needle placement confirmed and after negative aspiration, or heme , then Ropivacaine 0.5% 3 mL, and 40 mg of Depo-Medrol mixed together and injected after negative aspiration patient tolerated the procedure well without any complication.
--- NOTE | 2024-02-05 11:44 | FL ---
EXAMINATION TYPE: FL guided pain mgmt statistic Intraoperative/procedural fluoroscopic services were provided. Total fluoroscopy time is 7.4 seconds with a total of 2 submitted images to PACS. Please se e the operative/procedural note for further details. DAP: [id number] mGym2
[2024-02-05 12:24] VITALS: BP 135/84; PULSE 77; RESP 18
== END ==
LOC: ORPAIN 09:50
PROVIDERS: ATTEND Specialist
DX: G58.8 Other specified mononeuropathies (principal); M47.816 Spondylosis without myelopathy or radiculopathy, lumbar region; M51.36 Other intervertebral disc degeneration, lumbar region; E11.9 Type 2 diabetes mellitus without complications; Z79.82 Long term (current) use of aspirin; Z88.8 Allergy status to other drugs, medicaments and biological substances
CPT/HCPCS: 20550; J2795; J1010

== ENCOUNTER → 2024-02-26 | Outpatient (CLI) | payer MEDICARE ==
[2024-02-26 12:11] VITALS: BP 128/67; PULSE 96; RESP 16; TEMP 97.1
--- NOTE | 2024-02-26 14:49 | P.PAINPG ---
PQRS Measure Charge Sheet Comment: A 73 yr old male with a history of severe and chronic LBP secondary to lumbar DDD and spondylosis with facet arthropathy without myelopathy presents today for evaluation s/p L iliolumbar injection #1. Pt states he experienced 99 % pain relief s/p procedure. Pain level is provoked at 2 /10 in intensity, inte rmittent, localized in the L lumbar spine, predominantly axial, sharp in character w occasional shooting pain towards the L side and buttocks. Pain is provoked by walking/ standing for periods >15 min. Pain is alleviated with PT integrated w massage x 6 wks in Oct 2023 (lumbar), physician guided stretches 5 times weekly since Oct 2023, use of a massage gun at home, heat, reclining and rest. Pt stated a chiropractor told him he is not a candidate for treatments. Oswestry axial pain score of 13. Interventional pain procedures completed include BL RFA L3-L5 (May 2022, 06/20/23, Jan 2024), BL iliolumbar injections, Caudal ESIs, BL L2-S1 TPIs x2, L iliolumbar x1 Patient is currently on [place], Baclofen, Tylenol, Zanaflex, Neurontin, Biofreeze gel Patient denies any side effects of the medication(s), denies excessive drowsiness or sleepiness, denies suicidal ideation and reports that the current pain medication is helping to control the pain and improve activities of daily living. Patient denies any motor or sensory deficits. Patient denies any fever or night sweats, denies any change in the bowel movements or urination. Physical Examination: -Constitutional: Cooperative. Not in acute distress . - Neurologic: Cranial nerve II to XII intact. No focal neurological deficits. - Psychatric: Alert & oriented x 3. Matching mood & appropriate affect. Judgment and insight intact. - Musculoskeletal: Cervical spine: Muscle bulk/ tone/ strength in the bilateral upper extremities normal Vertebral body tenderness to palpation over Spurling test positive Distraction test positive Facet loading test positive TTP Thoracic spine Muscle bulk / tone/ strength in the bilateral paraspinal muscles normal Vertebral body tender to palpation over Facet loading test positive TTP Lumbar spine: Motor bulk/ tone/ strength lower extremities , thigh and legs : 5/5 Deep tendon reflexes : Normal Knee Jerk. Normal Ankle Jerk . Vertebral body tenderness to palpation L5 Lumbar Facet Loading Test positive L L5-S1 Taut bands w twitch response Straight Leg Raise: positive at 30 degrees right side/ left side Gaenslen's Test positive Sacral spine : Severe tenderness over the Sacroiliac joint: right side / left side Range of motion: Flexion of the lumbar spine <60 degrees Range of motion: Extension of the lumbar spine <20 degrees Gaenslen's Test positive right side / left side Samira test: positive right side / left side Thigh Thrust Test positive right side / left side Sacral Thrust Test positive right side / left side Assessment and plan: Chronic LBP secondary to lumbar DDD, spinal stenosis L4-L5, spondylosis with facet arthropathy without myelopathy Will manage residual pain and may RTC on an as needed basis. All questions answered. I have spent less than 30 minutes on patient care today. Dr Richard was available by phone for the evaluation of this patient. The time was used to review the medical records including relevant urine studies and Prescription history (MAPs), review of the available imaging, evaluation and examination of the patient, coordination of care with the medical staff and if applicable referring physicians, as well as creation of the medical record PQRS Narrative: Smoking Status Former smoker Narcotic Agreement Date Signed 10/17/22 Hx Alcohol Use (MH) Yes: socially Home Medications: Ambulatory Orders Fenofibrate [Lofibra] 160 mg PO HS 04/22/19 Multivitamins, Thera [Multivitamin (formulary)] 1 tab PO HS 04/22/19 Tamsulosin HCl [Flomax] 0.8 mg PO HS 04/22/19 metFORMIN HCL [Glucophage] 1,000 mg PO BID 04/22/19 Finasteride [Proscar] 5 mg PO HS 01/12/21 Aspirin [Adult Low Dose Aspirin EC] 81 mg PO DAILY 06/12/21 Fexofenadine HCl [Susan Allergy] 180 mg PO HS 10/17/21 Semaglutide [Ozempic] 1 mg SQ BAKER 10/21/22 Vit C/E/Zn/Coppr/Lutein/Zeaxan [Preservision Areds 2 Softgel] 3 cap PO DAILY 04/09/23 Atorvastatin [Lipitor] 40 mg PO HS 06/19/23 Cyclobenzaprine [Flexeril] 5 mg PO TID PRN 30 Days #90 tablet 10/23/23 Cequa 1 drop BOTH EYES BID 01/10/24 Losartan [Cozaar] 100 mg PO HS 02/03/24 amLODIPine [Norvasc] 10 mg PO DAILY 02/03/24 Controlled Substance Measures - Controlled Substance Measures Is patient prescribed a controlled substance at discharge?: No
== END ==
LOC: PNWHC3 09:56
PROVIDERS: ATTEND Specialist
DX: M51.37 Other intervertebral disc degeneration, lumbosacral region (principal); M47.27 Other spondylosis with radiculopathy, lumbosacral region; G89.29 Other chronic pain; M48.061 Spinal stenosis, lumbar region without neurogenic claudication; Z87.891 Personal history of nicotine dependence; Z88.8 Allergy status to other drugs, medicaments and biological substances; Z91.038 Other insect allergy status
CPT/HCPCS: 99211

== ENCOUNTER → 2024-06-10 | Outpatient (CLI) | payer MEDICARE ==
[2024-06-10 09:38] VITALS: BP 133/81; PULSE 68; RESP 16; TEMP 97.6
--- NOTE | 2024-06-10 14:11 | P.PAINPG ---
PQRS Measure Charge Sheet Comment: A 73 yr old male with a history of severe and chronic LBP secondary to lumbar DDD and spondylosis with facet arthropathy without myelopathy presents today for evaluation s/p L iliolumbar injection #1. Pt states he experienced 80 % pain relief x 2 mo s/p procedure. Pain level is provoked at 6 /10 in intensity, intermittent, localized in the lower lumbar spine, predominantly axial, sharp in character w occasional shooting pain towards the BLEs. Pain is provoked by lifting, bending. Pain is alleviated with PT integrated w massage x 6 wks in Oct 2023 (lumbar), physician guided stretches 5 times weekly since Oct 2023, use of a massage gun at home, heat/ ice reclining and rest. Pt stated a chiropractor to ld him he is not a candidate for treatments. Interventional pain procedures completed include BL RFA L3-L5 (May 2022, 06/20/23, Jan 2024), BL iliolumbar injections, Caudal ESIs, BL L2-S1 TPIs x2, L i liolumbar x1 Patient is currently on [place], Baclofen, Tylenol, Zanaflex, Neurontin, Biofreeze gel Patient denies any side effects of the medication(s), denies excessive drowsiness or sleepiness, denies suicidal ideation and reports that the current pain medication is helping to control the pain and improve activities of daily living. Patient denies any motor or sensory deficits. Patient denies any fever or night sweats, denies any change in the bowel movements or urination. Physical Examination: -Constitutional: Cooperative. Not in acute distress . - Neurologic: Cranial nerve II to XII intact. No focal neurological deficits. - Psychatric: Alert & oriented x 3. Matching mood & appropriate affect. Judgment and insight intact. - Musculoskeletal: Cervical spine: Muscle bulk/ tone/ strength in the bilateral upper extremities normal Vertebral body tenderness to palpation over Spurling test positive Distraction test positive Facet loading test positive TTP Thoracic spine Muscle bulk / tone/ strength in the bilateral paraspinal muscles normal Vertebral body tender to palpation over Facet loading test positive TTP Lumbar spine: Motor bulk/ tone/ strength lower extremities , thigh and legs : 5/5 Deep tendon reflexes : Normal Knee Jerk. Normal Ankle Jerk . Vertebral body tenderness to palpation L5 Lumbar Facet Loading Test positive BL L5-S1 Taut bands w twitch response Straight Leg Raise: positive at 30 degrees right side < left side Gaenslen's Test positive Sacral spine : Severe tenderness over the Sacroiliac joint: right side / left side Range of motion: Flexion of the lumbar spine <60 degrees Range of motion: Extension of the lumbar spine <20 degrees Gaenslen's Test positive right side / left side Samira test: positive right side / left side Thigh Thrust Test positive right side / left side Sacral Thrust Test positive right side / left side Assessment and plan: Chronic LBP secondary to lumbar DDD, spinal stenosis L4-L5, spondylosis with facet arthropathy without myelopathy Recommendation of LISA L5-S1 #1. Risks, benefits of procedure discussed and pt verbalized understanding. Protocol for discontinuation/ continuation of medications sonny procedure discussed. All questions answered. I have spent less than 30 minutes on patient care today. Dr Richard was available by phone for the evaluation of this patient. The time was used to review the medical records including relevant urine studies and Prescription history (MAPs), review of the available imaging, evaluation and examination of the patient, coordination of care with the medical staff and if applicable referring physicians, as well as creation of the medical record PQRS Narrative: Smoking Status Former smoker Narcotic Agreement Date Signed 10/17/22 Hx Alcohol Use (MH) Yes: socially Home Medications: Ambulatory Orders Fenofibrate [Lofibra] 160 mg PO HS 04/22/19 Multivitamins, Thera [Multivitamin (formulary)] 1 tab PO HS 04/22/19 Tamsulosin HCl [Flomax] 0.8 mg PO HS 04/22/19 metFORMIN HCL [Glucophage] 1,000 mg PO BID 04/22/19 Finasteride [Proscar] 5 mg PO HS 01/12/21 Aspirin [Adult Low Dose Aspirin EC] 81 mg PO DAILY 06/12/21 Fexofenadine HCl [Susan Allergy] 180 mg PO DAILY 10/17/21 Semaglutide [Ozempic] 1 mg SQ BAKER 10/21/22 Vit C/E/Zn/Coppr/Lutein/Zeaxan [Preservision Areds 2 Softgel] 3 cap PO DAILY 04/09/23 Atorvastatin [Lipitor] 40 mg PO HS 06/19/23 Losartan [Cozaar] 100 mg PO HS 02/03/24 Controlled Substance Measures - Controlled Substance Measures Is patient prescribed a controlled substance at discharge?: No
== END ==
LOC: PNWHC3 09:10
PROVIDERS: ATTEND Specialist
DX: M51.36 Other intervertebral disc degeneration, lumbar region (principal); M48.061 Spinal stenosis, lumbar region without neurogenic claudication; M47.816 Spondylosis without myelopathy or radiculopathy, lumbar region; Z87.891 Personal history of nicotine dependence; Z88.8 Allergy status to other drugs, medicaments and biological substances; Z91.038 Other insect allergy status
CPT/HCPCS: 99211

== ENCOUNTER → 2024-07-09 | Day surgery (SDC) | payer MEDICARE ==
[~2024-07-09] MED LIST changes: +IOPAMIDOL M200 10 ML VIAL ONE; -ROPIVACAINE 5MG/ML 20ML VIAL ONE
[2024-07-09 08:48] LABS: Glucose,Whole Blood 122 mg/dL (70-110)
[2024-07-09 08:49] VITALS: RESP 16; TEMP 97
--- NOTE | 2024-07-09 09:18 | P.PCN ---
Date of Procedure: 07/09/24 Description of Procedure: Diagnosis: Lumbar radiculopathy, and lumbar spondylosis without myelopathy Procedure: L5-S1 Inter-Laminar Lumbar Epidural Steroid Injection under biplanar fluoroscopy Surgeon: Mar Liu Anesthesia: Local: 1% Lidocaine, IV sedation : None. Complications: None Estimated blood loss: None Specimens removed: none. Fluoroscopic image: Saved to patient EMR. Indications for Procedure: The patient has been suffering from lower back pain and leg pain. Inadequate pain control with pharmacologic regimen. Came here for lumbar epidural steroid injection for better pain control. Procedure and Findings: The patient was seen and examined in the holding area. The written informed consent was obtained after explaining the risks, benefits, and alternatives of the procedure to the patient. The patient was brought to the procedure room and was placed in the prone position on the operating room table. A pillow was placed under the abdomen to reduce lumbar lordosis. The anesthesia was started as mentioned above and monitoring was done with noninvasive blood pressure cuff, EKG and pulse oximetry. The skin preparation was done with ChloraPrep and draping was done in usual sterile fashion. Sterile technique was observed throughout the procedure. Under fluoroscopic guidance, the L5- S1 inter-laminar space was identified. 4 ml of 1% Lidocaine was injected with a 25 gauge needle to achieve adequate local anesthesia of the skin and subcutaneous tissue. A 20 gauge, 3.5 inch Tuohy type epidural needle was placed and advanced up to the epidural space using loss of resistance technique and fluoroscopic guidance. No paresthesia was noted. A negative aspiration was confirmed and then 2 ml Isovue was injected. A good dye spread was seen in the epidural space and it was negative for any intrathecal, intraneural or intravascular spread. A total of 8 ml solution containing Depo-Medrol 40 mg mixed with 7 mL of preservative-free Normal Saline was injected slowly with intermittent aspiration. The needle was removed intact, area was cleaned and bandage was applied. Disposition : The patient tolerated the procedure very well. The patient was transferred to the recovery room and remained stable until discharged home. The patient was given detailed discharge instructions for infection, bleeding, headache , leg weakness, and increased pain at the injection site, and was advised to seek immediate medical attention should significant side effects develop. The patient will be followed up with our Pain Clinic within 4 weeks for follow-up visit.
[2024-07-09 09:46] VITALS: BP 125/82; PULSE 71
--- NOTE | 2024-07-09 10:31 | FL ---
EXAMINATION TYPE: FL guided pain mgmt statistic DATE OF EXAM: 07/09/2024 10:04 AM COMPARISON: Pre Operative Images if available both CT/MRI or plain film CLINICAL INDICATION: Male, 73 years old with history of M54.16; TECHNIQUE: FL guided pain mgmt statistic, multiple fluoroscopic images provided for procedure. Total fluoroscopy time: 5.5 seconds Total submitted images to PACS: 2 DAP: [id number] mGym2 Gycm2 uGym2 cGycm2 or equivalent. FINDINGS: Fluoroscopic images during injection for pain management demonstrate multilevel degeneration changes throughout the spine. No evidence for fracture. No acute process identified. IMPRESSION: 1. No evidence for intraoperative complication. 2. Please see the operative/procedural note for further details. [facility], , 07/09/2024 10:28 AM
== END ==
LOC: ORPAIN 07:58
DX: M54.16 Radiculopathy, lumbar region
CPT/HCPCS: 62323

== ENCOUNTER → 2024-07-26 | Outpatient (CLI) | payer MEDICARE ==
[2024-07-26 10:26] VITALS: BP 133/65; PULSE 68; RESP 16
--- NOTE | 2024-07-26 14:26 | P.PAINPG ---
PQRS Measure Charge Sheet Comment: A 73 yr old male with a history of severe and chronic LBP secondary to radiculopathy, spondylosis and facet arthropathy without myelopathy presents today for evaluation s/p LISA L5-S1 #1. Pt states he experienced 90 % pain relief x 2 wks s/p procedure. Pain level is provoked at 4 /10 in intensity, intermitte nt, localized in the lower lumbar spine, predominantly axial, sharp in character w occasional shooting pain towards the BLEs. Pain is provoked by lifting, bending. Pain is alleviated with PT integrated w massage x 6 wks in Oct 2023 (lumbar), physician guided stretches 5 times weekly since Oct 2023, use of a massage gun at home, heat/ ice reclining and rest. Pt stated a chiropractor told him he is not a candidate for treatments. Interventional pain procedures completed include BL RFA L3-L5 (May 2022, 06/20/23, Jan 2024), BL iliolumbar injections, Caudal ESIs, BL L2-S1 TPIs x2, L iliolumbar x1, LISA L5-S1 x1 (Jul 2024) Patient is currently on [place], Baclofen, Tylenol, Zanaflex, Neurontin, Biofreeze gel Patient denies any si)de effects of the medication(s), denies excessive drowsiness or sleepiness, denies suicidal ideation and reports that the current pain medication is helping to control the pain and improve activities of daily living. Patient denies any motor or sensory deficits. Patient denies any fever or night sweats, denies any change in the bowel movements or urination. Physical Examination: -Constitutional: Cooperative. Not in acute distress . - Neurologic: Cranial nerve II to XII intact. No focal neurological deficits. - Psychatric: Alert & oriented x 3. Matching mood & appropriate affect. Judgment and insight intact. - Musculoskeletal: Cervical spine: Muscle bulk/ tone/ strength in the bilateral upper extremities normal Vertebral body tenderness to palpation over Spurling test positive Distraction test positive Facet loading test positive TTP Thoracic spine Muscle bulk / tone/ strength in the bilateral paraspinal muscles normal Vertebral body tender to palpation over Facet loading test positive TTP Lumbar spine: Motor bulk/ tone/ strength lower extremities , thigh and legs : 5/5 Deep tendon reflexes : Normal Knee Jerk. Normal Ankle Jerk . Vertebral body tenderness to palpation L5 Lumbar Facet Loading Test positive BL L5-S1 Taut bands w twitch response Straight Leg Raise: positive at 30 degrees right side < left side Gaenslen's Test positive Sacral spine : Severe tenderness over the Sacroiliac joint: right side / left side Range of motion: Flexion of the lumbar spine <60 degrees Range of motion: Extension of the lumbar spine <20 degrees Gaenslen's Test positive right side / left side Samira test: positive right side / left side Thigh Thrust Test positive right side / left side Sacral Thrust Test positive right side / left side Assessment and plan: Chronic LBP secondary to radiculopathy, spinal stenosis L4-L5, spondylosis with facet arthropathy without myelopathy Will manage residual pain w PT x 6 wks M54.16 and RTC on an as needed basis. All questions answered. I have spent less than 30 minutes on patient care today. Dr Richard was availa ble by phone for the evaluation of this patient. The time was used to review the medical records including relevant urine studies and Prescription history (MAPs), review of the available imaging, evaluation and examination of the patient, coordination of care with the medical staff and if applicable referring physicians, as well as creation of the medical record PQRS Narrative: Smoking Status Former smoker Narcotic Agreement Date Signed 10/17/22 Hx Alcohol Use (MH) Yes: socially Home Medications: Ambulatory Orders Fenofibrate [Lofibra] 160 mg PO HS 04/22/19 Multivitamins, Thera [Multivitamin (formulary)] 1 tab PO HS 04/22/19 Tamsulosin HCl [Flomax] 0.8 mg PO HS 04/22/19 metFORMIN HCL [Glucophage] 1,000 mg PO BID 04/22/19 Finasteride [Proscar] 5 mg PO HS 01/12/21 Aspirin [Adult Low Dose Aspirin EC] 81 mg PO DAILY 06/12/21 Fexofenadine HCl [Susan Allergy] 180 mg PO DAILY 10/17/21 Semaglutide [Ozempic] 1 mg SQ BAKER 10/21/22 Vit C/E/Zn/Coppr/Lutein/Zeaxan [Preservision Areds 2 Softgel] 3 cap PO DAILY 04/09/23 Atorvastatin [Lipitor] 40 mg PO HS 06/19/23 Losartan [Cozaar] 100 mg PO HS 02/03/24 Acetaminophen Tab [Tylenol Tab] 1,000 mg PO Q6HR PRN 07/05/24 Ibuprofen [Motrin] 800 mg PO Q8H PRN 07/05/24 Controlled Substance Measures - Controlled Substance Measures Is patient prescribed a controlled substance at discharge?: No
== END ==
LOC: PNWHC3 09:58
PROVIDERS: ATTEND Specialist
DX: M54.16 Radiculopathy, lumbar region
CPT/HCPCS: 99211

== ENCOUNTER 2024-09-09 11:38 | Emergency (ER) | payer MEDICARE ==
[2024-09-09 11:43] VITALS: RESP 18
--- NOTE | 2024-09-09 12:20 | ED ---
General Adult HPI - General Chief complaint: Fall Stated complaint: Fall-Back/R ankle pain Time Seen by Provider: 09/09/24 11:57 Source: patient, RN notes reviewed Mode of arrival: ambulatory Limitations: physical limitation - History of Present Illness Initial comments: 74-year-old male presents emergency department with chief complaint of fall. Patient states he is out walking to oxygen some ice. Patient states he fell just left side but caught himself with his right arm. Patient complains of right hand right shoulder pain left low back left hip pain patient stated prior bilateral knee replacement left hip replacement. Patient denies any paresthesias. - Related Data Home Medications Medication Instructions Recorded Confirmed Fenofibrate [Lofibra] 160 mg PO HS 04/22/19 07/26/24 Multivitamins, Thera [Multivitamin 1 tab PO HS 04/22/19 07/26/24 (formulary)] Tamsulosin HCl [Flomax] 0.8 mg PO HS 04/22/19 07/26/24 metFORMIN HCL [Glucophage] 1,000 mg PO BID 04/22/19 07/26/24 Finasteride [Proscar] 5 mg PO HS 01/12/21 07/26/24 Aspirin [Adult Low Dose Aspirin EC] 81 mg PO DAILY 06/12/21 07/26/24 Fexofenadine HCl [Susan Allergy] 180 mg PO DAILY 10/17/21 07/26/24 Semaglutide [Ozempic] 1 mg SQ BAKER 10/21/22 07/26/24 Vit C/E/Zn/Coppr/Lutein/Zeaxan 3 cap PO DAILY 04/09/23 07/26/24 [Preservision Areds 2 Softgel] Atorvastatin [Lipitor] 40 mg PO HS 06/19/23 07/26/24 Losartan [Cozaar] 100 mg PO HS 02/03/24 07/26/24 Acetaminophen Tab [Tylenol Tab] 1,000 mg PO Q6HR PRN 07/05/24 07/26/24 Ibuprofen [Motrin] 800 mg PO Q8H PRN 07/05/24 07/26/24 Previous Rx's Medication Instructions Recorded HYDROcodone/APAP 7.5-325MG [[place] 1 tab PO Q4H PRN 3 Days #18 tab 09/09/24 7.5-325] Allergies Allergy/AdvReac Type Severity Reaction Status Date / Time diclofenac [From [place]] Allergy Rash/Hives Verified 09/09/24 11:42 lisinopril AdvReac Cough Verified 09/09/24 11:42 BLACK WASP Allergy Swelling Uncoded 07/26/24 10:28 Review of Systems ROS Statement: Those systems with pertinent positive or pertinent negative responses have been documented in the HPI. ROS Other: All systems not noted in ROS Statement are negative. Past Medical History Past Medical History: COPD, Diabetes Mellitus, Hyperlipidemia, Hypertension, Liver Disease, Osteoarthritis (OA), Prostate Disorder, Sleep Apnea/CPAP/BIPAP, Syncope Additional Past Medical History / Comment(s): heart murmur-"Thickened heart valve", diverticulosis, fatty liver, hx Legionnaire's disease, bulging discs, migraines, hiatal hernia, kidney stones, enlarged prostate, covid infection - 2021, hx sleep apnea resolved with wt loss. Syncopal episode in January 2024- testing negative, fell on back concrete floor 06/14/19 - bruises to back and arms History of Any Multi-Drug Resistant Organisms: None Reported Past Surgical History: Joint Replacement, Orthopedic Surgery Additional Past Surgical History / Comment(s): Arthroscopy right knee, laser eye surgery for glaucoma melissa , colonoscopies, rt knee open surgery, PAIN CLINIC PROCEDURES, lithotripsy to remove bladder stone, LT TKA 10/28/22, LEFT TOTAL HIP 04/2023, Right TKA.07/22/2023. Past Anesthesia/Blood Transfusion Reactions: Previous Problems w/ Anesthesia Additional Past Anesthesia/Blood Transfusion Reaction / Comment(s): first knee replacement pt came out from anethesia with a HR of 45 bpm Past Psychological History: No Psychological Hx Reported Smoking Status: Former smoker - Past Family History Mother Family Medical History: No Reported History Additional Family Medical History / Comment(s): cataract removal Father Additional Family Medical History / Comment(s): cataract removal, knee replacement General Exam Limitations: physical limitation General appearance: alert, in no apparent distress Head exam: Present: atraumatic, normocephalic, normal inspection Neck exam: Present: normal inspection, full ROM. Absent: tenderness, meningismus, lymphadenopathy Respiratory exam: Present: normal lung sounds bilaterally. Absent: respiratory distress, wheezes, rales, rhonchi, stridor GI/Abdominal exam: Present: soft, normal bowel sounds. Absent: distended, tenderness, guarding, rebound, rigid Extremities exam: Present: other (Mild right hand right thumb tenderness send no obvious deformity or vascular intact no forearm or elbow tenderness but there is some mild right shoulder tenderness). Absent: normal inspection (Left hip tenderness no shortening or rotation) Back exam: Present: tenderness, paraspinal tenderness, vertebral tenderness. Absent: full ROM Neurological exam: Present: alert, oriented X3, CN II-XII intact, reflexes normal. Absent: motor sensory deficit Skin exam: Present: warm, dry, intact, normal color. Absent: rash Course Vital Signs 09/09/24 09/09/24 11:39 14:36 Temperature 97.8 F 98.0 F Pulse Rate 77 86 Respiratory 18 18 Rate Blood Pressure 183/94 175/94 O2 Sat by Pulse 94 L 97 Oximetry Medical Decision Making - Medical Decision Making M was pt. sent in by a medical professional or institution (, PA, [employer] [facility], urgent care, hospital, or usp...) When possible be specific @ -No Did you speak to anyone other than the patient for history (EMS, parent, family, police, friend...)? What history was obtained from this source @ -No Did you review nursing and triage notes (agree or disagree)? Why? @ -I reviewed and agree with nursing and triage notes Were old charts reviewed (outside hosp., previous admission, EMS record, old EKG, old radiological studies, urgent care reports/EKG's, usp records)? Report findings @ -No old charts were reviewed Differential Diagnosis (chest pain, altered mental status, abdominal pain women, abdominal pain men, vaginal bleeding, weakness, fever, dyspnea, syncope, headache, dizziness, GI bleed, back pain, seizure, CVA, palpatations, mental health, musculoskeletal)? @ -[Fall, hip fracture, lumbar fracture, hand fracture, this list is not all inclusive EKG interpreted by me (3pts min.). @ -None X-rays interpreted by me (1pt min.). @ -X-ray lumbar spine showing degenerative changes no acute fracture X-ray left hip with AP pelvis no acute fracture postsurgical changes X-ray right hand no acute fracture X-ray right shoulder no dislocation no osseous abnormality no acute fracture And right ankle x-ray no acute fracture. CT interpreted by me (1pt min.). @ -None done U/S interpreted by me (1pt. min.). @ -None done What testing was considered but not performed or refused? (CT, X-rays, U/S, labs)? Why? @ -None What meds were considered but not given or refused? Why? @ -None Did you discuss the management of the patient with other professionals (professionals i.e. Dr., PA, [employer], lab, RT, psych nurse, social work manager, public information coordinator, teacher, infantry officer, telephonic nurse case manager)? Give summary @ -No Was smoking cessation discussed for >3mins.? @ -No Was critical care preformed (if so, how long)? @ -No Were there social determinants of health that impacted care today? How? (Homelessness, low income, unemployed, alcoholism, drug addiction, transportation, low edu. Level, literacy, decrease access to med. care, detention, rehab)? @ -No Was there de-escalation of care discussed even if they declined (Discuss DNR or withdrawal of care, Hospice)? DNR status @ -No What co-morbidities impacted this encounter? (DM, HTN, Smoking, COPD, CAD, Cancer, CVA, ARF, Chemo, Hep., AIDS, mental health diagnosis, sleep apnea, morbid obesity)? @ -None Was patient admitted / discharged? Hospital course, mention meds given and route, prescriptions, significant lab abnormalities, going to OR and other pertinent info. @ -Discharge patient presented for of slip and fall. Patient has negative x- rays patient discharged in stable condition. Undiagnosed new problem with uncertain prognosis? @ -No Drug Therapy requiring intensive monitoring for toxicity (Heparin, Nitro, Insulin, Cardizem)? @ -No Were any procedures done? @ -No Diagnosis/symptom? @ -Fall, hip contusion, back contusion, hand contusion, ankle sprain Acute, or Chronic, or Acute on Chronic? @ -Acute Uncomplicated (without systemic symptoms) or Complicated (systemic symptoms)? @ -Uncomplicated Side effects of treatment? @ -No Exacerbation, Progression, or Severe Exacerbation? @ -No Poses a threat to life or bodily function? How? (Chest pain, [place], [place], pneumonia, PE, COPD, DKA, ARF, appy, cholecystitis, CVA, Diverticulitis, Homicidal, Suicidal, threat to staff... and all critical care pts) @ -No Disposition Clinical Impression: Fall from slipping on ice, Back contusion, Contusion, hip, Shoulder pain, Hand sprain Disposition: HOME SELF-CARE Condition: Stable Instructions (If sedation given, give patient instructions): Contusion in Adults (ED) Additional Instructions: Please return to the Emergency Department if symptoms worsen or any other concerns. Is patient prescribed a controlled substance at d/c from ED?: No Referrals: Rob Nolan MD [Primary Care Provider] - 1-2 days Time of Disposition: 14:26
--- NOTE | 2024-09-09 14:14 | XR ---
EXAMINATION TYPE: XR chest 2V, XR lumbar spine 3V, XR hand complete 3 views RT, XR Hip 2 views LT and AP Pelvis, XR shoulder complete 3 views RT, XR ankle complete 3 views RT DATE OF EXAM: 09/09/2024 12:48 PM COMPARISON: Chest radiographs from CLINICAL INDICATION: Male, 74 years old with history of fall, pain, , FINDINGS: Chest: Heart borderline in size. Tortuous/ectatic thoracic aorta. Mild interstitial prominence appears sligh tly increased and no dianne consolidation or pleural effusion. Right shoulder: Moderate to severe degenerative change AC joint with joint space narrowing and marginal spurring. Sub acromial space. There are foci of calcification above the greater tuberosity measuring up to 7 mm archana t may be seen with calcific tendinitis of the rotator cuff. No acute fracture, subluxation, dislocati on. Right hand: Mild scattered osteoarthritic change such as at the first CMC joint and scattered within the DIP join ts. More moderate degenerative change second and third MCP joints. No acute fracture, subluxation, di slocation seen. Lumbar spine: 5 lumbar type vertebral bodies. Moderate multilevel degenerative disc disease. Dictation the lower th oracic spine. Hypertrophic facet arthropathy. Degenerative grade 1 anterolisthesis L4-L5. Otherwise, alignment is maintained and vertebral body heights are preserved. Pelvis and left hip: There is left hip total arthroplasty. Both acetabular cup and femoral stem components of the prosthes is appear well seated without prosthetic fracture. There may be mild degenerative change of the bilat eral SI joints. While marginal spurring at the right hip. Pubic symphysis appears intact. No acute fr acture, subluxation, dislocation seen. Right ankle: Ankle mortise is congruent with preservation of the distal tibiofibular overlap. Talar dome is intact . Mild anterior soft tissue swelling. Subtalar joint align. Small posterior and plantar heel spurs. N o acute fracture, subluxation, dislocation. IMPRESSION: 1. Chest: Borderline heart size. Interstitial prominence may in part be chronic. Correlate to exclude mild pulmonary vascular congestion. 2. Right shoulder: Moderate to severe AC joint OA. Foci of calcification above the greater tuberosity measuring up to 7 mm may be seen with calcific tendinitis of the rotator cuff. No acute osseous abno rmality seen. 3. Right hand: Scattered mild osteoarthritic change. More moderate degenerative change and third MCP joints. No acute osseous abnormality seen. 4. Lumbar spine: Moderate multilevel degenerative disc disease. Hypertrophic facet arthropathy especi ally mid to lower lumbar spine. Degenerative grade 1 anterolisthesis L4-L5. No vertebral compression collapse. 5. Pelvis and left hip: Uncomplicated left hip total arthroplasty. No acute osseous abnormality seen. 6. Right ankle: Mild soft tissue swelling. No acute osseous abnormality seen. [facility], , 09/09/2024 2:12 PM
[2024-09-09] MEDS: HYDROcodone/APAP 10-325MG 1 EACH TAB PO ONE (14:35)
[2024-09-09 14:37] VITALS: BP 175/94; PULSE 86; TEMP 98
== END 2024-09-09 14:37 | disposition home or self-care (01) ==
LOC: EC 11:38
DX: S93.401A Sprain of unspecified ligament of right ankle, initial encounter (principal); S43.401A Unspecified sprain of right shoulder joint, initial encounter; S20.229A Contusion of unspecified back wall of thorax, initial encounter; S70.02XA Contusion of left hip, initial encounter; Z87.891 Personal history of nicotine dependence; Z88.8 Allergy status to other drugs, medicaments and biological substances; W00.0XXA Fall on same level due to ice and snow, initial encounter
CPT/HCPCS: 71046; 72100; 73502; 99284; 99285

== ENCOUNTER → 2024-09-09 | Outpatient (CLI) | payer MEDICARE ==
[2024-09-09 11:27] VITALS: BP 168/96; PULSE 76; RESP 16
--- NOTE | 2024-09-09 15:23 | P.PAINPG ---
PQRS Measure Charge Sheet Comment: A 74 yr old male with a history of severe and chronic LBP secondary to radiculopathy, spondylosis and facet arthropathy without myelopathy presents today for evaluation. Pt underwent a BL RFA L4-L5, L5-1 in Jan 2024 where he experienced 80% pain relief x 7 mo s/p procedure. Pain level is provoked at 8 /10 in intensity, intermittent, localized in the lower lumbar spine, predominantly axial, sharp in character without shooting pain. Pain is provoked by standing/ walking for periods > 15 min. Pain is alleviated with PT integrated w massage x 4 wks which he is currently in (lumbar), physician guided stretches 5 times weekly since Oct 2023, use of a massage gun at home, heat/ ice reclining and rest. Pt stated a chiropractor told him he is not a candidate for treatments. Interventional pain procedures completed include BL RFA L3-L5 (May 2022, 06/20/23, 01/27), BL iliolumbar injections, Caudal ESIs, BL L2-S1 TPIs x2, L iliolumbar x1, LISA L5-S1 x1 (Jul 2024) Patient is currently on Ring[place], Baclofen, Tylenol, Zanaflex, Neurontin, Biofreeze gel Patient denies any si)de effects of the medication(s), denies excessive drowsiness or sleepiness, denies suicidal ideation and reports that the current pain medication is helping to control the pain and improve activities of daily living. Patient denies any motor or sensory deficits. Patient denies any fever or night sweats, denies any change in the bowel movements or urination. Physical Examination: -Constitutional: Cooperative. Not in acute distress . - Neurologic: Cranial nerve II to XII intact. No focal neurological deficits. - Psychatric: Alert & oriented x 3. Matching mood & appropriate affect. Judgment and insight intact. - Musculoskeletal: Cervical spine: Muscle bulk/ tone/ strength in the bilateral upper extremities normal Vertebral body tenderness to palpation over Spurling test positive Distraction test positive Facet loading test positive TTP Thoracic spine Muscle bulk / tone/ strength in the bilateral paraspinal muscles normal Vertebral body tender to palpation over Facet loading test positive TTP Lumbar spine: Motor bulk/ tone/ strength lower extremities , thigh and legs : 5/5 Deep tendon reflexes : Normal Knee Jerk. Normal Ankle Jerk . Vertebral body tenderness to palpation L5 Lumbar Facet Loading Test positive BL L4-L5, L5-S1 Taut bands w twitch response Straight Leg Raise: positive at 30 degrees right side < left side Gaenslen's Test positive Sacral spine : Severe tenderness over the Sacroiliac joint: right side / left side Range of motion: Flexion of the lumbar spine <60 degrees Range of motion: Extension of the lumbar spine <20 degrees Gaenslen's Test positive right side / left side Samira test: positive right side / left side Thigh Thrust Test positive right side / left side Sacral Thrust Test positive right side / left side Assessment and plan: Chronic LBP secondary to radiculopathy, spinal stenosis L4-L5, spondylosis with facet arthropathy without myelopathy Recommendation of BL RFA L4-L5, L5-S1. Risks, benefits of procedure discussed and pt verbalized understanding. Protocol for discontinuation/ continuation of medications sonny procedure discussed. Minimal anesthesia including Fentanyl and Versed if clinically indicated. All questions answered. I have spent less than 30 minutes on patient care today. Dr Richard was available by phone for the evaluation of this patient. The time was used to review the medical records including relevant urine studies and Prescription history (MAPs), review of the available imaging, evaluation and examination of the patient, coordination of care with the medical staff and if applicable referring physicians, as well as creation of the medical record - Pain Location Lower Back Non-Pharmacological Interventions: Heat, Ice, Physical Therapy Pharmacological Interventions: Block, Epidural, Medication, PRN Medication, Scheduled Medication PQRS Narrative: Smoking Status Former smoker Narcotic Agreement Date Signed 10/17/22 Hx Alcohol Use (MH) Yes: socially Home Medications: Ambulatory Orders Fenofibrate [Lofibra] 160 mg PO HS 04/22/19 Multivitamins, Thera [Multivitamin (formulary)] 1 tab PO HS 04/22/19 Tamsulosin HCl [Flomax] 0.8 mg PO HS 04/22/19 metFORMIN HCL [Glucophage] 1,000 mg PO BID 04/22/19 Finasteride [Proscar] 5 mg PO HS 01/12/21 Aspirin [Adult Low Dose Aspirin EC] 81 mg PO DAILY 06/12/21 Fexofenadine HCl [Susan Allergy] 180 mg PO DAILY 10/17/21 Semaglutide [Ozempic] 1 mg SQ BAKER 10/21/22 Vit C/E/Zn/Coppr/Lutein/Zeaxan [Preservision Areds 2 Softgel] 3 cap PO DAILY 04/09/23 Atorvastatin [Lipitor] 40 mg PO HS 06/19/23 Losartan [Cozaar] 100 mg PO HS 02/03/24 Acetaminophen Tab [Tylenol Tab] 1,000 mg PO Q6HR PRN 07/05/24 Ibuprofen [Motrin] 800 mg PO Q8H PRN 07/05/24 HYDROcodone/APAP 7.5-325MG [Ringgold 7.5-325] 1 tab PO Q4H PRN 3 Days #18 tab 09/09/24 Controlled Substance Measures - Controlled Substance Measures Is patient prescribed a controlled substance at discharge?: Yes When asked, does pt state using other controlled substances?: Yes If prescribed controlled substance>3 days was MAPS reviewed?: Prescribed <3 Days
== END ==
LOC: PNWHC3 11:06
PROVIDERS: ATTEND Specialist
DX: M48.061 Spinal stenosis, lumbar region without neurogenic claudication (principal); M47.26 Other spondylosis with radiculopathy, lumbar region; Z87.891 Personal history of nicotine dependence; Z88.8 Allergy status to other drugs, medicaments and biological substances; Z91.038 Other insect allergy status
CPT/HCPCS: 99211

== ENCOUNTER 2024-10-01 11:17 | Day surgery (SDC) | payer MEDICARE ==
[2024-10-01 11:54] VITALS: TEMP 97.9
[2024-10-01] MEDS: IV FLUID CONTINUATION 1,000 ML IV ONE (11:55)
[2024-10-01] MEDS: LACTATED RINGERS 1,000 ML IV SCH (11:57)
[2024-10-01 12:13] LABS: Glucose,Whole Blood 105 mg/dL (70-110)
[2024-10-01] MEDS ORDERED: ROPIVACAINE 5MG/ML 20ML VIAL ONE (12:43)
[2024-10-01] MEDS ORDERED: MIDAZOLAM 2 MG/2 ML VIAL ONE (12:43)
[2024-10-01] MEDS ORDERED: fentaNYL (PF) 50 MCG/ML 2 ML AMP ONE (12:43)
[2024-10-01] MEDS ORDERED: methylPREDNISolone ACETATE 40 MG/ML 1 ML VIAL ONE (12:43)
--- NOTE | 2024-10-01 13:11 | P.PCN ---
Date of Procedure: 10/01/24 Procedure(s) Performed: PREOPERATIVE DIAGNOSIS: 1-Lumbar Spondylosis with Facet Arthropathy without myelopathy. 2- Lumber degenerative disc disease. POSTOPERATIVE DIAGNOSIS: 1- Lumbar Spondylosis with Facet Arthropathy without myelopathy. 2- Lumber degenerative disc disease. PROCEDURES : Bilateral Radiofrequency thermocoagulation, L3 , L4 , and L5 medial branch, with fluoroscopic guidance (fluoroscopy images available in the radiology department) ( to denervate the facet joint at Bilateral L4-5 ,and L5-S1 levels ). ANESTHESIA: Sedation with Versed 2 mg and fentanyl 100 mcg, (Sedation started 1243 ,ended 1305 ) EBL: Minimal PROCEDURE INDICATION: The patient with low back pain secondary to lumbar facet arthropathy who had more than 50% relief of her pain with previous diagnostic lumbar medial branch block with bupivacaine. PROCEDURE DESCRIPTION / TECHNIQUE: The patient was seen and identified in the preoperative area. Risks, benefits, complications, including but not limited to risk of infection ,bleeding , allergic reactions to the medications and no complete pain releife , and alternatives were discussed with the patient, the patient agreed to proceed with the procedure and signed the consent. IV was started. Vital signs remained stable throughout the procedure. Patient was taken to the OR and time out was completed. The patient was placed in the prone position on the procedure table. The lumber area was prepped and draped in the usual sterile fashion. . Vital signs were closely monitored during the procedure .IV sedation was used during the procedure to decrease patients anxiety. Using AP and then oblique fluoroscopy, the ``eye of the Shivam dog corresponding to the connection between the superior and transverse articular processes of right L3, L4, and L5 were identified, marked, and localized with 1% lidocaine. Subsequently, a 18 guage ([employer] )150-mm radiofrequency cannula with a 10-mm active tip was advanced guided by fluoroscopy to each of the``eyes of the Shivam dog at right L3, L4, and L5. Each site then underwent sensory testing at 50 Hz and 0 to 1 volt and motor testing at 2.5 Hz and 0 to 3 volt with local stimulation, but no radicular symptoms down the legs. Thereafter each sites underwent radiofrequency thermocoagulation at 80 degrees celsius for 90 seconds after injecting 0.5 ml of PF Ropivacaine 1ml, then after the thermocoagulation done , 1 ml of the block solution containing Depo-Medrol 20 mg and 3 ml of Ropivacaine 0.5% was injected at the right L3 , L4 , and L5 , levels after negative aspiration of CSF and blood and with no paresthesias. Cannulas were retracted while injecting lidocaine 1% until the needle is out. The same procedure was repeated at the level of Left L3, L4, and L5 levels. At the end of the procedure, the skin was cleansed and bandages were applied. COMPLICATIONS: No acute complications. DISPOSITION / PLANS: The patient was placed in a supine position and transferred to the recovery area in a stable condition for observation and was discharged from the recovery room after meeting discharge criteria. Home discharge instructions given to the patient by the staff. The patient was reexamined prior to discharge. The patient will schedule a follow up in the clinic in 2-4 weeks.
[2024-10-01] MEDS: IV FLUID CONTINUATION 700 ML IV ONE (13:13)
[2024-10-01 13:20] VITALS: RESP 16
[2024-10-01 13:30] VITALS: BP 134/76; PULSE 68
--- NOTE | 2024-10-01 13:39 | FL ---
EXAMINATION TYPE: FL guided pain mgmt statistic DATE OF EXAM: 10/01/2024 FLUOROSCOPY [facility] Lumbar Rad Freq 41sec fluoro time .[id number] Ramirez 6 images are submitted. [facility], , 10/01/2024 1:37 PM
== END 2024-10-01 13:59 | disposition home or self-care (01) ==
LOC: ORPAIN 11:17
PROVIDERS: ATTEND Specialist
DX: M47.816 Spondylosis without myelopathy or radiculopathy, lumbar region (principal); M51.369 Other intervertebral disc degeneration, lumbar region without mention of lumbar back pain or lower extremity pain; E11.9 Type 2 diabetes mellitus without complications; Z79.84 Long term (current) use of oral hypoglycemic drugs; Z79.899 Other long term (current) drug therapy; Z79.1 Long term (current) use of non-steroidal anti-inflammatories (NSAID)
CPT/HCPCS: 64635; 64636 ×2; 99152; J2250; J3010; J2795; J1010

== ENCOUNTER → 2024-10-25 | Outpatient (CLI) | payer MEDICARE ==
[2024-10-25 10:44] VITALS: BP 163/78; PULSE 63; RESP 16; TEMP 97.1
--- NOTE | 2024-10-25 11:08 | P.PN ---
Progress Note - Text Has come for follow-up visit following radiofrequency ablation done on 10/01/2024. Patient complains his pain is still there. Location and intensity, aggravating relieving factor is unchanged. New MRI done significant spinal stenosis at L4-5 and L5-S1 level. Which is new. Exam is basically unchanged. Assessment and plan. I had a long discussion with patient. Told him that sometimes it may take more than 3 weeks before pain gets better after radiofrequency. Also has patient's MRI appears to be worse than the previous one patient should have a surgical consultation. Patient is scheduled to see Dr. Ryan in a couple of weeks.
== END ==
LOC: PNWHC3 09:43
PROVIDERS: ATTEND Pain Medicine Interventional Pain Medicine
DX: M48.061 Spinal stenosis, lumbar region without neurogenic claudication (principal); Z88.6 Allergy status to analgesic agent; Z88.8 Allergy status to other drugs, medicaments and biological substances; Z87.891 Personal history of nicotine dependence
CPT/HCPCS: 99211

== ENCOUNTER → 2025-01-17 | Outpatient (CLI) | payer MEDICARE ==
[2025-01-17 13:00] LABS: INR 0.9 (<1.2); Partial Thromboplastin Time 22.1 sec (22.0-30.0); Prothrombin Time 10.5 sec (10.0-12.5)
[2025-01-17 15:22] LABS: Basophils # (A) 0.05 X 10*3/uL (0.00-0.10); Basophils % (A) 0.7 %; Eosinophils # (A) 0.26 X 10*3/uL (0.04-0.35); Eosinophils % (A) 3.6 %; HCT 41.5 % (39.6-50.0); HGB 13.9 g/dL (13.0-17.0); Lymphocytes # (A) 1.66 X 10*3/uL (0.90-5.00); Lymphocytes % (A) 22.7 %; MCH 30.5 pg (27.0-32.0); MCHC 33.5 g/dL (32.0-37.0); Mean Platelet Volume 10.3 FL (9.5-12.2); Monocytes # (A) 0.63 X 10*3/uL (0.20-1.00); Monocytes % (A) 8.6 %; NRBC Per 100 WBC 0 X 10*3/uL (0.00-0.01); Neutrophils # (A) 4.67 X 10*3/uL (1.80-7.70); Neutrophils % (A) 63.9 %; Platelet Count 303 X 10*3/uL (140-440); RBC 4.56 X 10*6/uL (4.40-5.60); RDW 12.8 % (11.5-14.5); WBC 7.31 X 10*3/uL (4.50-10.00)
[2025-01-17 16:05] LABS: ALT 30 U/L (10-49); AST 23 U/L (14-35); Albumin 4.5 g/dL (3.8-4.9); Albumin/Globulin Ratio 1.88 Ratio (1.60-3.17); Alkaline Phosphatase 53 U/L (41-126); BUN/Creat Ratio 26.57 Ratio (12.00-20.00); Blood Urea Nitrogen 18.6 mg/dL (9.0-27.0); Carbon Dioxide 21.4 mmol/L (21.6-31.8); Chloride 105 mmol/L (96-109); Globulin 2.4 g/dL (1.6-3.3); Glucose 136 mg/dL (70-110); Potassium 4.6 mmol/L (3.5-5.5); Sodium 138 mmol/L (135-145); Total Bilirubin 0.3 mg/dL (0.3-1.2); Total Protein 6.9 g/dL (6.2-8.2)
== END | disposition home or self-care (01) ==
LOC: LABWHC1 11:53
PROVIDERS: ATTEND Family Medicine
DX: Z01.812 Encounter for preprocedural laboratory examination (principal); M48.062 Spinal stenosis, lumbar region with neurogenic claudication
CPT/HCPCS: 36415; 80053; 82306; 85025; 85610; 85730